=== PATIENT | male | born 1935 | race Caucasian/White ===

== ENCOUNTER → 2017-10-15 11:19 | Outpatient (CLI) | payer MEDICARE, SELFPAY ==
--- NOTE | 2017-10-15 11:19 | DT_ITS ---
This patient was seen during an EMR downtime October 13, 2017 - October 20, 2017. This patient may have a combination of paper and electronic documentation or all paper documentation. All documentation is viewable within the e-chart portion of [facility] for each patient visit.
== END ==
PROVIDERS: Family Provider Internal Medicine; PCP Internal Medicine; Visit Provider Internal Medicine
DX: I10 Essential (primary) hypertension (principal); E78.00 Pure hypercholesterolemia, unspecified; Z79.899 Other long term (current) drug therapy

== ENCOUNTER → 2017-10-21 07:47 | Outpatient (CLI) | payer MEDICARE, SELFPAY ==
[2017-10-21 09:37] LABS: Hematocrit 40.8 % (40-54); Hemoglobin 13.6 g/dl (13.0-16.5); Mean Corp Hgb Conc 33.3 g/gl (32-36); Mean Corpuscular Hgb 32.7 pg (27.0-32.0); Mean Corpuscular Volume 98.1 fL (80-94); Mean Platelet Vol. 9.3 fl (6.2-12.0); Platelet Count 262 K/mm3 (150-450); RBC Distribution Width CV 13.5 % (11.6-14.6); RBC Distribution Width SD 48.3 fl (35.1-43.9); Red Blood Count 4.16 M/mm3 (4.6-6.2); Scan Indicated on CBC? Y/N NO; White Blood Count 4.9 K/mm3 (4.4-11.0)
[2017-10-21 10:31] LABS: ALB/GLOB Ratio 0.9 RATIO (0.9-2.4); AST(SGOT) 20 U/L (15-37); Alanine Aminotransfer ALT/SGPT 21 U/L (16-61); Albumin, Serum 3.4 g/dL (3.2-5.0); Alkaline Phosphatase 58 U/L (45-117); Anion Gap 9 (5-15); BUN 6 mg/dL (7-18); BUN/Creat Ratio 7.6 RATIO (10-20); Calcium,Total 8.4 mg/dL (8.5-10.1); Chloride 99 mmol/L (98-107); Cholesterol 211 mg/dL (200); Creatinine, Serum 0.79 mg/dL (0.70-1.30); EST Glomerular Filtration Rate 99 mL/min (>60); Est Glom Filt Rate - Afr Amer 120 mL/min (>60); Globulin 3.7 g/dL (2.2-4.2); Glucose 85 mg/dL (74-106); High Density Lipoprotein 64 mg/dL; Protein, Total 7.1 g/dL (6.4-8.2); Sodium Level 138 mmol/L (136-145); Triglycerides 143 mg/dL; Very Low Density Lipoprotein 29 mg/dL (5-40)
== END ==
PROVIDERS: Family Provider Internal Medicine; PCP Internal Medicine; Visit Provider Internal Medicine
DX: I10 Essential (primary) hypertension (principal); E78.00 Pure hypercholesterolemia, unspecified; Z79.899 Other long term (current) drug therapy
CPT/HCPCS: 36415; 80053; 80061; 85027

== ENCOUNTER → 2018-04-24 11:02 | Outpatient (CLI) | payer MEDICARE, SELFPAY ==
[2018-04-24 13:50] LABS: Anion Gap 8 (5-15); BUN 6 mg/dL (7-18); BUN/Creat Ratio 8.4 RATIO (10-20); Calcium,Total 8.7 mg/dL (8.5-10.1); Chloride 97 mmol/L (98-107); Creatinine, Serum 0.71 mg/dL (0.70-1.30); EST Glomerular Filtration Rate 112 mL/min (>60); Est Glom Filt Rate - Afr Amer 136 mL/min (>60); Glucose 90 mg/dL (74-106); Potassium 4.3 mmol/L (3.5-5.1); Sodium Level 134 mmol/L (136-145)
--- OUTSIDE RECORDS SUMMARY | 2018-06-10 03:48 | XMS RPT_ITS ---
:1935 Author Organization OHIP Care Team Providers Name Role Phone TALAMPAS, ORALIA D Attending Unavailable TALAMPAS, ORALIA D Referring Unavailable YI, CYNDI (ARMORED MACHINE OPERATOR) Attending Unavailable YI, CYNDI (ARMORED MACHINE OPERATOR) Attending Unavailable YI, CYNDI (ARMORED MACHINE OPERATOR) Referring Unavailable HENRRY FERNCH Attending Unavailable YI, CYNDI (ARMORED MACHINE OPERATOR) Referring Unavailable YI, CYNDI (ARMORED MACHINE OPERATOR) Attending Unavailable YI, CYNDI (ARMORED MACHINE OPERATOR) Referring Unavailable TALAMPAS, ORALIA D Attending Unavailable YI, CYNDI (ARMORED MACHINE OPERATOR) Referring Unavailable Talampas, Oralia Attending Unavailable Talampas, Oralia Referring Unavailable Talampas, Oralia Primary Care Unavailable Talampas, Oralia Attending Unavailable Talampas, Oralia Referring Unavailable Talampas, Oralia Primary Care Unavailable Talampas, Oralia Attending Unavailable Talampas, Oralia Referring Unavailable Talampas, Oralia Primary Care Unavailable PROBLEMS PROBLEMS DATE TYPE CONDITION / CODE ATTENDING STATUS SOURCE 04/24/2018 Unknown Z79.899 - Other Talampas, Oralia Active [facility] (current) Community drug therapy [facility] Hospital Z79.899(ICD-10) Repository 04/24/2018 Unknown I10 - Essential Oralia Eason Active [place] (primary) [facility] hypertension / Hospital I10(ICD-10) Repository 02/03/2018 Active Other fecal NA Active [facility] abnormalities / [facility] [place] R19.5(ICD-10) Repository 10/28/2017 Active Unknown / ORALIA EASON Active [facility] UNK(Unknown) D Main [place] Repository 11/05/2017 Unknown E78.00 - Pure Oralia Eason Active [place] hypercholesterolemi Community a, unspecified / Hospital E78.00(ICD-10) Repository PROCEDURES PROCEDURES No Procedure Records FoundRESULTS RESULTS PROGRESS Observed: 05/01/2018 Status: COMPLETED Source: [place] 12:29 PM [facility] REPOSITORY HNO ID: [id number] Author: Oralia Franko Eason Service: (none) Author Type: Physician Type: Progress Notes Filed: 05/24/2018 10:14 PM Note Text: Patient presents with: Recheck: Follow up SUBJECTIVE: Burke Mukherjee is a 82 year old year old gentleman here today for 6 month follow up appointment for review of medical conditions. Depression is better with med change plus counseling. Saw Dr. French. Told to try melatonin. 5 mg helping for sleep. Working on increasing motivation to do things liked to do before. Started back to reading. Cut out coffee. Drinking 1 cup green tea. Bladder issues better. Did not need cardura. Off clonazepam. BCC taken care of yesterday in left occipital area.Dr. Chong Goldsmith, [facility]. (Dr. Quiana Goldsmith) is his Eye doctor. 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 Zxkwoacdpzv-Zpwiwaivu-Eue C-Mn (GLUCOSAMINE CHONDROITIN MAXSTR) 500-400 mg cap Take 1 capsule by mouth twice daily. lisinopril (ZESTRIL, PRINIVIL) 10 mg tablet TAKE ONE TABLET BY MOUTH DAILY MULTIVITAMIN TAB Take one(1) tablet daily. omega-3 fatty acids(FISH OIL 500 MG CAP) Take one(1) capsule daily. sertraline (ZOLOFT) 100 mg tablet Take 1 tablet by mouth once daily. vit C,P-Zy-ouaau-lutein-zeaxan (PRESERVISION AREDS 2) 761-808-90-1 mk-dboz-id-mg cap Take 2 capsules by mouth once daily. COMPOUNDED PRESCRIPTION Lab order: CMP, CBC, lipid Diagnoses: I10, Z79.899, E78.00 (Patient not taking: Reported on 05/01/2018 ) COMPOUNDED PRESCRIPTION Lab draw: BMP, Vitamin D25-OH Diagnoses: (I10) Essential hypertension; Z79.899. (R79.98) Low serum calcium (Patient not taking: Reported on 05/01/2018 ) doxazosin (CARDURA) 1 mg tablet Take 1 tablet by mouth once daily. (Patient not taking: Reported on 05/01/2018 ) No current facility-administered medications for this visit. OBJECTIVE: BP 142/82 Pulse 60 Resp 16 Wt 63.5 kg (140 lb) BMI 21.29 kg/m? Patient is alert, oriented times 3, no apparent distress, affect is bright, reactive. Last 5 Encounter BP Readings: Date: BP: 05/01/2018 142/82 02/24/2018 130/84 01/27/2018 122/80 01/05/2018 120/82 10/28/2017 130/80 Heart: Regular rate, rhythm, no murmurs, gallops, rubs. Lungs: Clear to auscultation, bilaterally, breathing non labored. Ext: No cyanosis, clubbing, or edema. ASSESSMENT AND PLAN: Encounter Diagnosis ICD-10-CM 1. Essential hypertension I10 sertraline (ZOLOFT) 100 mg tablet COMP METABOLIC PANEL CBC 2. Recurrent major depressive disorder, in partial remission (HCC) F33.41 improved;will see if higher dose gets him in remission 3. 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 Encounter for long-term current use of medication Z79.899 BP running higher than usual. Expect to improve after gets sleep back on track. Follow up as directed. Adjust meds if not getting back<140/90, ideally <130/80. Will see if melatonin will be adequate for sleep. Further evaluation and treatment as indicated. Glad to be off clonazepam. Depression improved as noted in HPI. Continue current medication management and follow up with Dr. French. Further evaluation and treatment as indicated. Above issues addressed with patient. Patient involved in shared decision making for management of medical issues. History and medications reviewed. Epic updated as needed Refills taken care of and meds adjusted as indicated after reviewed history, exam and labs. Health Maintenance reviewed. Updated record and/or ordered tests as recorded. Encouraged on efforts at healthy diet and regular exercise and adequate sleep. The majority of the visit was spent counseling and/or coordinating care for the patient. Ezer-lg-rwdq time was at least 15 minutes. Oralia Eason MD CNOV Observed: 05/01/2018 Status: COMPLETED Source: [place] 11:40 AM [facility] REPOSITORY Office Visit (INTMWS) BURKE MUKHERJEE ([id number]) 1935 M Date Time Provider Department 05/01/18 11:40 AM ORALIA EASON INTMWS During your visit today, we recorded the following information about you: Pulse Respiration Blood pressure Weight 60/minute 16/minute 142/82 63.5 kg Oralia Eason MD 05/24/2018 10:14 PM Signed Patient presents with: Recheck: Follow up SUBJECTIVE: Burke Mukherjee is a 82 year old year old gentleman here today for 6 month follow up appointment for review of medical conditions. Depression is better with med change plus counseling. Saw Dr. French. Told to try melatonin. 5 mg helping for sleep. Working on increasing motivation to do things liked to do before. Started back to reading. Cut out coffee. Drinking 1 cup green tea. Bladder issues better. Did not need cardura. Off clonazepam. BCC taken care of yesterday in left occipital area.Dr. Chong Goldsmith, [facility]. (Dr. Quiana Goldsmith) is his Eye doctor. 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 Ucvovozzhes-Cxxufgzha-Pac C-Mn (GLUCOSAMINE CHONDROITIN MAXSTR) 500-400 mg cap Take 1 capsule by mouth twice daily. lisinopril (ZESTRIL, PRINIVIL) 10 mg tablet TAKE ONE TABLET BY MOUTH DAILY MULTIVITAMIN TAB Take one(1) tablet daily. omega-3 fatty acids(FISH OIL 500 MG CAP) Take one(1) capsule daily. sertraline (ZOLOFT) 100 mg tablet Take 1 tablet by mouth once daily. vit C,Y-Kh-vemkb-lutein-zeaxan (PRESERVISION AREDS 2) 897-325-31-1 nf-docl-bh-mg cap Take 2 capsules by mouth once daily. COMPOUNDED PRESCRIPTION Lab order: CMP, CBC, lipid Diagnoses: I10, Z79.899, E78.00 (Patient not taking: Reported on 05/01/2018 ) COMPOUNDED PRESCRIPTION Lab draw: BMP, Vitamin D25-OH Diagnoses: (I10) Essential hypertension; Z79.899. (R79.98) Low serum calcium (Patient not taking: Reported on 05/01/2018 ) doxazosin (CARDURA) 1 mg tablet Take 1 tablet by mouth once daily. (Patient not taking: Reported on 05/01/2018 ) No current facility-administered medications for this visit. OBJECTIVE: BP 142/82 Pulse 60 Resp 16 Wt 63.5 kg (140 lb) BMI 21.29 kg/m? Patient is alert, oriented times 3, no apparent distress, affect is bright, reactive. Last 5 Encounter BP Readings: Date: BP: 05/01/2018 142/82 02/24/2018 130/84 01/27/2018 122/80 01/05/2018 120/82 10/28/2017 130/80 Heart: Regular rate, rhythm, no murmurs, gallops, rubs. Lungs: Clear to auscultation, bilaterally, breathing non labored. Ext: No cyanosis, clubbing, or edema. ASSESSMENT AND PLAN: Encounter Diagnosis ICD-10-CM 1. Essential hypertension I10 sertraline (ZOLOFT) 100 mg tablet COMP METABOLIC PANEL CBC 2. Recurrent major depressive disorder, in partial remission (HCC) F33.41 improved;will see if higher dose gets him in remission 3. 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 Encounter for long-term current use of medication Z79.899 BP running higher than usual. Expect to improve after gets sleep back on track. Follow up as directed. Adjust meds if not getting back<140/90, ideally <130/80. Will see if melatonin will be adequate for sleep. Further evaluation and treatment as indicated. Glad to be off clonazepam. Depression improved as noted in HPI. Continue current medication management and follow up with Dr. French. Further evaluation and treatment as indicated. Above issues addressed with patient. Patient involved in shared decision making for management of medical issues. History and medications reviewed. Epic updated as needed Refills taken care of and meds adjusted as indicated after reviewed history, exam and labs. Health Maintenance reviewed. Updated record and/or ordered tests as recorded. Encouraged on efforts at healthy diet and regular exercise and adequate sleep. The majority of the visit was spent counseling and/or coordinating care for the patient. Rbmb-dq-fkax time was at least 15 minutes. Oralia Eason MD Referring Provider: CYNDI YI (ARMORED MACHINE OPERATOR) [[id number]] Allergies As of Date: 05/01/2018 (No Known Allergies) Date Reviewed: 05/01/2018 Reviewed by: Sepideh Baker LPN - Fully Assessed Reason for Visit: Recheck [92] Cmt: Follow up Primary Visit Diagnosis:Essential hypertension [I10] Other Visit Diagnoses:Recurrent major depressive disorder, in partial remission (HCC) [F33.41] Comment:improved;will see if higher dose gets him in remission Psychophysiological insomnia [F51.04] Encounter for long-term current use of medication [Z79.899] Order(s):sertraline (ZOLOFT) 100 mg tabletTake 1.5 tablets by mouth once daily.Disp: 45 tabletRfl: 5 COMP METABOLIC PANEL [SQCMP] Order #: [id number] [facility] Order #: [id number] FUTURE Prescriptions as of 05/01/2018 Sig: SERTRALINE 100 MG TABLET Take 1.5 tablets by mouth onc* LISINOPRIL 10 MG TABLET TAKE ONE TABLET BY MOUTH DAILY ATENOLOL 25 MG TABLET TAKE ONE TABLET BY MOUTH DAILY GABAPENTIN 600 MG TABLET Take 1 tablet by mouth daily * VIT C 250 MG-E 200 UNIT-ZINC * Take 2 capsules by mouth once* * IUEIAGKDNPU-XIOUOXXUN-QEC C-M* Take 1 capsule by mouth twice* * FISH OIL 500 MG CAPSULE Take one(1) capsule daily. * MULTIVITAMIN TABLET Take one(1) tablet daily. COMPOUNDED PRESCRIPTION Lab draw: BMP, Vitamin D25-O* Patient not taking: Reported on 05/01/2018 COMPOUNDED PRESCRIPTION Lab order: CMP, CBC, lipid * Patient not taking: Reported on 05/01/2018 Medication notes this encounter DOXAZOSIN 1 MG TABLET >> Oralia Eason MD 05/01/2018 12:37 PM did not start CLONAZEPAM 0.5 MG TABLET >> Oralia Eason MD 05/01/2018 12:35 PM weaned off Problem List As Of Date 05/01/2018 Noted Resolved Recurrent major depressive disorder, in partial*INVALID FOR* Pure hypercholesterolemia [E78.00] INVALID FOR*05/01/2018 NONSPECIF SKIN ERUPT NEC [R21] INVALID FOR* Carpal Tunnel Syndrome [G56.00] INVALID FOR* Essential hypertension [I10] INVALID FOR* Actinic Keratosis (Premaligant AK) [L57.0] INVALID FOR* Neoplasm Uncertain Behavior(NUB) of Skin: R/O *INVALID FOR* 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 Medications Discontinued During This Encounter sertraline (ZOLOFT) 100 mg tablet 30 t* 5 02/24/2018 05/01/2018 Route: ORAL Sig: Take 1 tablet by mouth once daily. Disc: Reason for discontinue is not on file. clonazePAM (KLONOPIN) 0.5 mg tablet 60 t* 5 10/28/2017 05/01/2018 Class: Print RX Route: ORAL Sig: Take 1 tablet by mouth twice daily for 180 days. Disc: Reason for discontinue is not on file. doxazosin (CARDURA) 1 mg tablet 30 t* 2 01/01/2018 05/01/2018 Route: ORAL Sig: Take 1 tablet by mouth once daily. Patient not taking: Reported on 05/01/2018 Disc: Reason for discontinue is not on file. Disposition: Return in about 6 months (around 10/30/2018) for 6 months follow up. Follow-up and Disposition History Recorded Encounter Status:Closed by ORALIA EASON MD on 05/24/18 BASIC METABOLIC Collected: 04/24/2018 Status: F Source: [facility]) 11:18 AM [facility] REPOSITORY TYPE CODE TESTS RESULT OUT OF RANGE REFERENCE UNITS LAB L501.0100 74-106 mg/dL Normal GLU 90 Result Comment: Please note revised GLUCOSE reference range effective 2017. LAB L501.1000 7-18 mg/dL Low BUN 6 LAB L501.1100 0.70-1.30 mg/dL Normal CREAT,SERUM 0.71 Result Comment: The validity of the calculated GFR AND GFRAA in patients over 70 years has not been determined. Clinical correlation is essential. LAB L501.1110 >60 mL/min Normal EST GFR 112 Result Comment: Non- GFR Calc LAB L501.1115 >60 mL/min Normal EST GFR - AA 136 Result Comment: GFR Calc LAB L501.1300 10-20 RATIO Low BUN/CRE 8.4 LAB L501.2200 8.5-10.1 mg/dL Normal CA 8.7 LAB L501.5300 136-145 mmol/L Low NA 134 LAB L501.5600 3.5-5.1 mmol/L Normal K 4.3 LAB L501.5900 98-107 mmol/L Low CL 97 LAB L501.6100 21.0-32.0 mmol/L Normal CO2 29.0 LAB L501.6200 5-15 Normal GAP 8 Performed By: #### L500.2500 #### [facility] [address] [place], [address] [facility] Observed: 04/14/2018 Status: COMPLETED Source: [place] 12:00 AM [facility] REPOSITORY Patient Outreach (INTMWH) BURKE MUKHERJEE ([id number]) 1935 M Date Time Provider Department 04/14/18 ORALIA EASON [facility] During your visit today, we recorded the following information about you: Allergies As of Date: 04/14/2018 (No Known Allergies) Date Reviewed: 02/24/2018 Reviewed by: Leonora Arroyo LPN - Fully Assessed Visit Diagnosis:Medication management [Z79.899] Order(s):BASIC METABOLIC PNL [SQBMP] Order #: [id number] FUTURE Prescriptions as of 04/14/2018 Sig: COMPOUNDED PRESCRIPTION Lab order: CMP, CBC, lipid * Patient not taking: Reported on 05/01/2018 COMPOUNDED PRESCRIPTION Lab draw: BMP, Vitamin D25-O* Patient not taking: Reported on 05/01/2018 * MSTCBRPQMMN-OSYXRLRUT-MUQ C-M* Take 1 capsule by mouth twice* * MULTIVITAMIN TABLET Take one(1) tablet daily. * FISH OIL 500 MG CAPSULE Take one(1) capsule daily. VIT C 250 MG-E 200 UNIT-ZINC * Take 2 capsules by mouth once* X ATENOLOL 25 MG TABLET Take 1 tablet by mouth once d* X CLONAZEPAM 0.5 MG TABLET Take 1 tablet by mouth twice * X DOXAZOSIN 1 MG TABLET Take 1 tablet by mouth once d* Patient not taking: Reported on 05/01/2018 X GABAPENTIN 600 MG TABLET Take 1 tablet by mouth daily * X LISINOPRIL 10 MG TABLET Take 1 tablet by mouth once d* X SERTRALINE 100 MG TABLET Take 1 tablet by mouth once d* Problem List As Of Date 04/14/2018 Noted Resolved DEPRESSIVE DISORDER NEC [F32.9] INVALID FOR* PURE HYPERCHOLESTEROLEM [E78.00] INVALID FOR* NONSPECIF SKIN ERUPT NEC [R21] INVALID FOR* Carpal Tunnel Syndrome [G56.00] INVALID FOR* Essential hypertension [I10] INVALID FOR* Actinic Keratosis (Premaligant AK) [L57.0] INVALID FOR* Neoplasm Uncertain Behavior(NUB) of Skin: R/O *INVALID FOR* 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] INVALID FOR* Actinic Damage///Sun-Damaged Skin [L57.8] INVALID FOR* Cervicalgia [M54.2] INVALID FOR* Encounter Status:Closed by TAWANDA RODRIGUEZUSER on 05/07/18 CNOV Observed: 02/24/2018 Status: COMPLETED Source: [place] 1:40 PM [facility] REPOSITORY Office Visit (INTMWS) BURKE MUKHERJEE ([id number]) 1935 M Date Time Provider Department 02/24/18 1:40 PM CYNDI YI (DAVID) INTMWS During your visit today, we recorded the following information about you: Pulse Respiration Blood pressure Weight 68/minute 16/minute 130/84 67.1 kg Cyndi Yi APRN.CNS 02/26/2018 7:21 AM Signed OUTPATIENT VISIT DATE February 24, 2018 OUTPATIENT VISIT TYPE ESTABLISHED PRIMARY CARE PHYSICIAN: Oarlia Eason MD CHIEF COMPLAINT: Patient presents with: Follow Up History of Present Illness: Burke Mukherjee is a 82 year old male who was last seen 10/2017 by Oralia Eason MD. Last seen in January 05, 2018 He has been seen in the past for ACTIVE PROBLEM LIST Depressive Disorder, Not Elsewhere Classified Pure Hypercholesterolemia Rash and Other Nonspecific Skin Eruption Carpal Tunnel Syndrome Essential Hypertension Actinic Keratosis (Premaligant AK) Neoplasm Uncertain Behavior(NUB) of Skin: R/O BCC of R face mid postlat cheek Chondrodermatitis Nodularis Helicis Actinic Damage///Sun-Damaged Skin Cervicalgia HPI excerpted from last visit: Presents with his today. It is his 63rd anniversary today. Since the last visit, he states that he is feeling depressed. Mood is decreased. He reports over the last 2 weeks nearly every day he's had little interest or pleasure in doing things, feeling down and depressed or hopeless, trouble falling asleep or sleeping too much, feeling tired or having little energy, poor appetite, feeling bad about himself, trouble concentrating and thoughts that he would be better off or hurting himself. No voiced HI or SI. Has been taking medications previously advised.Has only taken one day of medication for BPH symptoms on Friday. Today reports he is taking melatonin for sleep which is finding helpful. He would like to switch from duloxetine to sertraline. Reports sertraline is working well for him the past. Symptoms are about the same as at his last visit. He's been seen by Dr. French recommended some exchange. He has been discharged for now follow-up as needed. He has noted a swelling at his left elbow over the last couple of days. No injury, redness, warmth is present. No drainage. No recent hospital or ED visits. No new medical problems or medications. Able to obtain medications. No problems with taking medications or note side effects. 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[place]) - Carpal tunnel syndrome - Cervicalgia 02/10/2012 - Decreased hearing has bilateral hearing aids - Depressive disorder, not elsewhere classified - Diverticulosis of colon (without mention of hemorrhage) PAST SURGICAL HISTORY Procedure Laterality Date - COLONOSCOP W/ OR W/O [email or web address] SPEC 04/01/2012 Colonoscopy - COLONOSCOPY 09/20/1998, 11/01/2003 FAMILY HISTORY Problem Relation Age of Onset - Colon Cancer Mother - Coronary Artery Disease Father CABG after 55yo; no OK Social History Substance Use Topics - Smoking status: Former Smoker Types: Cigars Quit date: 05/12/1995 - Smokeless tobacco: Never Used Comment: passive cigar smoker that quit. - Alcohol use Yes Comment: couple of beers a day and one mixed drink after supper. ALLERGIES: ALLERGIES No Known Allergies MEDICATIONS doxazosin (CARDURA) 1 mg tablet Take 1 tablet by mouth once daily. clonazePAM (KLONOPIN) 0.5 mg tablet Take 1 tablet by mouth twice daily for 180 days. COMPOUNDED PRESCRIPTION Lab draw: BMP, Vitamin D25-OH Diagnoses: (I10) Essential hypertension; Z79.899. (R79.98) Low serum calcium gabapentin (NEURONTIN) 600 mg tablet Take 1 tablet by mouth daily at bedtime. lisinopril (ZESTRIL, PRINIVIL) 10 mg tablet Take 1 tablet by mouth once daily. atenolol (TENORMIN) 25 mg tablet Take 1 tablet by mouth once daily. COMPOUNDED PRESCRIPTION Lab order: CMP, CBC, lipid Diagnoses: I10, Z79.899, E78.00 vit C,M-Il-ufyon-lutein-zeaxan (PRESERVISION AREDS 2) 524-989-06-1 tz-bmyd-ch-mg cap Take 2 capsules by mouth once daily. Vwxbriazenq-Ceyxtblst-Oxr C-Mn (GLUCOSAMINE CHONDROITIN MAXSTR) 500-400 mg cap Take 1 capsule by mouth twice daily. omega-3 fatty acids(FISH OIL 500 MG CAP) Take one(1) capsule daily. MULTIVITAMIN TAB Take one(1) tablet daily. sertraline (ZOLOFT) 100 mg tablet Take 1 tablet by mouth once daily. celecoxib (CELEBREX) 200 mg capsule Take 1 capsule by mouth twice daily. Take with food. For elbow REVIEW OF SYSTEMS: GENERAL: Negative for: Weight loss or gain, Fever or Chills, Weakness and Sleep difficulties. Physical Examination: BP 130/84 Pulse 68 Resp 16 Wt 148 lb (67.1kg) General appearance: Well appearing, alert, in no acute distress, well-hydrated, well nourished. Skin: Skin color, texture, turgor normal, no suspicious rashes or lesions Neuro: Gait normal. . Sensation grossly intact. Extremities: No deformities, edema, skin discoloration, clubbing or cyanosis. Good capillary refill. , Positive findings: joint location: on left elbow bursitis, Tenderness over lateral epicondyle on left Reviewed chart, outside records, tests I personally interviewed, confirmed and edited the above information if obtained by others. TESTING: Glucose Date Value 10/21/2017 85 10/12/2015 Test sent to [facility]. mg/dL Potassium (mmol/L) Date Value 10/12/2015 Test sent to [facility]. Sodium (mmol/L) Date Value 10/12/2015 Test sent to [facility]. Chloride (mmol/L) Date Value 10/12/2015 Test sent to [facility]. CO2 (mmol/L) Date Value 10/12/2015 Test sent to [facility]. Creatinine (mg/dL) Date Value 10/12/2015 Test sent to [facility]. BUN (mg/dL) Date Value 10/12/2015 Test sent to [facility]. Anion Gap (mmol/L) Date Value 10/12/2015 Test sent to [facility]. Calcium (mg/dL) Date Value 10/12/2015 Test sent to [facility]. Glucose Date Value 10/21/2017 85 10/12/2015 Test sent to [facility]. mg/dL Potassium (mmol/L) Date Value 10/12/2015 Test sent to [facility]. Sodium (mmol/L) Date Value 10/12/2015 Test sent to [facility]. Chloride (mmol/L) Date Value 10/12/2015 Test sent to [facility]. CO2 (mmol/L) Date Value 10/12/2015 Test sent to [facility]. Creatinine (mg/dL) Date Value 10/12/2015 Test sent to [facility]. BUN (mg/dL) Date Value 10/12/2015 Test sent to [facility]. Anion Gap (mmol/L) Date Value 10/12/2015 Test sent to [facility]. Calcium (mg/dL) Date Value 10/12/2015 Test sent to [facility]. No results found for: HB, HCT, WBC Cholesterol, Total (mg/dL) Date Value 10/12/2015 Test sent to [facility]. Cholesterol (no units) Date Value 10/21/2017 211 HDL Cholesterol Date Value 10/21/2017 64 10/12/2015 Test sent to [facility]. mg/dL LDL Cholesterol Date Value 10/21/2017 118 10/12/2015 Test sent to [facility]. mg/dL Triglyceride Date Value 10/21/2017 143 10/12/2015 [facility] [facility] mg/dL No results found for: HBA1C Ejection Fraction: No results found IMPRESSION: Mr. Mukherjee is a 82 year old man presents with depressed mood. Would like to change all medications, previously did well with sertraline. After my examination and review of data, I make the following recommendations. PLAN AND RECOMMENDATIONS: 1. Olecranon bursitis of left elbow - ICD9: 726.33, ICD10: M70.22 (primary diagnosis) Take celecoxib twice daily with food for elbow Protect elbow, place on pillow when seated. Make appointment with orthopedic physician. - CONSULT TO ORTHOPAEDICS 2. Anxiety and depression - ICD9: 300.00, 311, ICD10: F41.9, F32.9 Discontinue duloxetine Start taking sertraline 3. Sleep difficulties - ICD9: 780.50, ICD10: G47.9 Continue with melatonin at bedtime, has been taking OTC, not sure of dose, is helping Call and let us know if not feeling well with any of these changes Keep scheduled appointment with Oralia Eason MD Advised to go to ER if develops chest pain, shortness of breath, or severe worsening of symptoms. Discussed risks, benefits, alternatives, and potential side effects of medications. Mr. Mukherjee expressed understanding and agreed with the plan. Cyndi Yi APRN.ARMORED MACHINE OPERATOR Cyndi Yi APRN.ARMORED MACHINE OPERATOR 02/24/2018 2:14 PM Signed Discontinue duloxetine Start taking sertraline Take celecoxib twice daily with food for elbow Protect elbow, place on pillow when seated. Make appointment with orthopedic physician. Call and let us know if not feeling well with any of these changes Keep scheduled appointment with Oralia Eason MD Referring Provider: CYNDI YI ([facility]) [[id number]] Allergies As of Date: 02/24/2018 (No Known Allergies) Date Reviewed: 02/24/2018 Reviewed by: Leonora Arroyo LPN - Fully Assessed Reason for Visit: Follow Up [171] Primary Visit Diagnosis:Olecranon bursitis of left elbow [M70.22] Other Visit Diagnoses:Anxiety and depression [F41.9, F32.9] Sleep difficulties [G47.9] Order(s):sertraline (ZOLOFT) 100 mg tabletTake 1 tablet by mouth once daily.Disp: 30 tabletRfl: 5 celecoxib (CELEBREX) 200 mg capsuleTake 1 capsule by mouth twice daily. Take with food. For elbowDisp: 60 capsuleRfl: 0 CONSULT TO ORTHOPAEDICS [9026] Order #: [id number]: 1 Prescriptions as of 02/24/2018 Sig: DOXAZOSIN 1 MG TABLET Take 1 tablet by mouth once d* CLONAZEPAM 0.5 MG TABLET Take 1 tablet by mouth twice * COMPOUNDED PRESCRIPTION Lab draw: BMP, Vitamin D25-O* GABAPENTIN 600 MG TABLET Take 1 tablet by mouth daily * LISINOPRIL 10 MG TABLET Take 1 tablet by mouth once d* ATENOLOL 25 MG TABLET Take 1 tablet by mouth once d* COMPOUNDED PRESCRIPTION Lab order: CMP, CBC, lipid * VIT C 250 MG-E 200 UNIT-ZINC * Take 2 capsules by mouth once* * QIIMSGUGIRV-DOZZSHQNL-HWB C-M* Take 1 capsule by mouth twice* * FISH OIL 500 MG CAPSULE Take one(1) capsule daily. * MULTIVITAMIN TABLET Take one(1) tablet daily. 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 Make appointment with orthopedic physician. Call and let us know if not feeling well with any of these changes Keep scheduled appointment with Oralia Eason MD Prescriptions ordered this encounter Disp Refills Start End SERTRALINE 100 MG TABLET 30 t* 5 02/24/2018 08/23/2018 Route: ORAL Sig: Take 1 tablet by mouth once daily. CELECOXIB 200 MG CAPSULE 60 c* 0 02/24/2018 03/26/2018 Route: ORAL Sig: Take 1 capsule by mouth twice daily. Take with food. For elbow Medications Discontinued During This Encounter DULoxetine (CYMBALTA) 30 mg capsule 30 c* 2 01/27/2018 02/24/2018 Route: ORAL Sig: Take 1 capsule by mouth once daily. Take in addition to 60 mg capsule for a total of 90 mg daily Disc: Reason for discontinue is not on file. DULoxetine (CYMBALTA) 60 mg capsule 30 c* 11 04/15/2017 02/24/2018 Route: ORAL Sig: Take 1 capsule by mouth once daily. Disc: Reason for discontinue is not on file. Encounter Status:Closed by CYNDI SALOMON on 02/26/18 PROGRESS Observed: 02/24/2018 Status: COMPLETED Source: [place] 12:56 PM CLINIC [facility]IN [facility] REPOSITORY O ID: [id number] Author: Cyndi Yi ([place]) Service: (none) Author Type: Nurse Specialist Type: Progress Notes Filed: 02/26/2018 7:21 AM Note Text: OUTPATIENT VISIT DATE February 24, 2018 OUTPATIENT VISIT TYPE ESTABLISHED PRIMARY CARE PHYSICIAN: Oralia Eason MD CHIEF COMPLAINT: Patient presents with: Follow Up History of Present Illness: Burke Mukherjee is a 82 year old male who was last seen 10/2017 by Oralia Eason MD. Last seen in January 05, 2018 He has been seen in the past for ACTIVE PROBLEM LIST Depressive Disorder, Not Elsewhere Classified Pure Hypercholesterolemia Rash and Other Nonspecific Skin Eruption Carpal Tunnel Syndrome Essential Hypertension Actinic Keratosis (Premaligant AK) Neoplasm Uncertain Behavior(NUB) of Skin: R/O BCC of R face mid postlat cheek Chondrodermatitis Nodularis Helicis Actinic Damage///Sun-Damaged Skin Cervicalgia HPI excerpted from last visit: Presents with his today. It is his 63rd anniversary today. Since the last visit, he states that he is feeling depressed. Mood is decreased. He reports over the last 2 weeks nearly every day he's had little interest or pleasure in doing things, feeling down and depressed or hopeless, trouble falling asleep or sleeping too much, feeling tired or having little energy, poor appetite, feeling bad about himself, trouble concentrating and thoughts that he would be better off or hurting himself. No voiced HI or SI. Has been taking medications previously advised.Has only taken one day of medication for BPH symptoms on Friday. Today reports he is taking melatonin for sleep which is finding helpful. He would like to switch from duloxetine to sertraline. Reports sertraline is working well for him the past. Symptoms are about the same as at his last visit. He's been seen by Dr. French recommended some exchange. He has been discharged for now follow-up as needed. He has noted a swelling at his left elbow over the last couple of days. No injury, redness, warmth is present. No drainage. No recent hospital or ED visits. No new medical problems or medications. Able to obtain medications. No problems with taking medications or note side effects. 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[place]) - Carpal tunnel syndrome - Cervicalgia 02/10/2012 - Decreased hearing has bilateral hearing aids - Depressive disorder, not elsewhere classified - Diverticulosis of colon (without mention of hemorrhage) PAST SURGICAL HISTORY Procedure Laterality Date - COLONOSCOP W/ OR W/O [facility] SPEC 04/01/2012 Colonoscopy - COLONOSCOPY 09/20/1998, 11/01/2003 FAMILY HISTORY Problem Relation Age of Onset - Colon Cancer Mother - Coronary Artery Disease Father CABG after 55yo; no [place] Social History Substance Use Topics - Smoking status: Former Smoker Types: Cigars Quit date: 05/12/1995 - Smokeless tobacco: Never Used Comment: passive cigar smoker that quit. - Alcohol use Yes Comment: couple of beers a day and one mixed drink after supper. ALLERGIES: ALLERGIES No Known Allergies MEDICATIONS doxazosin (CARDURA) 1 mg tablet Take 1 tablet by mouth once daily. clonazePAM (KLONOPIN) 0.5 mg tablet Take 1 tablet by mouth twice daily for 180 days. COMPOUNDED PRESCRIPTION Lab draw: BMP, Vitamin D25-OH Diagnoses: (I10) Essential hypertension; Z79.899. (R79.98) Low serum calcium gabapentin (NEURONTIN) 600 mg tablet Take 1 tablet by mouth daily at bedtime. lisinopril (ZESTRIL, PRINIVIL) 10 mg tablet Take 1 tablet by mouth once daily. atenolol (TENORMIN) 25 mg tablet Take 1 tablet by mouth once daily. COMPOUNDED PRESCRIPTION Lab order: CMP, CBC, lipid Diagnoses: I10, Z79.899, E78.00 vit C,L-Ht-nppua-lutein-zeaxan (PRESERVISION AREDS 2) 261-152-03-1 nc-edpx-jh-mg cap Take 2 capsules by mouth once daily. Jlvcmnjhjkr-Eotmlfxsi-Yvt C-Mn (GLUCOSAMINE CHONDROITIN MAXSTR) 500-400 mg cap Take 1 capsule by mouth twice daily. omega-3 fatty acids(FISH OIL 500 MG CAP) Take one(1) capsule daily. MULTIVITAMIN TAB Take one(1) tablet daily. sertraline (ZOLOFT) 100 mg tablet Take 1 tablet by mouth once daily. celecoxib (CELEBREX) 200 mg capsule Take 1 capsule by mouth twice daily. Take with food. For elbow REVIEW OF SYSTEMS: GENERAL: Negative for: Weight loss or gain, Fever or Chills, Weakness and Sleep difficulties. Physical Examination: BP 130/84 Pulse 68 Resp 16 Wt 148 lb (67.1kg) General appearance: Well appearing, alert, in no acute distress, well-hydrated, well nourished. Skin: Skin color, texture, turgor normal, no suspicious rashes or lesions Neuro: Gait normal. . Sensation grossly intact. Extremities: No deformities, edema, skin discoloration, clubbing or cyanosis. Good capillary refill. , Positive findings: joint location: on left elbow bursitis, Tenderness over lateral epicondyle on left Reviewed chart, outside records, tests I personally interviewed, confirmed and edited the above information if obtained by others. TESTING: Glucose Date Value 10/21/2017 85 10/12/2015 Test sent to [facility]. mg/dL Potassium (mmol/L) Date Value 10/12/2015 Test sent to [facility]. Sodium (mmol/L) Date Value 10/12/2015 Test sent to [facility]. Chloride (mmol/L) Date Value 10/12/2015 Test sent to [facility]. CO2 (mmol/L) Date Value 10/12/2015 Test sent to [facility]. Creatinine (mg/dL) Date Value 10/12/2015 Test sent to [facility]. BUN (mg/dL) Date Value 10/12/2015 Test sent to [facility]. Anion Gap (mmol/L) Date Value 10/12/2015 Test sent to [facility]. Calcium (mg/dL) Date Value 10/12/2015 Test sent to [facility]. Glucose Date Value 10/21/2017 85 10/12/2015 Test sent to [facility]. mg/dL Potassium (mmol/L) Date Value 10/12/2015 Test sent to [facility]. Sodium (mmol/L) Date Value 10/12/2015 Test sent to [facility]. Chloride (mmol/L) Date Value 10/12/2015 Test sent to [facility]. CO2 (mmol/L) Date Value 10/12/2015 Test sent to [facility]. Creatinine (mg/dL) Date Value 10/12/2015 Test sent to [facility]. BUN (mg/dL) Date Value 10/12/2015 Test sent to [facility]. Anion Gap (mmol/L) Date Value 10/12/2015 Test sent to [facility]. Calcium (mg/dL) Date Value 10/12/2015 Test sent to [facility]. No results found for: HB, HCT, WBC Cholesterol, Total (mg/dL) Date Value 10/12/2015 Test sent to [facility]. Cholesterol (no units) Date Value 10/21/2017 211 HDL Cholesterol Date Value 10/21/2017 64 10/12/2015 Test sent to [facility]. mg/dL LDL Cholesterol Date Value 10/21/2017 118 10/12/2015 Test sent to [facility]. mg/dL Triglyceride Date Value 10/21/2017 143 10/12/2015 Test sent to [facility]. mg/dL No results found for: HBA1C Ejection Fraction: No results found IMPRESSION: Mr. Mukherjee is a 82 year old man presents with depressed mood. Would like to change all medications, previously did well with sertraline. After my examination and review of data, I make the following recommendations. PLAN AND RECOMMENDATIONS: 1. Olecranon bursitis of left elbow - ICD9: 726.33, ICD10: M70.22 (primary diagnosis) Take celecoxib twice daily with food for elbow Protect elbow, place on pillow when seated. Make appointment with orthopedic physician. - CONSULT TO ORTHOPAEDICS 2. Anxiety and depression - ICD9: 300.00, 311, ICD10: F41.9, F32.9 Discontinue duloxetine Start taking sertraline 3. Sleep difficulties - ICD9: 780.50, ICD10: G47.9 Continue with melatonin at bedtime, has been taking OTC, not sure of dose, is helping Call and let us know if not feeling well with any of these changes Keep scheduled appointment with Oralia Eason MD Advised to go to ER if develops chest pain, shortness of breath, or severe worsening of symptoms. Discussed risks, benefits, alternatives, and potential side effects of medications. Mr. Mukherjee expressed understanding and agreed with the plan. Cyndi Yi APRN.ARMORED MACHINE OPERATOR PROGRESS Observed: 02/13/2018 Status: COMPLETED Source: [place] 3:08 PM [facility] [place] REPOSITORY HNO ID: [id number] Author: Henrry French Service: (none) Author Type: Psychologist Type: Progress Notes Filed: 02/13/2018 3:59 PM Note Text: [facility] Progress Note Burke Mukherjee 02/13/2018 [id number] Provider: Henrry French, PHD CPT Code: 62556 Psychiatric diagnostic evaluation Time: Approximately 50 minutes was spent in therapy. Parties Present: Patient, Spouse Patient Presentation/Concerns: INITIAL VISIT Pt grew up in [place] with younger sister... eventually employed by [employer]... 2 boys and a girl all doing well... Depression worsened in recent years: He has become more sedentary but otherwise ok... some peripheral pain managed by Neurontin... etc. symptoms: not reading and was a voracious reader... poor sleep... fatigue.. reduced appetite... Sleep: poor or uneven... PLAN: suggested melatonin ... check w MEDS: Cymbalta worked then depression increased so upped.. and Welbutrin added but bad side effects Earlier in life when retired he became depressed and Zoloft worked then not needed so stopped PLAN: suggested to ... wonder about trying Zoloft and if that doesnt work.. an atypical like Viibryd Mental Status: Mood: variable, depressed Affect: mood-congruent Thoughts/Associations:goal directed Suicidal/Homicidal Ideation: None expressed or evidenced Other Observations: None Therapy Focus Self-care and Mood/affect regulation MEDICATIONS: Per medical record: Current Outpatient Prescriptions: DULoxetine (CYMBALTA) 30 mg capsule Take 1 capsule by mouth once daily. Take in addition to 60 mg capsule for a total of 90 mg daily doxazosin (CARDURA) 1 mg tablet Take 1 tablet by mouth once daily. clonazePAM (KLONOPIN) 0.5 mg tablet Take 1 tablet by mouth twice daily for 180 days. COMPOUNDED PRESCRIPTION Lab draw: BMP, Vitamin D25-OH Diagnoses: (I10) Essential hypertension; Z79.899. (R79.98) Low serum calcium DULoxetine (CYMBALTA) 60 mg capsule Take 1 capsule by mouth once daily. gabapentin (NEURONTIN) 600 mg tablet Take 1 tablet by mouth daily at bedtime. lisinopril (ZESTRIL, PRINIVIL) 10 mg tablet Take 1 tablet by mouth once daily. atenolol (TENORMIN) 25 mg tablet Take 1 tablet by mouth once daily. COMPOUNDED PRESCRIPTION Lab order: CMP, CBC, lipid Diagnoses: I10, Z79.899, E78.00 vit C,H-Ud-pwcbd-lutein-zeaxan (PRESERVISION AREDS 2) [id number] vw-sfqj-dd-mg cap Take 2 capsules by mouth once daily. Pdhpuzbaykg-Tsvcnyeeu-Ztn C-Mn (GLUCOSAMINE CHONDROITIN MAXSTR) 500-400 mg cap Take 1 capsule by mouth twice daily. omega-3 fatty acids(FISH OIL 500 MG CAP) Take one(1) capsule daily. MULTIVITAMIN TAB Take one(1) tablet daily. No current facility-administered medications for this visit. Psychiatric Medication Issues: as noted DIAGNOSIS: [place] I: Depression,NOS [place] II: deferred [place] III: see med record [place] IV: dysthymia [place] V: 52 Treatment Modality/Interventions: Cognitive Behavioral Reassurance/Supportive Problem solving Psychoeducation TREATMENT ASSESSMENT/PROGRESS: . Progressing satisfactorily. TREATMENT PLAN/GOALS: Continue in therapy focusing on self- care, affect management and self-esteem. Next appointment: as scheduled Henrry French, PHD FECAL OCCULT BLD Collected: 02/02/2018 Status: F Source: [facility] 2:00 PM CLINIC MAIN CAMPUS REPOSITORY TYPE CODE TESTS RESULT OUT OF REFERENCE UNITS RANGE LAB IFO Negative Immuno Negative FOB Result Comment: This test was developed and its performance characteristics determined by [facility] [place] [facility]). It has not been cleared or approved by the FDA. -[facility] is regulated under CLIA as qualified to perform high-complexity testing. This test is used for clinical purposes. It should not be regarded as investigational or for research. Performed By: #### IFOBT #### [facility] [address] [place], [place] [address] PROGRESS Observed: 01/27/2018 Status: COMPLETED Source: [place] 11:10 AM [facility] [place] REPOSITORY HNO ID: [id number] Author: Cyndi (David) Kd Service: (none) Author Type: Nurse Specialist Type: Progress Notes Filed: 01/27/2018 12:16 PM Note Text: OUTPATIENT VISIT DATE January 27, 2018 OUTPATIENT VISIT TYPE ESTABLISHED PRIMARY CARE PHYSICIAN: Oralia Eason MD CHIEF COMPLAINT: Patient presents with: Medication Follow-up History of Present Illness: Burke Mukherjee is a 82 year old male who was last seen 10/2017 by Oralia Eason MD. Last seen in clinic January 05, 2018. He has been seen in the past for ACTIVE PROBLEM LIST Depressive Disorder, Not Elsewhere Classified Pure Hypercholesterolemia Rash and Other Nonspecific Skin Eruption Carpal Tunnel Syndrome Essential Hypertension Actinic Keratosis (Premaligant AK) Neoplasm Uncertain Behavior(NUB) of Skin: R/O BCC of R face mid postlat cheek Chondrodermatitis Nodularis Helicis Actinic Damage///Sun-Damaged Skin Cervicalgia HPI excerpted from last visit: Presents with his today. It is his 63rd anniversary today. Since the last visit, he states that he is feeling depressed. Mood is decreased. He reports over the last 2 weeks nearly every day he's had little interest or pleasure in doing things, feeling down and depressed or hopeless, trouble falling asleep or sleeping too much, feeling tired or having little energy, poor appetite, feeling bad about himself, trouble concentrating and thoughts that he would be better off or hurting himself. No voiced HI or SI. Has been taking medications previously advised.Has only taken one day of medication for BPH symptoms on Friday. At last visit try addition of Wellbutrin to medications. He felt worse with this medication since stopped taking it soon after starting. Presents today with report of decreased mood. Reports he is sleeping all the time. Has been eating less. Appetite is decreased. He would like to try an alternate medication. He has an appointment scheduled for Dr. French in early February. Additionally reports dark stools for a few days now resolved. No addition of iron as far as he knows although was taking a multivitamin. No abdominal pain. No current N/V/D/C, blood in stool or black or tarry stools. Did have some constipation when this occurred which has now resolved. No recent hospital or ED visits. No new medical problems or medications. Able to obtain medications. No problems with taking medications or note side effects. 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[place]) - Carpal tunnel syndrome - Cervicalgia 02/10/2012 - Decreased hearing has bilateral hearing aids - Depressive disorder, not elsewhere classified - Diverticulosis of colon (without mention of hemorrhage) PAST SURGICAL HISTORY Procedure Laterality Date - COLONOSCOP W/ OR W/O [email or web address] SPEC 04/01/2012 Colonoscopy - COLONOSCOPY 09/20/1998, 11/01/2003 FAMILY HISTORY Problem Relation Age of Onset - Colon Cancer Mother - Coronary Artery Disease Father CABG after 55yo; no [place] Social History Substance Use Topics - Smoking status: Former Smoker Types: Cigars Quit date: 05/12/1995 - Smokeless tobacco: Never Used Comment: passive cigar smoker that quit. - Alcohol use Yes Comment: couple of beers a day and one mixed drink after supper. ALLERGIES: ALLERGIES No Known Allergies MEDICATIONS buPROPion XL (WELLBUTRIN XL) 150 mg 24 hr tablet Take 1 tablet by mouth once daily. doxazosin (CARDURA) 1 mg tablet Take 1 tablet by mouth once daily. clonazePAM (KLONOPIN) 0.5 mg tablet Take 1 tablet by mouth twice daily for 180 days. COMPOUNDED PRESCRIPTION Lab draw: BMP, Vitamin D25-OH Diagnoses: (I10) Essential hypertension; Z79.899. (R79.98) Low serum calcium DULoxetine (CYMBALTA) 60 mg capsule Take 1 capsule by mouth once daily. gabapentin (NEURONTIN) 600 mg tablet Take 1 tablet by mouth daily at bedtime. lisinopril (ZESTRIL, PRINIVIL) 10 mg tablet Take 1 tablet by mouth once daily. atenolol (TENORMIN) 25 mg tablet Take 1 tablet by mouth once daily. COMPOUNDED PRESCRIPTION Lab order: CMP, CBC, lipid Diagnoses: I10, Z79.899, E78.00 vit C,W-Uu-uznsb-lutein-zeaxan (PRESERVISION AREDS 2) [id number] gl-fjqy-rm-mg cap Take 2 capsules by mouth once daily. Gqhwlnwlftv-Qvxpkllxq-Yes C-Mn (GLUCOSAMINE CHONDROITIN MAXSTR) 500-400 mg cap Take 1 capsule by mouth twice daily. omega-3 fatty acids(FISH OIL 500 MG CAP) Take one(1) capsule daily. MULTIVITAMIN TAB Take one(1) tablet daily. REVIEW OF SYSTEMS: GENERAL: Negative for: Weight loss or gain, Fever or Chills, Weakness and Sleep difficulties. Physical Examination: BP 122/80 Pulse 60 Resp 16 Wt 140 lb (63.5kg) General appearance: Well appearing, alert, in no acute distress, well-hydrated, well nourished. Skin: Skin color, texture, turgor normal, no suspicious rashes or lesions Neuro: Gait normal. Reflexes normal and symmetric. Sensation grossly intact. Reviewed chart, outside records, tests I personally interviewed, confirmed and edited the above information if obtained by others. TESTING: Glucose Date Value 10/21/2017 85 10/12/2015 Test sent to [facility]. mg/dL Potassium (mmol/L) Date Value 10/12/2015 Test sent to [facility]. Sodium (mmol/L) Date Value 10/12/2015 Test sent to [facility]. Chloride (mmol/L) Date Value 10/12/2015 Test sent to [facility]. CO2 (mmol/L) Date Value 10/12/2015 Test sent to [facility]. Creatinine (mg/dL) Date Value 10/12/2015 Test sent to [facility]. BUN (mg/dL) Date Value 10/12/2015 Test sent to [facility]. Anion Gap (mmol/L) Date Value 10/12/2015 Test sent to [facility]. Calcium (mg/dL) Date Value 10/12/2015 Test sent to [facility]. Glucose Date Value 10/21/2017 85 10/12/2015 Test sent to [facility]. mg/dL Potassium (mmol/L) Date Value 10/12/2015 Test sent to [facility]. Sodium (mmol/L) Date Value 10/12/2015 Test sent to [facility]. Chloride (mmol/L) Date Value 10/12/2015 Test sent to [facility]. CO2 (mmol/L) Date Value 10/12/2015 Test sent to [facility]. Creatinine (mg/dL) Date Value 10/12/2015 Test sent to [facility]. BUN (mg/dL) Date Value 10/12/2015 Test sent to [facility]. Anion Gap (mmol/L) Date Value 10/12/2015 Test sent to [facility]. Calcium (mg/dL) Date Value 10/12/2015 Test sent to [facility]. No results found for: HB, HCT, WBC Cholesterol, Total (mg/dL) Date Value 10/12/2015 Test sent to [facility]. Cholesterol (no units) Date Value 10/21/2017 211 HDL Cholesterol Date Value 10/21/2017 64 10/12/2015 Test sent to [facility]. mg/dL LDL Cholesterol Date Value 10/21/2017 118 10/12/2015 Test sent to [facility]. mg/dL Triglyceride Date Value 10/21/2017 143 10/12/2015 Test sent to [facility]. mg/dL No results found for: HBA1C Ejection Fraction: No results found IMPRESSION: Mr. Mukherjee is a 82 year old man presents with depressed mood. Did not tolerate addition of Wellbutrin. Will increase his dose of fluoxetine. After my examination and review of data, I make the following recommendations. PLAN AND RECOMMENDATIONS: 1. Anxiety and depression - ICD9: 300.00, 311, ICD10: F41.9, F32.9 Increased dose of duloxetine to 90 mg. Take one 60 mg and one 30 mg duloxetine daily If he is feeling unwell with this dosage change return to taking just one 60 mg daily If not feeling up to eating a full meal consider adding one or two protein drinks daily such as boost or ensure or a fruit and / or yogurt based beverage with protein (usually in the produce section of the grocery store) Complete a stool check for blood - CONSULT TO PSYCHOLOGY - appt scheduled for early February, will place on wait list for earlier appt with Dr. French. Advised to go to ER if develops chest pain, shortness of breath, or severe worsening of symptoms. Discussed risks, benefits, alternatives, and potential side effects of medications. Mr. Mukherjee expressed understanding and agreed with the plan. Cyndi Yi APRN.CNS CNOV Observed: 01/27/2018 Status: COMPLETED Source: [place] 11:00 AM [facility] REPOSITORY Office Visit (INTMWS) LONNYBURKE HIGGINS ([id number]) 1935 M Date Time Provider Department 01/27/18 11:00 AM CYNDI YI (DAVID) INTMWS During your visit today, we recorded the following information about you: Pulse Respiration Blood pressure Weight 60/minute 16/minute 122/80 63.5 kg Cyndi Yi APRN.CNS 01/27/2018 12:16 PM Signed OUTPATIENT VISIT DATE January 27, 2018 OUTPATIENT VISIT TYPE ESTABLISHED PRIMARY CARE PHYSICIAN: Oralia Eason MD CHIEF COMPLAINT: Patient presents with: Medication Follow-up History of Present Illness: Burke Mukherjee is a 82 year old male who was last seen 10/2017 by Oralia Eason MD. Last seen in clinic January 05, 2018. He has been seen in the past for ACTIVE PROBLEM LIST Depressive Disorder, Not Elsewhere Classified Pure Hypercholesterolemia Rash and Other Nonspecific Skin Eruption Carpal Tunnel Syndrome Essential Hypertension Actinic Keratosis (Premaligant AK) Neoplasm Uncertain Behavior(NUB) of Skin: R/O BCC of R face mid postlat cheek Chondrodermatitis Nodularis Helicis Actinic Damage///Sun-Damaged Skin Cervicalgia HPI excerpted from last visit: Presents with his today. It is his 63rd anniversary today. Since the last visit, he states that he is feeling depressed. Mood is decreased. He reports over the last 2 weeks nearly every day he's had little interest or pleasure in doing things, feeling down and depressed or hopeless, trouble falling asleep or sleeping too much, feeling tired or having little energy, poor appetite, feeling bad about himself, trouble concentrating and thoughts that he would be better off or hurting himself. No voiced HI or SI. Has been taking medications previously advised.Has only taken one day of medication for BPH symptoms on Friday. At last visit try addition of Wellbutrin to medications. He felt worse with this medication since stopped taking it soon after starting. Presents today with report of decreased mood. Reports he is sleeping all the time. Has been eating less. Appetite is decreased. He would like to try an alternate medication. He has an appointment scheduled for Dr. French in early February. Additionally reports dark stools for a few days now resolved. No addition of iron as far as he knows although was taking a multivitamin. No abdominal pain. No current N/V/D/C, blood in stool or black or tarry stools. Did have some constipation when this occurred which has now resolved. No recent hospital or ED visits. No new medical problems or medications. Able to obtain medications. No problems with taking medications or note side effects. 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[place]) - Carpal tunnel syndrome - Cervicalgia 02/10/2012 - Decreased hearing has bilateral hearing aids - Depressive disorder, not elsewhere classified - Diverticulosis of colon (without mention of hemorrhage) PAST SURGICAL HISTORY Procedure Laterality Date - COLONOSCOP W/ OR W/O [facility] [email or web address] SPEC 04/01/2012 Colonoscopy - COLONOSCOPY 09/20/1998, 11/01/2003 FAMILY HISTORY Problem Relation Age of Onset - Colon Cancer Mother - Coronary Artery Disease Father CABG after 55yo; no [place] Social History Substance Use Topics - Smoking status: Former Smoker Types: Cigars Quit date: 05/12/1995 - Smokeless tobacco: Never Used Comment: passive cigar smoker that quit. - Alcohol use Yes Comment: couple of beers a day and one mixed drink after supper. ALLERGIES: ALLERGIES No Known Allergies MEDICATIONS buPROPion XL (WELLBUTRIN XL) 150 mg 24 hr tablet Take 1 tablet by mouth once daily. doxazosin (CARDURA) 1 mg tablet Take 1 tablet by mouth once daily. clonazePAM (KLONOPIN) 0.5 mg tablet Take 1 tablet by mouth twice daily for 180 days. COMPOUNDED PRESCRIPTION Lab draw: BMP, Vitamin D25-OH Diagnoses: (I10) Essential hypertension; Z79.899. (R79.98) Low serum calcium DULoxetine (CYMBALTA) 60 mg capsule Take 1 capsule by mouth once daily. gabapentin (NEURONTIN) 600 mg tablet Take 1 tablet by mouth daily at bedtime. lisinopril (ZESTRIL, PRINIVIL) 10 mg tablet Take 1 tablet by mouth once daily. atenolol (TENORMIN) 25 mg tablet Take 1 tablet by mouth once daily. COMPOUNDED PRESCRIPTION Lab order: CMP, CBC, lipid Diagnoses: I10, Z79.899, E78.00 vit C,P-Hz-fmwit-lutein-zeaxan (PRESERVISION AREDS 2) [id number] wo-bohi-mr-mg cap Take 2 capsules by mouth once daily. Skqfsgsdcxw-Ywannsjwa-Vee C-Mn (GLUCOSAMINE CHONDROITIN MAXSTR) 500-400 mg cap Take 1 capsule by mouth twice daily. omega-3 fatty acids(FISH OIL 500 MG CAP) Take one(1) capsule daily. MULTIVITAMIN TAB Take one(1) tablet daily. REVIEW OF SYSTEMS: GENERAL: Negative for: Weight loss or gain, Fever or Chills, Weakness and Sleep difficulties. Physical Examination: BP 122/80 Pulse 60 Resp 16 Wt 140 lb (63.5kg) General appearance: Well appearing, alert, in no acute distress, well-hydrated, well nourished. Skin: Skin color, texture, turgor normal, no suspicious rashes or lesions Neuro: Gait normal. Reflexes normal and symmetric. Sensation grossly intact. Reviewed chart, outside records, tests I personally interviewed, confirmed and edited the above information if obtained by others. TESTING: Glucose Date Value 10/21/2017 85 10/12/2015 Test sent to [facility]. mg/dL Potassium (mmol/L) Date Value 10/12/2015 Test sent to [facility]. Sodium (mmol/L) Date Value 10/12/2015 Test sent to [facility]. Chloride (mmol/L) Date Value 10/12/2015 Test sent to [facility]. CO2 (mmol/L) Date Value 10/12/2015 Test sent to [facility]. Creatinine (mg/dL) Date Value 10/12/2015 Test sent to [facility]. BUN (mg/dL) Date Value 10/12/2015 Test sent to [facility]. Anion Gap (mmol/L) Date Value 10/12/2015 Test sent to [facility]. Calcium (mg/dL) Date Value 10/12/2015 Test sent to [facility]. Glucose Date Value 10/21/2017 85 10/12/2015 Test sent to [facility]. mg/dL Potassium (mmol/L) Date Value 10/12/2015 Test sent to [facility]. Sodium (mmol/L) Date Value 10/12/2015 Test sent to [facility]. Chloride (mmol/L) Date Value 10/12/2015 Test sent to [facility]. CO2 (mmol/L) Date Value 10/12/2015 Test sent to [facility]. Creatinine (mg/dL) Date Value 10/12/2015 Test sent to [facility]. BUN (mg/dL) Date Value 10/12/2015 Test sent to [facility]. Anion Gap (mmol/L) Date Value 10/12/2015 Test sent to [facility]. Calcium (mg/dL) Date Value 10/12/2015 Test sent to [facility]. No results found for: HB, HCT, WBC Cholesterol, Total (mg/dL) Date Value 10/12/2015 Test sent to [facility]. Cholesterol (no units) Date Value 10/21/2017 211 HDL Cholesterol Date Value 10/21/2017 64 10/12/2015 Test sent to [facility]. mg/dL LDL Cholesterol Date Value 10/21/2017 118 10/12/2015 Test sent to [facility]. mg/dL Triglyceride Date Value 10/21/2017 143 10/12/2015 Test sent to [facility]. mg/dL No results found for: HBA1C Ejection Fraction: No results found IMPRESSION: Mr. Mukherjee is a 82 year old man presents with depressed mood. Did not tolerate addition of Wellbutrin. Will increase his dose of fluoxetine. After my examination and review of data, I make the following recommendations. PLAN AND RECOMMENDATIONS: 1. Anxiety and depression - ICD9: 300.00, 311, ICD10: F41.9, F32.9 Increased dose of duloxetine to 90 mg. Take one 60 mg and one 30 mg duloxetine daily If he is feeling unwell with this dosage change return to taking just one 60 mg daily If not feeling up to eating a full meal consider adding one or two protein drinks daily such as boost or ensure or a fruit and / or yogurt based beverage with protein (usually in the produce section of the grocery store) Complete a stool check for blood - CONSULT TO PSYCHOLOGY - appt scheduled for early February, will place on wait list for earlier appt with Dr. French. Advised to go to ER if develops chest pain, shortness of breath, or severe worsening of symptoms. Discussed risks, benefits, alternatives, and potential side effects of medications. Mr. Mukherjee expressed understanding and agreed with the plan. Cyndi Yi APRN.ARMORED MACHINE OPERATOR Cyndi Yi APRN.ARMORED MACHINE OPERATOR 01/27/2018 11:40 AM Signed Increased dose of duloxetine to 90 mg. Take one 60 mg and one 30 mg duloxetine daily He is feeling unwell with this dosage change return to taking just one 60 mg daily If not feeling up to eating a full meal consider adding one or two protein drinks daily such as boost or ensure or a fruit and / or yogurt based beverage with protein (usually in the produce section of the grocery store) Complete a stool check for blood Referring Provider: SELF [200] Allergies As of Date: 01/27/2018 (No Known Allergies) Date Reviewed: 01/27/2018 Reviewed by: Leonora Arroyo LPN - Fully Assessed Reason for Visit: Medication Follow-up [270] Primary Visit Diagnosis:Dark stools [R19.5] Order(s):DULoxetine (CYMBALTA) 30 mg capsuleTake 1 capsule by mouth once daily. Take in addition to 60 mg capsule for a total of 90 mg dailyDisp: 30 capsuleRfl: 2 FECAL OCCULT BLOOD TEST [SQIFOBT] Order #: [id number] FUTURE Prescriptions as of 01/27/2018 Sig: DOXAZOSIN 1 MG TABLET Take 1 tablet by mouth once d* CLONAZEPAM 0.5 MG TABLET Take 1 tablet by mouth twice * COMPOUNDED PRESCRIPTION Lab draw: BMP, Vitamin D25-O* DULOXETINE 60 MG CAPSULE,FARHAN* Take 1 capsule by mouth once * GABAPENTIN 600 MG TABLET Take 1 tablet by mouth daily * LISINOPRIL 10 MG TABLET Take 1 tablet by mouth once d* ATENOLOL 25 MG TABLET Take 1 tablet by mouth once d* COMPOUNDED PRESCRIPTION Lab order: CMP, CBC, lipid * VIT C 250 MG-E 200 UNIT-ZINC * Take 2 capsules by mouth once* * SEVZRFIXFPX-CTPZBPOQL-RTN C-M* Take 1 capsule by mouth twice* * FISH OIL 500 MG CAPSULE Take one(1) capsule daily. * MULTIVITAMIN TABLET Take one(1) tablet daily. DULOXETINE 30 MG CAPSULE,FARHAN* Take 1 capsule by mouth once * Problem List As Of Date 01/27/2018 Noted Resolved DEPRESSIVE DISORDER NEC [F32.9] INVALID FOR* PURE HYPERCHOLESTEROLEM [E78.00] INVALID FOR* NONSPECIF SKIN ERUPT NEC [R21] INVALID FOR* Carpal Tunnel Syndrome [G56.00] INVALID FOR* Essential hypertension [I10] INVALID FOR* Actinic Keratosis (Premaligant AK) [L57.0] INVALID FOR* Neoplasm Uncertain Behavior(NUB) of Skin: R/O *INVALID FOR* 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] INVALID FOR* Actinic Damage///Sun-Damaged Skin [L57.8] INVALID FOR* Cervicalgia [M54.2] INVALID FOR* Other instructions from your clinician: Increased dose of duloxetine to 90 mg. Take one 60 mg and one 30 mg duloxetine daily He is feeling unwell with this dosage change return to taking just one 60 mg daily If not feeling up to eating a full meal consider adding one or two protein drinks daily such as boost or ensure or a fruit and / or yogurt based beverage with protein (usually in the produce section of the grocery store) Complete a stool check for blood Prescriptions ordered this encounter Disp Refills Start End DULOXETINE 30 MG CAPSULE,DELAYED REL* 30 c* 2 01/27/2018 Route: ORAL Sig: Take 1 capsule by mouth once daily. Take in addition to 60 mg capsule for a total of 90 mg daily Medications Discontinued During This Encounter buPROPion XL (WELLBUTRIN XL) 150 mg * 30 t* 5 01/05/2018 01/27/2018 Route: ORAL Sig: Take 1 tablet by mouth once daily. Patient not taking: Reported on 01/27/2018 Disc: Reason for discontinue is not on file. Encounter Status:Closed by CYNDI SALOMON on 01/27/18 CNOV Observed: 01/05/2018 Status: COMPLETED Source: [place] 12:20 PM [facility] REPOSIT[facility] Office Visit (INTMWS) BURKE MUKHERJEE ([id number]) 1935 M Date Time Provider Department 01/05/18 12:20 PM CYNDI YI (DAVID) INTMWS During your visit today, we recorded the following information about you: Pulse Respiration Blood pressure Weight 64/minute 14/minute 120/82 66.7 kg Cyndi Yi APRN.CNS 01/05/2018 1:08 PM Signed OUTPATIENT VISIT DATE January 05, 2018 OUTPATIENT VISIT TYPE ESTABLISHED PRIMARY CARE PHYSICIAN: Oralia Eason MD CHIEF COMPLAINT: Patient presents with: Depression History of Present Illness: Burke Mukherjee is a 82 year old male who was last seen 10/2017 by Orlaia Eason MD. He has been seen in the past for ACTIVE PROBLEM LIST Depressive Disorder, Not Elsewhere Classified Pure Hypercholesterolemia Rash and Other Nonspecific Skin Eruption Carpal Tunnel Syndrome Essential Hypertension Actinic Keratosis (Premaligant AK) Neoplasm Uncertain Behavior(NUB) of Skin: R/O BCC of R face mid postlat cheek Chondrodermatitis Nodularis Helicis Actinic Damage///Sun-Damaged Skin Cervicalgia Presents with his today. It is his 63rd anniversary today. Since the last visit, he states that he is feeling depressed. Mood is decreased. He reports over the last 2 weeks nearly every day he's had little interest or pleasure in doing things, feeling down and depressed or hopeless, trouble falling asleep or sleeping too much, feeling tired or having little energy, poor appetite, feeling bad about himself, trouble concentrating and thoughts that he would be better off or hurting himself. No voiced HI or SI. Has been taking medications previously advised. Mac only taken one day of medication for BPH symptoms on Friday. No recent hospital or ED visits. No new medical problems or medications. Able to obtain medications. No problems with taking medications or note side effects. 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[place]) - Carpal tunnel syndrome - Cervicalgia 02/10/2012 - Decreased hearing has bilateral hearing aids - Depressive disorder, not elsewhere classified - Diverticulosis of colon (without mention of hemorrhage) PAST SURGICAL HISTORY Procedure Laterality Date - COLONOSCOP W/ OR W/O [facility] SPEC 04/01/2012 Colonoscopy - COLONOSCOPY 09/20/1998, 11/01/2003 FAMILY HISTORY Problem Relation Age of Onset - Colon Cancer Mother - Coronary Artery Disease Father CABG after 55yo; no [place] Social History Substance Use Topics - Smoking status: Former Smoker Types: Cigars Quit date: 05/12/1995 - Smokeless tobacco: Never Used Comment: passive cigar smoker that quit. - Alcohol use Yes Comment: couple of beers a day and one mixed drink after supper. ALLERGIES: ALLERGIES No Known Allergies MEDICATIONS doxazosin (CARDURA) 1 mg tablet Take 1 tablet by mouth once daily. clonazePAM (KLONOPIN) 0.5 mg tablet Take 1 tablet by mouth twice daily for 180 days. COMPOUNDED PRESCRIPTION Lab draw: BMP, Vitamin D25-OH Diagnoses: (I10) Essential hypertension; Z79.899. (R79.98) Low serum calcium DULoxetine (CYMBALTA) 60 mg capsule Take 1 capsule by mouth once daily. gabapentin (NEURONTIN) 600 mg tablet Take 1 tablet by mouth daily at bedtime. lisinopril (ZESTRIL, PRINIVIL) 10 mg tablet Take 1 tablet by mouth once daily. atenolol (TENORMIN) 25 mg tablet Take 1 tablet by mouth once daily. COMPOUNDED PRESCRIPTION Lab order: CMP, CBC, lipid Diagnoses: I10, Z79.899, E78.00 vit C,U-Gb-orggp-lutein-zeaxan (PRESERVISION AREDS 2) [id number] ol-brcr-qs-mg cap Take 2 capsules by mouth once daily. Xvgcxwnwxot-Twdimglnq-Xem C-Mn (GLUCOSAMINE CHONDROITIN MAXSTR) 500-400 mg cap Take 1 capsule by mouth twice daily. omega-3 fatty acids(FISH OIL 500 MG CAP) Take one(1) capsule daily. MULTIVITAMIN TAB Take one(1) tablet daily. buPROPion XL (WELLBUTRIN XL) 150 mg 24 hr tablet Take 1 tablet by mouth once daily. REVIEW OF SYSTEMS: GENERAL: Negative for: Weight loss or gain, Fever or Chills, Weakness and Sleep difficulties. Physical Examination: BP 120/82 Pulse 64 Resp 14 Wt 147 lb (66.7kg) General appearance: Well appearing, alert, in no acute distress, well-hydrated, well nourished. Skin: Skin color, texture, turgor normal, no suspicious rashes or lesions Neuro: Gait normal. Reflexes normal and symmetric. Sensation grossly intact. Reviewed chart, outside records, tests I personally interviewed, confirmed and edited the above information if obtained by others. TESTING: Glucose Date Value 10/21/2017 85 10/12/2015 Test sent to [facility]. mg/dL Potassium (mmol/L) Date Value 10/12/2015 Test sent to [facility]. Sodium (mmol/L) Date Value 10/12/2015 Test sent to [facility]. Chloride (mmol/L) Date Value 10/12/2015 Test sent to [facility]. CO2 (mmol/L) Date Value 10/12/2015 Test sent to [facility]. Creatinine (mg/dL) Date Value 10/12/2015 Test sent to [facility]. BUN (mg/dL) Date Value 10/12/2015 Test sent to [facility]. Anion Gap (mmol/L) Date Value 10/12/2015 Test sent to [facility]. Calcium (mg/dL) Date Value 10/12/2015 Test sent to [facility]. Glucose Date Value 10/21/2017 85 10/12/2015 Test sent to [facility]. mg/dL Potassium (mmol/L) Date Value 10/12/2015 Test sent to [facility]. Sodium (mmol/L) Date Value 10/12/2015 Test sent to [facility]. Chloride (mmol/L) Date Value 10/12/2015 Test sent to [facility]. CO2 (mmol/L) Date Value 10/12/2015 Test sent to [facility]. Creatinine (mg/dL) Date Value 10/12/2015 Test sent to [facility]. BUN (mg/dL) Date Value 10/12/2015 Test sent to [facility]. Anion Gap (mmol/L) Date Value 10/12/2015 Test sent to [facility]. Calcium (mg/dL) Date Value 10/12/2015 Test sent to [facility]. No results found for: HB, HCT, WBC Cholesterol, Total (mg/dL) Date Value 10/12/2015 Test sent to [facility]. Cholesterol (no units) Date Value 10/21/2017 211 HDL Cholesterol Date Value 10/21/2017 64 10/12/2015 Test sent to [facility]. mg/dL LDL Cholesterol Date Value 10/21/2017 118 10/12/2015 Test sent to [facility]. mg/dL Triglyceride Date Value 10/21/2017 143 10/12/2015 Test sent to [facility]. mg/dL No results found for: HBA1C Ejection Fraction: No results found IMPRESSION: Mr. Mukherjee is a 82 year old man presents with depressed mood. After my examination and review of data, I make the following recommendations. PLAN AND RECOMMENDATIONS: 1. Anxiety and depression - ICD9: 300.00, 311, ICD10: F41.9, F32.9 - BUPROPION XL 150 MG TAB - CONSULT TO PSYCHOLOGY Start taking bupropion once daily. He will call and let us know if not tolerating this medication Return to clinic in 4-6 weeks, sooner as needed. Advised to go to ER if develops chest pain, shortness of breath, or severe worsening of symptoms. Discussed risks, benefits, alternatives, and potential side effects of medications. Mr. Mukherjee expressed understanding and agreed with the plan. Cyndi Yi APRN.ARMORED MACHINE OPERATOR Referring Provider: SELF [200] Allergies As of Date: 01/05/2018 (No Known Allergies) Date Reviewed: 01/05/2018 Reviewed by: Leonora Arroyo LPN - Fully Assessed Reason for Visit: Depression [32] Primary Visit Diagnosis:Anxiety and depression [F41.9, F32.9] Order(s):buPROPion XL (WELLBUTRIN XL) 150 mg 24 hr tabletTake 1 tablet by mouth once daily.Disp: 30 tabletRfl: 5 CONSULT TO PSYCHOLOGY [5427] Order #: [id number]: 1 Prescriptions as of 01/05/2018 Sig: DOXAZOSIN 1 MG TABLET Take 1 tablet by mouth once d* CLONAZEPAM 0.5 MG TABLET Take 1 tablet by mouth twice * COMPOUNDED PRESCRIPTION Lab draw: BMP, Vitamin D25-O* DULOXETINE 60 MG CAPSULE,FARHAN* Take 1 capsule by mouth once * GABAPENTIN 600 MG TABLET Take 1 tablet by mouth daily * LISINOPRIL 10 MG TABLET Take 1 tablet by mouth once d* ATENOLOL 25 MG TABLET Take 1 tablet by mouth once d* COMPOUNDED PRESCRIPTION Lab order: CMP, CBC, lipid * VIT C 250 MG-E 200 UNIT-ZINC * Take 2 capsules by mouth once* * HKAPAJHPRLU-NTPRCDLYS-CRT C-M* Take 1 capsule by mouth twice* * FISH OIL 500 MG CAPSULE Take one(1) capsule daily. * MULTIVITAMIN TABLET Take one(1) tablet daily. BUPROPION XL 150 MG TAB Take 1 tablet by mouth once d* Problem List As Of Date 01/05/2018 Noted Resolved DEPRESSIVE DISORDER NEC [F32.9] INVALID FOR* PURE HYPERCHOLESTEROLEM [E78.00] INVALID FOR* NONSPECIF SKIN ERUPT NEC [R21] INVALID FOR* Carpal Tunnel Syndrome [G56.00] INVALID FOR* Essential hypertension [I10] INVALID FOR* Actinic Keratosis (Premaligant AK) [L57.0] INVALID FOR* Neoplasm Uncertain Behavior(NUB) of Skin: R/O *INVALID FOR* 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] INVALID FOR* Actinic Damage///Sun-Damaged Skin [L57.8] INVALID FOR* Cervicalgia [M54.2] INVALID FOR* Prescriptions ordered this encounter Disp Refills Start End BUPROPION XL 150 MG TAB 30 t* 5 01/05/2018 Route: ORAL Sig: Take 1 tablet by mouth once daily. Follow-up and Disposition History Recorded Encounter Status:Closed by CYNDI SALOMON on 01/05/18 PROGRESS Observed: 01/05/2018 Status: COMPLETED Source: [place] 12:19 PM [facility] REPOSITORY HNO ID: [id number] Author: Cyndi (David) Kd Service: (none) Author Type: Nurse Specialist Type: Progress Notes Filed: 01/05/2018 1:08 PM Note Text: OUTPATIENT VISIT DATE January 05, 2018 OUTPATIENT VISIT TYPE ESTABLISHED PRIMARY CARE PHYSICIAN: Oralia Eason MD CHIEF COMPLAINT: Patient presents with: Depression History of Present Illness: Burke Mukherjee is a 82 year old male who was last seen 10/2017 by Oralia Eason MD. He has been seen in the past for ACTIVE PROBLEM LIST Depressive Disorder, Not Elsewhere Classified Pure Hypercholesterolemia Rash and Other Nonspecific Skin Eruption Carpal Tunnel Syndrome Essential Hypertension Actinic Keratosis (Premaligant AK) Neoplasm Uncertain Behavior(NUB) of Skin: R/O BCC of R face mid postlat cheek Chondrodermatitis Nodularis Helicis Actinic Damage///Sun-Damaged Skin Cervicalgia Presents with his today. It is his 63rd anniversary today. Since the last visit, he states that he is feeling depressed. Mood is decreased. He reports over the last 2 weeks nearly every day he's had little interest or pleasure in doing things, feeling down and depressed or hopeless, trouble falling asleep or sleeping too much, feeling tired or having little energy, poor appetite, feeling bad about himself, trouble concentrating and thoughts that he would be better off or hurting himself. No voiced HI or SI. Has been taking medications previously advised. Mac only taken one day of medication for BPH symptoms on Friday. No recent hospital or ED visits. No new medical problems or medications. Able to obtain medications. No problems with taking medications or note side effects. 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[place]) - Carpal tunnel syndrome - Cervicalgia 02/10/2012 - Decreased hearing has bilateral hearing aids - Depressive disorder, not elsewhere classified - Diverticulosis of colon (without mention of hemorrhage) PAST SURGICAL HISTORY Procedure Laterality Date - COLONOSCOP W/ OR W/O BRSH SPEC 04/01/2012 Colonoscopy - COLONOSCOPY 09/20/1998, 11/01/2003 FAMILY HISTORY Problem Relation Age of Onset - Colon Cancer Mother - Coronary Artery Disease Father CABG after 55yo; no OK Social History Substance Use Topics - Smoking status: Former Smoker Types: Cigars Quit date: 05/12/1995 - Smokeless tobacco: Never Used Comment: passive cigar smoker that quit. - Alcohol use Yes Comment: couple of beers a day and one mixed drink after supper. ALLERGIES: ALLERGIES No Known Allergies MEDICATIONS doxazosin (CARDURA) 1 mg tablet Take 1 tablet by mouth once daily. clonazePAM (KLONOPIN) 0.5 mg tablet Take 1 tablet by mouth twice daily for 180 days. COMPOUNDED PRESCRIPTION Lab draw: BMP, Vitamin D25-[place] Diagnoses: (I10) Essential hypertension; Z79.899. (R79.98) Low serum calcium DULoxetine (CYMBALTA) 60 mg capsule Take 1 capsule by mouth once daily. gabapentin (NEURONTIN) 600 mg tablet Take 1 tablet by mouth daily at bedtime. lisinopril (ZESTRIL, PRINIVIL) 10 mg tablet Take 1 tablet by mouth once daily. atenolol (TENORMIN) 25 mg tablet Take 1 tablet by mouth once daily. COMPOUNDED PRESCRIPTION Lab order: CMP, CBC, lipid Diagnoses: I10, Z79.899, E78.00 vit C,M-Bz-xdgil-lutein-zeaxan (PRESERVISION AREDS 2) 134-893-12-1 lt-zymp-er-mg cap Take 2 capsules by mouth once daily. Ivjkpitqkkv-Orguudwma-Tqo C-Mn (GLUCOSAMINE CHONDROITIN MAXSTR) 500-400 mg cap Take 1 capsule by mouth twice daily. omega-3 fatty acids(FISH OIL 500 MG CAP) Take one(1) capsule daily. MULTIVITAMIN TAB Take one(1) tablet daily. buPROPion XL (WELLBUTRIN XL) 150 mg 24 hr tablet Take 1 tablet by mouth once daily. REVIEW OF SYSTEMS: GENERAL: Negative for: Weight loss or gain, Fever or Chills, Weakness and Sleep difficulties. Physical Examination: BP 120/82 Pulse 64 Resp 14 Wt 147 lb (66.7kg) General appearance: Well appearing, alert, in no acute distress, well-hydrated, well nourished. Skin: Skin color, texture, turgor normal, no suspicious rashes or lesions Neuro: Gait normal. Reflexes normal and symmetric. Sensation grossly intact. Reviewed chart, outside records, tests I personally interviewed, confirmed and edited the above information if obtained by others. TESTING: Glucose Date Value 10/21/2017 85 10/12/2015 Test sent to [facility]. mg/dL Potassium (mmol/L) Date Value 10/12/2015 Test sent to [facility]. Sodium (mmol/L) Date Value 10/12/2015 Test sent to [facility]. Chloride (mmol/L) Date Value 10/12/2015 Test sent to [facility]. CO2 (mmol/L) Date Value 10/12/2015 Test sent to [facility]. Creatinine (mg/dL) Date Value 10/12/2015 Test sent to [facility]. BUN (mg/dL) Date Value 10/12/2015 Test sent to [facility]. Anion Gap (mmol/L) Date Value 10/12/2015 Test sent to [facility]. Calcium (mg/dL) Date Value 10/12/2015 Test sent to [facility]. Glucose Date Value 10/21/2017 85 10/12/2015 Test sent to [facility]. mg/dL Potassium (mmol/L) Date Value 10/12/2015 Test sent to [facility]. Sodium (mmol/L) Date Value 10/12/2015 Test sent to [facility]. Chloride (mmol/L) Date Value 10/12/2015 Test sent to [facility]. CO2 (mmol/L) Date Value 10/12/2015 Test sent to [facility]. Creatinine (mg/dL) Date Value 10/12/2015 Test sent to [facility]. BUN (mg/dL) Date Value 10/12/2015 Test sent to [facility]. Anion Gap (mmol/L) Date Value 10/12/2015 Test sent to [facility]. Calcium (mg/dL) Date Value 10/12/2015 Test sent to [facility]. No results found for: HB, HCT, WBC Cholesterol, Total (mg/dL) Date Value 10/12/2015 Test sent to [facility]. Cholesterol (no units) Date Value 10/21/2017 211 HDL Cholesterol Date Value 10/21/2017 64 10/12/2015 Test sent to [facility]. mg/dL LDL Cholesterol Date Value 10/21/2017 118 10/12/2015 Test sent to [facility]. mg/dL Triglyceride Date Value 10/21/2017 143 10/12/2015 Test sent to [facility]. mg/dL No results found for: HBA1C Ejection Fraction: No results found IMPRESSION: Mr. Mukherjee is a 82 year old man presents with depressed mood. After my examination and review of data, I make the following recommendations. PLAN AND RECOMMENDATIONS: 1. Anxiety and depression - ICD9: 300.00, 311, ICD10: F41.9, F32.9 - BUPROPION XL 150 MG TAB - CONSULT TO PSYCHOLOGY Start taking bupropion once daily. He will call and let us know if not tolerating this medication Return to clinic in 4-6 weeks, sooner as needed. Advised to go to ER if develops chest pain, shortness of breath, or severe worsening of symptoms. Discussed risks, benefits, alternatives, and potential side effects of medications. Mr. Mukherjee expressed understanding and agreed with the plan. Cyndi Yi APRN.ARMORED MACHINE OPERATOR DOWNTIME REPORT Observed: 10/30/2017 Status: F Source: [place] 1:25 PM [facility] REPOSITORY [facility] Medical Records Department [address] [place] [address] Downtime Report MR#: [id number] Acct: [id number] Name: BURKE MUKHERJEE Rep #: [id number] : 1935 82 From: Ghassan Maher PCP: Oralia Eason MD Status: REG CLI This patient was seen during an EMR downtime October 13, 2017 - October 20, 2017. This patient may have a combination of paper and electronic documentation or all paper documentation. All documentation is viewable within the e-chart portion of [employer] for each patient visit. PROGRESS Observed: 10/28/2017 Status: COMPLETED Source: [place] 10:35 AM [facility] REPOSITORY HNO ID: [id number] Author: Oralia Eason Service: (none) Author Type: Physician Type: Progress Notes Filed: 11/08/2017 11:47 PM Note Text: Patient presents with: Recheck: 6 month follow up SUBJECTIVE: Burke Mukherjee is a 82 year old year old gentleman here today for 6 month follow up appointment for review of medical conditions. Overall doing well. Anxiety controlled with current meds without adverse effects. Blood pressure controlled without adverse effects from medications. 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 DULoxetine (CYMBALTA) 60 mg capsule Take 1 capsule by mouth once daily. gabapentin (NEURONTIN) 600 mg tablet Take 1 tablet by mouth daily at bedtime. lisinopril (ZESTRIL, PRINIVIL) 10 mg tablet Take 1 tablet by mouth once daily. atenolol (TENORMIN) 25 mg tablet Take 1 tablet by mouth once daily. COMPOUNDED PRESCRIPTION Lab order: CMP, CBC, lipid Diagnoses: I10, Z79.899, E78.00 vit C,S-Hx-bxmof-lutein-zeaxan (PRESERVISION AREDS 2) 153-210-26-1 kc-hbpw-be-mg cap Take 2 capsules by mouth once daily. COMPOUNDED PRESCRIPTION Lab draw: BMP, fasting lipids Diagnoses: (I10) Essential hypertension with goal blood pressure less than 140/90; (E78.0) Pure hypercholesterolemia; Z79.899 Zytrveuewba-Yybngthbb-Okd C-Mn (GLUCOSAMINE CHONDROITIN MAXSTR) 500-400 mg cap Take 1 capsule by mouth twice daily. omega-3 fatty acids(FISH OIL 500 MG CAP) Take one(1) capsule daily. MULTIVITAMIN TAB Take one(1) tablet daily. No current facility-administered medications for this visit. OBJECTIVE: BP 130/80 Pulse 64 Resp 16 Wt 66.2 kg (146 lb) BMI 22.20 kg/m? Patient is alert, oriented times 3, no apparent distress, affect is bright, reactive. Last 5 Encounter BP Readings: Date: BP: 10/28/2017 130/80 04/15/2017 122/82 10/18/2016 122/80 04/19/2016 130/72 10/18/2015 122/70 Last 5 Encounter Wt Readings: Date: Wt: 10/28/2017 66.2 kg (146 lb) 04/15/2017 68 kg (150 lb) 10/18/2016 65.3 kg (144 lb) 04/19/2016 66.7 kg (147 lb) 10/18/2015 68.5 kg (151 lb) Heart: Regular rate, rhythm, no murmurs, gallops, rubs. Lungs: Clear to auscultation, bilaterally, breathing non labored. Ext: No cyanosis, clubbing, or edema. Labs from [facility] reviewed. ASSESSMENT AND PLAN: Encounter Diagnosis ICD-10-CM 1. Anxiety and depression F41.9 clonazePAM (KLONOPIN) 0.5 mg tablet F32.9 2. Essential hypertension I10 3. Low serum calcium R79.89 4. Pure hypercholesterolemia E78.00 Orders for labs given for [facility]. Can get vaccines at pharmacy as discussed. Above issues addressed with patient. Patient involved in shared decision making for management of her medical issues. History and medications reviewed. Epic updated as needed Refills taken care of and meds adjusted as indicated after reviewed history, exam and labs. Health Maintenance reviewed. Updated record and/or ordered tests as recorded. Encouraged on efforts at healthy diet and regular exercise and adequate sleep. Stable with control of anxiety. No signs of diversion or abuse of medication(s); no adverse effects. Continue present management. OARRS website checked and validated. All prescriptions have been APPROPRIATELY filled. No suspicious activity was identified.- 11/08/2017 by Oralia Eason MD The majority of the visit was spent counseling and/or coordinating care for the patient. Vyzp-ie-bjwi time was at least 20 minutes. Oralia Eason MD CNOV Observed: 10/28/2017 Status: COMPLETED Source: [place] 9:40 AM [facility] REPOSITORY Office Visit (INTMWS) BURKE MUKHERJEE ([id number]) 1935 M Date Time Provider Department 10/28/17 9:40 AM ORALIA EASON INTMWS During your visit today, we recorded the following information about you: Pulse Respiration Blood pressure Weight 64/minute 16/minute 130/80 66.2 kg Oralia Eason MD 11/08/2017 11:47 PM Signed Patient presents with: Recheck: 6 month follow up SUBJECTIVE: Burke Mukherjee is a 82 year old year old gentleman here today for 6 month follow up appointment for review of medical conditions. Overall doing well. Anxiety controlled with current meds without adverse effects. Blood pressure controlled without adverse effects from medications. 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 DULoxetine (CYMBALTA) 60 mg capsule Take 1 capsule by mouth once daily. gabapentin (NEURONTIN) 600 mg tablet Take 1 tablet by mouth daily at bedtime. lisinopril (ZESTRIL, PRINIVIL) 10 mg tablet Take 1 tablet by mouth once daily. atenolol (TENORMIN) 25 mg tablet Take 1 tablet by mouth once daily. COMPOUNDED PRESCRIPTION Lab order: CMP, CBC, lipid Diagnoses: I10, Z79.899, E78.00 vit C,O-Zx-xcjpp-lutein-zeaxan (PRESERVISION AREDS 2) 605-833-01-1 tl-pknc-br-mg cap Take 2 capsules by mouth once daily. COMPOUNDED PRESCRIPTION Lab draw: BMP, fasting lipids Diagnoses: (I10) Essential hypertension with goal blood pressure less than 140/90; (E78.0) Pure hypercholesterolemia; Z79.899 Wqsgneftpxo-Dzicnecva-Lck C-Mn (GLUCOSAMINE CHONDROITIN MAXSTR) 500-400 mg cap Take 1 capsule by mouth twice daily. omega-3 fatty acids(FISH OIL 500 MG CAP) Take one(1) capsule daily. MULTIVITAMIN TAB Take one(1) tablet daily. No current facility-administered medications for this visit. OBJECTIVE: BP 130/80 Pulse 64 Resp 16 Wt 66.2 kg (146 lb) BMI 22.20 kg/m? Patient is alert, oriented times 3, no apparent distress, affect is bright, reactive. Last 5 Encounter BP Readings: Date: BP: 10/28/2017 130/80 04/15/2017 122/82 10/18/2016 122/80 04/19/2016 130/72 10/18/2015 122/70 Last 5 Encounter Wt Readings: Date: Wt: 10/28/2017 66.2 kg (146 lb) 04/15/2017 68 kg (150 lb) 10/18/2016 65.3 kg (144 lb) 04/19/2016 66.7 kg (147 lb) 10/18/2015 68.5 kg (151 lb) Heart: Regular rate, rhythm, no murmurs, gallops, rubs. Lungs: Clear to auscultation, bilaterally, breathing non labored. Ext: No cyanosis, clubbing, or edema. Labs from [facility] reviewed. ASSESSMENT AND PLAN: Encounter Diagnosis ICD-10-CM 1. Anxiety and depression F41.9 clonazePAM (KLONOPIN) 0.5 mg tablet F32.9 2. Essential hypertension I10 3. Low serum calcium R79.89 4. Pure hypercholesterolemia E78.00 Orders for labs given for [facility]. Can get vaccines at pharmacy as discussed. Above issues addressed with patient. Patient involved in shared decision making for management of her medical issues. History and medications reviewed. Epic updated as needed Refills taken care of and meds adjusted as indicated after reviewed history, exam and labs. Health Maintenance reviewed. Updated record and/or ordered tests as recorded. Encouraged on efforts at healthy diet and regular exercise and adequate sleep. Stable with control of anxiety. No signs of diversion or abuse of medication(s); no adverse effects. Continue present management. OAS website checked and validated. All prescriptions have been APPROPRIATELY filled. No suspicious activity was identified.- 11/08/2017 by Oralia Eason MD The majority of the visit was spent counseling and/or coordinating care for the patient. Fkhf-dz-jlqt time was at least 20 minutes. Oralia Eason MD Referring Provider: ORALIA EASON [[id number]] Allergies As of Date: 10/28/2017 (No Known Allergies) Date Reviewed: 10/28/2017 Reviewed by: Sepideh Baker LPN - Fully Assessed Reason for Visit: Recheck [92] Cmt: 6 month follow up Primary Visit Diagnosis:Anxiety and depression [F41.9, F32.9] Other Visit Diagnoses:Essential hypertension [I10] Low serum calcium [R79.89] Pure hypercholesterolemia [E78.00] Order(s):LIPID PANEL (OUTSIDE) [5799223] Order #: [id number] FASTING BLOOD SUGAR (OUTSIDE) [9926981] Order #: [id number] clonazePAM (KLONOPIN) 0.5 mg tabletTake 1 tablet by mouth twice daily for 180 days.Disp: 60 tabletRfl: 5 COMPOUNDED PRESCRIPTIONLab draw: BMP, Vitamin D25- [place] Diagnoses: (I10) Essential hypertension; Z79.899. (R79.98) Low serum calciumDisp: 1 EachRfl: 0 Prescriptions as of 10/28/2017 Sig: CLONAZEPAM 0.5 MG TABLET Take 1 tablet by mouth twice * COMPOUNDED PRESCRIPTION Lab draw: BMP, Vitamin D25-O* DULOXETINE 60 MG CAPSULE,FARHAN* Take 1 capsule by mouth once * GABAPENTIN 600 MG TABLET Take 1 tablet by mouth daily * LISINOPRIL 10 MG TABLET Take 1 tablet by mouth once d* ATENOLOL 25 MG TABLET Take 1 tablet by mouth once d* COMPOUNDED PRESCRIPTION Lab order: CMP, CBC, lipid * VIT C 250 MG-E 200 UNIT-ZINC * Take 2 capsules by mouth once* * MCFIGFAGRKA-SHLJACLPA-MKG C-M* Take 1 capsule by mouth twice* * FISH OIL 500 MG CAPSULE Take one(1) capsule daily. * MULTIVITAMIN TABLET Take one(1) tablet daily. Medication notes this encounter TAMSULOSIN 0.4 MG CAPSULE >> Sepideh Baker LPN 10/28/2017 10:01 AM >> SEPIDEH BAKER LPN Oct 28, 2017 10:01 AM Not using due to side effects >> Oralia Eason MD 10/28/2017 10:40 AM caused constipation Problem List As Of Date 10/28/2017 Noted Resolved DEPRESSIVE DISORDER NEC [F32.9] INVALID FOR* PURE HYPERCHOLESTEROLEM [E78.00] INVALID FOR* NONSPECIF SKIN ERUPT NEC [R21] INVALID FOR* Carpal Tunnel Syndrome [G56.00] INVALID FOR* Essential hypertension [I10] INVALID FOR* Actinic Keratosis (Premaligant AK) [L57.0] INVALID FOR* Neoplasm Uncertain Behavior(NUB) of Skin: R/O *INVALID FOR* 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 COMPOUNDED PRESCRIPTION 1 Ea* 0 10/28/2017 Class: Print RX Sig: Lab draw: BMP, Vitamin D25-OH Diagnoses: (I10) Essential hypertension; Z79.899. (R79.98) Low serum calcium Medications Discontinued During This Encounter clonazePAM (KLONOPIN) 0.5 mg tablet 60 t* 5 05/01/2017 10/28/2017 Class: Print RX Route: ORAL Sig: Take 1 tablet by mouth twice daily. Disc: Reason for discontinue is not on file. tamsulosin ER (FLOMAX) 0.4 mg cp24 30 c* 11 04/15/2017 10/28/2017 Route: ORAL Sig: Take 1 capsule by mouth daily at bedtime. Disc: Adverse Reaction COMPOUNDED PRESCRIPTION 1 Ea* 0 04/19/2016 10/28/2017 Class: Print RX Sig: Lab draw: BMP, fasting lipids Diagnoses: (I10) Essential hypertension with goal blood pressure less than 140/90; (E78.0) Pure hypercholesterolemia; Z79.899 Disc: Reason for discontinue is not on file. Disposition: Return in about 6 months (around 04/29/2018) for 6 months follow up, With labs prior. Follow-up and Disposition History Recorded Encounter Status:Closed by ORALIA EASON MD on 11/08/17 CBC-COMPLETE BLOOD CNT Collected: 10/21/2017 Status: F Source: [place] NO DIFF 7:56 AM [facility] REPOSITORY TYPE CODE TESTS RESULT OUT OF RANGE REFERENCE UNITS LAB L100.1000 4.4-11.0 K/mm3 Normal WBC 4.9 LAB L100.1200 4.6-6.2 M/mm3 Low RBC 4.16 LAB L100.1300 13.0-16.5 g/dl Normal HGB 13.6 LAB L100.1400 40-54 % Normal HCT 40.8 LAB L100.1500 80-94 fL High MCV 98.1 LAB L100.1600 27.0-32.0 pg High MCH 32.7 LAB L100.1700 32-36 g/gl Normal MCHC 33.3 LAB L100.1810 11.6-14.6 % Normal RDW CV 13.5 LAB L100.1820 35.1-43.9 fl High RDW SD 48.3 LAB L100.1900 150-450 K/mm3 Normal PLT 262 LAB L100.2000 6.2-12.0 fl Normal MPV 9.3 Performed By: #### L100.0500 #### [facility] [address] [place], [place], [address] COMPREHENSIVE METABOLIC Collected: 10/21/2017 Status: F Source: [place] PROFIL 7:56 AM [facility] REPOSITORY TYPE CODE TESTS RESULT OUT OF RANGE REFERENCE UNITS LAB L501.0100 74-106 mg/dL Normal GLU 85 Result Comment: Please note revised GLUCOSE reference range effective 2017. LAB L501.1000 7-18 mg/dL Low BUN 6 LAB L501.1100 0.70-1.30 mg/dL Normal CREAT,SERUM 0.79 Result Comment: The validity of the calculated GFR AND GFRAA in patients over 70 years has not been determined. Clinical correlation is essential. LAB L501.1110 >60 mL/min Normal EST GFR 99 Result Comment: Non- GFR Calc LAB L501.1115 >60 mL/min Normal EST GFR - AA 120 Result Comment: GFR Calc LAB L501.1300 10-20 RATIO Low BUN/CRE 7.6 LAB L501.1500 6.4-8.2 g/dL Normal T PROT 7.1 LAB L501.1800 3.2-5.0 g/dL Normal ALB 3.4 LAB L501.1950 2.2-4.2 g/dL Normal GLOB 3.7 LAB L501.2000 0.9-2.4 RATIO Normal A/G 0.9 LAB L501.2200 8.5-10.1 mg/dL Low CA 8.4 LAB L501.4100 15-37 U/L Normal AST 20 LAB L501.4305 45-117 U/L Normal ALK P 58 LAB L501.4405 16-61 U/L Normal ALT 21 LAB L501.4600 0.20-1.00 mg/dL Normal T BILI 0.30 LAB L501.5300 136-145 mmol/L Normal NA 138 LAB L501.5600 3.5-5.1 mmol/L Normal K 4.0 LAB L501.5900 98-107 mmol/L Normal CL 99 LAB L501.6100 21.0-32.0 mmol/L Normal CO2 30.0 LAB L501.6200 5-15 Normal GAP 9 Performed By: #### L500.4050, L500.4100 #### [facility] [address] [place], [place], [address] LIPID PROFILE Collected: 10/21/2017 Status: F Source: [place]I 7:56 AM [facility] REPOSITORY TYPE CODE TESTS RESULT OUT OF RANGE REFERENCE UNITS LAB L501.4900 200 mg/dL High CHOL 211 Result Comment: <200 mg/dL Desirable 200-240 mg/dL Borderline >240 mg/dL High Risk LAB L501.5000 mg/dL Normal TRIG 143 Result Comment: The drugs N-Acetylcysteine and Metamizole may falsely depress this assay. Serum Triglycerides Reference Interval Normal <150 mg/dL Borderline high 150 - 199 mg/dL High 200 - 499 mg/dL Very High > or = 500 mg/dL LAB L501.6400 mg/dL Normal HDL 64 Result Comment: The drugs N-Acetylcysteine and Metamizole may falsely depress this assay. Reference Range HDL <40 mg/dL Low HDL Cholesterol HDL >or= 60 mg/dL High HDL Cholesterol LAB L501.6500 0-130 mg/dL Normal LDL 118 LAB L501.6600 5-40 mg/dL Normal VLDL 29 Performed By: #### L500.4050, L500.4100 #### [facility] [address] [place], [address] ALLERGIES ALLERGIES DATE TYPE / CODE NAME / CODE REACTION SEVERITY SOURCE 08/23/2015 Drug No Known Unknown [facility] Allergy/416 Allergies/D62365 Hospital 398641(SNOM 0388(RXNORM) Repository ED CT) Drug NO KNOWN [facility] Class/54054 ALLERGIES [address] [place] 1003(SNOMED Repository CT) ENCOUNTERS ENCOUNTERS ADMIT/DISCHARGE ACCOUNT ADMITTING ENCOUNTER LOCATION SOURCE NUMBER CLASS 05/01/2018/05/26/[id number] Repository 04/24/2018 [id number] [facility] ing:LAB Repository 02/24/2018/03/05/[id number] Repository 02/13/2018/02/14/20 [id number] Ambulatory [address] Repository 02/03/2018/02/04/20 [id number] Ambulatory [address] Repository 01/27/2018/01/29/20 [id number] Ambulatory [address] Repository 01/05/2018/01/07/20 [id number] Ambulatory [address] Repository 10/28/2017/11/11/19 [id number] Ambulatory [address] Repository 10/21/2017 [id number] [facility] ing:LAB Repository 10/15/2017 [id number] [facility] ing:LAB Repository PAYERS PAYERS ENCOUNTER GUARANTOR PAYER SUBSCRIBER SOURCE 04/24/2018 Burke Castillo Primary Burke [id number] TR [facility] [address] [id number] [facility] [address]Sve: [phone]) OPolicy Number: Repository [phone] () [id number] Date:[id number] [facility] [address] [place] [id number]: 04/24/2018 Secondary NOT GIVENUNK [place] Insurance:SELF PAY [facility] Number: Effective Repository Date:2018-04-24 10/21/2017 Burke Castillo Primary Burke [id number] TR Insurance:[facility]: [address] [id number] [address]: [phone]) [facility] Number: Repository [phone] () [id number] Date:7280-12-21[address] [address]QZ: 10/21/2017 Secondary NOT GIVENUNK Shi Insurance:SELF PAY [facility] Number: Effective Repository Date:2017-10-21 10/15/2017 Burke Castillo Primary Burke [id number] TR Insurance:[facility]: [address] [id number] Hospital [address]E[place]: [phone]) [facility] Number: Repository [phone] () [id number] Date:0885-23-55[address] [address]HU: 10/15/2017 Secondary NOT GIVENUNK Shi Insurance:SELF PAY [facility] Number: Effective Repository Date:2017-10-15
== END ==
PROVIDERS: Family Provider Internal Medicine; PCP Internal Medicine; Referring Provider Internal Medicine; Visit Provider Internal Medicine
DX: I10 Essential (primary) hypertension (principal); Z79.899 Other long term (current) drug therapy
CPT/HCPCS: 36415; 80048

== ENCOUNTER → 2018-11-05 12:35 | Outpatient (CLI) | payer MEDICARE, SELFPAY ==
[2018-11-05 13:34] LABS: Hematocrit 37.7 % (40-54); Hemoglobin 13.3 g/dl (13.0-16.5); Mean Corp Hgb Conc 35.3 g/gl (32-36); Mean Corpuscular Hgb 33.1 pg (27.0-32.0); Mean Corpuscular Volume 93.8 fL (80-94); Mean Platelet Vol. 8.9 fl (6.2-12.0); Platelet Count 253 K/mm3 (150-450); RBC Distribution Width CV 13.1 % (11.6-14.6); RBC Distribution Width SD 43.7 fl (35.1-43.9); Red Blood Count 4.02 M/mm3 (4.6-6.2); White Blood Count 9.5 K/mm3 (4.4-11.0)
[2018-11-05 13:35] LABS: Scan Indicated on CBC? Y/N NO
[2018-11-05 13:57] LABS: ALB/GLOB Ratio 0.9 RATIO (0.9-2.4); AST(SGOT) 26 U/L (15-37); Alanine Aminotransfer ALT/SGPT 31 U/L (16-61); Albumin, Serum 3.3 g/dL (3.2-5.0); Alkaline Phosphatase 79 U/L (45-117); Anion Gap 7 (5-15); BUN 14 mg/dL (7-18); BUN/Creat Ratio 17.7 RATIO (10-20); Calcium,Total 8.8 mg/dL (8.5-10.1); Chloride 94 mmol/L (98-107); Creatinine, Serum 0.79 mg/dL (0.70-1.30); EST Glomerular Filtration Rate 99 mL/min (>60); Est Glom Filt Rate - Afr Amer 120 mL/min (>60); Globulin 3.5 g/dL (2.2-4.2); Glucose 90 mg/dL (74-106); Potassium 4.2 mmol/L (3.5-5.1); Protein, Total 6.8 g/dL (6.4-8.2); Sodium Level 130 mmol/L (136-145)
== END ==
PROVIDERS: Family Provider Internal Medicine; PCP Internal Medicine; Referring Provider Internal Medicine; Visit Provider Internal Medicine
DX: I10 Essential (primary) hypertension (principal)
CPT/HCPCS: 36415; 80053; 85027

== ENCOUNTER → 2018-12-15 13:36 | Outpatient (CLI) | payer MEDICARE, SELFPAY ==
[2018-12-15 16:16] LABS: Urine Sodium 38 mmol/L (Not Establ.)
[2018-12-15 16:45] LABS: Osmolality, Serum 273 mOsm/KG (280-301)
[2018-12-15 16:56] LABS: Vitamin B12 369 pg/mL (211-911)
[2018-12-15 17:40] LABS: Anion Gap 9 (5-15); BUN 12 mg/dL (7-18); BUN/Creat Ratio 17.5 RATIO (10-20); Calcium,Total 8.7 mg/dL (8.5-10.1); Chloride 97 mmol/L (98-107); Creatinine, Serum 0.68 mg/dL (0.70-1.30); EST Glomerular Filtration Rate 117 mL/min (>60); Est Glom Filt Rate - Afr Amer 142 mL/min (>60); Ferritin 160 ng/mL (26-388); Glucose 84 mg/dL (74-106); Iron 91 ug/dL (65-175); Iron Binding Capacity,Total 323 ug/dL (250-450); PERCENT IRON SATURATION 28.2 % (15.0-55.0); Potassium 4.4 mmol/L (3.5-5.1); Sodium Level 133 mmol/L (136-145); T4 Free Direct 0.82 ng/dL (0.76-1.46); Thyroid Stim Hormone (TSH) 1.55 uIU/mL (0.358-3.74)
== END ==
PROVIDERS: Family Provider Internal Medicine; PCP Internal Medicine; Referring Provider Internal Medicine; Visit Provider Internal Medicine
DX: E87.1 Hypo-osmolality and hyponatremia (principal); D64.9 Anemia, unspecified; R53.83 Other fatigue; M62.81 Muscle weakness (generalized)
CPT/HCPCS: 36415; 80048; 82607; 82728; 82746; 83540; 83550; 83930; 84300; 84439; 84443

== ENCOUNTER 2019-06-06 13:49 | Emergency (ER) | payer MEDICARE, SELFPAY ==
[2019-06-06 13:51] VITALS: BP 111/67; PULSE 72; RESP 16; TEMP 36.1; O2SAT 92; BMI 19.2
--- NOTE | 2019-06-06 14:02 | EKG12_ITS ---
Test Reason : RIB PAIN Blood Pressure : / mmHG Vent. Rate : 070 BPM Atrial Rate : 070 BPM P-R Int : 136 ms QRS Dur : 086 ms QT Int : 404 ms P-R-T Axes : -02 -28 004 degrees QTc Int : 436 ms Normal sinus rhythm Minimal voltage criteria for LVH, may be normal variant Borderline ECG Confirmed by AMPARO JEAN, KIANNA ([id number]), video tape editor AMAURY QUINTANA ([id number]) on 06/09/2019 1:36:26 PM Referred By: ANGELES Confirmed By:KIANNA CHRISTENSEN MD
--- NOTE | 2019-06-06 14:03 | RAD_ITS ---
STUDY: X-RAY CHEST REASON FOR EXAM: Male, 83 years old. Cough TECHNIQUE: Frontal view of the chest COMPARISON: None. FINDINGS: There is a large loculated right pleural effusion with associated atelectasis. The left lung is clear. There is no pneumothorax. The heart is normal in size. The visualized osseous structures are within normal limits. RAD/Chest PA and Lateral IMPRESSION: Large loculated right pleural effusion with associated atelectasis. Electronically Signed: Percy Driver, at 15:02 EST Tel , Service support ,
--- NOTE | 2019-06-06 14:03 | ED.VIS.GEN ---
History of Present Illness Chief Complaint: General Illness Informant: Patient, Family Onset: Weeks Narrative: Patient presents primarily for generalized weakness. He has had increasing depression and poor appetite for several weeks. His primary care physician recently decreased his Zoloft and started him on Remeron to try to help increase his appetite. He has not noted any improvement. He has had cough going on for several weeks. He reports some rib pain secondary to cough. states he is hardly eating or drinking anything. He is had to sleep on the main floor the house for the last several weeks because he is too weak to make it up the steps. When asked what changed specifically today that made him come to the emergency room she states he is getting so weak he is having difficulty walking. Patient denies any pain while sitting at rest. - Past Medical History (1) Depression Status: Chronic Past Medical History - Allergies and Home Meds Allergies/Adverse Reactions: Allergies No Known Allergies Allergy (Verified 06/06/19 13:53) Primary Care Physician: Alexandrea Eason MD [Primary Care Provider] - Prior records reviewed: Yes Lives: Spouse/ Significant Other Smoking Status: Former smoker Review of Systems General: Denies: Chills, Fever Eyes: Denies: Visual changes - bilaterally ENT: Reports: - - Dry mouth. Denies: Bilateral ear pain Cardiovascular: Reports: Chest pain - Lower rib pain, worse on the right Respiratory: Reports: Cough - Minimal cough. Denies: Dyspnea Gastrointestinal: Denies: Abdominal pain, Nausea, Vomiting, Diarrhea Genitourinary: Denies: Dysuria Musculoskeletal: Denies: Extremity Pain Skin: Denies: Rash Neurological: Reports: Weakness - Generalized weakness Psych: Reports: Depression Allergy: Denies: Uticaria Physical Exam Vital Signs/Narrative: Vital Signs Temp Pulse Resp BP Pulse Ox 06/06/19 13:51 97 F L 72 16 111/67 92 Inital Vital Signs reviewed: Yes General: Well nourished, Well developed Head: Normocephalic ENT: Moist mucous membranes Neck: Supple Cardiovascular: Regular rate, Regular rhythm Respiratory: No distress, CTA bilaterally Abdomen: Soft, Nontender, Hypoactive bowel sounds Extremities: Nontender Skin: Normal color Neurological: Alert, Oriented x3, - - No focal deficits. Psychological: Normal affect Diagnostic/Tx/Re-eval Impressions Chest X-Ray 06/06/19 14:03 IMPRESSION: Large loculated right pleural effusion with associated atelectasis. Electronically Signed: Percy Driver, at 15:02 EST Tel , Service support , Chest CT 06/06/19 14:57 IMPRESSION: Large loculated right pleural effusion with passive atelectasis in the right lung. No left-sided effusion. No focal infiltrates. No pulmonary nodules or masses identified. However, evaluation of the right lung is limited due to the significant degree of atelectasis. Coronary artery disease. Fracture of the medial right clavicle, right fourth, ninth and 11th ribs and left sixth through 10th ribs which appear subacute in nature. Electronically Signed: Percy Driver, at 16:23 EST Tel , Service support , 06/06/19 14:03 Chest PA and Lateral [RAD] Stat 06/06/19 14:57 CT Chest [Chest WITH Contrast] [CT] Stat Laboratory Results 06/06/19 06/06/19 06/06/19 14:15 14:15 17:15 WBC 19.2 H RBC 4.27 L Hgb 13.6 Hct 39.3 L MCV 92.0 MCH 31.9 MCHC 34.6 RDW Std Deviation 41.1 RDW Coeff of Isai 12.3 Plt Count 401 MPV 8.1 Immature Gran % (Auto) 0.700 Neut % (Auto) 82.8 H Lymph % (Auto) 4.3 L [place] % (Auto) 11.7 H Eos % (Auto) 0.1 Baso % (Auto) 0.4 Absolute Neuts (auto) 15.9 H Absolute Lymphs (auto) 0.82 L Nucleated RBC % 0 Sodium 129 L Potassium 3.6 Chloride 93 L Carbon Dioxide 27.0 Anion Gap 9 BUN 19 H Creatinine 0.72 Estim Creat Clear Calc 46.68 Est GFR (MDRD) Af Amer 134 Est GFR (MDRD) Non-Af 111 BUN/Creatinine Ratio 26.5 H Glucose 108 H Calcium 9.0 Total Bilirubin 0.60 Direct Bilirubin 0.35 H AST 21 ALT 23 Alkaline Phosphatase 134 H Total Protein 7.4 Albumin 1.8 L Globulin 5.6 H TSH 1.54 Urine Color Yellow Urine Clarity Clear Urine pH 7.0 Ur Specific Velarde 1.005 Urine Protein 30 H Urine Glucose (UA) Normal Urine Ketones 15 H Urine Occult Blood 10 H Urine Nitrite Negative Urine Bilirubin Negative Urine Urobilinogen 8 H Ur Leukocyte Esterase 25 H Urine RBC 0 SEEN Urine WBC 0-5 SEEN Ur Squamous Epith Cells 0-5 SEEN Urine Bacteria 0 SEEN Urine Mucus 0 SEEN - EKG Initial EKG Interpretation: Sinus Rhythm - Sinus at 70 with no acute ischemia. - Medical Decision Making Patient's O2 sats would drop into the high 80s. He is placed on 2 L nasal cannula with sats maintaining in the mid 90s. Test results are discussed with the patient and family at bedside. I spoke with pulmonology here, however they states that because the effusion is loculated that would require CT surgery and patient would require transport. I spoken with [facility] patient will be transferred to their ER for further treatment and evaluation. ED Disposition - Plan for ED Patient: Disposition: [facility] Diagnosis: Loculated pleural effusion, Multiple rib fractures Referrals: Alexandrea Eason MD [Primary Care Provider] -
[2019-06-06 14:20] LABS: Absolute Lymphocyte Count 0.82 X10^3/uL (0.83-4.51); Absolute Neutrophil Count 15.9 X10^3/uL (2.0-7.7); Basophil# 0.08 X10^3/uL; Basophil% 0.4 % (0-1); Eosinophil# 0.01 X10^3/uL; Eosinophils% 0.1 % (0-5); Hematocrit 39.3 % (40-54); Hemoglobin 13.6 g/dL (13.0-16.5); Lymphocyte # 0.82 X10^3/ul (4.0); Lymphocyte % 4.3 % (19-41); Mean Corp Hgb Conc 34.6 g/dL (32-36); Mean Corpuscular Hgb 31.9 pg (27.0-32.0); Mean Platelet Vol. 8.1 fl (6.2-12.0); Monocyte# 2.25 X10^3/uL; Monocyte% 11.7 % (0-10); NRBC Flagged by Analyzer 0 % (0-5); Neutrophil # 15.88 X10^3/uL (2.7-7.7); Neutrophil % 82.8 % (47-70); POSITIVE DIFFERENTIAL YES; Platelet Count 401 K/mm3 (150-450); RBC Distribution Width CV 12.3 % (11.6-14.6); RBC Distribution Width SD 41.1 fl (35.1-43.9); Red Blood Count 4.27 M/mm3 (4.6-6.2); White Blood Count 19.2 K/mm3 (4.4-11.0)
[2019-06-06 14:33] LABS: Differential Indicated SCAN CRITERIA MET
[2019-06-06 14:52] LABS: AST(SGOT) 21 U/L (15-37); Alanine Aminotransfer ALT/SGPT 23 U/L (16-61); Albumin, Serum 1.8 g/dL (3.2-5.0); Alkaline Phosphatase 134 U/L (45-117); Anion Gap 9 (5-15); BUN 19 mg/dL (7-18); BUN/Creat Ratio 26.5 RATIO (10-20); Bilirubin, Direct 0.35 mg/dL (0.00-0.30); Chloride 93 mmol/L (98-107); Creatinine, Serum 0.72 mg/dL (0.70-1.30); EST Glomerular Filtration Rate 111 mL/min (>60); Est Glom Filt Rate - Afr Amer 134 mL/min (>60); Estimated Creatinine Clearance 46.68 ml/min; Globulin 5.6 g/dL (2.2-4.2); Glucose 108 mg/dL (74-106); Potassium 3.6 mmol/L (3.5-5.1); Protein, Total 7.4 g/dL (6.4-8.2); Sodium Level 129 mmol/L (136-145); Thyroid Stim Hormone (TSH) 1.54 uIU/mL (0.358-3.74)
--- NOTE | 2019-06-06 14:57 | CT_ITS ---
STUDY: CT CHEST WITH CONTRAST REASON FOR EXAM: Male, 83 years old. Shortness of breath RADIATION DOSAGE (If Supplied By Facility): CTDIvol = ( 274 ) mGy, DLP = ( 273.67 ) mGycm TECHNIQUE: Transaxial imaging was performed following intravenous administration of 75 ml of Isovue 370 contrast material. Coronal and sagittal reformatted images were created. Individualized dose optimization techniques were used for this CT. COMPARISON: None FINDINGS: The study is limited by patient motion. There is a large loculated right pleural effusion with passive atelectasis in the right lung. There is no left-sided effusion. There are no focal infiltrates. There are no pulmonary nodules or masses identified. However, evaluation of the right lung is limited due to the significant degree of atelectasis. There is no pneumothorax. The heart and pericardium are within normal limits. There are coronary artery calcifications noted. There is no thoracic lymphadenopathy. There is no evidence of pulmonary embolus. There is no evidence of thoracic aortic dissection or aneurysm. Images through the upper abdomen demonstrate hepatic cysts. There are is a fracture of the medial head of the right clavicle. There are fractures of the right fourth, ninth and 11th ribs and left sixth through 10th ribs which appear subacute in nature. CT/Chest WITH Contrast IMPRESSION: Large loculated right pleural effusion with passive atelectasis in the right lung. No left-sided effusion. No focal infiltrates. No pulmonary nodules or masses identified. However, evaluation of the right lung is limited due to the significant degree of atelectasis. Coronary artery disease. Fracture of the medial right clavicle, right fourth, ninth and 11th ribs and left sixth through 10th ribs which appear subacute in nature. Electronically Signed: Percy Driver, at 16:23 EST Tel , Service support ,
[2019-06-06 15:57] VITALS: BP 112/75; PULSE 73; RESP 26; TEMP 36.4; O2SAT 96
[2019-06-06 16:00] VITALS: TEMP 36.4
--- NOTE | 2019-06-06 16:02 | ED.RN ---
DR. REYNOSO INFORMED OF SEPSIS ALERT, BC ORDERED PREVIOUSLY, NO LACTIC ORDERED. DR. REYNOSO INFORMED. WILL CONTINUE TO MONITOR.
[2019-06-06] MEDS: 0.9% Normal Saline 1,000 ML 150 ML IV (16:20)
[2019-06-06 17:06] VITALS: BP 114/82; PULSE 74; RESP 21; TEMP 36.4; O2SAT 95
[2019-06-06 17:23] LABS: Bacteria 0 SEEN /hpf (None Seen); Mucous, Urine 0 SEEN /hpf (<or=2+); Red Blood Cells-Urine 0 SEEN /hpf (0-5)
[2019-06-06 17:26] LABS: Color, Urine Yellow (Yellow); Glucose, Dipstick Normal (Normal); Ketone-Dipstick 15 mg/dl (Negative); Leukocyte Esterase-Dipstick 25 /ul (Negative); Nitrite-Dipstick Negative (Negative); Occult Blood-Urine 10 /ul (Negative); Protein-Dipstick 30 mg/dl (Negative); Specific Gravity, Urine 1.005 (1.002-1.030); Urine Bilirubin Dipstick Negative (Negative); Urine Clarity Clear (Clear); Urine Urobilinogen 8 mg/dl (Normal)
[2019-06-06 17:37] LABS: Squamous Epithelial Cells - UA 0-5 SEEN /hpf (0-5); White Blood Cells 0-5 SEEN /hpf (0-5)
[2019-06-06 18:49] VITALS: BP 124/79; PULSE 74; RESP 24; TEMP 36.4; O2SAT 94
--- NOTE | 2019-06-06 19:10 | ED.RN ---
PT TAKING HOME BELONGINGS, ALL CLOTHES AND SHOES EXCEPT PANTS. PT GIVEN DIRECTIONS TO [facility] AND PHONE NUMBER FOR [facility] ER.
== END 2019-06-06 19:09 | disposition short-term general hospital (02) ==
PROVIDERS: Emergency Provider Emergency Medicine; PCP Internal Medicine
DX: J90 Pleural effusion, not elsewhere classified (principal); S22.43XA Multiple fractures of ribs, bilateral, initial encounter for closed fracture; S27.9XXA Injury of unspecified intrathoracic organ, initial encounter; X58.XXXA Exposure to other specified factors, initial encounter; Y93.9 Activity, unspecified; Y92.9 Unspecified place or not applicable; Y99.9 Unspecified external cause status; I25.10 Atherosclerotic heart disease of native coronary artery without angina pectoris; R63.0 Anorexia; F32.9 Major depressive disorder, single episode, unspecified; Z79.899 Other long term (current) drug therapy; Z87.891 Personal history of nicotine dependence
CPT/HCPCS: 71046; 71260; 80048; 80076; 81001; 84443; 85025; 87040; 93005; 96360; 96361; 99285; J7030; Q9967; A4216

== ENCOUNTER 2019-06-16 17:24 | Inpatient (IN) | payer MEDICARE, SELFPAY ==
[2019-06-16 17:32] VITALS: BP 146/95; PULSE 78; RESP 16; TEMP 36.8; O2SAT 94
--- NOTE | 2019-06-16 18:38 | NURSING ---
Per report from Tip Borden RN, patient's PICC was placed on 06/09/19 and dressing was changed on 06/15/19.
--- NOTE | 2019-06-16 19:44 | NURSING ---
Spoke with Nita MOSQUEDA from [facility]. She stated that the patient's R arm PICC is a 4 pitcairn islander with an insertion length of 44cm and trimmed at 44cm.
[2019-06-16 20:15] VITALS: BMI 18.8
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
[2019-06-16 20:30] VITALS: BMI 18.8
[2019-06-16] MEDS: oxyCODONE 5 MG Tablet PO (20:57)
[2019-06-16] MEDS: 0.9% Saline Lock 10 ML Syringe IV (20:59)
[2019-06-16] MEDS: Latanoprost 0.005% 1 Bottle 1 DRP EACH EYE (21:00)
[2019-06-16] MEDS: Mirtazapine 15 MG Tablet PO (21:03)
[2019-06-16] MEDS: Gabapentin 600 MG Tablet PO (21:03)
[2019-06-16] MEDS: Thiamine Hydrochloride 100 MG Tablet PO (21:03)
--- NOTE | 2019-06-16 22:57 | NURSING ---
Code status discussed with pt, pt wishes to be a full code.
[2019-06-17] MEDS: Acetaminophen 500 MG Tablet 1000 MG PO (01:21)
[2019-06-17] MEDS: Enoxaparin 40 MG/0.4 ML Syringe SC (05:45)
[2019-06-17] MEDS: Furosemide 20 MG Tablet PO (05:46)
[2019-06-17] MEDS: Multivitamin (Healthy Eyes) Capsule 2 CAP PO (05:46)
[2019-06-17] MEDS: Polyethylene Glycol 3350 17 GM PACKET PO (05:46)
[2019-06-17] MEDS: Senna/Docusate Sodium 1 Tablet 2 TABLET PO ×2 (05:46→17:20)
[2019-06-17] MEDS: Lisinopril 10 MG Tablet PO (05:46)
[2019-06-17] MEDS: Omega-3 Acid Ethyl Esters 1 GM Capsule PO (05:46)
[2019-06-17] MEDS: Thiamine Hydrochloride 100 MG Tablet PO ×3 (05:46→20:05)
[2019-06-17] MEDS: Atenolol 25 MG Tablet PO (05:46)
[2019-06-17] MEDS: Nystatin Powder 15gm Bottle 1 APPLIC TOPICAL ×2 (05:47→20:04)
[2019-06-17] MEDS: Menthol/Lanolin/Calamine/Znox 113 GM Tube 1 APPLIC TOPICAL ×2 (05:47→20:04)
--- NOTE | 2019-06-17 06:06 | NURSING ---
Pt attempted to self transfer, PA applied
[2019-06-17 06:08] LABS: Absolute Lymphocyte Count 2.14 X10^3/uL (0.83-4.51); Basophil# 0.11 X10^3/uL; Basophil% 0.7 % (0-1); Eosinophil# 0.24 X10^3/uL; Eosinophils% 1.6 % (0-5); Hemoglobin 11.5 g/dL (13.0-16.5); Lymphocyte # 2.14 X10^3/ul (4.0); Lymphocyte % 14.4 % (19-41); Mean Corp Hgb Conc 33.8 g/dL (32-36); Mean Corpuscular Hgb 31.4 pg (27.0-32.0); Mean Corpuscular Volume 92.9 fL (80-94); Monocyte% 7.4 % (0-10); NRBC Flagged by Analyzer 0 % (0-5); Neutrophil # 10.98 X10^3/uL (2.7-7.7); Neutrophil % 73.9 % (47-70); Platelet Count 392 K/mm3 (150-450); RBC Distribution Width CV 13.1 % (11.6-14.6); RBC Distribution Width SD 44.1 fl (35.1-43.9); Red Blood Count 3.66 M/mm3 (4.6-6.2); White Blood Count 14.9 K/mm3 (4.4-11.0)
[2019-06-17 06:34] LABS: Anion Gap 4 (5-15); BUN 10 mg/dL (7-18); BUN/Creat Ratio 17.2 RATIO (10-20); Calcium,Total 8.5 mg/dL (8.5-10.1); Chloride 99 mmol/L (98-107); Creatinine, Serum 0.58 mg/dL (0.70-1.30); EST Glomerular Filtration Rate 142 mL/min (>60); Est Glom Filt Rate - Afr Amer 171 mL/min (>60); Estimated Creatinine Clearance 45.67 ml/min; Glucose 74 mg/dL (74-106); Potassium 3.7 mmol/L (3.5-5.1); Sodium Level 134 mmol/L (136-145)
[2019-06-17] MEDS: Tuberculin,Purif.prot.deriv. 50 TU/ML Vial 5 ML ID (08:55)
[2019-06-17] MEDS: Multivitamins,Therapeutic Tablet 1 TABLET PO (08:55)
--- NOTE | 2019-06-17 10:03 | NURSING ---
Podiatry consulted for toe nail care.
[2019-06-17] MEDS: 0.9% Saline Lock 10 ML Syringe IV ×2 (11:28→17:21)
[2019-06-17 13:29] VITALS: BP 127/68; PULSE 76; RESP 18; TEMP 36.8; O2SAT 92
--- NOTE | 2019-06-17 16:57 | CASEMGMT ---
Reviewed and agree with SW internal auditor documentation on this date. PITER Schwartz
[2019-06-17] MEDS: oxyCODONE 5 MG Tablet PO (19:57)
[2019-06-17] MEDS: Latanoprost 0.005% 1 Bottle 1 DRP EACH EYE (20:01)
[2019-06-17] MEDS: Gabapentin 600 MG Tablet PO (20:05)
[2019-06-17] MEDS: Mirtazapine 15 MG Tablet PO (20:05)
[2019-06-18] MEDS: 0.9% Saline Lock 10 ML Syringe IV ×4 (00:27→23:45)
[2019-06-18] MEDS: Thiamine Hydrochloride 100 MG Tablet PO ×3 (05:14→20:40)
[2019-06-18] MEDS: Senna/Docusate Sodium 1 Tablet 2 TABLET PO ×2 (05:14→16:46)
[2019-06-18] MEDS: Furosemide 20 MG Tablet PO (05:14)
[2019-06-18] MEDS: Atenolol 25 MG Tablet PO (05:14)
[2019-06-18] MEDS: Lisinopril 10 MG Tablet PO (05:14)
[2019-06-18] MEDS: Omega-3 Acid Ethyl Esters 1 GM Capsule PO (05:14)
[2019-06-18] MEDS: Multivitamin (Healthy Eyes) Capsule 2 CAP PO (05:14)
[2019-06-18] MEDS: Enoxaparin 40 MG/0.4 ML Syringe SC (05:15)
[2019-06-18] MEDS: Polyethylene Glycol 3350 17 GM PACKET PO (05:15)
[2019-06-18] MEDS: Menthol/Lanolin/Calamine/Znox 113 GM Tube 1 APPLIC TOPICAL ×2 (05:23→20:35)
[2019-06-18] MEDS: Nystatin Powder 15gm Bottle 1 APPLIC TOPICAL ×2 (05:23→20:41)
[2019-06-18] MEDS: Multivitamins,Therapeutic Tablet 1 TABLET PO (08:48)
[2019-06-18 14:24] VITALS: BP 116/72; PULSE 93; RESP 18; TEMP 36.7; O2SAT 95
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
[2019-06-18] MEDS: oxyCODONE 5 MG Tablet PO (20:35)
[2019-06-18] MEDS: Gabapentin 600 MG Tablet PO (20:40)
[2019-06-18] MEDS: Mirtazapine 15 MG Tablet PO (20:40)
[2019-06-18] MEDS: Latanoprost 0.005% 1 Bottle 1 DRP EACH EYE (20:40)
[2019-06-19] MEDS: Polyethylene Glycol 3350 17 GM PACKET PO (05:21)
[2019-06-19] MEDS: Atenolol 25 MG Tablet PO (05:22)
[2019-06-19] MEDS: Furosemide 20 MG Tablet PO (05:22)
[2019-06-19] MEDS: Enoxaparin 40 MG/0.4 ML Syringe SC (05:22)
[2019-06-19] MEDS: Lisinopril 10 MG Tablet PO (05:22)
[2019-06-19] MEDS: Thiamine Hydrochloride 100 MG Tablet PO ×3 (05:22→20:16)
[2019-06-19] MEDS: Multivitamin (Healthy Eyes) Capsule 2 CAP PO (05:22)
[2019-06-19] MEDS: Omega-3 Acid Ethyl Esters 1 GM Capsule PO (05:22)
[2019-06-19] MEDS: Senna/Docusate Sodium 1 Tablet 2 TABLET PO ×2 (05:22→17:00)
[2019-06-19] MEDS: Nystatin Powder 15gm Bottle 1 APPLIC TOPICAL ×2 (05:23→20:15)
[2019-06-19] MEDS: UREA 15 GM POWD.PACK PO (05:23)
[2019-06-19] MEDS: Menthol/Lanolin/Calamine/Znox 113 GM Tube 1 APPLIC TOPICAL ×2 (05:23→20:14)
[2019-06-19] MEDS: 0.9% Saline Lock 10 ML Syringe IV ×4 (05:24→23:22)
[2019-06-19] MEDS: Multivitamins,Therapeutic Tablet 1 TABLET PO (09:10)
[2019-06-19 14:54] VITALS: BP 126/79; PULSE 67; RESP 16; TEMP 36.6; O2SAT 94
[2019-06-19] MEDS: oxyCODONE 5 MG Tablet PO (20:12)
[2019-06-19] MEDS: Latanoprost 0.005% 1 Bottle 1 DRP EACH EYE (20:14)
[2019-06-19] MEDS: Gabapentin 600 MG Tablet PO (20:16)
[2019-06-19] MEDS: Mirtazapine 15 MG Tablet PO (20:16)
[2019-06-20] MEDS: Menthol/Lanolin/Calamine/Znox 113 GM Tube 1 APPLIC TOPICAL ×2 (05:24→20:26)
[2019-06-20] MEDS: Multivitamin (Healthy Eyes) Capsule 2 CAP PO (05:25)
[2019-06-20] MEDS: Lisinopril 10 MG Tablet PO (05:25)
[2019-06-20] MEDS: Furosemide 20 MG Tablet PO (05:25)
[2019-06-20] MEDS: Senna/Docusate Sodium 1 Tablet 2 TABLET PO ×2 (05:25→18:00)
[2019-06-20] MEDS: Omega-3 Acid Ethyl Esters 1 GM Capsule PO (05:25)
[2019-06-20] MEDS: Thiamine Hydrochloride 100 MG Tablet PO ×3 (05:25→20:30)
[2019-06-20] MEDS: Atenolol 25 MG Tablet PO (05:25)
[2019-06-20] MEDS: Enoxaparin 40 MG/0.4 ML Syringe SC (05:25)
[2019-06-20] MEDS: Polyethylene Glycol 3350 17 GM PACKET PO (05:26)
[2019-06-20] MEDS: 0.9% Saline Lock 10 ML Syringe IV ×4 (05:26→20:26)
[2019-06-20] MEDS: Nystatin Powder 15gm Bottle 1 APPLIC TOPICAL ×2 (05:27→20:27)
[2019-06-20 05:41] VITALS: BP 123/74; PULSE 69
[2019-06-20] MEDS: Multivitamins,Therapeutic Tablet 1 TABLET PO (08:50)
[2019-06-20] MEDS: UREA 15 GM POWD.PACK PO (08:50)
[2019-06-20 14:48] VITALS: BP 113/65; PULSE 70; RESP 16; TEMP 36; O2SAT 93
[2019-06-20] MEDS: Latanoprost 0.005% 1 Bottle 1 DRP EACH EYE (20:26)
[2019-06-20] MEDS: Mirtazapine 15 MG Tablet PO (20:30)
[2019-06-20] MEDS: Gabapentin 600 MG Tablet PO (20:30)
[2019-06-20] MEDS: oxyCODONE 5 MG Tablet PO (20:35)
[2019-06-21] MEDS: Polyethylene Glycol 3350 17 GM PACKET PO (04:55)
[2019-06-21] MEDS: Multivitamin (Healthy Eyes) Capsule 2 CAP PO (04:57)
[2019-06-21] MEDS: Senna/Docusate Sodium 1 Tablet 2 TABLET PO ×2 (04:57→17:49)
[2019-06-21] MEDS: Atenolol 25 MG Tablet PO (04:57)
[2019-06-21] MEDS: Lisinopril 10 MG Tablet PO (04:57)
[2019-06-21] MEDS: Furosemide 20 MG Tablet PO (04:57)
[2019-06-21] MEDS: Menthol/Lanolin/Calamine/Znox 113 GM Tube 1 APPLIC TOPICAL ×2 (04:57→21:18)
[2019-06-21] MEDS: Thiamine Hydrochloride 100 MG Tablet PO ×3 (04:57→21:18)
[2019-06-21] MEDS: Omega-3 Acid Ethyl Esters 1 GM Capsule PO (04:57)
[2019-06-21] MEDS: Nystatin Powder 15gm Bottle 1 APPLIC TOPICAL ×2 (04:58→21:18)
[2019-06-21] MEDS: Enoxaparin 40 MG/0.4 ML Syringe SC (04:59)
[2019-06-21] MEDS: Multivitamins,Therapeutic Tablet 1 TABLET PO (08:30)
[2019-06-21] MEDS: UREA 15 GM POWD.PACK PO (08:30)
--- NOTE | 2019-06-21 09:36 | RAD_ITS ---
STUDY: X-RAY CHEST REASON FOR EXAM: Male, 83 years old. SOB AND COUGH. TECHNIQUE: PA and lateral views of the chest. COMPARISON: Comparison is made with prior examination dated June 06, 2019. FINDINGS: A right-sided PICC line catheter is in situ with the tip at the junction of the superior vena cava and right atrium. The previously seen large right pleural effusion has almost completely cleared. Residual pleural thickening along the lateral wall of the right hemithorax with blunting of the right cusp and angle and increased markings at the right lung base suggestive of atelectasis. Minimal increased markings at the left lung base. Normal size heart. Normal mediastinum and melba. Normal visualized pulmonary arteries. There is atherosclerotic calcification of the aortic arch with tortuosity. There is demineralization of the osseous structures. Normal visualized ribs, clavicles, and shoulders. There is no demonstrated abnormality of the visualized soft tissue structures of the upper abdomen. RAD/Chest PA and Lateral IMPRESSION: Almost complete resorption of the right pleural effusion with mild residual changes and increased markings at the right lung base suggestive of atelectasis. Minimal increased markings at the left lung base. Electronically Signed: Ilir Patel, at 14:45 EST , Service support ,
[2019-06-21] MEDS: 0.9% Saline Lock 10 ML Syringe IV ×3 (12:07→23:19)
[2019-06-21 14:38] VITALS: BP 116/67; PULSE 79; RESP 16; TEMP 36.4; O2SAT 91
--- NOTE | 2019-06-21 16:06 | NURSING ---
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 new order for cxr which showed improvement from previous one.
[2019-06-21] MEDS: Latanoprost 0.005% 1 Bottle 1 DRP EACH EYE (21:17)
[2019-06-21] MEDS: Gabapentin 600 MG Tablet PO (21:18)
[2019-06-21] MEDS: Mirtazapine 15 MG Tablet PO (21:18)
[2019-06-21] MEDS: oxyCODONE 5 MG Tablet PO (21:19)
[2019-06-22] MEDS: 0.9% Saline Lock 10 ML Syringe IV ×5 (05:30→23:24)
[2019-06-22] MEDS: Atenolol 25 MG Tablet PO (05:32)
[2019-06-22] MEDS: Enoxaparin 40 MG/0.4 ML Syringe SC (05:32)
[2019-06-22] MEDS: Nystatin Powder 15gm Bottle 1 APPLIC TOPICAL ×2 (05:32→21:02)
[2019-06-22] MEDS: Polyethylene Glycol 3350 17 GM PACKET PO (05:32)
[2019-06-22] MEDS: Omega-3 Acid Ethyl Esters 1 GM Capsule PO (05:32)
[2019-06-22] MEDS: Furosemide 20 MG Tablet PO (05:32)
[2019-06-22] MEDS: Menthol/Lanolin/Calamine/Znox 113 GM Tube 1 APPLIC TOPICAL ×2 (05:32→21:03)
[2019-06-22] MEDS: Thiamine Hydrochloride 100 MG Tablet PO ×3 (05:32→21:01)
[2019-06-22] MEDS: Lisinopril 10 MG Tablet PO (05:32)
[2019-06-22] MEDS: Senna/Docusate Sodium 1 Tablet 2 TABLET PO ×2 (05:32→16:59)
[2019-06-22] MEDS: Multivitamin (Healthy Eyes) Capsule 2 CAP PO (05:32)
[2019-06-22] MEDS: UREA 15 GM POWD.PACK PO (07:52)
[2019-06-22] MEDS: Multivitamins,Therapeutic Tablet 1 TABLET PO (07:52)
[2019-06-22 14:15] VITALS: BP 134/68; PULSE 69; RESP 16; TEMP 36.7; O2SAT 95
[2019-06-22] MEDS: Gabapentin 600 MG Tablet PO (21:01)
[2019-06-22] MEDS: Latanoprost 0.005% 1 Bottle 1 DRP EACH EYE (21:02)
[2019-06-22] MEDS: Mirtazapine 15 MG Tablet PO (21:02)
[2019-06-22] MEDS: oxyCODONE 5 MG Tablet PO (21:28)
[2019-06-23] MEDS: Omega-3 Acid Ethyl Esters 1 GM Capsule PO (05:11)
[2019-06-23] MEDS: Lisinopril 10 MG Tablet PO (05:11)
[2019-06-23] MEDS: Thiamine Hydrochloride 100 MG Tablet PO ×3 (05:11→21:05)
[2019-06-23] MEDS: Multivitamin (Healthy Eyes) Capsule 2 CAP PO (05:11)
[2019-06-23] MEDS: Furosemide 20 MG Tablet PO (05:11)
[2019-06-23] MEDS: Polyethylene Glycol 3350 17 GM PACKET PO (05:11)
[2019-06-23] MEDS: Senna/Docusate Sodium 1 Tablet 2 TABLET PO ×2 (05:11→17:48)
[2019-06-23] MEDS: Menthol/Lanolin/Calamine/Znox 113 GM Tube 1 APPLIC TOPICAL ×2 (05:11→21:04)
[2019-06-23] MEDS: Atenolol 25 MG Tablet PO (05:11)
[2019-06-23] MEDS: Enoxaparin 40 MG/0.4 ML Syringe SC (05:12)
[2019-06-23] MEDS: Nystatin Powder 15gm Bottle 1 APPLIC TOPICAL ×2 (05:12→21:04)
[2019-06-23] MEDS: UREA 15 GM POWD.PACK PO (09:16)
[2019-06-23] MEDS: Multivitamins,Therapeutic Tablet 1 TABLET PO (09:18)
--- NOTE | 2019-06-23 13:30 | CASEMGMT ---
Social Work IDT met with patient, , and children for care plan meeting. Discussed patient's progress in therapy. Pt is supervised for UE ADLS, min assist for LE ADLs, SBA for transfers, walking 150 ft with FWW at SBA, completed 5 steps SBA, rode NuStep for [address] working on cognition and orientation. Pt has 12 steps to bedroom. Explained and provided [employer] CP with NRD 06/24, anticipated DC 07/02. Pt receives IV ATBs until 07/07. Will continue to follow. Vera Duran, LABEL MACHINE OPERATOR [employer]
[2019-06-23 15:02] VITALS: BP 108/64; PULSE 78; RESP 17; TEMP 36.6; O2SAT 93
[2019-06-23] MEDS: oxyCODONE 5 MG Tablet PO (21:03)
[2019-06-23] MEDS: Gabapentin 600 MG Tablet PO (21:04)
[2019-06-23] MEDS: Latanoprost 0.005% 1 Bottle 1 DRP EACH EYE (21:05)
[2019-06-23] MEDS: Mirtazapine 15 MG Tablet PO (21:05)
[2019-06-23] MEDS: 0.9% Saline Lock 10 ML Syringe IV (23:53)
[2019-06-24 04:02] LABS: Absolute Lymphocyte Count 1.77 X10^3/uL (0.83-4.51); Absolute Neutrophil Count 7.2 X10^3/uL (2.0-7.7); Basophil# 0.12 X10^3/uL; Basophil% 1.1 % (0-1); Eosinophil# 0.42 X10^3/uL; Eosinophils% 3.9 % (0-5); Hematocrit 29.8 % (40-54); Hemoglobin 9.8 g/dL (13.0-16.5); Lymphocyte # 1.77 X10^3/ul (4.0); Lymphocyte % 16.6 % (19-41); Mean Corp Hgb Conc 32.9 g/dL (32-36); Mean Corpuscular Hgb 31.1 pg (27.0-32.0); Mean Corpuscular Volume 94.6 fL (80-94); Mean Platelet Vol. 8.7 fl (6.2-12.0); Monocyte# 1.08 X10^3/uL; Monocyte% 10.1 % (0-10); NRBC Flagged by Analyzer 0 % (0-5); Neutrophil # 7.21 X10^3/uL (2.7-7.7); Neutrophil % 67.7 % (47-70); Platelet Count 288 K/mm3 (150-450); RBC Distribution Width CV 14.2 % (11.6-14.6); RBC Distribution Width SD 48.7 fl (35.1-43.9); Red Blood Count 3.15 M/mm3 (4.6-6.2); White Blood Count 10.7 K/mm3 (4.4-11.0)
[2019-06-24 04:16] LABS: Anion Gap 4 (5-15); BUN 14 mg/dL (7-18); BUN/Creat Ratio 26.9 RATIO (10-20); Calcium,Total 8.2 mg/dL (8.5-10.1); Chloride 104 mmol/L (98-107); Creatinine, Serum 0.52 mg/dL (0.70-1.30); EST Glomerular Filtration Rate 161 mL/min (>60); Est Glom Filt Rate - Afr Amer 194 mL/min (>60); Estimated Creatinine Clearance 42.15 ml/min; Glucose 81 mg/dL (74-106); Potassium 3.7 mmol/L (3.5-5.1); Sodium Level 136 mmol/L (136-145)
[2019-06-24] MEDS: Polyethylene Glycol 3350 17 GM PACKET PO (04:45)
[2019-06-24] MEDS: Enoxaparin 40 MG/0.4 ML Syringe SC (04:46)
[2019-06-24] MEDS: Multivitamin (Healthy Eyes) Capsule 2 CAP PO (04:46)
[2019-06-24] MEDS: Nystatin Powder 15gm Bottle 1 APPLIC TOPICAL ×2 (04:46→21:20)
[2019-06-24] MEDS: Menthol/Lanolin/Calamine/Znox 113 GM Tube 1 APPLIC TOPICAL ×2 (04:46→21:19)
[2019-06-24] MEDS: Furosemide 20 MG Tablet PO (04:47)
[2019-06-24] MEDS: Atenolol 25 MG Tablet PO (04:47)
[2019-06-24] MEDS: Omega-3 Acid Ethyl Esters 1 GM Capsule PO (04:47)
[2019-06-24] MEDS: Thiamine Hydrochloride 100 MG Tablet PO ×3 (04:47→21:19)
[2019-06-24] MEDS: Senna/Docusate Sodium 1 Tablet 2 TABLET PO ×2 (04:47→17:01)
[2019-06-24] MEDS: Lisinopril 10 MG Tablet PO (04:47)
[2019-06-24] MEDS: 0.9% Saline Lock 10 ML Syringe IV ×5 (04:51→18:02)
[2019-06-24] MEDS: UREA 15 GM POWD.PACK PO (07:59)
[2019-06-24] MEDS: Multivitamins,Therapeutic Tablet 1 TABLET PO (07:59)
[2019-06-24] MEDS: Tuberculin,Purif.prot.deriv. 50 TU/ML Vial 5 ML ID (10:14)
[2019-06-24 13:49] VITALS: BP 129/73; PULSE 80; RESP 16; TEMP 36.4; O2SAT 92
[2019-06-24 19:46] VITALS: BP 124/71; PULSE 88; RESP 16; TEMP 36.8; O2SAT 93
[2019-06-24 20:01] VITALS: PULSE 88; RESP 16
[2019-06-24] MEDS: Mirtazapine 15 MG Tablet PO (21:19)
[2019-06-24] MEDS: Gabapentin 600 MG Tablet PO (21:19)
[2019-06-24] MEDS: Latanoprost 0.005% 1 Bottle 1 DRP EACH EYE (21:20)
[2019-06-25] MEDS: 0.9% Saline Lock 10 ML Syringe IV ×6 (00:09→23:08)
[2019-06-25] MEDS: Furosemide 20 MG Tablet PO (05:45)
[2019-06-25] MEDS: Multivitamin (Healthy Eyes) Capsule 2 CAP PO (05:45)
[2019-06-25] MEDS: Menthol/Lanolin/Calamine/Znox 113 GM Tube 1 APPLIC TOPICAL ×2 (05:45→21:06)
[2019-06-25] MEDS: Senna/Docusate Sodium 1 Tablet 2 TABLET PO ×2 (05:46→17:54)
[2019-06-25] MEDS: Atenolol 25 MG Tablet PO (05:46)
[2019-06-25] MEDS: Lisinopril 10 MG Tablet PO (05:46)
[2019-06-25] MEDS: Omega-3 Acid Ethyl Esters 1 GM Capsule PO (05:46)
[2019-06-25] MEDS: Polyethylene Glycol 3350 17 GM PACKET PO (05:46)
[2019-06-25] MEDS: Thiamine Hydrochloride 100 MG Tablet PO ×3 (05:46→21:08)
[2019-06-25] MEDS: Nystatin Powder 15gm Bottle 1 APPLIC TOPICAL ×2 (05:47→21:06)
[2019-06-25 05:55] VITALS: BP 109/60; PULSE 72
[2019-06-25] MEDS: UREA 15 GM POWD.PACK PO (07:50)
[2019-06-25] MEDS: Multivitamins,Therapeutic Tablet 1 TABLET PO (07:50)
[2019-06-25 14:08] VITALS: BP 104/67; PULSE 90; RESP 14; TEMP 36.6; O2SAT 93
--- NOTE | 2019-06-25 16:05 | CASEMGMT ---
Social Work Reviewed and agreed with social work internist medical doctor md documentation on this date. Vera Duran, JOB HONER G[employer]VAN[employer]ER [employer]
[2019-06-25] MEDS: Gabapentin 600 MG Tablet PO (21:07)
[2019-06-25] MEDS: Mirtazapine 15 MG Tablet PO (21:07)
[2019-06-25] MEDS: Latanoprost 0.005% 1 Bottle 1 DRP EACH EYE (21:08)
--- NOTE | 2019-06-26 04:35 | NURSING ---
Daughter Letitia called and notified of patient being sent down to ER.
--- NOTE | 2019-06-26 04:49 | NURSING ---
Pt states he is having generalized all over discomfort he can not tell me anything specific other than he does not feel right. Pt was yelling out and at the time of arrival to the room. Vital signs were obtained, HR is 95, RR 16, BP 105/71 Pulse Ox originally was 81 when we first entered the room he is now on 6L NC and is only 90-91%. He does not appear to be in distress at this time. Lovenox was discontinued on the 06/24/[address] due to decreased [address] Munoz was notified and decided pt should be taken to the ER to be evaluated at this time. Betsy MOSQUEDA, charge nurse in ED was given report at 04:35.
--- NOTE | 2019-06-26 09:11 | DCINST_ITS ---
You will use the following diet at home:: No restrictions, Regular Your food should be the consistency of: Regular Your liquids should be the consistency of: Regular/Thin Discharge Activity: Return to Normal Activity, May Shower, Use Walker Weight Bearing Status: Weight bearing as tolerated Call your doctor if you observe: Fever of 101 or Higher, Inability to urinate, Inability to have a bowel movement, Shortness of breath, Chest pain, Uncontrolled pain Allergies/Adverse Reactions: Allergies No Known Allergies Allergy (Verified 06/26/19 04:52) Medications to take at Discharge Atenolol [Tenormin (beta Radhames)] 25 mg PO DAILY 08/23/15 Gabapentin [Neurontin] 600 mg PO QHS 08/23/15 Latanoprost 0.005% [Xalatan Opthalmic] 1 drop EACH EYE QHS 08/23/15 Lisinopril [Zestril] 10 mg PO DAILY 08/23/15 Multivitamins,Therapeutic [Multivitamin] 1 tablet PO DAILY 08/23/15 Mirtazapine 15 mg PO QHS 06/06/19 Furosemide [Lasix] 20 mg PO DAILY 06/16/19 Oxycodone HCl/Acetaminophen [Percocet 5-325 mg Tablet] 1 tab PO Q6H PRN PRN 06/16/19 Potassium Chloride [K-Dur] 20 meq PO DAILY 06/16/19 Thiamine HCl [Vitamin B-1] 100 mg PO TID 06/16/19 Unasyn 3 gm Vial 3 gm IV Q6H 06/16/19 Urea [Ure-Na] 15 gm PO DAILY 06/16/19 Vit C/E/Zn/Coppr/Lutein/Zeaxan [Preservision Areds 2 Softgel] 2 cap PO DAILY 06/16/19 Acetaminophen 1,000 mg PO Q6H PRN PRN 06/26/19 Bisacodyl [Dulcolax] 5 mg PO DAILY PRN PRN 06/26/19 Bmx Liquid 15 ml PO PRN PRN 06/26/19 Nystatin 15 gm TP BID 06/26/19 [place]-3 Acid Ethyl Esters [Lovaza] 1 gm PO DAILY 06/26/19 Polyethylene Glycol 3350 [Miralax] 17 gm PO DAILY 06/26/19 Senna/Docusate Sodium [Senokot-S, Carol-Colace] 2 tab PO BID 06/26/19 Primary Care Physician: Alexandrea Eason MD [Primary Care Provider] - Please follow up with your Primary Care Physician in: 1 week. Test Results: Test results from this visit will be discussed in further detail at your follow- up appointment, if applicable. Please Follow Up With: Sina Lezama When: In 2 weeks Please Follow Up With: Amandeep Joel When: In 4 weeks Please Follow Up With: Maria Isabel Herndon MD When: In 2 weeks Please Follow Up With: Parish Corbin CNP Please Follow Up With: Patric Stoll MD Proposed Discharge Date: 06/26/19
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
--- NOTE | 2019-06-30 15:05 | CASEMGMT ---
Social Work Reviewed and agreed with social work international editorial producer documentation on this date. Vera Duran, MEDICAL WRITER POP SINGER
== END 2019-06-26 06:48 | disposition short-term general hospital (02) | DRG 559 ==
PROVIDERS: Admitting Provider Family Medicine Geriatric Medicine; PCP Internal Medicine; Referring Provider Family Medicine Geriatric Medicine; Visit Provider Family Medicine Geriatric Medicine
DX: S42.001D Fracture of unspecified part of right clavicle, subsequent encounter for fracture with routine healing (principal); J86.9 Pyothorax without fistula; J18.9 Pneumonia, unspecified organism; J96.01 Acute respiratory failure with hypoxia; E22.2 Syndrome of inappropriate secretion of antidiuretic hormone; S22.43XD Multiple fractures of ribs, bilateral, subsequent encounter for fracture with routine healing; V49.9XXD Car occupant (driver) (passenger) injured in unspecified traffic accident, subsequent encounter; I10 Essential (primary) hypertension; F32.9 Major depressive disorder, single episode, unspecified; E87.6 Hypokalemia; E78.5 Hyperlipidemia, unspecified; F10.10 Alcohol abuse, uncomplicated; H35.30 Unspecified macular degeneration; H40.9 Unspecified glaucoma; Z87.891 Personal history of nicotine dependence; L60.2 Onychogryphosis; B35.1 Tinea unguium
CPT/HCPCS: 71046; 80048; 85025; 92507; 92523; 97110; 97116; 97162; 97166; 97530; 97535; 97802; J7050; A4216; J0295

== ENCOUNTER 2019-06-26 04:40 | Inpatient (IN) | payer MEDICARE, SELFPAY ==
[2019-06-26] VITALS (17 sets, daily range): BP systolic 105–133; BP diastolic 69–79; PULSE 68–79; RESP 15–19; TEMP 36.3–36.9; O2SAT 5–100; BMI 20.2; BMI 17.0; BMI 17.1
--- NOTE | 2019-06-26 05:01 | RAD_ITS ---
STUDY: X-RAY CHEST REASON FOR EXAM: Male, 83 years old. sob TECHNIQUE: Single AP portable view of the chest. COMPARISON: 06/21/2019 FINDINGS: A right-sided PICC line catheter is in situ with the tip at the junction of the superior vena cava and right atrium. There is persistent small right pleural effusion. There is new ill-defined airspace disease in the right lung lower lobe may represent pneumonia. Normal size heart. Normal mediastinum and melba. Normal visualized pulmonary arteries. There is atherosclerotic calcification of the aortic arch with tortuosity. There is demineralization of the osseous structures. Normal visualized ribs, clavicles, and shoulders. There is no demonstrated abnormality of the visualized soft tissue structures of the upper abdomen. RAD/Chest 1 View (Portable) IMPRESSION: There is persistent small right pleural effusion. There is new ill-defined airspace disease in the right lung lower lobe may represent pneumonia. Electronically Signed: Jade Bess, at 5:50 EST Tel , Service support ,
--- NOTE | 2019-06-26 05:01 | EKG12_ITS ---
Test Reason : DYSRHYTHMIA Blood Pressure : / mmHG Vent. Rate : 076 BPM Atrial Rate : 076 BPM P-R Int : 128 ms QRS Dur : 074 ms QT Int : 398 ms P-R-T Axes : 008 -34 046 degrees QTc Int : 447 ms Normal sinus rhythm Left axis deviation Abnormal ECG Confirmed by AMPARO JEAN, KIANNA ([id number]), rewrite editor AMAURY QUINTANA ([id number]) on 06/30/2019 8:47:48 AM Referred By: [facility] Confirmed By:KIANNA CHRISTENSEN MD
[2019-06-26 05:19] LABS: Absolute Lymphocyte Count 1.54 X10^3/uL (0.83-4.51); Absolute Neutrophil Count 7.7 X10^3/uL (2.0-7.7); Basophil# 0.11 X10^3/uL; Eosinophil# 0.74 X10^3/uL; Eosinophils% 6.6 % (0-5); Hematocrit 30.7 % (40-54); Hemoglobin 10.2 g/dL (13.0-16.5); Lymphocyte # 1.54 X10^3/ul (4.0); Lymphocyte % 13.7 % (19-41); Mean Corp Hgb Conc 33.2 g/dL (32-36); Mean Corpuscular Hgb 31.1 pg (27.0-32.0); Mean Corpuscular Volume 93.6 fL (80-94); Mean Platelet Vol. 8.7 fl (6.2-12.0); Monocyte# 1.07 X10^3/uL; Monocyte% 9.5 % (0-10); NRBC Flagged by Analyzer 0 % (0-5); Neutrophil % 68.6 % (47-70); Platelet Count 300 K/mm3 (150-450); RBC Distribution Width CV 13.8 % (11.6-14.6); RBC Distribution Width SD 46.6 fl (35.1-43.9); Red Blood Count 3.28 M/mm3 (4.6-6.2); White Blood Count 11.2 K/mm3 (4.4-11.0)
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
[2019-06-26 05:33] LABS: D-Dimer Quantitative (DVT/PE) 1.02 FEU/ug/m (0.27-0.49)
[2019-06-26 05:39] LABS: Anion Gap 5 (5-15); BUN 15 mg/dL (7-18); BUN/Creat Ratio 23.7 RATIO (10-20); Calcium,Total 8.5 mg/dL (8.5-10.1); Chloride 103 mmol/L (98-107); Creatinine, Serum 0.63 mg/dL (0.70-1.30); EST Glomerular Filtration Rate 128 mL/min (>60); Est Glom Filt Rate - Afr Amer 155 mL/min (>60); Estimated Creatinine Clearance 45.13 ml/min; Glucose 89 mg/dL (74-106); Lactic Acid 0.8 mmol/L (0.4-1.9); Potassium 3.4 mmol/L (3.5-5.1); Sodium Level 136 mmol/L (136-145)
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
[2019-06-26 05:49] LABS: BNP,B-Type NATRIURETIC PEPTIDE 117.3 pg/mL (0-100)
[2019-06-26] MEDS: Vancomycin IV 1,000 MG/200 ML BAG 200 MG IV (07:37)
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
[2019-06-26 08:18] LABS: Absolute Lymphocyte Count 1.38 X10^3/uL (0.83-4.51); Absolute Neutrophil Count 8.7 X10^3/uL (2.0-7.7); Basophil# 0.12 X10^3/uL; Eosinophil# 0.67 X10^3/uL; Eosinophils% 5.6 % (0-5); Hematocrit 31.4 % (40-54); Hemoglobin 10.4 g/dL (13.0-16.5); Lymphocyte # 1.38 X10^3/ul (4.0); Lymphocyte % 11.5 % (19-41); Mean Corp Hgb Conc 33.1 g/dL (32-36); Mean Corpuscular Hgb 31.2 pg (27.0-32.0); Mean Corpuscular Volume 94.3 fL (80-94); Monocyte# 1.09 X10^3/uL; Monocyte% 9.1 % (0-10); NRBC Flagged by Analyzer 0 % (0-5); Neutrophil # 8.69 X10^3/uL (2.7-7.7); Neutrophil % 72.1 % (47-70); Platelet Count 303 K/mm3 (150-450); RBC Distribution Width CV 13.9 % (11.6-14.6); RBC Distribution Width SD 47.8 fl (35.1-43.9); Red Blood Count 3.33 M/mm3 (4.6-6.2)
[2019-06-26 08:28] LABS: Magnesium 2.2 mg/dL (1.6-2.6)
[2019-06-26 08:32] LABS: Phosphorus 4.3 mg/dL (2.5-4.9)
[2019-06-26] MEDS: 0.9% Normal Saline 1,000 ML 100 ML IV (08:54)
[2019-06-26] MEDS: metroNIDAZOLE 500 MG/100 ML BAG 100 MG IV (08:55)
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
[2019-06-26] MEDS: Atenolol 25 MG Tablet PO (11:32)
[2019-06-26] MEDS: Furosemide 20 MG Tablet PO (11:32)
[2019-06-26] MEDS: Enoxaparin 40 MG/0.4 ML Syringe SC (11:32)
[2019-06-26] MEDS: Lisinopril 10 MG Tablet PO (11:32)
[2019-06-26] MEDS: Famotidine 20 MG Tablet PO ×2 (11:32→21:33)
[2019-06-26] MEDS: Menthol/Lanolin/Calamine/Znox 113 GM Tube 1 APPLIC TOPICAL ×4 (11:33→21:35)
--- NOTE | 2019-06-26 11:57 | CM.UR ---
Dr. Devlin asked that I give this patient list of SNFs that are under his [employer] plan. Printed up list from [employer] using his ID number. Gave to patient at this time. Explained to him and family to look list over and when they decide to let us know. Verb understanding. Van Gale RN, CCM.
[2019-06-26] MEDS: Gabapentin 600 MG Tablet PO (21:33)
[2019-06-26] MEDS: Mirtazapine 15 MG Tablet PO (21:33)
[2019-06-26] MEDS: Latanoprost 0.005% 1 Bottle 1 DRP EACH EYE (21:36)
[2019-06-27] VITALS (12 sets, daily range): BP systolic 94–142; BP diastolic 62–77; PULSE 60–85; RESP 15–17; TEMP 36.4–36.8; O2SAT 90–97
[2019-06-27] MEDS: 0.9% Saline Lock 10 ML Syringe IV (05:18)
[2019-06-27 06:40] LABS: ALB/GLOB Ratio 0.4 RATIO (0.9-2.4); AST(SGOT) 16 U/L (15-37); Alanine Aminotransfer ALT/SGPT 23 U/L (16-61); Albumin, Serum 1.9 g/dL (3.2-5.0); Alkaline Phosphatase 84 U/L (45-117); Anion Gap 3 (5-15); BUN 9 mg/dL (7-18); BUN/Creat Ratio 13.5 RATIO (10-20); Calcium,Total 8.5 mg/dL (8.5-10.1); Chloride 107 mmol/L (98-107); Creatinine, Serum 0.67 mg/dL (0.70-1.30); EST Glomerular Filtration Rate 121 mL/min (>60); Est Glom Filt Rate - Afr Amer 146 mL/min (>60); Estimated Creatinine Clearance 41.48 ml/min; Globulin 4.6 g/dL (2.2-4.2); Glucose 83 mg/dL (74-106); Potassium 3.8 mmol/L (3.5-5.1); Protein, Total 6.5 g/dL (6.4-8.2); Sodium Level 138 mmol/L (136-145)
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
[2019-06-27] MEDS: Thiamine Hydrochloride 100 MG Tablet PO (09:49)
[2019-06-27] MEDS: Menthol/Lanolin/Calamine/Znox 113 GM Tube 1 APPLIC TOPICAL ×4 (09:49→21:00)
[2019-06-27] MEDS: Multivitamins,Therapeutic Tablet 1 TABLET PO (09:49)
[2019-06-27] MEDS: Lisinopril 10 MG Tablet PO (09:50)
[2019-06-27] MEDS: Famotidine 20 MG Tablet PO ×2 (09:50→21:00)
[2019-06-27] MEDS: Furosemide 20 MG Tablet PO (09:50)
[2019-06-27] MEDS: Enoxaparin 40 MG/0.4 ML Syringe SC (09:50)
[2019-06-27] MEDS: Atenolol 25 MG Tablet PO (09:50)
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
[2019-06-27] MEDS: Mirtazapine 15 MG Tablet PO (21:00)
[2019-06-27] MEDS: Latanoprost 0.005% 1 Bottle 1 DRP EACH EYE (21:00)
[2019-06-27] MEDS: Senna/Docusate Sodium 1 Tablet 2 TABLET PO (21:00)
[2019-06-27] MEDS: Gabapentin 600 MG Tablet PO (21:00)
[2019-06-28] VITALS (10 sets, daily range): BP systolic 93–115; BP diastolic 58–75; PULSE 66–77; RESP 16–18; TEMP 36.3–37.2; O2SAT 92–98
[2019-06-28] MEDS: Acetaminophen 325 MG Tablet 650 MG PO (00:59)
[2019-06-28] MEDS: 0.9% Saline Lock 10 ML Syringe IV (05:24)
[2019-06-28 05:42] LABS: Absolute Lymphocyte Count 1.36 X10^3/uL (0.83-4.51); Absolute Neutrophil Count 5.3 X10^3/uL (2.0-7.7); Basophil# 0.11 X10^3/uL; Basophil% 1.2 % (0-1); Eosinophil# 1.26 X10^3/uL; Eosinophils% 13.8 % (0-5); Hematocrit 32.2 % (40-54); Hemoglobin 10.5 g/dL (13.0-16.5); Lymphocyte # 1.36 X10^3/ul (4.0); Lymphocyte % 14.9 % (19-41); Mean Corp Hgb Conc 32.6 g/dL (32-36); Mean Corpuscular Hgb 30.5 pg (27.0-32.0); Mean Corpuscular Volume 93.6 fL (80-94); Mean Platelet Vol. 8.7 fl (6.2-12.0); Monocyte# 0.98 X10^3/uL; Monocyte% 10.8 % (0-10); NRBC Flagged by Analyzer 0 % (0-5); Neutrophil # 5.33 X10^3/uL (2.7-7.7); Neutrophil % 58.5 % (47-70); Platelet Count 328 K/mm3 (150-450); RBC Distribution Width CV 13.7 % (11.6-14.6); RBC Distribution Width SD 47.4 fl (35.1-43.9); Red Blood Count 3.44 M/mm3 (4.6-6.2); White Blood Count 9.1 K/mm3 (4.4-11.0)
[2019-06-28] MEDS: Multivitamins,Therapeutic Tablet 1 TABLET PO (08:42)
[2019-06-28] MEDS: Menthol/Lanolin/Calamine/Znox 113 GM Tube 1 APPLIC TOPICAL ×4 (08:42→21:13)
[2019-06-28] MEDS: Thiamine Hydrochloride 100 MG Tablet PO (08:42)
[2019-06-28] MEDS: Furosemide 20 MG Tablet PO (08:44)
[2019-06-28] MEDS: Famotidine 20 MG Tablet PO ×2 (08:44→21:11)
[2019-06-28] MEDS: Atenolol 25 MG Tablet PO (08:45)
[2019-06-28] MEDS: Lisinopril 10 MG Tablet PO (08:45)
[2019-06-28] MEDS: Enoxaparin 40 MG/0.4 ML Syringe SC (10:23)
--- NOTE | 2019-06-28 11:13 | CASEMGMT ---
DIA spoke with Chitra and TCU is able to take patient back pending insurance approval. DIA notified patient and physician. Plan: [facility] pending insurance approval. Sahra GUERIN MSW
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
[2019-06-28] MEDS: Latanoprost 0.005% 1 Bottle 1 DRP EACH EYE (21:10)
[2019-06-28] MEDS: Mirtazapine 15 MG Tablet PO (21:10)
[2019-06-28] MEDS: Senna/Docusate Sodium 1 Tablet 2 TABLET PO (21:11)
[2019-06-28] MEDS: Gabapentin 600 MG Tablet PO (21:11)
[2019-06-29] VITALS (8 sets, daily range): BP systolic 115–148; BP diastolic 71–83; PULSE 59–70; RESP 16–18; TEMP 36.5–36.8; O2SAT 92–98
[2019-06-29] MEDS: Acetaminophen 325 MG Tablet 650 MG PO (02:00)
[2019-06-29] MEDS: 0.9% Saline Lock 10 ML Syringe IV ×2 (05:11→18:04)
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
[2019-06-29] MEDS: Thiamine Hydrochloride 100 MG Tablet PO (09:09)
[2019-06-29] MEDS: Multivitamins,Therapeutic Tablet 1 TABLET PO (09:09)
[2019-06-29] MEDS: Famotidine 20 MG Tablet PO ×2 (09:11→21:02)
[2019-06-29] MEDS: Furosemide 20 MG Tablet PO (09:11)
[2019-06-29] MEDS: Atenolol 25 MG Tablet PO (09:12)
[2019-06-29] MEDS: Lisinopril 10 MG Tablet PO (09:12)
[2019-06-29] MEDS: Menthol/Lanolin/Calamine/Znox 113 GM Tube 1 APPLIC TOPICAL ×2 (09:13→21:02)
[2019-06-29] MEDS: Enoxaparin 40 MG/0.4 ML Syringe SC (09:14)
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
[2019-06-29] MEDS: Mirtazapine 15 MG Tablet PO (21:00)
[2019-06-29] MEDS: Latanoprost 0.005% 1 Bottle 1 DRP EACH EYE (21:01)
[2019-06-29] MEDS: Gabapentin 600 MG Tablet PO (21:01)
[2019-06-30 02:30] VITALS: BP 132/75; PULSE 63; RESP 16; TEMP 36.3; O2SAT 95
[2019-06-30 05:40] VITALS: BP 143/77; PULSE 60; RESP 18; TEMP 36.3; O2SAT 95
[2019-06-30] MEDS: Menthol/Lanolin/Calamine/Znox 113 GM Tube 1 APPLIC TOPICAL (09:22)
[2019-06-30] MEDS: Senna/Docusate Sodium 1 Tablet 2 TABLET PO (09:22)
[2019-06-30] MEDS: Multivitamins,Therapeutic Tablet 1 TABLET PO (09:23)
[2019-06-30] MEDS: Atenolol 25 MG Tablet PO (09:24)
[2019-06-30] MEDS: Lisinopril 10 MG Tablet PO (09:24)
[2019-06-30] MEDS: Thiamine Hydrochloride 100 MG Tablet PO (09:24)
[2019-06-30] MEDS: Furosemide 20 MG Tablet PO (09:25)
[2019-06-30] MEDS: Enoxaparin 40 MG/0.4 ML Syringe SC (09:26)
[2019-06-30] MEDS: Famotidine 20 MG Tablet PO (09:29)
[2019-06-30 09:31] VITALS: BP 136/82; PULSE 92; RESP 20; TEMP 36.2; O2SAT 95
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
--- NOTE | 2019-06-30 10:31 | PHA.DC.MR ---
Pharmacy Service has performed discharge medication reconciliation for this patient. The patient's discharge medication list was reviewed for discrepancies and discrepancies were resolved. Home Medications Atenolol [Tenormin (beta pietro)] 25 mg PO DAILY 08/23/15 Gabapentin [Neurontin] 600 mg PO QHS 08/23/15 Latanoprost 0.005% [Xalatan Opthalmic] 1 drop EACH EYE QHS 08/23/15 Lisinopril [Zestril] 10 mg PO DAILY 08/23/15 Multivitamins,Therapeutic [Multivitamin] 1 tablet PO DAILY 08/23/15 Mirtazapine 15 mg PO QHS 06/06/19 Furosemide [Lasix] 20 mg PO DAILY 06/16/19 Oxycodone HCl/Acetaminophen [Percocet 5-325 mg Tablet] 1 tab PO Q6H PRN PRN 06/16/19 Potassium Chloride [K-Dur] 20 meq PO DAILY 06/16/19 Unasyn 3 gm Vial 3 gm IV Q6H 06/16/19 Urea [Ure-Na] 15 gm PO DAILY 06/16/19 Vit C/E/Zn/Coppr/Lutein/Zeaxan [Preservision Areds 2 Softgel] 2 cap PO DAILY 06/16/19 Acetaminophen 1,000 mg PO Q6H PRN PRN 06/26/19 Bisacodyl [Dulcolax] 5 mg PO DAILY PRN PRN 06/26/19 Bmx Liquid 15 ml PO PRN PRN 06/26/19 Nystatin 15 gm TP BID 06/26/19 [place]-3 Acid Ethyl Esters [Lovaza] 1 gm PO DAILY 06/26/19 Polyethylene Glycol 3350 [Miralax] 17 gm PO DAILY 06/26/19 Senna/Docusate Sodium [Senokot-S] 2 tab PO BID 06/26/19 Albuterol Aerosols [Ventolin Aerosols] 2.5 mg INHALATION Q2H PRN PRN vial.neb. 06/30/19 Thiamine Hydrochloride [Vitamin B1] 100 mg PO DAILYCM tab 06/30/19
--- NOTE | 2019-06-30 10:39 | CASEMGMT ---
Received call from Olimpia and she received insurance authorization. DIA notified physician and patient. Plan: d/c back to [facility] TCU under skilled level of care Sahra ORNELAS
--- NOTE | 2019-06-30 11:36 | PCM.DC.SUM ---
<Emi Valdez - Last Filed: 06/30/19 11:59> Discharge Date and Diagnosis Date of Admission: 06/26/19 Date of Discharge: 06/30/19 - Primary Discharge Diagnosis 1. Hypoxic respiratory insufficiency secondary to unresolved right lower lobe pneumonia 2. Hypertension 3. Chronic hyponatremia/SIADH 4. Neuropathic pain 5. Glaucoma/macular degeneration 6. Depression 7. Hyperlipidemia 8. History of alcohol abuse 9. Chronic macrocytic anemia - Secondary Discharge Diagnosis Chronic Problems Toe pain, left (Chronic) Toe pain, right (Chronic) Tinea unguium (Chronic) Depression (Chronic) Debility (Chronic) SIADH (syndrome of inappropriate ADH production) (Chronic) Hearing loss (Chronic) Diverticulosis (Chronic) Allergic rhinitis (Chronic) Hypertension (Chronic) Neuropathic pain (Chronic) Glaucoma (Chronic) Alcohol abuse (Chronic) Hospital Course and Treatment Imaging Results: Diagnostic Data Chest X-Ray 06/26/19 05:01 IMPRESSION: There is persistent small right pleural effusion. There is new ill-defined airspace disease in the right lung lower lobe may represent pneumonia. Electronically Signed: Jade Bess, at 5:50 EST Tel , Service support , Chest CTA 06/26/19 05:20 IMPRESSION: No demonstrated pulmonary embolism or arterial dissection. Right lower lobe pneumonia. There are new nondisplaced fractures at the NM-Gastric of the right fourth rib and at the posterior aspect of the right ninth rib and at the medial aspect of the right clavicle. There is a new compression fracture of T7. Electronically Signed: Jade Bess, at 6:08 EST Tel , Service support , Dr. Adler/Dr. Hall- Pulmonary Medicine Operations: None Procedures: None Summary of Care Provided: The patient is a 83 year old M admitted 06/26/2019 due to hypoxia at transitional care unit. 1. Hypoxic respiratory insufficiency secondary to unresolved right lower lobe pneumonia-recent loculated right pleural effusion/empyema which required tube thoracotomy at [facility]. Cultures grew strep intermedius and anaerobic vlad. Patient has been on IV Unasyn with plan for 4 weeks of treatment with stop date 07/07/2019. Pulmonary medicine consulted during admission. Oxygen now stable on room air. Walking pulse ox prior to discharge from TCU. Speech therapy consulted. Albuterol and DuoNeb aerosols. Follow-up with pulmonary medicine in 2 weeks following discharge from TCU. 2. Hypertension-stable, continue atenolol, lisinopril regimen. 3. Chronic hyponatremia/SIADH-stable. On Lasix, fluid restriction. Trend BMP. 4. Neuropathic pain-on gabapentin nightly. 5. Glaucoma/macular degeneration-continue home medication regimen. 6. Depression-continue mirtazapine. 7. Hyperlipidemia-not on statin. 8. History of alcohol abuse-on thiamine supplementation. 9. Chronic macrocytic anemia-stable, trend CBC. General: Alert, Oriented x3, Cooperative HEENT: Atraumatic, PERRLA, EOMI, Normocephalic Neck: Supple, No JVD, Negative Carotid Bruits Lungs: Clear to auscultation, Diminished Cardiovascular: Regular rate, Regular Rhythm, Normal S1, Normal S2, No murmurs Abdomen: Bowel Sounds Present, Soft, Non Tender, Non-Distended Extremities: No clubbing, No cyanosis, No edema, Capillary Refill Less than 3 Seconds Skin: No rashes, No breakdown Musculoskeletal: No Tenderness to Palpation of Joints or Extremities Neurological: Cranial nerves II-XII grossly intact, Neuro grossly intact Psych/Mental Status: Normal Affect, Appropriate Patient seen and examined prior to discharge. Physical assessment as noted above. Patient is stable for discharge with follow up recommendations as noted above. This patient was seen by CASSANDRA Phillips under the supervision of Dr. Castillo. - Physical Exam Vitals/I&O's: Vital Signs Temp Pulse Resp BP Pulse Ox 97.2 F L 92 20 H 136/82 H 95 06/30/19 09:31 06/30/19 09:31 06/30/19 09:31 06/30/19 09:31 06/30/19 09:31 Oxygen Flow Rate (L/min) 2 Oxygen Delivery Method Room Air Weight: 115 lb 8.356 oz Body Mass Index (BMI) 17.0 Intake and Output for Last 24 Hours 06/28/19 06/29/19 06/30/19 23:59 23:59 23:59 Intake Total 1798.00 / 1798.00 1918 / 1918 284 / 284 Output Total 1325 / 1325 1650 / 1650 575 / 575 Balance 473.00 / 473.00 268 / 268 -291 / -291 Microbiology Past 72 Hours 06/26/19 05:25 Blood Culture (Wb) #2 - Anticubital Left Blood Culture - Preliminary No growth in 48 hours. 06/26/19 05:10 Blood Culture (Wb) - Arm Right Blood Culture - Preliminary No growth in 48 hours. Current Medications Acetaminophen (Tylenol) 650 mg PO Q6H PRN PRN PRN Reason: Pain Score 1-10/Temp > 100.7 F Last Admin: 06/29/19 02:00 Dose: 650 mg Documented by: Al Hydroxide/Mg Hydroxide (Mylanta Ii) 30 ml PO Q6H PRN PRN PRN Reason: Gastric Burning Albuterol Sulfate (Ventolin Aerosols) 2.5 mg INHALATION Q2H PRN PRN PRN Reason: SOB/Wheezing Atenolol (Tenormin (Beta Radhames)) 25 mg PO DAILY [facility] Last Admin: 06/30/19 09:24 Dose: 25 mg Documented by: Bisacodyl (Dulcolax) 5 mg PO DAILY PRN PRN PRN Reason: Constipation Calamine/Phenol (Calmoseptine Ointment) 1 applic TOPICAL 4X/DAY [facility]; Protocol Last Admin: 06/30/19 09:22 Dose: 1 applicatio Documented by: Enoxaparin Sodium (Lovenox) 40 mg SC DAILY [facility] Last Admin: 06/30/19 09:26 Dose: 40 mg Documented by: Famotidine (Pepcid) 20 mg PO BID [facility] Last Admin: 06/30/19 09:29 Dose: 20 mg Documented by: Furosemide (Lasix) 20 mg PO DAILY [facility] Last Admin: 06/30/19 09:25 Dose: 20 mg Documented by: Gabapentin (Neurontin) 600 mg PO QHS [facility] Last Admin: 06/29/19 21:01 Dose: 600 mg Documented by: Guaifenesin (Robitussin) 20 ml PO Q4H PRN PRN PRN Reason: COUGH Heparin Sodium (Beef Lung) () 50 units IV UD PRN PRN Reason: PICC Line Heparin Flush Ampicillin Sodium/Sulbactam (Sodium 3 gm/ Sodium Chloride) 112 mls @ 150 mls/hr IV Q6 [facility] Last Infusion: 06/30/19 06:15 Dose: Infused Documented by: Sodium Chloride () 250 mls @ 15 mls/hr IV .[id number] PRN PRN Reason: Saline Flush Last Infusion: 06/28/19 20:16 Dose: Infused Documented by: Sodium Chloride () 250 mls @ 15 mls/hr IV .[id number] PRN PRN Reason: Additional IVPB Infusion Latanoprost (Xalatan Opthalmic) 1 drop EACH EYE QHS [facility] Last Admin: 06/29/19 21:01 Dose: 1 drop Documented by: Lisinopril (Zestril) 10 mg PO DAILY [facility] Last Admin: 06/30/19 09:24 Dose: 10 mg Documented by: Mirtazapine (Remeron) 15 mg PO QHS [facility] Last Admin: 06/29/19 21:00 Dose: 15 mg Documented by: Multivitamins ([facility]itamin) [facility] Last Admin: 06/30/19 09:23 Dose: 1 tablet Documented by: Nitroglycerin (Nitrostat) 0.4 mg SUBLINGUAL Q5M PRN PRN Reason: CARDIAC/CHEST PAIN Ondansetron HCl (Zofran) 4 mg IV Q8H PRN PRN PRN Reason: NAUSEA/VOMITING Oxycodone HCl (Oxyir) 5 mg PO Q6H PRN PRN PRN Reason: Pain Score 6-10/10 Polyethylene Glycol (Miralax) 17 gm PO DAILY [facility] Last Admin: 06/30/19 09:29 Dose: Not Given Documented by: Potassium Chloride (K-Dur) 20 meq PO DAILY [facility] Last Admin: 06/30/19 09:22 Dose: 20 meq Documented by: Senna/Docusate Sodium (Senokot-S, Carol-Colace) 2 tablet PO BID [facility] Last Admin: 06/30/19 09:22 Dose: 2 tablet Documented by: Sodium Chloride () 10 - 40 ml IV UD PRN PRN Reason: Open End PICC Flush Last Admin: 06/29/19 18:04 Dose: 10 ml Documented by: Sodium Chloride (0.9% Nacl (Sterile) Posiflush) 10 - 40 ml IV UD PRN PRN Reason: Port access or dressing change Thiamine HCl (Vitamin B1) [facility] Last Admin: 06/30/19 09:24 Dose: 100 mg Documented by: Throat Lozenges (Cepacol Sore Throat Lozenge) 1 lozenge MUCOUS MEM Q2H PRN PRN PRN Reason: SORE THROAT Home Medications: Medications to take at Discharge Atenolol [Tenormin (beta radhames)] 25 mg PO DAILY 08/23/15 Gabapentin [Neurontin] 600 mg PO QHS 08/23/15 Latanoprost 0.005% [Xalatan Opthalmic] 1 drop EACH EYE QHS 08/23/15 Lisinopril [Zestril] 10 mg PO DAILY 08/23/15 Multivitamins,Therapeutic [Multivitamin] 1 tablet PO DAILY 08/23/15 Mirtazapine 15 mg PO QHS 06/06/19 Furosemide [Lasix] 20 mg PO DAILY 06/16/19 Oxycodone HCl/Acetaminophen [Percocet 5-325 mg Tablet] 1 tab PO Q6H PRN PRN 06/16/19 Potassium Chloride [K-Dur] 20 meq PO DAILY 06/16/19 Unasyn 3 gm Vial 3 gm IV Q6H 06/16/19 Urea [Ure-Na] 15 gm PO DAILY 06/16/19 Vit C/E/Zn/Coppr/Lutein/Zeaxan [Preservision Areds 2 Softgel] 2 cap PO DAILY 06/16/19 Acetaminophen 1,000 mg PO Q6H PRN PRN 06/26/19 Bisacodyl [Dulcolax] 5 mg PO DAILY PRN PRN 06/26/19 Bmx Liquid 15 ml PO PRN PRN 06/26/19 Nystatin 15 gm TP BID 06/26/19 [place]-3 Acid Ethyl Esters [Lovaza] 1 gm PO DAILY 06/26/19 Polyethylene Glycol 3350 [Miralax] 17 gm PO DAILY 06/26/19 Senna/Docusate Sodium [Senokot-S] 2 tab PO BID 06/26/19 Albuterol Aerosols [Ventolin Aerosols] 2.5 mg INHALATION Q2H PRN PRN vial.neb. 06/30/19 Thiamine Hydrochloride [Vitamin B1] 100 mg PO DAILYCM 06/30/19 Primary Care Physician: Alexandrea Eason MD [Primary Care Provider] - Please follow up with your Primary Care Physician in: 1 Week Please Follow Up With: Chuckie Hall MD When: 2 weeks following TCU DC Disposition: Shelter facility Minutes spent on discharge:: 35 Patient Condition:: Stable Medical Necessity - Tobacco Use Smoking Status: Never smoker Meaningful Use Info Meaningful Use Diagnoses (Choose all that apply): None applicable <Angel Castillo - Last Filed: 06/30/19 12:33> Discharge Date and Diagnosis - Secondary Discharge Diagnosis Chronic Problems Toe pain, left (Chronic) Toe pain, right (Chronic) Tinea unguium (Chronic) Depression (Chronic) Debility (Chronic) SIADH (syndrome of inappropriate ADH production) (Chronic) Hearing loss (Chronic) Diverticulosis (Chronic) Allergic rhinitis (Chronic) Hypertension (Chronic) Neuropathic pain (Chronic) Glaucoma (Chronic) Alcohol abuse (Chronic) Hospital Course and Treatment Operations: None Procedures: None Summary of Care Provided: Patient seen and examined independently. Data reviewed. I agree with the above note by the nurse practitioner. The patient is a 83 year old M presents with shortness of breath. Patient had respiratory insufficiency but found to have pneumonia and empyema. Patient was continued on the treatment that he had previously. Patient will continue with his ampicillin/sulbactam through the as previously scheduled. Patient has been approved to return back to the transitional care unit. [] - Physical Exam Vitals/I&O's: Vital Signs Temp Pulse Resp BP Pulse Ox 36.2 C L 92 20 H 136/82 H 95 06/30/19 09:31 06/30/19 09:31 06/30/19 09:31 06/30/19 09:31 06/30/19 09:31 Oxygen Flow Rate (L/min) 2 Oxygen Delivery Method Room Air Weight: 52.4 kg Body Mass Index (BMI) 17.0 Intake and Output for Last 24 Hours 06/28/19 06/29/19 06/30/19 23:59 23:59 23:59 Intake Total 1798.00 / 1798.00 1918 / 1918 284 / 284 Output Total 1325 / 1325 1650 / 1650 575 / 575 Balance 473.00 / 473.00 268 / 268 -291 / -291 General: Alert, No apparent distress HEENT: Atraumatic, Normocephalic Psych/Mental Status: Normal Affect, Appropriate Microbiology Past 72 Hours 06/26/19 05:25 Blood Culture (Wb) #2 - Anticubital Left Blood Culture - Preliminary No growth in 48 hours. 06/26/19 05:10 Blood Culture (Wb) - Arm Right Blood Culture - Preliminary No growth in 48 hours. Disposition: Shelter facility Minutes spent on discharge:: 35 Patient Condition:: Stable Medical Necessity - Tobacco Use Smoking Status: Never smoker Meaningful Use Info Meaningful Use Diagnoses (Choose all that apply): None applicable Code Visit Inpatient E&M: 34725 Disch Hosp
--- NOTE | 2019-06-30 11:45 | NURSING ---
Report given to Chu in TCU
== END 2019-06-30 11:48 | disposition skilled nursing facility (03) | DRG 193 ==
LOC: ED 05:23 → PCU 06:52
PROVIDERS: Internal Medicine; Admitting Provider Family Medicine; Emergency Provider Emergency Medicine; PCP Internal Medicine
DX: J18.9 Pneumonia, unspecified organism (principal); J86.9 Pyothorax without fistula; E43 Unspecified severe protein-calorie malnutrition; Z68.1 Body mass index [BMI] 19.9 or less, adult; S22.41XA Multiple fractures of ribs, right side, initial encounter for closed fracture; M48.54XA Collapsed vertebra, not elsewhere classified, thoracic region, initial encounter for fracture; E22.2 Syndrome of inappropriate secretion of antidiuretic hormone; R09.02 Hypoxemia; S42.011A Anterior displaced fracture of sternal end of right clavicle, initial encounter for closed fracture; I10 Essential (primary) hypertension; E78.5 Hyperlipidemia, unspecified; G62.9 Polyneuropathy, unspecified; D53.9 Nutritional anemia, unspecified; H40.9 Unspecified glaucoma; H91.90 Unspecified hearing loss, unspecified ear; H35.30 Unspecified macular degeneration; B35.1 Tinea unguium; G47.00 Insomnia, unspecified; F32.9 Major depressive disorder, single episode, unspecified; Z23 Encounter for immunization; X58.XXXA Exposure to other specified factors, initial encounter; Y93.9 Activity, unspecified; Y92.9 Unspecified place or not applicable; Y99.9 Unspecified external cause status; Z79.899 Other long term (current) drug therapy
CPT/HCPCS: 71045; 71275; 80048; 80053; 83605; 83735; 83880; 84100; 84484; 85025; 85379; 87040; 87449; 92526; 92610; 93005; 94762; 97116; 97162; 97166; 97530; 97535; 97802; 97803; 99251; 99284; G0008; J7030; J7050; Q9967; 90686; A4216; G0463; J0295

== ENCOUNTER 2019-06-30 11:55 | Inpatient (IN) | payer MEDICARE, SELFPAY ==
[2019-06-26 07:24] VITALS: BMI 17.0
[2019-06-30 12:00] VITALS: BP 90/58; PULSE 65; RESP 20; TEMP 37; O2SAT 94
[2019-06-30 12:10] VITALS: BMI 18.3
[2019-06-30 12:54] VITALS: PULSE 70
--- NOTE | 2019-06-30 13:56 | CASEMGMT ---
Social Work Reviewed and agreed with social work customer operations intern documentation on this date. Vera Duran, LOCAL DELIVERY TRUCK DRIVER WINDOWS SUPPORT ENGINEER
[2019-06-30] MEDS: 0.9% Saline Lock 10 ML Syringe IV ×2 (15:23→23:49)
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
[2019-06-30] MEDS: Gabapentin 600 MG Tablet PO (20:40)
[2019-06-30] MEDS: Mirtazapine 15 MG Tablet PO (20:43)
[2019-06-30] MEDS: Nystatin Powder 15gm Bottle 1 APPLIC TOPICAL (20:44)
[2019-06-30] MEDS: Latanoprost 0.005% 1 Bottle 1 DRP EACH EYE (23:43)
[2019-06-30] MEDS: oxyCODONE 5 MG Tablet PO (23:44)
[2019-07-01] MEDS: Omega-3 Acid Ethyl Esters 1 GM Capsule PO (05:08)
[2019-07-01] MEDS: Lisinopril 10 MG Tablet PO (05:08)
[2019-07-01] MEDS: Atenolol 25 MG Tablet PO (05:08)
[2019-07-01] MEDS: Enoxaparin 40 MG/0.4 ML Syringe SC (05:09)
[2019-07-01] MEDS: Furosemide 20 MG Tablet PO (05:09)
[2019-07-01] MEDS: Nystatin Powder 15gm Bottle 1 APPLIC TOPICAL ×2 (05:11→20:29)
[2019-07-01] MEDS: 0.9% Saline Lock 10 ML Syringe IV ×4 (05:13→23:59)
[2019-07-01 05:14] VITALS: BP 98/51; PULSE 66
[2019-07-01 05:21] LABS: Absolute Lymphocyte Count 1.55 X10^3/uL (0.83-4.51); Absolute Neutrophil Count 5.3 X10^3/uL (2.0-7.7); Basophil# 0.11 X10^3/uL; Basophil% 1.1 % (0-1); Eosinophils% 17.4 % (0-5); Hemoglobin 10.5 g/dL (13.0-16.5); Lymphocyte # 1.55 X10^3/ul (4.0); Lymphocyte % 15.8 % (19-41); Mean Corp Hgb Conc 32.8 g/dL (32-36); Mean Corpuscular Hgb 30.3 pg (27.0-32.0); Mean Corpuscular Volume 92.5 fL (80-94); Mean Platelet Vol. 8.6 fl (6.2-12.0); Monocyte# 1.08 X10^3/uL; NRBC Flagged by Analyzer 0 % (0-5); Neutrophil # 5.26 X10^3/uL (2.7-7.7); Neutrophil % 53.8 % (47-70); Platelet Count 356 K/mm3 (150-450); RBC Distribution Width CV 13.9 % (11.6-14.6); RBC Distribution Width SD 46.9 fl (35.1-43.9); Red Blood Count 3.46 M/mm3 (4.6-6.2); White Blood Count 9.8 K/mm3 (4.4-11.0)
[2019-07-01 05:37] LABS: Anion Gap 5 (5-15); BUN 7 mg/dL (7-18); Calcium,Total 8.2 mg/dL (8.5-10.1); Chloride 105 mmol/L (98-107); EST Glomerular Filtration Rate 114 mL/min (>60); Est Glom Filt Rate - Afr Amer 138 mL/min (>60); Estimated Creatinine Clearance 43.31 ml/min; Glucose 85 mg/dL (74-106); Potassium 3.5 mmol/L (3.5-5.1); Sodium Level 139 mmol/L (136-145)
[2019-07-01] MEDS: Thiamine Hydrochloride 100 MG Tablet PO (08:32)
[2019-07-01] MEDS: Multivitamins,Therapeutic Tablet 1 TABLET PO (08:32)
[2019-07-01] MEDS: Multivitamin (Healthy Eyes) Capsule 2 CAP PO (08:32)
[2019-07-01] MEDS: UREA 15 GM POWD.PACK PO (08:33)
[2019-07-01] MEDS: Tuberculin,Purif.prot.deriv. 50 TU/ML Vial 5 ML ID (11:19)
[2019-07-01 14:10] VITALS: BP 105/60; PULSE 64; RESP 16; TEMP 36.4; O2SAT 93
[2019-07-01] MEDS: Mirtazapine 15 MG Tablet PO (20:29)
[2019-07-01] MEDS: Latanoprost 0.005% 1 Bottle 1 DRP EACH EYE (20:30)
[2019-07-01] MEDS: Gabapentin 600 MG Tablet PO (20:30)
[2019-07-02] MEDS: oxyCODONE 5 MG Tablet PO (00:01)
[2019-07-02 05:16] VITALS: BP 100/61; PULSE 67
[2019-07-02] MEDS: Enoxaparin 40 MG/0.4 ML Syringe SC (05:20)
[2019-07-02] MEDS: 0.9% Saline Lock 10 ML Syringe IV ×4 (05:20→21:16)
[2019-07-02] MEDS: Omega-3 Acid Ethyl Esters 1 GM Capsule PO (05:21)
[2019-07-02] MEDS: Lisinopril 10 MG Tablet PO (05:21)
[2019-07-02] MEDS: Atenolol 25 MG Tablet PO (05:21)
[2019-07-02] MEDS: Nystatin Powder 15gm Bottle 1 APPLIC TOPICAL ×2 (05:25→21:16)
[2019-07-02] MEDS: Furosemide 20 MG Tablet PO (05:43)
[2019-07-02] MEDS: Multivitamins,Therapeutic Tablet 1 TABLET PO (08:10)
[2019-07-02] MEDS: UREA 15 GM POWD.PACK PO (08:10)
[2019-07-02] MEDS: Thiamine Hydrochloride 100 MG Tablet PO (08:10)
[2019-07-02] MEDS: Multivitamin (Healthy Eyes) Capsule 2 CAP PO (08:10)
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
[2019-07-02 16:00] VITALS: BP 113/69; PULSE 67; RESP 20; TEMP 36.6; O2SAT 89
[2019-07-02] MEDS: Mirtazapine 15 MG Tablet PO (21:20)
[2019-07-02] MEDS: Gabapentin 600 MG Tablet PO (21:20)
[2019-07-02] MEDS: Latanoprost 0.005% 1 Bottle 1 DRP EACH EYE (21:21)
[2019-07-03] MEDS: Nystatin/Triamcin Cream Tube 1 APPLIC TOPICAL ×3 (00:15→17:08)
[2019-07-03] MEDS: oxyCODONE 5 MG Tablet PO ×2 (00:18→17:24)
[2019-07-03] MEDS: 0.9% Saline Lock 10 ML Syringe IV ×5 (00:18→23:26)
[2019-07-03] MEDS: Omega-3 Acid Ethyl Esters 1 GM Capsule PO (05:42)
[2019-07-03] MEDS: Lisinopril 10 MG Tablet PO (05:42)
[2019-07-03] MEDS: Furosemide 20 MG Tablet PO (05:42)
[2019-07-03] MEDS: Atenolol 25 MG Tablet PO (05:42)
[2019-07-03] MEDS: Enoxaparin 40 MG/0.4 ML Syringe SC (05:42)
[2019-07-03] MEDS: Nystatin Powder 15gm Bottle 1 APPLIC TOPICAL ×2 (05:48→23:04)
[2019-07-03] MEDS: Multivitamins,Therapeutic Tablet 1 TABLET PO (08:19)
[2019-07-03] MEDS: Thiamine Hydrochloride 100 MG Tablet PO (08:19)
[2019-07-03] MEDS: UREA 15 GM POWD.PACK PO (08:19)
[2019-07-03] MEDS: Multivitamin (Healthy Eyes) Capsule 2 CAP PO (08:19)
[2019-07-03 10:00] VITALS: RESP 16; O2SAT 96
[2019-07-03 14:13] VITALS: BP 109/66; PULSE 62; RESP 18; TEMP 35.9; O2SAT 97
--- NOTE | 2019-07-03 18:37 | NURSING ---
Addendum entered by Raegan Lawrence 07/03/19 20:45: AccessRN called back stating they cannot be in tonight. Can come in tomorrow but wants patency verified. Stating this PICC line was not inserted by them. This nurse verified patency able to be flushed and with good blood return. AccessRN suggesting to get a doppler d/t nonpitting edema noted below PICC site. Slight redness noted to area also. Stating she will call back in the AM to ask what physician wants done. Dr. Munoz updated. New order to have new PICC placed tomorrow. Pt updated and in agreement. Addendum entered by Raegan Lawrence 07/03/19 19:51: AccessRN notified. Will return call with ETA. Addendum entered by Raegan Lawrence 07/03/19 19:40: Order to contact AccessRN. Original Note: pt ivac beeping, infusion complete. went to flush PICC and noted bulging raised area distal to picc insertion site. redness/dry skin around picc dressing. good blood return noted. will update dr munoz.
[2019-07-03] MEDS: Mirtazapine 15 MG Tablet PO (23:04)
[2019-07-03] MEDS: Gabapentin 600 MG Tablet PO (23:04)
[2019-07-03] MEDS: Latanoprost 0.005% 1 Bottle 1 DRP EACH EYE (23:05)
[2019-07-04] MEDS: Enoxaparin 40 MG/0.4 ML Syringe SC (06:22)
[2019-07-04] MEDS: Furosemide 20 MG Tablet PO (06:22)
[2019-07-04] MEDS: Lisinopril 10 MG Tablet PO (06:22)
[2019-07-04] MEDS: Atenolol 25 MG Tablet PO (06:22)
[2019-07-04] MEDS: Omega-3 Acid Ethyl Esters 1 GM Capsule PO (06:23)
[2019-07-04] MEDS: Nystatin/Triamcin Cream Tube 1 APPLIC TOPICAL ×2 (06:23→17:36)
[2019-07-04] MEDS: Nystatin Powder 15gm Bottle 1 APPLIC TOPICAL ×2 (06:24→20:25)
[2019-07-04] MEDS: 0.9% Saline Lock 10 ML Syringe IV ×4 (06:25→20:24)
[2019-07-04] MEDS: Multivitamin (Healthy Eyes) Capsule 2 CAP PO (07:56)
[2019-07-04] MEDS: UREA 15 GM POWD.PACK PO (07:56)
[2019-07-04] MEDS: Thiamine Hydrochloride 100 MG Tablet PO (07:56)
[2019-07-04] MEDS: Multivitamins,Therapeutic Tablet 1 TABLET PO (07:56)
--- NOTE | 2019-07-04 10:28 | NURSING ---
Addendum entered by Nan Moctezuma 07/04/19 12:19: S.Donato, RN from set making machine operator assessed area/PICC line and felt it was good. She spoke with Dr Munoz and he will order a doppler on MIKE in AM to assess for clots. She feels Picc is good to use and would not recommend insertion of new PICC at this time. Edema is less than yesterday and working its way down FA. skin very dry to BUEs. Will lotion skin. Original Note: set making machine operator here to assess PICC line in RT upper arm. raised area below picc has went down but spread down RT FA. Awaiting her thoughts.
[2019-07-04 15:01] VITALS: BP 112/59; PULSE 72; RESP 16; TEMP 37.2; O2SAT 93
[2019-07-04] MEDS: 0.9 % NaCl (Sterile) Posiflush 10 mL IV ×2 (15:09→15:10)
[2019-07-04] MEDS: Latanoprost 0.005% 1 Bottle 1 DRP EACH EYE (20:25)
[2019-07-04] MEDS: Gabapentin 600 MG Tablet PO (20:25)
[2019-07-04] MEDS: Mirtazapine 15 MG Tablet PO (20:25)
[2019-07-05] MEDS: 0.9% Saline Lock 10 ML Syringe IV ×5 (00:18→17:47)
[2019-07-05] MEDS: Lisinopril 10 MG Tablet PO (05:22)
[2019-07-05] MEDS: Nystatin/Triamcin Cream Tube 1 APPLIC TOPICAL ×2 (05:22→12:52)
[2019-07-05] MEDS: Atenolol 25 MG Tablet PO (05:22)
[2019-07-05] MEDS: Omega-3 Acid Ethyl Esters 1 GM Capsule PO (05:22)
[2019-07-05] MEDS: Enoxaparin 40 MG/0.4 ML Syringe SC (05:22)
[2019-07-05] MEDS: Furosemide 20 MG Tablet PO (05:22)
[2019-07-05] MEDS: Nystatin Powder 15gm Bottle 1 APPLIC TOPICAL ×2 (05:23→20:33)
--- NOTE | 2019-07-05 08:00 | VDUE_ITS ---
Reason For Study: Swelling Right Proximal Right jugular vein is spontaneous, widely patent, phasic, with no intraluminal echogenicity noted. Right subclavian vein is spontaneous, widely patent, phasic, with no intraluminal echogenicity noted. Right Lower Arm Right radial vein is compressible. Right ulnar vein is compressible. Right Arm Right axillary vein is spontaneous, patent, phasic, competent, compressible and demonstrates augmentation. Right brachial vein is compressible. Right cephalic vein is compressible. Right basilic vein is compressible. Patient Safety PICC line noted in the subclavian, axillary, brachial and basilic vein. Prelim to TCU. Interpretation Summary Deep veins of the right upper extremity are patent and compressible segmentally. There is no evidence of deep vein thrombosis. The superficial veins of the right upper extremity, the basilic and cephalic veins, are patent and compressible. There is no evidence of right upper extremity superficial thrombophlebitis involving the veins imaged. Ordering Physician: Sina Munoz Referring Physician: Alexandrea Eason M.D. Performed By: Daisy Jama RVT ?
[2019-07-05] MEDS: Multivitamin (Healthy Eyes) Capsule 2 CAP PO (08:12)
[2019-07-05] MEDS: Thiamine Hydrochloride 100 MG Tablet PO (08:12)
[2019-07-05] MEDS: Multivitamins,Therapeutic Tablet 1 TABLET PO (08:13)
[2019-07-05] MEDS: UREA 15 GM POWD.PACK PO (08:13)
[2019-07-05 09:24] VITALS: RESP 16
[2019-07-05 16:00] VITALS: BP 128/74; PULSE 78; RESP 16; TEMP 36.6; O2SAT 97
--- NOTE | 2019-07-05 17:48 | NURSING ---
Resident complained of burning at saline lock site when infusing IV antibiotic. Some redness noted at site. Dr. Munoz aware of doppler results of PICC site. No new orders received. IV medication infused though PICC site.
[2019-07-05] MEDS: Mirtazapine 15 MG Tablet PO (20:30)
[2019-07-05] MEDS: Gabapentin 600 MG Tablet PO (20:30)
[2019-07-05] MEDS: Latanoprost 0.005% 1 Bottle 1 DRP EACH EYE (20:31)
[2019-07-06] MEDS: 0.9% Saline Lock 10 ML Syringe IV ×2 (00:05→05:55)
[2019-07-06] MEDS: oxyCODONE 5 MG Tablet PO ×3 (00:09→23:58)
[2019-07-06 05:47] VITALS: BP 99/54; PULSE 77
[2019-07-06] MEDS: Enoxaparin 40 MG/0.4 ML Syringe SC (05:52)
[2019-07-06] MEDS: Omega-3 Acid Ethyl Esters 1 GM Capsule PO (05:53)
[2019-07-06] MEDS: Furosemide 20 MG Tablet PO (05:53)
[2019-07-06] MEDS: Lisinopril 10 MG Tablet PO (05:53)
[2019-07-06] MEDS: Atenolol 25 MG Tablet PO (05:53)
[2019-07-06] MEDS: Nystatin Powder 15gm Bottle 1 APPLIC TOPICAL ×2 (05:54→20:18)
[2019-07-06] MEDS: Nystatin/Triamcin Cream Tube 1 APPLIC TOPICAL ×2 (06:02→18:00)
[2019-07-06] MEDS: UREA 15 GM POWD.PACK PO (08:38)
[2019-07-06] MEDS: Multivitamins,Therapeutic Tablet 1 TABLET PO (08:38)
[2019-07-06] MEDS: Multivitamin (Healthy Eyes) Capsule 2 CAP PO (08:38)
[2019-07-06] MEDS: Thiamine Hydrochloride 100 MG Tablet PO (08:38)
[2019-07-06 14:41] VITALS: BP 137/72; PULSE 66; RESP 16; TEMP 36.9; O2SAT 93
[2019-07-06] MEDS: Gabapentin 600 MG Tablet PO (20:17)
[2019-07-06] MEDS: Mirtazapine 15 MG Tablet PO (20:17)
[2019-07-06] MEDS: Latanoprost 0.005% 1 Bottle 1 DRP EACH EYE (20:18)
[2019-07-07] MEDS: 0.9% Saline Lock 10 ML Syringe IV ×3 (00:07→17:56)
[2019-07-07] MEDS: Atenolol 25 MG Tablet PO (05:38)
[2019-07-07] MEDS: Enoxaparin 40 MG/0.4 ML Syringe SC (05:38)
[2019-07-07] MEDS: Omega-3 Acid Ethyl Esters 1 GM Capsule PO (05:38)
[2019-07-07] MEDS: Lisinopril 10 MG Tablet PO (05:38)
[2019-07-07] MEDS: Furosemide 20 MG Tablet PO (05:38)
[2019-07-07] MEDS: Nystatin/Triamcin Cream Tube 1 APPLIC TOPICAL ×2 (05:39→17:55)
[2019-07-07] MEDS: Nystatin Powder 15gm Bottle 1 APPLIC TOPICAL ×2 (05:40→21:48)
[2019-07-07] MEDS: Multivitamins,Therapeutic Tablet 1 TABLET PO (08:00)
[2019-07-07] MEDS: Thiamine Hydrochloride 100 MG Tablet PO (08:00)
[2019-07-07] MEDS: Multivitamin (Healthy Eyes) Capsule 2 CAP PO (08:00)
[2019-07-07] MEDS: UREA 15 GM POWD.PACK PO (08:01)
[2019-07-07 14:11] VITALS: BP 124/39; PULSE 67; RESP 18; TEMP 36.7; O2SAT 96
--- NOTE | 2019-07-07 16:12 | CASEMGMT ---
Social Work Social Work IDT met with pt, , daughter and two sons for care plan meeting. Pt on regular diet and has gained weight. Pt is able to transfer independently and is walking without cane 436ft at SBA, however therapy is still recommending pt walk with cane after DC until strong enough without. Pt is able to do 12 steps at SBA with 1 HR and is walking different surfaces at SBA. Pt able to do all ADLS at SBA-Sup. ST discussed mild cognition concerns, but felt pt would not need ST after DC. Pt educated to insurance coverage, NRD 07/07. Pt agitated that he may not be able to go home tomorrow, SW provided supportive counseling to help calm pt. Pt agreeable to OP [facility]. Pt cut by insurance, services ending 07/09, to requesting to go home 07/08. Pt reports no DME needs. Plan: DC 07/08 home with , No DME needs, OP-[facility] PT/OT Chapis Olivo, social work internal medicine doctor Vera Duran, ANTHROPOLOGY AND ARCHEOLOGY INSTRUCTOR FEEDLOT MANAGER
--- NOTE | 2019-07-07 16:45 | VDUE_ITS ---
Reason For Study: swelling Left Proximal Left jugular vein is spontaneous, widely patent, phasic, with no intraluminal echogenicity noted. Left subclavian vein is spontaneous, widely patent, phasic, with no intraluminal echogenicity noted. Left Arm Left axillary vein is spontaneous, patent, phasic, competent, compressible and demonstrates augmentation. Left brachial vein is compressible. Left cephalic vein is compressible. Left basilic vein is compressible. Left Lower Arm Left radial vein is compressible. Left ulnar vein is compressible. Prelim to the pt's RN. Interpretation Summary Deep veins of the left upper extremity are patent and compressible segmentally. There is no evidence of deep vein thrombosis. The superficial veins of the left upper extremity, the basilic and cephalic veins, are patent and compressible. There is no evidence of left upper extremity superficial thrombophlebitis involving the veins imaged. Ordering Physician: Sina Munoz Referring Physician: fiona Performed By: Malick Paniagua RVT ?
--- NOTE | 2019-07-07 16:47 | CASEMGMT ---
Social Work Reviewed and agreed with social work lab intern documentation on this date. Vera Duran, CEMENT LOADER PIPING SUPERVISOR
--- NOTE | 2019-07-07 20:58 | NURSING ---
Addendum entered by Raegan Lawrence 07/07/19 21:22: PICC pulled from RT upper arm.44cm with tip intact. Pt denied pain or discomfort. petroleum, dsd applied. Educated pt to remain in bed for an hour and notify staff of any bleeding. Pt in agreement. Resting in bed with call light in reach. Original Note: Dr. Munoz updated on pt D/C tomorrow. New order to D/C picc line tonight.
[2019-07-07] MEDS: Mirtazapine 15 MG Tablet PO (21:49)
[2019-07-07] MEDS: Gabapentin 600 MG Tablet PO (21:49)
[2019-07-07] MEDS: Latanoprost 0.005% 1 Bottle 1 DRP EACH EYE (21:50)
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
[2019-07-08 06:01] LABS: Absolute Lymphocyte Count 1.78 X10^3/uL (0.83-4.51); Absolute Neutrophil Count 4.5 X10^3/uL (2.0-7.7); Basophil# 0.16 X10^3/uL; Basophil% 1.8 % (0-1); Eosinophil# 1.23 X10^3/uL; Eosinophils% 13.9 % (0-5); Hematocrit 32.2 % (40-54); Hemoglobin 10.5 g/dL (13.0-16.5); Lymphocyte # 1.78 X10^3/ul (4.0); Lymphocyte % 20.1 % (19-41); Mean Corp Hgb Conc 32.6 g/dL (32-36); Mean Corpuscular Hgb 30.3 pg (27.0-32.0); Mean Corpuscular Volume 92.8 fL (80-94); Mean Platelet Vol. 8.8 fl (6.2-12.0); Monocyte% 13.5 % (0-10); NRBC Flagged by Analyzer 0 % (0-5); Neutrophil # 4.45 X10^3/uL (2.7-7.7); Neutrophil % 50.1 % (47-70); Platelet Count 348 K/mm3 (150-450); RBC Distribution Width CV 14.8 % (11.6-14.6); RBC Distribution Width SD 49.9 fl (35.1-43.9); Red Blood Count 3.47 M/mm3 (4.6-6.2); White Blood Count 8.9 K/mm3 (4.4-11.0)
[2019-07-08 06:30] LABS: Anion Gap 5 (5-15); BUN 14 mg/dL (7-18); BUN/Creat Ratio 19.9 RATIO (10-20); Calcium,Total 8.5 mg/dL (8.5-10.1); Chloride 105 mmol/L (98-107); EST Glomerular Filtration Rate 114 mL/min (>60); Est Glom Filt Rate - Afr Amer 138 mL/min (>60); Estimated Creatinine Clearance 44.46 ml/min; Glucose 85 mg/dL (74-106); Potassium 3.5 mmol/L (3.5-5.1); Sodium Level 138 mmol/L (136-145)
[2019-07-08] MEDS: Enoxaparin 40 MG/0.4 ML Syringe SC (07:01)
[2019-07-08] MEDS: Lisinopril 10 MG Tablet PO (07:02)
[2019-07-08] MEDS: Nystatin/Triamcin Cream Tube 1 APPLIC TOPICAL (07:02)
[2019-07-08] MEDS: Atenolol 25 MG Tablet PO (07:02)
[2019-07-08] MEDS: Omega-3 Acid Ethyl Esters 1 GM Capsule PO (07:02)
[2019-07-08] MEDS: Furosemide 20 MG Tablet PO (07:02)
[2019-07-08] MEDS: Nystatin Powder 15gm Bottle 1 APPLIC TOPICAL (07:03)
[2019-07-08] MEDS: Multivitamin (Healthy Eyes) Capsule 2 CAP PO (07:53)
[2019-07-08] MEDS: Multivitamins,Therapeutic Tablet 1 TABLET PO (07:53)
[2019-07-08] MEDS: Thiamine Hydrochloride 100 MG Tablet PO (07:54)
[2019-07-08] MEDS: UREA 15 GM POWD.PACK PO (07:54)
--- NOTE | 2019-07-08 08:22 | NURSING ---
Addendum entered by aNn Moctezuma 07/08/19 08:32: per tech, doppler negative. Original Note: peripheral vascular tech here to assess for clot LT upper arm per order.
[2019-07-08 09:14] VITALS: BP 100/56; PULSE 69; RESP 18; TEMP 36.6; O2SAT 93
--- NOTE | 2019-07-08 12:43 | CASEMGMT ---
Social Work Reviewed and agreed with social work human resource internship documentation on this date. Vera Duran, SILO PAINTER PRINCIPAL DATABASE DEVELOPER
--- NOTE | 2019-07-09 09:35 | CASEMGMT ---
Social Work Reviewed and agreed with social work pharmacist intern documentation on this date. Vera Duran, SECURITIES CLERK WORKFORCE PLANNER
== END 2019-07-08 10:15 | disposition home or self-care (01) | DRG 194 ==
PROVIDERS: Admitting Provider Family Medicine Geriatric Medicine; PCP Internal Medicine; Referring Provider Family Medicine Geriatric Medicine; Visit Provider Family Medicine Geriatric Medicine
DX: J18.9 Pneumonia, unspecified organism (principal); E22.2 Syndrome of inappropriate secretion of antidiuretic hormone; I10 Essential (primary) hypertension; B35.1 Tinea unguium; F32.9 Major depressive disorder, single episode, unspecified; Y95 Nosocomial condition; E78.5 Hyperlipidemia, unspecified; H35.30 Unspecified macular degeneration; F10.20 Alcohol dependence, uncomplicated; E87.6 Hypokalemia; B35.4 Tinea corporis; H40.9 Unspecified glaucoma; Z87.891 Personal history of nicotine dependence; G62.9 Polyneuropathy, unspecified; R13.10 Dysphagia, unspecified
CPT/HCPCS: 36415; 80048; 85025; 92507; 92523; 93971; 97110; 97116; 97162; 97166; 97530; 97535; 97802; J7050; A4216; J0295

== ENCOUNTER 2019-07-21 11:01 | Outpatient (RCR) | payer MEDICARE, SELFPAY ==
[2019-06-30 12:10] VITALS: BMI 18.3
--- NOTE | 2019-07-21 12:01 | HP.OTEVAL ---
Patient's Visit Information YENNI MUKHERJEE is a 84 year old M, referred to Occupational Therapy by Sina Munoz MD, with a diagnosis of Debility d/t respiratory failure. Date of Evaluation: 07/21/19 Occupational Therapist: Chery Hansen, OTR/L - Subjective Subjective: Arrived with , Pepper Murphy, who noted that he was recently hopsitalized for a month. HE started 06/06/19 to [facility] ER who sent him to [facility] and was there 10 days. HE was diagnosed with fluid between his lung and rib cage area according to . With chart review he was diagnosed with R PE, right medial clavicle fracture, and fractures in ribs R 4th, 9th, and 11th as well as L 6-10th ribs. HE was then moved to [facility] TCU for about 2 weeks. HE returned home 07/08/2019. - ADLs Comments: With noted he is back to baseline line with ADLs. 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 - ROM Shoulder: WFL Elbow: WFL Forearm: WFL Wrist: WFL MP: WFL PIP: WFL DIP: WFL - Strength Shoulder: 4/5 Elbow: 4/5 Forearm: 4/5 Wrist: 4/5 Bus System Operator: flexed R 26, L 30; ext R 29, L 33 Lateral Pinch: R 7, L 8 Tripod Pinch: R 6, L 8 Strength Comments: He is doing well with strength. - Quick DASH-Disab of Arm,Shoulder& Hand Quick DASH Score: 42.5000 - Rehabilitation General Assessment: Yenni completed OT assessment at this time. He is baseline for all ADL/IADLs and is doing well with tasks at home emil Pt. amd report. 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 A home program for BUE strengthening provided. He will not be picked up at this time. Rehabilitation Potential: Good - Anticipated Interventions Anticipated Interventions: A/AAROM/PROM, Strengthening, Orthoses, Joint Protection/Energy Conservation, Ergonomic Education, Fine Motor Coord/Curtis, ADL Training, Caregiver Training, Home Program Other Interventions: [place]; R ear is good ear. - Visit Plan Duration: 4 Weeks General Plan: HE will not be picked up at this time and is to complete HEP for BUE strengthening. He is baseline for ADLs and if status changes further reassessment to be completed. TEXT: Thank you for the opportunity to evaluate your patient. For Medicare and Medicare HMO plans, please review the plan of care and approve it. It will need to be FAXED BACK to us at [phone] for Medicare purposes. Please let me know if there are questions or concerns regarding this plan of care. Physician Signature: Date:
--- NOTE | 2019-07-21 12:01 | HP.OT.NRP ---
HP - Discharge Summary - Patient Information BURKE MUKHERJEE was seen in my office for initial evaluation on 07/21/19. The following Plan of Care was established for this patient: Initial Duration: no being picked up Plan: Initial evaluation only; he is baseline and not being pickd up for OT. - Anticipated Interventions Anticipated Interventions: A/AAROM/PROM, Strengthening, Orthoses, Joint Protection/Energy Conservation, Ergonomic Education, Fine Motor Coord/Curtis, ADL Training, Caregiver Training, Home Program Other Interventions: [place]; R ear is good ear. This patient was last seen in our office . Pertinent comments regarding their Occupational therapy will appear below: Completed initial eval only. No need for further OT as baseline for self care. HEP provided and reassessment to occur if status changes. At this point I will be discontinuing this patient from occupational therapy. I would be happy to see this patient again in the future if found appropriate by the physician. Thank you! Chery Hansen, OTR/L
--- NOTE | 2019-07-22 07:54 | HP.PTEVAL_ITS ---
Patient's Visit Information BURKE MUKHERJEE is a 84 year old M referred to Physical Therapy by Sina Munoz MD with a diagnosis of Generlized weakness, after respiratory failure. Date of Evaluation: 07/21/19 Physical Therapist: Moshe Beard DPT - Visit Plan Frequency: 1x/Week Duration: 4-6 Weeks Plan: Pt. is doing well. Pt. does have signs of overall decreased walking tolerance and BLE strength deficits. Start with BLE strengthening (progression of HEP from TCU), pt. to start light walking program (progressing as tolerated with ). Add in dynamic complex balance/strengthengin exercises to increase able to complete all IADLS and group insurance specialist without limitations. Pt. is very lmiited with his hearing. - Subjective Subjective: Arrived with , Pepper Murphy, who noted that he was recently hopsitalized for a month. He started 06/06/19 to [facility] who sent him to [facility] and was there 10 days. He was diagnosed with fluid between his lung and rib cage area according to . With chart review he was diagnosed with R PE, right medial clavicle fracture, and fractures in ribs R 4th, 9th, and 11th as well as L 6-10th ribs. He was then moved to [facility] for about 2 weeks. He returned home 07/08/2019. Pt. reports he is doing pretty well at home, but still have an overall feeling of weakness. Pt. has stuck mostly to the house at this point intime. He has not ventured out much. Pt. was previously very active, ch opping wood (with and without chainsaw), driving, I with IADLS and ADLs, and went on walking in [place]. He is hopeful to get back to all of these activies wtihout limitations. - Objective POSTURE: Pt. has general flexed posture, FH posture, increased thoracic kyphosis. Pt. has normal wt. shift, but does have an overall anterior wt. shift of body. PALPATION: No pain througout bilateral LEs. Pt. reprots no R clavicle pain. NEURO: normal throughout sensation and DTR bilaterally. Pt. is able to heel and toe raises with good coordination. ROM: PT. has good ROM of B LEs including ankles, knees and hips. Tightness noted in B HS and hip flexors. Pt. has slight lack of shoulder ROm especially with over head movements. MMT: LEs 4+/5 throughout, no pain noted. UEs 4+/5 throughotu, except shoulder flexion/abd 4/5 bilat. No pain noted. GAIT: Pt. has fwrd flexed posture, but otherwise good pattern. Pt. had occassional lateral sway. Stairs: 2 HR with good control. (pt. has 2 HR wtih ascending and descending second level at home). 6 MWT- Pt. walked 1033ft. wtihout AD, but reports being very fatigued with this trial. No dyspnea noted. - Balance Scores Functional Gait Assessment Score: 23 % Disability: 23.3400 CATSIB Score (Max score 120 seconds): 90 - Goals Goal 1:: LTG: Pt. to be I with HEP for BLE strengthening and walking program. Goal Time Frame: 4-6 Weeks Goal 2:: LTG: Pt. to be able to walk 1350ft with 6 MWT. Goal Time Frame: 4-6 Weeks Goal 3:: LTG: PT. to have 5/5 B LE strength. Goal Time Frame: 4-6 Weeks Goal 4:: STG: Pt. to be able to walk community level distances without limitations allowing for increased walking in grocery stores and to physician offices. Goal Time Frame: 4-6 Weeks - Rehabilitation Potential Physical Therapy Diagnosis: Pt. was here today for his initial evaluation with diagnosis of generalized weakness after having surgical intervention of acute respiratory failure with lung infection. Pt. was hospitalized ~1 month in total between acute care and [facility]. Pt. is doing well. He has progress in his BLE strenght and walking endurance. He is limited in total walking in endruance as seen in his 6 MWT, but he is on the lower range of normal. He has marked BLE weakness, most notably with 5 sit to stand rep test without use of UEs. Pt. would benefit from PT to work on above limitations progressing back to all functional/recreational activities without limitations. Rehabilitation Potential: Excellent - Anticipated Interventions Patient/Client Instruction: Educate patient on: Condition, Plan of Care, Risk Factors, Benefits of Fitness Program For the Purpose of:: To improve decision making, To facilitate caregiver knowledge, To improve self management, To prevent re-injury, To improve ability to perform tasks related to life management, To improve tolerance to ADL's Therapeutic Exercise to Include: Strength training, Power training, Endurance training, Balance training, Body mechanics, Flexibilty training, Gait and locomotor training For the Purpose of:: To improve nutrient delivery to tissue, To increase oxygenation perfusion, To improve muscle performance and motor function, To improve performance and independence with ADL's, To decrease level of supervision to perform tasks, To improve ability of physical actions for home/community/work/leisure, To improve gait and locomotor functions, To improve health of tissue, To improve endurance, To improve balance Thank you for the opportunity to evaluate your patient. For Medicare and Medicare HMO plans, please review the plan of care and approve it. It will need to be FAXED BACK to us at [phone] for Medicare purposes. For Medicare only, by signing this I certify the plan of care. Please let me know if there are questions or concerns regarding this plan of care. Physician Signature: Date:
== END 2019-07-21 19:00 | disposition home or self-care (01) ==
LOC: OT 11:01
PROVIDERS: PCP Internal Medicine; Referring Provider Family Medicine Geriatric Medicine; Visit Provider Family Medicine Geriatric Medicine
DX: R53.81 Other malaise (principal); J96.90 Respiratory failure, unspecified, unspecified whether with hypoxia or hypercapnia
CPT/HCPCS: 97110; 97161; 97166; 97530

== ENCOUNTER → 2021-12-03 | Outpatient (REF) | payer SELFPAY ==
[2021-12-03 08:36] LABS: Hematocrit 27.8 % (40-54); Hemoglobin 8.9 g/dL (13.0-16.5); Mean Corpuscular Hgb 30.4 pg (27.0-32.0); Mean Corpuscular Volume 94.9 fL (80-94); Mean Platelet Vol. 8.2 fl (6.2-12.0); Platelet Count 577 K/mm3 (150-450); RBC Distribution Width CV 14.9 % (11.6-14.6); RBC Distribution Width SD 51.5 fl (35.1-43.9); Red Blood Count 2.93 M/mm3 (4.6-6.2); White Blood Count 9.6 K/mm3 (4.4-11.0)
[2021-12-03 08:44] LABS: Anion Gap 6 (5-15); BUN 5 mg/dL (7-18); BUN/Creat Ratio 10.1 RATIO (10-20); Calcium,Total 8.6 mg/dL (8.5-10.1); Chloride 94 mmol/L (98-107); EST Glomerular Filtration Rate 169 mL/min (>60); Est Glom Filt Rate - Afr Amer 205 mL/min (>60); Glucose 95 mg/dL (74-106); Potassium 3.2 mmol/L (3.5-5.1); Sodium Level 131 mmol/L (136-145)
== END | disposition home or self-care (01) ==
LOC: OLS.WHLTCC 05:00
PROVIDERS: PCP Internal Medicine; Visit Provider Family Medicine
DX: T84.091D Other mechanical complication of internal left hip prosthesis, subsequent encounter (principal); M62.81 Muscle weakness (generalized); R26.2 Difficulty in walking, not elsewhere classified
CPT/HCPCS: 36415; 80048; 85027

== ENCOUNTER → 2021-12-17 | Outpatient (REF) | payer OTHER, SELFPAY ==
[2021-12-17 07:22] LABS: Hematocrit 29.8 % (40-54); Hemoglobin 9.4 g/dL (13.0-16.5); Mean Corp Hgb Conc 31.5 g/dL (32-36); Mean Platelet Vol. 8.3 fl (6.2-12.0); Platelet Count 435 K/mm3 (150-450); RBC Distribution Width CV 14.5 % (11.6-14.6); RBC Distribution Width SD 49.2 fl (35.1-43.9); Red Blood Count 3.24 M/mm3 (4.6-6.2); White Blood Count 7.8 K/mm3 (4.4-11.0)
[2021-12-17 07:47] LABS: Anion Gap 6 (5-15); BUN 11 mg/dL (7-18); BUN/Creat Ratio 17.8 RATIO (10-20); Calcium,Total 8.3 mg/dL (8.5-10.1); Chloride 99 mmol/L (98-107); Creatinine, Serum 0.62 mg/dL (0.70-1.30); EST Glomerular Filtration Rate 131 mL/min (>60); Est Glom Filt Rate - Afr Amer 159 mL/min (>60); Glucose 126 mg/dL (74-106); Potassium 3.8 mmol/L (3.5-5.1); Sodium Level 133 mmol/L (136-145)
== END ==
LOC: OLS.WHLTCC 05:00
PROVIDERS: PCP Internal Medicine; Referring Provider Family Medicine; Visit Provider Family Medicine
DX: T84.091D Other mechanical complication of internal left hip prosthesis, subsequent encounter (principal); M62.81 Muscle weakness (generalized); R26.2 Difficulty in walking, not elsewhere classified; Z47.1 Aftercare following joint replacement surgery
CPT/HCPCS: 36415; 80048; 85027

== ENCOUNTER → 2021-12-24 | Outpatient (REF) | payer MEDICARE, SELFPAY ==
[2021-12-24 08:20] LABS: Hematocrit 28.8 % (40-54); Hemoglobin 9.1 g/dL (13.0-16.5); Mean Corp Hgb Conc 31.6 g/dL (32-36); Mean Corpuscular Hgb 28.1 pg (27.0-32.0); Mean Corpuscular Volume 88.9 fL (80-94); Mean Platelet Vol. 8.5 fl (6.2-12.0); Platelet Count 379 K/mm3 (150-450); RBC Distribution Width CV 14.5 % (11.6-14.6); RBC Distribution Width SD 46.8 fl (35.1-43.9); Red Blood Count 3.24 M/mm3 (4.6-6.2); White Blood Count 8.7 K/mm3 (4.4-11.0)
[2021-12-24 08:40] LABS: Anion Gap 6 (5-15); BUN 12 mg/dL (7-18); BUN/Creat Ratio 19.4 RATIO (10-20); Calcium,Total 8.8 mg/dL (8.5-10.1); Chloride 99 mmol/L (98-107); Creatinine, Serum 0.62 mg/dL (0.70-1.30); EST Glomerular Filtration Rate 131 mL/min (>60); Est Glom Filt Rate - Afr Amer 159 mL/min (>60); Glucose 95 mg/dL (74-106); Potassium 4.5 mmol/L (3.5-5.1); Sodium Level 134 mmol/L (136-145)
== END ==
LOC: OLS.WHLTCC 04:00
PROVIDERS: PCP Internal Medicine; Referring Provider Family Medicine; Visit Provider Family Medicine
DX: T84.091D Other mechanical complication of internal left hip prosthesis, subsequent encounter (principal); M62.81 Muscle weakness (generalized); R26.2 Difficulty in walking, not elsewhere classified
CPT/HCPCS: 36415; 80048; 85027

== ENCOUNTER → 2021-12-31 | Outpatient (REF) | payer MEDICARE, SELFPAY ==
[2021-12-31 08:50] LABS: Hematocrit 27.9 % (40-54); Hemoglobin 8.9 g/dL (13.0-16.5); Mean Corp Hgb Conc 31.9 g/dL (32-36); Mean Corpuscular Hgb 28.1 pg (27.0-32.0); Mean Platelet Vol. 8.5 fl (6.2-12.0); Platelet Count 405 K/mm3 (150-450); RBC Distribution Width CV 14.4 % (11.6-14.6); RBC Distribution Width SD 46.8 fl (35.1-43.9); Red Blood Count 3.17 M/mm3 (4.6-6.2); White Blood Count 9.9 K/mm3 (4.4-11.0)
[2021-12-31 09:03] LABS: Anion Gap 4 (5-15); BUN 17 mg/dL (7-18); BUN/Creat Ratio 26.4 RATIO (10-20); Calcium,Total 8.6 mg/dL (8.5-10.1); Chloride 100 mmol/L (98-107); Creatinine, Serum 0.64 mg/dL (0.70-1.30); EST Glomerular Filtration Rate 125 mL/min (>60); Est Glom Filt Rate - Afr Amer 151 mL/min (>60); Glucose 113 mg/dL (74-106); Potassium 4.2 mmol/L (3.5-5.1); Sodium Level 132 mmol/L (136-145)
== END ==
LOC: OLS.WHLTCC 05:00
PROVIDERS: PCP Internal Medicine; Visit Provider Family Medicine
DX: T84.091D Other mechanical complication of internal left hip prosthesis, subsequent encounter (principal); M62.81 Muscle weakness (generalized); R26.2 Difficulty in walking, not elsewhere classified; Z74.1 Need for assistance with personal care
CPT/HCPCS: 36415; 80048; 85027

== ENCOUNTER 2023-03-21 10:20 | Inpatient (IN) | payer MEDICARE, SELFPAY ==
[2023-03-21] VITALS (13 sets, daily range): BP systolic 113–131; BP diastolic 68–86; PULSE 80–92; RESP 16–24; TEMP 36.6–36.9; O2SAT 91–97; BMI 21.4; BMI 21.2
--- NOTE | 2023-03-21 10:36 | EKG12_ITS ---
Test Reason : Blood Pressure : / mmHG Vent. Rate : 084 BPM Atrial Rate : 084 BPM P-R Int : 152 ms QRS Dur : 072 ms QT Int : 368 ms P-R-T Axes : 010 -48 016 degrees QTc Int : 434 ms Normal sinus rhythm Left anterior fascicular block Abnormal ECG Confirmed by ADDISON JEAN, MARIOLA ([id number]), news assignment editor BARRY DONOHUE ([id number]) on 03/24/2023 8:25:26 AM Referred By: Confirmed By:CHAOY JAIME MD
--- NOTE | 2023-03-21 10:37 | EDS_ITS ---
HPI History of Present Illness Chief Complaint: Shortness of Breath Informant: patient and EMS Narrative Narrative: detention patient brought in because of low pulse ox and a productive cough according to EMS who states that is what custodial told them. The patient denies any complaints right now but he admits to having an occasional cough. Apparently his oxygen levels were low prior to calling EMS, but the report that EMS got was that he is not usually on oxygen, and he was 90% on 3 L today, but pulse oximetry prior to putting him on oxygen was unknown or not checked. Patient denies having any chest or abdominal discomfort, denies headache, denies any focal neurologic symptoms right now. He is very hard of hearing so ROS is limited. PFSH PFSH Home Medications atenolol 25 mg tablet 25 mg PO DAILY BP 08/23/15 [History Last Taken 09/18/15 04:45] latanoprost 0.005 % eye drops 1 drp QHS eye drops 08/23/15 [History Last Taken Unknown] lisinopril 10 mg tablet 10 mg PO DAILY BP 08/23/15 [History Last Taken 09/18/15 04:45] vit C 250 mg-vit E 90 mg-zinc 40 mg-copper 1 [id number]-[id number]-tyrarv capsule 2 cap PO DAILY supplement 06/16/19 [History Last Taken Unknown] acetaminophen 500 mg tablet 1,000 mg PO Q6H PRN PRN Pain Or Fever 06/26/19 [History Last Taken Unknown] Emollient Combination No.72 [Eucerin Intensive Repair] 1 applic topical 4X/DAY PRN PRN DRY SKIN 07/07/19 [Rx Last Taken Unknown] furosemide 20 mg tablet 20 mg PO DAILY Excess fluid #30 tabs 07/07/19 [Rx Last Taken Unknown] gabapentin 600 mg tablet 600 mg PO QHS neuropathy #30 tabs 07/07/19 [Rx Last Taken Unknown] mirtazapine 15 mg tablet 15 mg PO QHS sleep #30 tabs 07/07/19 [Rx Last Taken Unknown] polyethylene glycol 3350 17 gram oral powder packet 17 gm PO DAILY bowels #30 packets 07/07/19 [Rx Last Taken Unknown] potassium chloride 20 mEq tablet,extended release(part/cryst) 20 meq PO DAILY supplement #30 tabs 07/07/19 [Rx Last Taken Unknown] sennosides 8.6 mg-docusate sodium 50 mg tablet 2 tab PO BID bowels #120 tabs 07/07/19 [Rx Last Taken Unknown] Allergy/AdvReac Type Severity Reaction Status Date / Time No Known Allergies Allergy Verified 03/21/23 10:27 Family History (Updated 03/21/23 @ 13:[address] Patric Roberts MD) Other Cancer Heart disease Surgical History (Updated 03/21/23 @ 13:[address] Patric Roberts MD) Status post left hip replacement Social History Smoking Status: Former smoker ROS ROS ED Eyes Eyes: Denies change in vision ENT ENT ED: Denies sore throat Cardiovascular Cardiovascular: Denies chest pain Respiratory/Chest Respiratory/Chest: Reports cough and sputum; Denies dyspnea Gastrointestinal Gastrointestinal: Denies abdominal pain or nausea Musculoskeletal Musculoskeletal: Denies back pain or neck pain Neurologic Neurologic: Denies headache(s) EXAM Physical Exam Const Vital Signs: 03/21/23 10:23 03/21/23 10:27 03/21/23 10:28 Temperature 98.2 F Temperature Source Oral Pulse Rate 91 92 Respiratory Rate 22 H 24 H Respiratory Effort Short of Breath Respiratory Depth Shallow Respiratory Pattern Tachypnea Blood Pressure 122/77 H 122/77 H Blood Pressure Mean 92 92 Pulse Ox 93 92 Oxygen Delivery Method Nasal Cannula Nasal Cannula Nasal Cannula Oxygen Flow Rate (L/min) 4 5 03/21/23 10:26 03/21/23 10:39 Temperature 98.2 F Temperature Source Oral Pulse Rate 92 Respiratory Rate 24 H Respiratory Effort Respiratory Depth Respiratory Pattern Blood Pressure 122/77 H Blood Pressure Mean 92 Pulse Ox 91 93 Oxygen Delivery Method Nasal Cannula Nasal Cannula Oxygen Flow Rate (L/min) 5 6 Positive well nourished and well developed General Appearance ED: well developed and NAD HEENT Reports moist mucous membranes normocephalic and atraumatic Eyes PERRL and EOMs intact bilaterally Neck full ROM, supple and no JVD Resp Resp Narrative: Mildly tachypneic no respiratory distress. High-pitched bibasilar Rales otherwise clear and diminished throughout symmetrically Cardio regular rate, regular rhythm and no murmurs GI non-tender and non-distended Auscultation: normoactive bowel sounds Palpation: soft Back/Spine no CVA tenderness General Back: other FROM Extremity normal to inspection General Extremety ED: Negative for edema, pulses abnormal or tenderness General Extremity: Negative for edema or pulses abnormal Neuro oriented x3, CN's II-XII intact bilaterally and no sensory deficits noted Sensorium / Orientation: awake and alert Motor Exam: general weakness Skin no rashes or lesions noted and no wounds MDM MDM MDM Narrative Medical decision making narrative: Suspecting pneumonia here, obtained a septic work-up and on 1 view chest x-ray on my interpretation he has a right upper lobe possibly right lower lobe infiltrate. Antibiotics ordered, he does have a leukocytosis of 18 consistent with this, and is hypoxic but not in respiratory distress or need of mechanical ventilation. While the patient was on 2 L nasal cannula, after receiving nebulizer treatment from custodial just prior to arrival, just with moving him around, he desatted down to 88%. We removed his nasal cannula up to 6 L, keeping him at 93-94%, at this time he is 93% on a 4.5 L cannula. No respiratory distress. I think being on this much oxygen, although his lactate is negative and his troponin and BNP are also both normal, consistent with this being pneumonia, he has a strong leukocytosis and I think admission to the hospital is warranted. Started on antibiotics to cover for healthcare associated pneumonia including MRSA, and discussed with hospitalist. I do not think he needs to be in the ICU at this time. Radiology interpreted the chest x-ray as a possible cavitary lesion. In discussion with hospitalist, we decided to obtain a CT without contrast of the affected area. Does not appear to be an abscess on my interpretation of the images, reviewed official radiology interpretation, in agreement that there is no abscess but there is a spiculated mass and evidence of pneumonia along with parapneumonic effusion and what appears to be round atelectasis. History & Record Review Discussion w/independent historian: EMS personnel and Patient ([facility] did not call to give any report per staffing operations manager) Lab Data Attestation: I reviewed the patient's lab results. Labs: Laboratory Results - last 24 hr 03/21/23 10:45 WBC 18.0 H RBC 3.53 L Hgb 10.5 L Hct 34.5 L MCV 97.7 H MCH 29.7 MCHC 30.4 L RDW Std Deviation 55.9 H RDW Coeff of Isai 17.4 H Plt Count 511 H MPV 8.0 Immature Gran % (Auto) 0.900 Neut % (Auto) 80.9 H Lymph % (Auto) 12.2 L [place] % (Auto) 4.9 Eos % (Auto) 0.6 Baso % (Auto) 0.5 Absolute Neuts (auto) 14.6 H Absolute Lymphs (auto) 2.19 Nucleated RBC % 0 Sodium 135 L Potassium 4.1 Chloride 99 Carbon Dioxide 29.0 Anion Gap 7 BUN 8 Creatinine 0.50 L Estim Creat Clear Calc 45.64 Est GFR (MDRD) Af Amer 201 Est GFR (MDRD) Non-Af 166 BUN/Creatinine Ratio 15.9 Glucose 103 Lactic Acid 1.6 Calcium 8.6 Troponin I High Sens 10 B-Natriuretic Peptide 74.6 Radiography Diagnostic Testing: Clinical Impression(s) from Imaging Studies Chest X-Ray 03/21/23 11:00 IMPRESSION: Irregular density in the right midlung as described suggestive of possible cavitated lesion. Mild increased markings at the lung bases suggestive of atelectasis and scarring. Radiographic follow-up recommended. Electronically Signed: Ilir Patel MD at 11:30 EST , Chest CT 03/21/23 13:37 IMPRESSION: Bilateral pleural effusions right greater than left with infiltration and/or atelectatic right lung base with early round atelectasis at the left lung base. Irregular nodular infiltrate in the posterior aspect of the right upper lobe. Spiculated nodule seen in the right upper lobe as well. Radiographic follow-up is recommended. Electronically Signed: Ilir Patel MD at 14:34 EST , Rhythm Strip Rhythm Strip: Sinus Rhythm Rate: 80 Ectopy: None EKG Initial EKG: Attestation: I personally reviewed and interpreted this EKG as follows: Interpretation: Sinus Rhythm and No Acute Injury Pattern Management Discussion w/another healthcare provider: Hospitalist Discharge Plan Dx/Rx/DC Orders Clinical Impression: Hypoxemia, Pneumonia, Parapneumonic effusion Disposition Disposition: Acute Care [facility]
--- NOTE | 2023-03-21 10:43 | NURSING ---
NO OLD EKG
[2023-03-21 10:55] LABS: Absolute Lymphocyte Count 2.19 X10^3/uL (0.83-4.51); Absolute Neutrophil Count 14.6 X10^3/uL (2.0-7.7); Basophil# 0.09 X10^3/uL; Basophil% 0.5 % (0-1); Eosinophils% 0.6 % (0-5); Hematocrit 34.5 % (40-54); Hemoglobin 10.5 g/dL (13.0-16.5); Lymphocyte # 2.19 X10^3/ul (0.83-4.51); Lymphocyte % 12.2 % (19-41); Mean Corp Hgb Conc 30.4 g/dL (32-36); Mean Corpuscular Hgb 29.7 pg (27.0-32.0); Mean Corpuscular Volume 97.7 fL (80-94); Monocyte# 0.88 X10^3/uL; Monocyte% 4.9 % (0-10); NRBC Flagged by Analyzer 0 % (0-5); Neutrophil % 80.9 % (47-70); Platelet Count 511 K/mm3 (150-450); RBC Distribution Width CV 17.4 % (11.6-14.6); RBC Distribution Width SD 55.9 fl (35.1-43.9); Red Blood Count 3.53 M/mm3 (4.6-6.2)
--- NOTE | 2023-03-21 11:00 | RAD_ITS ---
STUDY: X-RAY CHEST REASON FOR EXAM: Male, 87 years old. Cough sob TECHNIQUE: Single AP portable view of the chest. COMPARISON: Comparison is made with prior study dated June 26, 2019. FINDINGS: EKG electrodes are seen. There is a 3 cm x 2.8 cm irregular density in the right midlung. This may represent a cavitated lesion. Persistent increased markings at the right lung base suggestive of scarring although there is been mild improvement as compared to prior study. Findings suggestive of linear atelectasis and/or scarring at the left lung base. Normal size heart. Normal mediastinum and melba. Normal visualized pulmonary arteries. There is atherosclerotic calcification of the aortic arch with tortuosity. There are diffuse degenerative changes of the visualized thoracic spine. Healed left rib fractures. There is no demonstrated abnormality of the visualized soft tissue structures of the upper abdomen. RAD/Chest 1 View (Portable) IMPRESSION: Irregular density in the right midlung as described suggestive of possible cavitated lesion. Mild increased markings at the lung bases suggestive of atelectasis and scarring. Radiographic follow-up recommended. Electronically Signed: Ilir Patel MD at 11:30 EST ,
[2023-03-21 11:12] LABS: Anion Gap 7 (5-15); BUN 8 mg/dL (7-18); BUN/Creat Ratio 15.9 RATIO (10-20); Calcium,Total 8.6 mg/dL (8.5-10.1); Chloride 99 mmol/L (98-107); EST Glomerular Filtration Rate 166 mL/min (>60); Est Glom Filt Rate - Afr Amer 201 mL/min (>60); Estimated Creatinine Clearance 45.64 ml/min; Glucose 103 mg/dL (74-106); Potassium 4.1 mmol/L (3.5-5.1); Sodium Level 135 mmol/L (136-145); Troponin-I HS 10 pg/mL (3.0-78.0)
[2023-03-21 11:14] LABS: BNP,B-Type NATRIURETIC PEPTIDE 74.6 pg/mL (0-100)
[2023-03-21 11:16] LABS: Lactic Acid 1.6 mmol/L (0.4-1.9)
[2023-03-21] MEDS: Piperacil/Tazobactam 4.5 GM in 0.9% Normal Saline (100mL MB+) 100 ML IV (12:17)
--- NOTE | 2023-03-21 13:37 | CT_ITS ---
STUDY: CT CHEST WITHOUT CONTRAST REASON FOR EXAM: Male, 87 years old. Cough, hypoxia, abn CXR RADIATION DOSAGE (If Supplied By Facility): CTDIvol = ( 7.16 ) mGy, DLP = ( 501.30 ) mGycm TECHNIQUE: Transaxial imaging was performed without the administration of intravenous contrast material. Multiplanar coronal and sagittal images were reformatted. Individualized dose optimization techniques were used for this CT. COMPARISON: Comparison is made with prior chest radiograph done earlier in the day and prior CT scan of thorax dated June 26, 2019. FINDINGS: CHEST Focal spiculated nodular densities in the right lung apex. Irregular nodular infiltrate in the posterior aspect of the right upper lobe abutting the right major fissure. Infiltrate and/or atelectasis at the right lung base with a small right pleural effusion. Tiny left pleural effusion with findings suggestive of round atelectasis in the left lung base. There are calcifications of the coronary arteries. Normal mediastinum. Normal hilar regions. Normal unenhanced pulmonary arteries. There is atherosclerotic calcification of the aortic arch with tortuosity and elongation of the aortic arch and descending thoracic aorta. 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 Stable compression fracture of the C7 vertebrae. Healed left rib fractures. There is no demonstrated abnormality of the visualized upper abdomen. CT/Chest without Contrast IMPRESSION: Bilateral pleural effusions right greater than left with infiltration and/or atelectatic right lung base with early round atelectasis at the left lung base. Irregular nodular infiltrate in the posterior aspect of the right upper lobe. Spiculated nodule seen in the right upper lobe as well. Radiographic follow-up is recommended. Electronically Signed: Ilir Patel MD at 14:34 EST ,
--- NOTE | 2023-03-21 13:43 | PCM.HP.STD ---
HPI - General General Date of Admission: 03/21/23 HPI Narrative BURKE MUKHERJEE, is a 87 M who presents to the hospital with increasing shortness of breath. Yesterday while at the retirement he did not feel normal, he felt more fatigued than usual and then today he started having chills and felt a little short of breath. He has been having a periodic cough that is somewhat productive. He has had multiple hospitalizations at the [facility] recently secondary to hip fracture and then a femur fracture that he had to have repaired. He just got to [facility] on Friday evening to start rehab. He is very hard of hearing. In the ER his white count is 18 with a normal lactic acid, he is hypoxic requiring 6 L of nasal cannula and he does not wear oxygen at baseline. Chest x-ray showed right-sided infiltrates and there is some question of a cavitary lesion so we will proceed with a CT scan while in the ER for better characterization. [facility] Medical History (Updated 03/21/23 @ 17:24 by Dolly Roth) DVT (deep venous thrombosis) Former smoker Wears hearing aid in both ears Home Medications atenolol 25 mg tablet 25 mg PO DAILY BP 08/23/15 [History Last Taken 09/18/15 04:45] latanoprost 0.005 % eye drops 1 drp QHS eye drops 08/23/15 [History Last Taken Unknown] lisinopril 10 mg tablet 5 mg PO DAILY BP 08/23/15 [History Last Taken 09/18/15 04:45] vit C 250 mg-vit E 90 mg-zinc 40 mg-copper 1 [id number] capsule 2 cap PO DAILY supplement 06/16/19 [History Last Taken Unknown] acetaminophen 500 mg tablet 1,000 mg PO Q6H PRN PRN Pain Or Fever 06/26/19 [History Last Taken Unknown] Emollient Combination No.72 [Eucerin Intensive Repair] 1 applic topical 4X/DAY PRN PRN DRY SKIN 07/07/19 [Rx Last Taken Unknown] furosemide 20 mg tablet 20 mg PO DAILY Excess fluid #30 tabs 07/07/19 [Rx Last Taken Unknown] gabapentin 600 mg tablet 600 mg PO QHS neuropathy #30 tabs 07/07/19 [Rx Last Taken Unknown] mirtazapine 15 mg tablet 15 mg PO QHS sleep #30 tabs 07/07/19 [Rx Last Taken Unknown] polyethylene glycol 3350 17 gram oral powder packet 17 gm PO DAILY bowels #30 packets 07/07/19 [Rx Last Taken Unknown] potassium chloride 20 mEq tablet,extended release(part/cryst) 20 meq PO DAILY supplement #30 tabs 07/07/19 [Rx Last Taken Unknown] sennosides 8.6 mg-docusate sodium 50 mg tablet 2 tab PO BID bowels #120 tabs 07/07/19 [Rx Last Taken Unknown] cholecalciferol (vitamin D3) 50 mcg (2,000 unit) capsule (Vitamin D3) 2,000 unit PO DAILY SEE PCP 03/21/23 [History Last Taken Unknown] colestipol 1 gram tablet 1 g PO DAILY HYPERCHOLESTEROLEMIA 03/21/23 [History Last Taken Unknown] sertraline 100 mg tablet 100 mg PO DEPRESSION 03/21/23 [History Last Taken Unknown] Allergy/AdvReac Type Severity Reaction Status Date / Time No Known Allergies Allergy Verified 03/21/23 10:27 Family History (Updated 03/21/23 @ 13:[address] Patric Roberts MD) Other Cancer Heart disease Surgical History (Updated 03/21/23 @ 13:[address] Patric Roberts MD) Status post left hip replacement Social History Smoking Status: Former smoker ROS Constitutional Constitutional: Reports chills and fatigue; Denies fever(s) or malaise Eyes Eyes: Denies blurry vision ENT HEENT: Denies headache(s) or nasal discharge Cardiovascular Cardiovascular: Denies chest pain, dyspnea on exertion or syncope Respiratory/Chest Respiratory/Chest: Reports productive cough and shortness of breath at rest; Denies shortness of breath with exertion Gastrointestinal Gastrointestinal: Denies constipation, diarrhea, nausea or vomiting Genitourinary Genitourinary: Denies dysuria Neurologic Neurologic: Denies focal weakness, numbness or tremor(s) Psychiatric Psychiatric: Denies anxiety or depression Vital Signs Vital Signs Vital Signs: 03/21/23 10:23 03/21/23 10:27 03/21/23 10:28 Temperature 98.2 F Temperature Source Oral Pulse Rate 91 92 Respiratory Rate 22 H 24 H Respiratory Effort Short of Breath Respiratory Depth Shallow Respiratory Pattern Tachypnea Blood Pressure 122/77 H 122/77 H Blood Pressure Mean 92 92 Pulse Ox 93 92 Oxygen Delivery Method Nasal Cannula Nasal Cannula Nasal Cannula Oxygen Flow Rate (L/min) 4 5 03/21/23 10:26 03/21/23 10:39 Temperature 98.2 F Temperature Source Oral Pulse Rate 92 Respiratory Rate 24 H Respiratory Effort Respiratory Depth Respiratory Pattern Blood Pressure 122/77 H Blood Pressure Mean 92 Pulse Ox 91 93 Oxygen Delivery Method Nasal Cannula Nasal Cannula Oxygen Flow Rate (L/min) 5 6 Weight Weight: 136 lb 10.986 oz Body Mass Index (BMI) 21.4 Physical Exam Narrative General: Alert, Oriented x3, Cooperative, No apparent distress HEENT: Atraumatic, PERRLA, EOMI, Normocephalic, hard of hearing Oral: Moist Mucosa Neck: Supple, No JVD Lungs: Diminished, Normal air movement, rhonchi, No wheeze, No rales, tachypneic Cardiovascular: Regular rate, Regular Rhythm, Normal S1, Normal S2, No murmurs Abdomen: Soft, Non Tender, Non-Distended, No Hepato-splenomegaly Extremities: No edema, Capillary Refill Less than 3 Seconds Skin: No rashes, No breakdown Musculoskeletal: No Tenderness to Palpation of Joints or Extremities Neurological: Moves all extremities, Sensory exam intact to light touch and pain Psych/Mental Status: Normal Affect, Appropriate Results Lab / Micro Data 03/21/23 10:45 03/21/23 10:45 Labs: Laboratory Results - last 24 hr 03/21/23 10:45: WBC 18.0 H, RBC 3.53 L, Hgb 10.5 L, Hct 34.5 L, MCV 97.7 H, MCH 29.7, MCHC 30.4 L, RDW Std Deviation 55.9 H, RDW Coeff of Isai 17.4 H, Plt Count 511 H, MPV 8.0, Immature Gran % (Auto) 0.900, Neut % (Auto) 80.9 H, Lymph % (Auto) 12.2 L, [place] % (Auto) 4.9, Eos % (Auto) 0.6, Baso % (Auto) 0.5, Absolute Neuts (auto) 14.6 H, Absolute Lymphs (auto) 2.19, Nucleated RBC % 0, Sodium 135 L, Potassium 4.1, Chloride 99, Carbon Dioxide 29.0, Anion Gap 7, BUN 8, Creatinine 0.50 L, Estim Creat Clear Calc 45.64, Est GFR (MDRD) Af Amer 201, Est GFR (MDRD) Non-Af 166, BUN/Creatinine Ratio 15.9, Glucose 103, Lactic Acid 1.6, Calcium 8.6, Troponin I High Sens 10, B-Natriuretic Peptide 74.6 Micro: Microbiology 03/21/23 11:30 Nasal Secretion SARS-CoV-2 & FLU Antigen (Rapid) - Final Rhythm Strip Rhythm Strip: Sinus Rhythm Rate: 80 Ectopy: None Radiology Impression Chest X-Ray 03/21/23 11:00 IMPRESSION: Irregular density in the right midlung as described suggestive of possible cavitated lesion. Mild increased markings at the lung bases suggestive of atelectasis and scarring. Radiographic follow-up recommended. Electronically Signed: Ilir Patel MD at 11:30 EST , Assessment & Plan Assessment/Plan (1) Pneumonia: (2) Hypoxemia: PLAN: Plan 1. Healthcare associated pneumonia with hypoxia ? Given him being in retirement as well as recent admissions to another medical facility, will place on Vanco and Zosyn ? We will check a MRSA screen as well as strep antigen and Legionella antigen ? Wean oxygen as able ? Continue with incentive spirometry ? Chest x-ray makes a comment on possible cavitary lesions therefore prior to admitting to the hospital obtain a CT scan if there is an air-fluid level may need to discuss transfer and other microbiological studies 2. HTN/HLD ? Blood pressures currently stable ? Can resume his home blood pressure medications when verified ? We will monitor and make adjustments as necessary DVT: Lovenox 75 minutes was spent on direct patient care, including documentation as well as chart review and collaboration with colleagues Charges/Coding Visit Charges Inpatient E&M: 39002 Init Hosp L3
--- NOTE | 2023-03-21 13:49 | ED.RN ---
SECOND CALL TO PHARMACY REGARDING VANCOMYCIN. THIS RN CALLED ONCE AND RECEIVED ZOSYN. SECOND CALL MADE. DELAY FOR MED AT 2 HOURS CURRENTLY.
[2023-03-21] MEDS: Vancomycin HCl 1,500 MG in 0.9% Normal Saline (500mL Bag) 500 ML 250 MG IV (15:12)
--- NOTE | 2023-03-21 16:14 | ED.RN ---
[facility]. JAYLIN BANUELOS AWARE AT 1615.
--- NOTE | 2023-03-21 16:20 | CASEMGMT ---
Social Work SW introduced self and role to patient and family present in the room. Pt is in ED awaiting a room on medsurg. Pt is from [facility] and plans to return to [facility] upon discharge. Pt's family requesting food for patient. SW confirmed with nurse that patient is able to have food, soft foods only and provided snack for patient. Plan: Patient to return to [facility] when medically ready. SW to confirm return with [facility]. Caroline Rosario [employer], [employer]
--- NOTE | 2023-03-21 17:12 | PCM.RX.CS ---
Consult Antibiotic Management Pharmacy has been consulted to manage selected antiobiotic: Vancomycin Type of Intervention Type of Consult: New start Suspected Infection Suspected Infection: Pneumonia Labs Labs: Sodium 135 mmol/L (136-145) L 03/21/23 10:45 Potassium 4.1 mmol/L (3.5-5.1) 03/21/23 10:45 Chloride 99 mmol/L (98-107) 03/21/23 10:45 Carbon Dioxide 29.0 mmol/L (21.0-32.0) 03/21/23 10:45 Anion Gap 7 (5-15) 03/21/23 10:45 BUN 8 mg/dL (7-18) 03/21/23 10:45 Creatinine 0.50 mg/dL (0.70-1.30) L 03/21/23 10:45 Est GFR (MDRD) Af Amer 201 mL/min (>60) 03/21/23 10:45 Est GFR (MDRD) Non-Af 166 mL/min (>60) 03/21/23 10:45 BUN/Creatinine Ratio 15.9 RATIO (10-20) 03/21/23 10:45 Glucose 103 mg/dL (74-106) 03/21/23 10:45 Microbiology Microbiology: Microbiology 03/21/23 11:30 Nasal Secretion SARS-CoV-2 & FLU Antigen (Rapid) - Final Goal Trough Goal Trough: 15-20 mcg/mL Pharmacy Plan for Drug Dosing Pharmacy Plan for Drug Dosing: NEW START IV VANCOMYCIN Consulting Physician: Dr. Roberts Indication: Pneumonia Goal Trough: 15-20 SrCr: 0.5 CrCl: 45 mL/min Comments: Patient had initial dose of vancomycin 03/21/23 @1512 in the ED Vancomycin Dose: 500mg IV Q12hr to start 03/22/23 @0300 Pending Level: 03/23/23 @0230, prior to 4th total dose per protocol Pharmacy Service will continue to monitor and adjust dosing as required.
[2023-03-21] MEDS: Piperacil/Tazobactam 3.375 GM in 0.9% Normal Saline (50mL MB+) 50 ML IV (18:33)
[2023-03-21] MEDS: Gabapentin 600 MG Tablet PO (20:08)
[2023-03-21 20:52] LABS: M R Staph aureus DNA By PCR Negative (Negative); Probe Check PASS; Specimen Processing Control PASS
[2023-03-21] MEDS: Mirtazapine 15 MG Tablet PO (22:45)
[2023-03-22] VITALS (7 sets, daily range): BP systolic 102–138; BP diastolic 59–87; PULSE 70–79; RESP 16–20; TEMP 36.4–36.9; O2SAT 93–97
[2023-03-22] MEDS: Vancomycin IV 500 MG/100 ML BAG 100 MG IV (02:27)
[2023-03-22] MEDS: Acetaminophen 500 MG Tablet 1000 MG PO ×3 (02:40→22:15)
[2023-03-22] MEDS: Piperacil/Tazobactam 3.375 GM in 0.9% Normal Saline (50mL MB+) 50 ML IV ×3 (06:22→22:10)
[2023-03-22 07:11] LABS: Absolute Lymphocyte Count 1.28 X10^3/uL (0.83-4.51); Absolute Neutrophil Count 10.5 X10^3/uL (2.0-7.7); Basophil# 0.05 X10^3/uL; Basophil% 0.4 % (0-1); Eosinophil# 0.14 X10^3/uL; Eosinophils% 1.1 % (0-5); Lymphocyte # 1.28 X10^3/ul (0.83-4.51); Lymphocyte % 9.9 % (19-41); Mean Corp Hgb Conc 30.8 g/dL (32-36); Mean Corpuscular Hgb 29.7 pg (27.0-32.0); Mean Corpuscular Volume 96.7 fL (80-94); Mean Platelet Vol. 8.2 fl (6.2-12.0); Monocyte# 0.76 X10^3/uL; Monocyte% 5.9 % (0-10); NRBC Flagged by Analyzer 0 % (0-5); Neutrophil # 10.53 X10^3/uL (2.7-7.7); Neutrophil % 81.7 % (47-70); Platelet Count 392 K/mm3 (150-450); RBC Distribution Width CV 17.3 % (11.6-14.6); RBC Distribution Width SD 55.8 fl (35.1-43.9); Red Blood Count 2.69 M/mm3 (4.6-6.2); White Blood Count 12.9 K/mm3 (4.4-11.0)
[2023-03-22 07:45] LABS: Anion Gap 2 (5-15); BUN 7 mg/dL (7-18); BUN/Creat Ratio 12.4 RATIO (10-20); Calcium,Total 7.8 mg/dL (8.5-10.1); Chloride 104 mmol/L (98-107); Creatinine, Serum 0.57 mg/dL (0.70-1.30); EST Glomerular Filtration Rate 145 mL/min (>60); Est Glom Filt Rate - Afr Amer 175 mL/min (>60); Estimated Creatinine Clearance 42.74 ml/min; Glucose 90 mg/dL (74-106); Potassium 3.5 mmol/L (3.5-5.1); Sodium Level 135 mmol/L (136-145)
[2023-03-22] MEDS: Atenolol 25 MG Tablet PO (09:30)
[2023-03-22] MEDS: Enoxaparin 40 MG/0.4 ML Syringe SC (09:30)
[2023-03-22] MEDS: Lisinopril 5 MG Tablet PO (09:30)
[2023-03-22] MEDS: Menthol/Lanolin/Calamine/Znox 113 GM Tube 1 APPLIC TOPICAL ×2 (09:30→22:12)
[2023-03-22] MEDS: Ensure Plus High Protein 120 ML LIQUID PO ×3 (09:32→16:39)
--- NOTE | 2023-03-22 10:37 | PCM.PN.HOSP ---
Reason for Visit Reason for Visit: Diagnoses Pneumonia, unspecified organism (03/21/23) Hypoxemia (03/21/23) Subjective Subjective Patient was seen and examined today, he does not appear to be in any respiratory distress, he is extremely hard of hearing, he remains on 4 L of oxygen at this time. Patient states that he is feeling okay. Blood cell count today was 12.9. Objective Data Objective Data Vital Signs: Vital Signs Temp Pulse Resp BP Pulse Ox O2 Del Method O2 Flow Rate 97.6 F L 79 16 138/87 H 93 Nasal Cannula 4 03/22/23 09:09 03/22/23 09:09 03/22/23 09:09 03/22/23 09:09 03/22/23 09:09 03/22/23 09:09 03/22/23 09:09 Oxygen Flow Rate (L/min) 4 Oxygen Delivery Method Nasal Cannula Weight: 58.06 kg Body Mass Index (BMI) 21.2 Intake & Output: Intake and Output for Last 24 Hours 03/20/23 03/21/23 03/22/23 23:59 23:59 23:59 Intake Total 680 / 780 400 / 400 Output Total 650 / 650 Balance 680 / 630 -250 / -250 Lab / Micro Data 03/22/23 06:10 03/22/23 06:10 Labs: Laboratory Results - last 24 hr 03/21/23 10:45: WBC 18.0 H, RBC 3.53 L, Hgb 10.5 L, Hct 34.5 L, MCV 97.7 H, MCH 29.7, MCHC 30.4 L, RDW Std Deviation 55.9 H, RDW Coeff of Isai 17.4 H, Plt Count 511 H, MPV 8.0, Immature Gran % (Auto) 0.900, Neut % (Auto) 80.9 H, Lymph % (Auto) 12.2 L, Roberts % (Auto) 4.9, Eos % (Auto) 0.6, Baso % (Auto) 0.5, Absolute Neuts (auto) 14.6 H, Absolute Lymphs (auto) 2.19, Nucleated RBC % 0, Sodium 135 L, Potassium 4.1, Chloride 99, Carbon Dioxide 29.0, Anion Gap 7, BUN 8, Creatinine 0.50 L, Estim Creat Clear Calc 45.64, Est GFR (MDRD) Af Amer 201, Est GFR (MDRD) Non-Af 166, BUN/Creatinine Ratio 15.9, Glucose 103, Lactic Acid 1.6, Calcium 8.6, Troponin I High Sens 10, B-Natriuretic Peptide 74.6 03/21/23 18:43: MRSA (PCR) Negative 03/22/23 06:10: WBC 12.9 H, RBC 2.69 L, Hgb 8.0 L, Hct 26.0 L, MCV 96.7 H, MCH 29.7, MCHC 30.8 L, RDW Std Deviation 55.8 H, RDW Coeff of Isai 17.3 H, Plt Count 392, MPV 8.2, Immature Gran % (Auto) 1.000 H, Neut % (Auto) 81.7 H, Lymph % (Auto) 9.9 L, Roberts % (Auto) 5.9, Eos % (Auto) 1.1, Baso % (Auto) 0.4, Absolute Neuts (auto) 10.5 H, Absolute Lymphs (auto) 1.28, Nucleated RBC % 0, Sodium 135 L, Potassium 3.5, Chloride 104, Carbon Dioxide 29.0, Anion Gap 2 L, BUN 7, Creatinine 0.57 L, Estim Creat Clear Calc 42.74, Est GFR (MDRD) Af Amer 175, Est GFR (MDRD) Non-Af 145, BUN/Creatinine Ratio 12.4, Glucose 90, Calcium 7.8 L Micro: Microbiology 03/21/23 20:30 Urine, Random Legionella Antigen - Final 03/21/23 20:30 Urine, Random Streptococcus pneumoniae Antigen (M - Final 03/21/23 11:30 Nasal Secretion SARS-CoV-2 & FLU Antigen (Rapid) - Final Radiography Diagnostic Testing: Radiology Impression Chest X-Ray 03/21/23 11:00 IMPRESSION: Irregular density in the right midlung as described suggestive of possible cavitated lesion. Mild increased markings at the lung bases suggestive of atelectasis and scarring. Radiographic follow-up recommended. Electronically Signed: Ilir Patel MD at 11:30 EST , Chest CT 03/21/23 13:37 IMPRESSION: Bilateral pleural effusions right greater than left with infiltration and/or atelectatic right lung base with early round atelectasis at the left lung base. Irregular nodular infiltrate in the posterior aspect of the right upper lobe. Spiculated nodule seen in the right upper lobe as well. Radiographic follow-up is recommended. Electronically Signed: Ilir Patel MD at 14:34 EST , Rhythm Strip Rhythm Strip: Sinus Rhythm Rate: 80 Ectopy: None Physical Exam Const alert, no apparent distress and average body habitus Constitutional Narrative: Patient is extremely hard of hearing General Appearance: cooperative, well kempt and well developed Orientation / Consciousness: awake, oriented to person and oriented to place HEENT normocephalic, head/scalp atraumatic and moist oral mucous membranes Eyes PERRL, EOMs intact bilaterally and conjunctivae normal Neck supple, no JVD, thyroid normal and no carotid bruits General: trachea midline Resp normal respiratory effort, no retractions and no use of accessory muscles Resp Narrative: Clear to auscultation anteriorly Auscultation: Negative for rales, rhonchi or wheezes Cardio regular rate, regular rhythm, S1 normal heart sound, S2 normal heart sound, no murmurs, no rub and no gallops GI normal to inspection, nondistended, normoactive bowel sounds, soft to palpation, non-tender and non-distended Extremity no clubbing, cyanosis or edema Skin no rashes or lesions noted General Skin Exam: no breakdown Neuro CN's II-XII intact bilaterally, moves all extremities, no focal motor deficits and no sensory deficits noted Sensorium / Orientation: awake and alert Speech: speech normal Psych affect normal Assessment & Plan Assessment/Plan (1) Pneumonia: PLAN: Plan 1. Right upper lobe pneumonia-continue Zosyn, I have elected to stop his vancomycin #2 essential hypertension-continue present medication, adjust as needed #3 hyperlipidemia-continue present medication, adjust as needed #4 spiculated lung lesion right upper lung-this will need follow-up as an outpatient Total clinical time spent by myself addressing the patient's medical issues, reviewing all of his data, and collaborating with patient's care team: 35 minutes Charges/Coding Visit Charges Inpatient E&M: 90565 Subs Hosp L2
[2023-03-22] MEDS: Gabapentin 600 MG Tablet PO (22:14)
[2023-03-22] MEDS: Mirtazapine 15 MG Tablet PO (22:15)
[2023-03-23] VITALS (9 sets, daily range): BP systolic 89–124; BP diastolic 50–73; PULSE 57–84; RESP 16–18; TEMP 36.5–36.7; O2SAT 87–99
[2023-03-23] MEDS: 0.9% Normal Saline (250mL Bag) 250 ML 15 ML IV (05:03)
[2023-03-23] MEDS: Piperacil/Tazobactam 3.375 GM in 0.9% Normal Saline (50mL MB+) 50 ML IV ×3 (05:03→22:25)
[2023-03-23] MEDS: Acetaminophen 500 MG Tablet 1000 MG PO ×3 (05:11→20:03)
[2023-03-23 05:37] LABS: Absolute Lymphocyte Count 1.35 X10^3/uL (0.83-4.51); Absolute Neutrophil Count 10.7 X10^3/uL (2.0-7.7); Basophil# 0.07 X10^3/uL; Basophil% 0.5 % (0-1); Eosinophil# 0.23 X10^3/uL; Eosinophils% 1.7 % (0-5); Hematocrit 25.2 % (40-54); Hemoglobin 7.7 g/dL (13.0-16.5); Lymphocyte # 1.35 X10^3/ul (0.83-4.51); Lymphocyte % 10.2 % (19-41); Mean Corp Hgb Conc 30.6 g/dL (32-36); Mean Corpuscular Hgb 29.7 pg (27.0-32.0); Mean Corpuscular Volume 97.3 fL (80-94); Mean Platelet Vol. 8.6 fl (6.2-12.0); Monocyte% 6.1 % (0-10); NRBC Flagged by Analyzer 0 % (0-5); Neutrophil # 10.65 X10^3/uL (2.7-7.7); Neutrophil % 80.9 % (47-70); Platelet Count 372 K/mm3 (150-450); RBC Distribution Width CV 17.4 % (11.6-14.6); Red Blood Count 2.59 M/mm3 (4.6-6.2); White Blood Count 13.2 K/mm3 (4.4-11.0)
[2023-03-23] MEDS: Ensure Plus High Protein 120 ML LIQUID PO ×2 (07:45→10:56)
[2023-03-23] MEDS: Menthol/Lanolin/Calamine/Znox 113 GM Tube 1 APPLIC TOPICAL ×2 (07:45→20:05)
[2023-03-23] MEDS: Atenolol 25 MG Tablet PO (07:45)
[2023-03-23] MEDS: Lisinopril 5 MG Tablet PO (07:45)
[2023-03-23] MEDS: Enoxaparin 40 MG/0.4 ML Syringe SC (09:32)
--- NOTE | 2023-03-23 09:39 | PCM.PN.HOSP ---
Reason for Visit Reason for Visit: Diagnoses Pneumonia, unspecified organism (03/21/23) Hypoxemia (03/21/23) Subjective Subjective Patient was seen and examined today, he is now on 2 L of oxygen and appears comfortable, his white blood cell count today was 13.2. Objective Data Objective Data Vital Signs: Vital Signs Temp Pulse Resp BP Pulse Ox O2 Del Method O2 Flow Rate 98 F 71 16 106/67 94 Nasal Cannula 4 03/23/23 08:16 03/23/23 08:16 03/23/23 08:16 03/23/23 08:16 03/23/23 08:16 03/23/23 08:16 03/23/23 09:10 Oxygen Flow Rate (L/min) 4 Oxygen Delivery Method Nasal Cannula Weight: 58.06 kg Body Mass Index (BMI) 21.2 Intake & Output: Intake and Output for Last 24 Hours 03/21/23 03/22/23 03/23/23 23:59 23:59 23:59 Intake Total 680 / 780 1350 / 1350 301.75 / 301.75 Output Total 1450 / 1950 900 / 900 Balance 680 / 630 -100 / -600 -598.25 / -598.25 Lab / Micro Data 03/23/23 04:20 03/22/23 06:10 Labs: Laboratory Results - last 24 hr 03/23/23 04:20: WBC 13.2 H, RBC 2.59 L, Hgb 7.7 L, Hct 25.2 L, MCV 97.3 H, MCH 29.7, MCHC 30.6 L, RDW Std Deviation 59.0 H, RDW Coeff of Isai 17.4 H, Plt Count 372, MPV 8.6, Immature Gran % (Auto) 0.600, Neut % (Auto) 80.9 H, Lymph % (Auto) 10.2 L, [place] % (Auto) 6.1, Eos % (Auto) 1.7, Baso % (Auto) 0.5, Absolute Neuts (auto) 10.7 H, Absolute Lymphs (auto) 1.35, Nucleated RBC % 0 Micro: Microbiology 03/22/23 14:15 Stool C. difficile DNA Amplification - Final 03/21/23 20:30 Urine, Random Legionella Antigen - Final 03/21/23 20:30 Urine, Random Streptococcus pneumoniae Antigen (M - Final 03/21/23 11:30 Nasal Secretion SARS-CoV-2 & FLU Antigen (Rapid) - Final Rhythm Strip Rhythm Strip: Sinus Rhythm Rate: 80 Ectopy: None Physical Exam Narrative alert, no apparent distress and average body habitus Constitutional Narrative: Patient is extremely hard of hearing General Appearance: cooperative, well kempt and well developed Orientation / Consciousness: awake, oriented to person and oriented to place HEENT normocephalic, head/scalp atraumatic and moist oral mucous membranes Eyes PERRL, EOMs intact bilaterally and conjunctivae normal Neck supple, no JVD, thyroid normal and no carotid bruits General: trachea midline Resp normal respiratory effort, no retractions and no use of accessory muscles Resp Narrative: Clear to auscultation anteriorly Auscultation: Negative for rales, rhonchi or wheezes Cardio regular rate, regular rhythm, S1 normal heart sound, S2 normal heart sound, no murmurs, no rub and no gallops GI normal to inspection, nondistended, normoactive bowel sounds, soft to palpation, non-tender and non-distended Extremity no clubbing, cyanosis or edema Skin no rashes or lesions noted General Skin Exam: no breakdown Neuro CN's II-XII intact bilaterally, moves all extremities, no focal motor deficits and no sensory deficits noted Sensorium / Orientation: awake and alert Speech: speech normal Psych affect normal Assessment & Plan Assessment/Plan (1) Pneumonia: PLAN: Plan 1. Right upper lobe pneumonia-continue Zosyn, patient's oxygenation is improved #2 essential hypertension-continue present medication, adjust as needed #3 hyperlipidemia-continue present medication, adjust as needed #4 spiculated lung lesion right upper lung-this will need follow-up as an outpatient #5 hypoxia-patient is currently on 2 L Patient will need to return to a [facility] facility ([facility]) for further inpatient rehab services. Total clinical time spent by myself addressing the patient's medical issues, reviewing all of his data, and collaborating with patient's care team: 35 minutes Charges/Coding Visit Charges Inpatient E&M: 55370 Subs Hosp L2
[2023-03-23] MEDS: Vancomycin 125 MG/5 ML Susp PO.SYRINGE PO ×3 (10:54→23:25)
[2023-03-23] MEDS: Gabapentin 600 MG Tablet PO (20:04)
[2023-03-23] MEDS: Mirtazapine 15 MG Tablet PO (20:04)
[2023-03-23] MEDS: Morphine 2 MG/ML Syringe IV (23:25)
[2023-03-24 02:04] VITALS: BP 107/64; PULSE 69; RESP 18; TEMP 36.6; O2SAT 94
[2023-03-24] MEDS: Acetaminophen 500 MG Tablet 1000 MG PO ×3 (04:37→20:48)
[2023-03-24 05:24] LABS: Absolute Lymphocyte Count 1.42 X10^3/uL (0.83-4.51); Absolute Neutrophil Count 10.4 X10^3/uL (2.0-7.7); Basophil# 0.08 X10^3/uL; Basophil% 0.6 % (0-1); Eosinophil# 0.21 X10^3/uL; Eosinophils% 1.6 % (0-5); Hematocrit 25.6 % (40-54); Hemoglobin 7.7 g/dL (13.0-16.5); Lymphocyte # 1.42 X10^3/ul (0.83-4.51); Lymphocyte % 10.9 % (19-41); Mean Corp Hgb Conc 30.1 g/dL (32-36); Mean Corpuscular Hgb 29.7 pg (27.0-32.0); Mean Corpuscular Volume 98.8 fL (80-94); Mean Platelet Vol. 8.4 fl (6.2-12.0); Monocyte# 0.78 X10^3/uL; NRBC Flagged by Analyzer 0 % (0-5); Neutrophil # 10.43 X10^3/uL (2.7-7.7); Neutrophil % 80.2 % (47-70); Platelet Count 340 K/mm3 (150-450); RBC Distribution Width CV 17.9 % (11.6-14.6); RBC Distribution Width SD 62.9 fl (35.1-43.9); Red Blood Count 2.59 M/mm3 (4.6-6.2)
[2023-03-24] MEDS: Vancomycin 125 MG/5 ML Susp PO.SYRINGE PO ×4 (05:33→23:44)
[2023-03-24] MEDS: Piperacil/Tazobactam 3.375 GM in 0.9% Normal Saline (50mL MB+) 50 ML IV ×3 (05:33→20:48)
[2023-03-24 08:00] VITALS: O2SAT 94
[2023-03-24] MEDS: Menthol/Lanolin/Calamine/Znox 113 GM Tube 1 APPLIC TOPICAL (09:02)
[2023-03-24] MEDS: Enoxaparin 40 MG/0.4 ML Syringe SC (09:03)
[2023-03-24] MEDS: Atenolol 25 MG Tablet PO (09:04)
[2023-03-24 09:07] VITALS: BP 93/55; PULSE 72; RESP 16; TEMP 36.7; O2SAT 92
--- NOTE | 2023-03-24 09:43 | CASEMGMT ---
Social Work SW sent updates to [employer] via [employer] and asked them to start precert. MOUNA Cm
[2023-03-24 10:35] VITALS: BP 92/58; PULSE 69; RESP 18; TEMP 36.6; O2SAT 92
--- NOTE | 2023-03-24 13:40 | RAD_ITS ---
STUDY: X-RAY CHEST REASON FOR EXAM: Male, 87 years old. worsening hypoxia TECHNIQUE: Single AP portable view of the chest. COMPARISON: March 21, 2023 FINDINGS: 1. Redemonstration of patchy and moderate fibrosis throughout the right lung with slight lung volume loss 2. Mild right lower lobe atelectasis is unchanged 3. Chronic pleural reaction versus trace of fusion in the right lower lobe 4. Chronic pleural thickening in the left lower lobe with mild left lower lobe atelectasis. 5. Normal heart size 6. Stable mediastinum and osseous structures There is no demonstrated abnormality of the visualized soft tissue structures of the upper abdomen. RAD/Chest 1 View (Portable) IMPRESSION: Chronic bilateral lower lobe atelectasis and right lung interstitial fibrosis Normal x-ray examination of the chest. Electronically Signed: Ky Flores MD at 20:18 EST ,
--- NOTE | 2023-03-24 14:47 | PCM.PN.HOSP ---
Reason for Visit Reason for Visit: Diagnoses Pneumonia, unspecified organism (03/21/23) Hypoxemia (03/21/23) Subjective Subjective Patient seen at bedside this morning. Was asleep when I entered the room. Laying comfortably in bed, conversing normally, no acute distress. Patient satting in mid to high 90s on 2 L nasal cannula, no increased work of breathing noted. Patient states that he feels weaker than his baseline but otherwise has no acute pain or discomfort this morning. Patient does have a fairly wet cough, does report mild sputum production that is improved since yesterday. Denies any fevers or chills. No other acute concerns this time. Objective Data Objective Data Vital Signs: Vital Signs Temp Pulse Resp BP Pulse Ox O2 Del Method O2 Flow Rate 97.9 F 69 18 92/58 L 92 Nasal Cannula 4 03/24/23 10:35 03/24/23 10:35 03/24/23 10:35 03/24/23 10:35 03/24/23 10:35 03/24/23 13:12 03/24/23 13:12 Oxygen Flow Rate (L/min) 4 Oxygen Delivery Method Nasal Cannula Weight: 58.06 kg Body Mass Index (BMI) 21.2 Intake & Output: Intake and Output for Last 24 Hours 03/22/23 03/23/23 03/24/23 23:59 23:59 23:59 Intake Total 1350 / 1350 901.75 / 1151.75 698.25 / 698.25 Output Total 1450 / 1950 1100 / 1250 450 / 450 Balance -100 / -600 -198.25 / -98.25 248.25 / 248.25 Lab / Micro Data 03/24/23 04:27 03/22/23 06:10 Labs: Laboratory Results - last 24 hr 03/24/23 04:27: WBC 13.0 H, RBC 2.59 L, Hgb 7.7 L, Hct 25.6 L, MCV 98.8 H, MCH 29.7, MCHC 30.1 L, RDW Std Deviation 62.9 H, RDW Coeff of Isai 17.9 H, Plt Count 340, MPV 8.4, Immature Gran % (Auto) 0.700, Neut % (Auto) 80.2 H, Lymph % (Auto) 10.9 L, [place] % (Auto) 6.0, Eos % (Auto) 1.6, Baso % (Auto) 0.6, Absolute Neuts (auto) 10.4 H, Absolute Lymphs (auto) 1.42, Nucleated RBC % 0 Micro: Microbiology 03/22/23 17:25 Sputum, Expectorated/Coughed Gram Stain - Final 03/22/23 17:25 Sputum, Expectorated/Coughed Respiratory Culture - Preliminary Yeast Like Organism 03/22/23 14:15 Stool C. difficile DNA Amplification - Final 03/21/23 20:30 Urine, Random Legionella Antigen - Final 03/21/23 20:30 Urine, Random Streptococcus pneumoniae Antigen (M - Final 03/21/23 11:30 Nasal Secretion SARS-CoV-2 & FLU Antigen (Rapid) - Final Rhythm Strip Rhythm Strip: Sinus Rhythm Rate: 80 Ectopy: None Physical Exam Const alert, oriented x3, no apparent distress and average body habitus General Appearance: cooperative and comfortable HEENT normocephalic, head/scalp atraumatic, nasal mucous membranes and turbinates normal and moist oral mucous membranes HEENT Narrative: Very hard of hearing. Eyes PERRL, EOMs intact bilaterally and conjunctivae normal Neck full ROM, no lymphadenopathy and supple Lymph Lymphatic: no lymphadenopathy noted Chest inspection of chest normal Resp Resp Narrative: Mildly decreased breath sounds in lung bases. Satting well on 2 L nasal cannula, no increased work of breathing noted. Cardio regular rate, regular rhythm, no murmurs and peripheral pulses 2+ throughout GI normal to inspection, nondistended, normoactive bowel sounds, soft to palpation, non-tender and non-distended Back/Spine normal ROM Extremity normal to inspection and no pedal edema Skin no rashes or lesions noted Psych mental status grossly normal Assessment & Plan Assessment/Plan (1) Pneumonia: PLAN: Plan Patient is an 87-year-old male who presented to [facility] ED on 03/21/2023 from SNF for worsening shortness of breath. 1. Acute hypoxia, improving; right upper lobe pneumonia, healthcare associated, unknown organism Patient reported worsening shortness of breath at SNF, was found to be hypoxic requiring [address] chest showed irregular nodular infiltrate in posterior aspect of right upper lobe, bilateral pleural effusions right greater than left with left-sided basilar atelectasis. WBC count 18 on admit. Infectious work-up negative to this point. ? Continue Zosyn for now, will plan to de-escalate to p.o. antibiotic pending final cultures. WBC count stable around 12-13. Wean supplemental oxygen as able; patient may need supplemental O2 on discharge to SNF, hopefully can be weaned off in the next 1 to 2 weeks. 2. Debility; recent history of hip fracture Patient presented from [facility], was there for rehab after acute hip fracture. ? PT/OT/case management consulted. Fall precautions in place. 3. Spiculated right upper lobe lung lesion Spiculated nodule seen in right upper lobe on CT chest on admit. Unclear dimensions, not measured by radiology. ? Patient will need follow-up CT scan on discharge, likely in 8 to 12 weeks. Can consider outpatient establishment with pulmonology as well. Chronic medical conditions: ? Hypertension: Continue home atenolol. Holding home lisinopril in setting of mild hypotension during admission, restart when able. ? Hyperlipidemia: Continue home statin. ? Depression: Stable. Continue home sertraline, mirtazapine. ? Neuropathy: Continue home gabapentin at night. ? GERD: Continue home PPI. ? History of C. difficile infection: Continue home p.o. vancomycin. DVT prophylaxis: Lovenox CODE STATUS: Full code, verified Expected disposition: Back to SNF, 1 to 2 days Total clinical time spent by myself addressing the patient's medical issues, reviewing all the data, and collaborating with patient's care team: 35 minutes. Charges/Coding Visit Charges Inpatient E&M: 53449 Subs Hosp L2
[2023-03-24 14:50] VITALS: BP 103/66; PULSE 71; RESP 18; TEMP 36.6; O2SAT 95
[2023-03-24 20:39] VITALS: BP 135/67; PULSE 69; RESP 18; TEMP 37; O2SAT 97
[2023-03-24] MEDS: Gabapentin 600 MG Tablet PO (20:47)
[2023-03-24] MEDS: Mirtazapine 15 MG Tablet PO (20:48)
[2023-03-24] MEDS: MELATONIN 10 MG TABLET PO (23:44)
[2023-03-25] VITALS (7 sets, daily range): BP systolic 113–136; BP diastolic 69–85; PULSE 55–70; RESP 12–18; TEMP 36.1–36.9; O2SAT 94–96
[2023-03-25] MEDS: Piperacil/Tazobactam 3.375 GM in 0.9% Normal Saline (50mL MB+) 50 ML IV (06:22)
[2023-03-25] MEDS: Acetaminophen 500 MG Tablet 1000 MG PO ×3 (06:23→20:25)
[2023-03-25] MEDS: Vancomycin 125 MG/5 ML Susp PO.SYRINGE PO ×4 (06:23→23:47)
[2023-03-25 08:36] LABS: Hematocrit 24.5 % (40-54); Hemoglobin 7.5 g/dL (13.0-16.5); Mean Corp Hgb Conc 30.6 g/dL (32-36); Mean Corpuscular Hgb 29.6 pg (27.0-32.0); Mean Corpuscular Volume 96.8 fL (80-94); Mean Platelet Vol. 8.4 fl (6.2-12.0); Platelet Count 323 K/mm3 (150-450); RBC Distribution Width CV 17.6 % (11.6-14.6); RBC Distribution Width SD 59.4 fl (35.1-43.9); Red Blood Count 2.53 M/mm3 (4.6-6.2); White Blood Count 10.1 K/mm3 (4.4-11.0)
[2023-03-25 08:56] LABS: Anion Gap 3 (5-15); BUN 10 mg/dL (7-18); BUN/Creat Ratio 16.3 RATIO (10-20); Calcium,Total 7.7 mg/dL (8.5-10.1); Chloride 103 mmol/L (98-107); Creatinine, Serum 0.61 mg/dL (0.70-1.30); EST Glomerular Filtration Rate 132 mL/min (>60); Est Glom Filt Rate - Afr Amer 159 mL/min (>60); Estimated Creatinine Clearance 42.74 ml/min; Glucose 83 mg/dL (74-106); Potassium 3.6 mmol/L (3.5-5.1); Sodium Level 135 mmol/L (136-145)
[2023-03-25] MEDS: Enoxaparin 40 MG/0.4 ML Syringe SC (11:26)
[2023-03-25] MEDS: Atenolol 25 MG Tablet PO (11:26)
[2023-03-25] MEDS: Menthol/Lanolin/Calamine/Znox 113 GM Tube 1 APPLIC TOPICAL ×2 (11:27→20:24)
--- NOTE | 2023-03-25 13:40 | CASEMGMT ---
Social Work Precert has been obtained for pt to return to [facility]. Physician updated and pt is not ready for discharge today. [facility] notified. Plan: [facility], when medically ready PITER Schwartz
[2023-03-25] MEDS: Amox/Clavulanate 875 MG Tablet PO ×2 (13:55→20:26)
--- NOTE | 2023-03-25 16:21 | PCM.PN.HOSP ---
Reason for Visit Reason for Visit: Diagnoses Pneumonia, unspecified organism (03/21/23) Hypoxemia (03/21/23) Subjective Subjective Patient seen at bedside this morning, present. Patient sitting comfortably in bed, conversing normally, no acute distress. Oxygen saturations remain in the low to mid 90s on 3 to 4 L of nasal cannula, no increased work of breathing noted. Patient states that he continues to feel weak this morning but otherwise has no acute pain or discomfort. Has not been coughing up any sputum since yesterday. Appetite is slightly improved today. Denies any fevers or chills. No other acute concerns at this time. Objective Data Objective Data Vital Signs: Vital Signs Temp Pulse Resp BP Pulse Ox O2 Del Method O2 Flow Rate 98.3 F 67 16 127/84 H 96 Nasal Cannula 4 03/25/23 09:00 03/25/23 09:00 03/25/23 09:00 03/25/23 09:00 03/25/23 09:00 03/25/23 09:00 03/25/23 14:45 Oxygen Flow Rate (L/min) 4 Oxygen Delivery Method Nasal Cannula Weight: 58.06 kg Body Mass Index (BMI) 21.2 Intake & Output: Intake and Output for Last 24 Hours 03/23/23 03/24/23 03/25/23 23:59 23:59 23:59 Intake Total 901.75 / 1151.75 848.25 / 1048.25 400 / 400 Output Total 1100 / 1250 600 / 750 350 / 350 Balance -198.25 / -98.25 248.25 / 298.25 50 / 50 Lab / Micro Data 03/25/23 07:57 03/25/23 07:57 Labs: Laboratory Results - last 24 hr 03/25/23 07:57: WBC 10.1, RBC 2.53 L, Hgb 7.5 L, Hct 24.5 L, MCV 96.8 H, MCH 29.6, MCHC 30.6 L, RDW Std Deviation 59.4 H, RDW Coeff of Isai 17.6 H, Plt Count 323, MPV 8.4, Sodium 135 L, Potassium 3.6, Chloride 103, Carbon Dioxide 29.0, Anion Gap 3 L, BUN 10, Creatinine 0.61 L, Estim Creat Clear Calc 42.74, Est GFR (MDRD) Af Amer 159, Est GFR (MDRD) Non-Af 132, BUN/Creatinine Ratio 16.3, Glucose 83, Calcium 7.7 L Micro: Microbiology 03/22/23 17:25 Sputum, Expectorated/Coughed Gram Stain - Final 03/22/23 17:25 Sputum, Expectorated/Coughed Respiratory Culture - Preliminary Yeast Like Organism Gram negative ariana 03/22/23 14:15 Stool C. difficile DNA Amplification - Final 03/21/23 20:30 Urine, Random Legionella Antigen - Final 03/21/23 20:30 Urine, Random Streptococcus pneumoniae Antigen (M - Final 03/21/23 11:30 Nasal Secretion SARS-CoV-2 & FLU Antigen (Rapid) - Final Radiography Diagnostic Testing: Radiology Impression Chest X-Ray 03/24/23 13:40 IMPRESSION: Chronic bilateral lower lobe atelectasis and right lung interstitial fibrosis Normal x-ray examination of the chest. Electronically Signed: Ky Flores MD at 20:18 EST Reading Location ID and State: [address] [place] [address] , Service support , Rhythm Strip Rhythm Strip: Sinus Rhythm Rate: 80 Ectopy: None Physical Exam Const alert, oriented x3, no apparent distress and average body habitus General Appearance: cooperative and comfortable HEENT normocephalic, head/scalp atraumatic, nasal mucous membranes and turbinates normal and moist oral mucous membranes HEENT Narrative: Very hard of hearing. Eyes PERRL, EOMs intact bilaterally and conjunctivae normal Neck full ROM, no lymphadenopathy and supple Lymph Lymphatic: no lymphadenopathy noted Chest inspection of chest normal Resp Resp Narrative: Mildly decreased breath sounds in lung bases. Satting well on 4 L nasal cannula, no increased work of breathing noted. Cardio regular rate, regular rhythm, no murmurs and peripheral pulses 2+ throughout GI normal to inspection, nondistended, normoactive bowel sounds, soft to palpation, non-tender and non-distended Back/Spine normal ROM Extremity normal to inspection and no pedal edema Skin no rashes or lesions noted Psych mental status grossly normal Assessment & Plan Assessment/Plan (1) Pneumonia: PLAN: Plan Patient is an 87-year-old male who presented to [facility] ED on 03/21/2023 from SNF for worsening shortness of breath. 1. Acute hypoxia, stable; right upper lobe pneumonia, healthcare associated with unknown organism Patient reported worsening shortness of breath at SNF, was found to be hypoxic requiring 6 L on admission. Notably is not on home O2. CT chest showed irregular nodular infiltrate in posterior aspect of right upper lobe, bilateral pleural effusions right greater than left with left-sided basilar atelectasis. WBC count 18 on admit. Infectious work-up negative to this point. Initiated on Zosyn on admission, WBC count improved, patient appears subjectively improved but remains hypoxic. ? On further review of chest imaging from this admission and prior admissions from a few years ago, have concern that patient may have a degree of underlying chronic pulmonary disease in addition to mild pneumonia. However, patient has not required supplemental oxygen until his admission. Has no further infectious symptoms, will de-escalate to Augmentin and plan for 7-day course of antibiotics. Pulmonology consulted for further recommendations. Hopeful for discharge back to [facility] tomorrow. 2. Debility; recent history of hip fracture Patient presented from [facility], was there for rehab after acute hip fracture. ? PT/OT/case management consulted. Fall precautions in place. Planning for discharge back to [facility] when medically ready. 3. Spiculated right upper lobe lung lesion Spiculated nodule seen in right upper lobe on CT chest on admit. Unclear dimensions, not measured by radiology. ? Pulmonology consulted as above, appreciate recommendations on timing of follow-up imaging. Chronic medical conditions: ? Hypertension: Continue home atenolol. Holding home lisinopril in setting of mild hypotension during admission, restart when able. ? Hyperlipidemia: Continue home statin. ? Depression: Stable. Continue home sertraline, mirtazapine. ? Neuropathy: Continue home gabapentin at night. ? GERD: Continue home PPI. ? History of C. difficile infection: Continue home p.o. vancomycin. DVT prophylaxis: Lovenox CODE STATUS: Full code, verified Expected disposition: Back to [facility], 1 to 2 days Total clinical time spent by myself addressing the patient's medical issues, reviewing all the data, and collaborating with patient's care team: 35 minutes. Charges/Coding Visit Charges Inpatient E&M: 45455 Subs Hosp L2
[2023-03-25] MEDS: traMADol 50 MG Tablet PO (18:55)
[2023-03-25] MEDS: MELATONIN 10 MG TABLET PO (20:26)
[2023-03-25] MEDS: Mirtazapine 15 MG Tablet PO (20:26)
[2023-03-25] MEDS: Gabapentin 600 MG Tablet PO (20:27)
--- NOTE | 2023-03-25 20:35 | NURSING ---
Pt reports that he wants all PM medications at this time- states he does not want to be awakened in an hour or two. This RN provided education but pt adamant he does not want to be awakened and wants medications now
[2023-03-26] MEDS: traMADol 50 MG Tablet PO ×2 (02:51→14:09)
[2023-03-26 02:55] VITALS: BP 132/79; PULSE 66; RESP 16; TEMP 36.4; O2SAT 94
[2023-03-26] MEDS: Vancomycin 125 MG/5 ML Susp PO.SYRINGE PO ×2 (05:59→12:32)
[2023-03-26] MEDS: Acetaminophen 500 MG Tablet 1000 MG PO ×2 (06:00→14:08)
[2023-03-26 07:35] VITALS: O2SAT 93
--- NOTE | 2023-03-26 07:54 | CON.PCM.CC_ITS ---
Assessment & Plan Assessment/Plan (1) Pneumonia: (2) Hypoxemia: PLAN: Plan RECOMMENDATIONS: 1. Continue antibiotics to complete a total of 7 days of therapy. 2. Continue supplemental oxygen to maintain saturations at or above 90%. 3. Encourage incentive spirometer use and mobilize patient as tolerated. 4. Outpatient pulmonary follow-up in 2 weeks. 5. Recommend repeat CT chest in 6 to 8 weeks. IMPRESSIONS: 1. Shortness of breath and hypoxemia The patient initially presented to the hospital with shortness of breath and hy poxemia, along with radiographic evidence of pneumonia and bilateral pleural effusions. There was a nodular density as well noted in the right upper lobe. The patient's sputum culture is demonstrating growth of Serratia marcescens, which is largely pansensitive. Recommend continuing antibiotics to complete 7 days of therapy. The patient will likely home-going supplemental O2, while recovering. I would recommend that he follow-up in the pulmonary medicine clinic in 2 weeks, at which time, we can reassess his ongoing supplemental oxygen needs. The patient will ultimately need a follow-up CT scan of his chest completed in 6 to 8 weeks. 2. Advanced age with generalized pradip lity/hypertension/hyperlipidemia/neuropathy/GERD/depression Complicates care, management, recovery and prognosis. Continue home medications as indicated. The patient is stable for [facility] from my perspective. This note was generated with [employer] dictation software. It may contain incorrect words, spelling, and punctuation that were not noted in checking the note before signing. HPI Consult Data Date of Consult: 03/26/23 HPI Narrative Reason for Consultation: Pneumonia HPI Narrative: The patient is an 87-year-old male, with a history as outlined below, who presented initially to the emergency department via EMS on March 21 with shortness of breath and hypoxemia. In 2019, the patient was hospitalized here as a transfer of care from the TCU after being found hypoxemic. He had been admitted at [facility] with a loculated right pleural effusion, which required tube thoracotomy. The pleural fluid cultures were positive for strep intermedius and anaerobic vlad. The patient has a very limited, remote smoking history. He [facility] at a penit[facility]iary facility and does not routinely require supplemental oxygen at his baseline. Additional history was obtained from the patient's daughter, who was present at the bedside, as the patient is extremely hard of hearing. On presentation to the emergency department, the patient was documented to be afebrile hemodynamically stable. Initial laboratory evaluation revealed an elevated white blood cell count to 18,000. CT chest demonstrated bilateral pleural effusions with associated infiltrates and atelectasis. There was an additional infiltrate in the right upper lobe along with a spiculated nodule in the right upper lobe as well. The patient was ultimately admitted to the hospital and placed on antimicrobials and supplemental oxygen. Sputum culture dated March 22 was positive for a gram-negative ariana. [facility] Medical History (Updated 03/21/23 @ 17:24 by Dolly Roth) DVT (deep venous thrombosis) Former smoker Wears hearing aid in both ears Home Medications atenolol 25 mg tablet 25 mg PO DAILY BP 08/23/15 [History Last Taken 09/18/15 04:45] vit C 250 mg-vit E 90 mg-zinc 40 mg-copper 1 [id number] capsule 1 tab PO DAILY supplement 06/16/19 [History Last Taken Unknown] acetaminophen 500 mg tablet 1,000 mg PO Q8H PRN Pain Or Fever 06/26/19 [History Last Taken Unknown] Emollient Combination No.72 [Eucerin Intensive Repair] 1 applic topical 4X/DAY PRN PRN DRY SKIN 07/07/19 [Rx Last Taken Unknown] furosemide 20 mg tablet 20 mg PO DAILY Excess fluid #30 tabs 07/07/19 [Rx Last Taken Unknown] gabapentin 600 mg tablet 600 mg PO QHS neuropathy #30 tabs 07/07/19 [Rx Last Taken Unknown] mirtazapine 15 mg tablet 15 mg PO QHS sleep #30 tabs 07/07/19 [Rx Last Taken U nknown] polyethylene glycol 3350 17 gram oral powder packet 17 gm PO DAILY bowels #30 packets 07/07/19 [Rx Last Taken Unknown] potassium chloride 20 mEq tablet,extended release(part/cryst) 20 meq PO DAILY supplement #30 tabs 07/07/19 [Rx Last Taken Unknown] apixaban 2.5 mg tablet (Eliquis) 2.5 mg PO BID Essential Hypertension 03/21/23 [History Last Taken Unknown] ascorbic acid (vitamin C) 500 mg tablet (Vitamin C) 500 mg PO DAILY fracture of lower femur 03/21/23 [History Last Taken Unknown] cholecalciferol (vitamin D3) 50 mcg (2,000 unit) capsule (Vitamin D3) 2,000 unit PO DAILY SEE PCP 03/21/23 [History Last Taken Unknown] colestipol 1 gram tablet 1 g PO BID HYPERCHOLESTEROLEMIA 03/21/23 [History Last Taken Unknown] docusate sodium 100 mg capsule (Colace) 100 mg PO BID constipation 03/21/23 [History Last Taken Unknown] ferrous sulfate 325 mg (65 mg iron) tablet (FeroSul) 325 mg PO BID Fracture of lower end of left femur 03/21/23 [History Last Taken Unknown] lisinopril 5 mg tablet 5 mg PO DAILY Essential Hypertension 03/21/23 [History Last Taken Unknown] oxycodone 5 mg tablet 5 mg PO Q6H PRN pain 03/21/23 [History Last Taken Unknown] pantoprazole 40 mg tablet,delayed release 40 mg PO DAILY GERD 03/21/23 [History Last Taken Unknown] sertraline 100 mg tablet 150 mg PO DAILY DEPRESSION 03/21/23 [History Last Taken Unknown] vancomycin 25 mg/mL oral solution (Firvanq) 125 mg PO 4X/DAY Enterocolitis due to C Diff 03/21/23 [History Last Taken Unknown] Allergy/AdvReac Type Severity Reaction Status Date / Time No Known Allergies Allergy Verified 03/21/23 10:27 Family History (Updated 03/21/23 @ 13:[address] Patric Roberts MD) Other Cancer Heart disease Surgical History (Updated 03/21/23 @ 13:[address] Patric Roberts MD) Status post left hip replacement Social History Smoking Status: Former smoker ROS ROS Narrative 10 systems were reviewed with pertinent positives as noted in the HPI above. Physical Exam Const alert and no apparent distress General Appearance: cooperative HEENT normocephalic and head/scalp atraumatic General Ear: hearing grossly impaired Eyes PERRL and EOMs intact bilaterally Neck supple General: trachea midline Chest inspection of chest normal Resp Auscultation: diminished lung sounds; Negative for rales, rhonchi or wheezes Cardio regular rate and regular rhythm GI normal to inspection, nondistended, normoactive bowel sounds Extremity no clubbing, cyanosis or edema Skin no rashes or lesions noted Neuro CN's II-XII intact bilaterally and no focal motor deficits Psych Mood & Affect: flat affect Lab / Micro Data 03/26/23 08:10 03/26/23 08:10 Labs: Laboratory Results - last 24 hr 03/25/23 07:57: WBC 10.1, RBC 2.53 L, Hgb 7.5 L, Hct 24.5 L, MCV 96.8 H, MCH 29.6, MCHC 30.6 L, RDW Std Deviation 59.4 H, RDW Coeff of Isai 17.6 H, Plt Count 323, MPV 8.4, Sodium 135 L, Potassium 3.6, Chloride 103, Carbon Dioxide 29.0, Anion Gap 3 L, BUN 10, Creatinine 0.61 L, Estim Creat Clear Calc 42.74, Est GFR (MDRD) Af Amer 159, Est GFR (MDRD) Non-Af 132, BUN/Creatinine Ratio 16.3, Glucose 83, Calcium 7.7 L Micro: Microbiology 03/22/23 17:25 Sputum, Expectorated/Coughed Gram Stain - Final 03/22/23 17:25 Sputum, Expectorated/Coughed Respiratory Culture - Pr eliminary Yeast Like Organism Gram negative ariana Rhythm Strip Rhythm Strip: Sinus Rhythm Rate: 80 Ectopy: None Charges/Coding Visit Charges Inpatient E&M: 94647 Init Hosp L3
[2023-03-26 08:10] VITALS: BP 141/87; PULSE 67; RESP 18; TEMP 36.6; O2SAT 93
[2023-03-26 08:43] LABS: Hematocrit 25.6 % (40-54); Hemoglobin 7.8 g/dL (13.0-16.5); Mean Corp Hgb Conc 30.5 g/dL (32-36); Mean Corpuscular Hgb 29.7 pg (27.0-32.0); Mean Corpuscular Volume 97.3 fL (80-94); Mean Platelet Vol. 8.4 fl (6.2-12.0); Platelet Count 328 K/mm3 (150-450); RBC Distribution Width CV 17.2 % (11.6-14.6); RBC Distribution Width SD 60.1 fl (35.1-43.9); Red Blood Count 2.63 M/mm3 (4.6-6.2); White Blood Count 10.2 K/mm3 (4.4-11.0)
[2023-03-26] MEDS: Menthol/Lanolin/Calamine/Znox 113 GM Tube 1 APPLIC TOPICAL (08:54)
[2023-03-26] MEDS: Ensure Plus High Protein 120 ML LIQUID PO (08:54)
[2023-03-26] MEDS: Atenolol 25 MG Tablet PO (08:55)
[2023-03-26] MEDS: Amox/Clavulanate 875 MG Tablet PO (08:55)
[2023-03-26] MEDS: Pantoprazole Sodium 40 MG Tablet PO (08:55)
[2023-03-26] MEDS: Enoxaparin 40 MG/0.4 ML Syringe SC (08:55)
[2023-03-26] MEDS: Sertraline 50 MG Tablet 150 MG PO (08:55)
[2023-03-26 09:12] LABS: Anion Gap 6 (5-15); BUN 8 mg/dL (7-18); BUN/Creat Ratio 16.4 RATIO (10-20); Calcium,Total 7.8 mg/dL (8.5-10.1); Chloride 103 mmol/L (98-107); Creatinine, Serum 0.49 mg/dL (0.70-1.30); EST Glomerular Filtration Rate 172 mL/min (>60); Est Glom Filt Rate - Afr Amer 208 mL/min (>60); Estimated Creatinine Clearance 42.74 ml/min; Glucose 84 mg/dL (74-106); Potassium 3.5 mmol/L (3.5-5.1); Sodium Level 137 mmol/L (136-145)
[2023-03-26 09:38] LABS: Ferritin 132 ng/mL (26-388); Iron 18 ug/dL (65-175); Iron Binding Capacity,Total 173 ug/dL (250-450); PERCENT IRON SATURATION 10.4 % (15.0-55.0)
[2023-03-26 11:22] LABS: Vitamin B12 969 pg/mL (211-911)
--- NOTE | 2023-03-26 13:00 | PCM.DC ---
Discharge Instructions Diet Discharge Diet: No restrictions Activity Discharge Activity: No Restrictions Weight Bearing Status: Full weight bearing Follow Up Care Please Follow Up With: Mei Ashraf MD When: as needed Test Results: Test results from this visit will be discussed in further detail at your follow-up appointment, if applicable. Pending Tests Upon Discharge: none Discharge Plan Admission Admit Date/Time: 03/21/23 13:39 Primary Reason for Your Visit: Community-acquired pneumonia Attending Provider: Mark Lund Primary Care Provider: Mei Ashraf Consulting Providers: Patric Roberts; Eren Devlin; Chuckie Hall; Chad Adler; Nirali Murry; Ben Huynh; Rashid Gardner; Myesha Hernandez NP Discharge Orders/Prescriptions Prescriptions: New tramadol 50 mg Tablet 50 mg PO TID PRN PRN (Reason: Pain Score 4-10) 7 Days Qty: 21 0RF amoxicillin-pot clavulanate 875-125 mg Tablet 1 tab PO BID 2 Days Qty: 4 0RF Continued atenolol 25 MG tablet 25 mg PO DAILY vit C,R-Vh-dueul-lutein-zeaxan 1 EACH capsule 1 tab PO DAILY acetaminophen 500 MG tablet 1,000 mg PO Q8H PRN (Reason: Pain Or Fever) Emollient Combination No.72 [Eucerin Intensive Repair] 1 APPLIC lotion 1 applic topical 4X/DAY PRN PRN (Reason: DRY SKIN) 0RF Protocol: *Topical Application Instructions APPLICATION INSTRUCTIONS: Bilateral arms. gabapentin 600 MG tablet 600 mg PO QHS Qty: 30 0RF polyethylene glycol 3350 17 GM packet 17 gm PO DAILY Qty: 30 0RF potassium chloride 20 MEQ tablet 20 meq PO DAILY Qty: 30 0RF furosemide 20 MG tablet 20 mg PO DAILY Qty: 30 0RF mirtazapine 15 MG tablet 15 mg PO QHS Qty: 30 0RF sertraline 100 mg tablet 150 mg PO DAILY colestipol 1 gram tablet 1 g PO BID cholecalciferol (vitamin D3) [Vitamin D3] 50 mcg (2,000 unit) capsule 2,000 unit PO DAILY ascorbic acid (vitamin C) [Vitamin C] 500 mg tablet 500 mg PO DAILY docusate sodium [Colace] 100 mg capsule 100 mg PO BID lisinopril 5 mg tablet 5 mg PO DAILY pantoprazole 40 mg tablet,delayed release (DR/EC) 40 mg PO DAILY Changed ferrous sulfate [FeroSul] 325 mg (65 mg iron) tablet 325 mg PO DAILY 30 Days Qty: 30 0RF Discontinued Eliquis 2.5 mg tablet 2.5 mg PO BID vancomycin [Firvanq] 25 mg/mL recon soln 125 mg PO 4X/DAY Rx Instructions: started taking on 03/18/23 complete therapy on 03/23/23 No Action oxycodone 5 mg tablet 5 mg PO Q6H PRN (Reason: pain) Referrals / Follow Up: Chad Adler DO [Med Staff - Active Staff] - 04/16/23 8:45 am Mei Ashraf MD [Primary Care Provider] - Alexandrea Eason MD [Med Staff - Multifocal Lens Inspector] - Disposition Disposition (needs filled in before D/C Order can be placed): [facility]
--- NOTE | 2023-03-26 13:09 | DS.PCM_ITS ---
Providers Date of Admission: 03/21/23 Primary Care Physician: Dr. Mei Ashraf MD Consultations 03/25/23 13:04 Consult: 411 Directory Assistance Operator / Pulmonary Medicine Routine Consulting Provider: [facility] [place] Reason for Consult: persistent hypoxia, PNA vs chronic changes EMERGENT Consult: No MD Notified: Yes Date Notified: 03/25/23 Time Notified: 13:05 Method of Notification: Text Reason For Visit: PNEUMONIA Diagnosis Discharge Diagnosis (1) Pneumonia: Status: Acute Code(s): J18.9 - Pneumonia, unspecified organism (2) Hypoxemia: Status: Acute Code(s): R09.02 - Hypoxemia Plan Patient is an 87-year-old male who presented to [facility] ED on 03/21/2023 from SNF for worsening shortness of breath. 1. Acute hypoxia, stable; right upper lobe pneumonia, healthcare associated with unknown organism Patient reported worsening shortness of breath at SNF, was found to be hypoxic requiring 6 L on admission. Notably is not on home O2. CT chest showed irregular nodular infiltrate in posterior aspect of right upper lobe, bilateral pleural effusions right greater than left with left-sided basilar atelectasis. WBC count 18 on admit. Infectious work-up negative to this point. Initiated on Zosyn on admission, WBC count improved, patient appears subjectively improved but remains hypoxic. ? On further review of chest imaging from this admission and prior admissions from a few years ago, have concern that patient may have a degree of underlying chronic pulmonary disease in addition to mild pneumonia. However, patient has not required supplemental oxygen until his admission. Has no further infectious symptoms, will de-escalate to Augmentin and plan for 7-day course of antibiotics. Pulmonology consulted for further recommendations. Hopeful for discharge back to [facility] tomorrow. 2. Debility; recent history of hip fracture Patient presented from [facility], was there for rehab after acute hip fracture. ? PT/OT/case management consulted. Fall precautions in place. Planning for discharge back to [facility] when medically ready. 3. Spiculated right upper lobe lung lesion Spiculated nodule seen in right upper lobe on CT chest on admit. Unclear dimensions, not measured by radiology. ? Pulmonology consulted as above, appreciate recommendations on timing of follow-up imaging. Chronic medical conditions: ? Hypertension: Continue home atenolol. Holding home lisinopril in setting of mild hypotension during admission, restart when able. ? Hyperlipidemia: Continue home statin. ? Depression: Stable. Continue home sertraline, mirtazapine. ? Neuropathy: Continue home gabapentin at night. ? GERD: Continue home PPI. ? History of C. difficile infection: Continue home p.o. vancomycin. DVT prophylaxis: Lovenox CODE STATUS: Full code, verified Expected disposition: Back to SNF, 1 to 2 days Total clinical time spent by myself addressing the patient's medical issues, reviewing all the data, and collaborating with patient's care team: 35 minutes. Medications at Discharge Home Medications atenolol 25 mg tablet 25 mg PO DAILY BP 08/23/15 vit C 250 mg-vit E 90 mg-zinc 40 mg-copper 1 nm-cinhhe-aitxvm capsule 1 tab PO DAILY supplement 06/16/19 acetaminophen 500 mg tablet 1,000 mg PO Q8H PRN Pain Or Fever 06/26/19 Emollient Combination No.72 [Eucerin Intensive Repair] 1 applic topical 4X/DAY PRN PRN DRY SKIN 07/07/19 furosemide 20 mg tablet 20 mg PO DAILY Excess fluid #30 tabs 07/07/19 gabapentin 600 mg tablet 600 mg PO QHS neuropathy #30 tabs 07/07/19 mirtazapine 15 mg tablet 15 mg PO QHS sleep #30 tabs 07/07/19 polyethylene glycol 3350 17 gram oral powder packet 17 gm PO DAILY bowels #30 packets 07/07/19 potassium chloride 20 mEq tablet,extended release(part/cryst) 20 meq PO DAILY supplement #30 tabs 07/07/19 ascorbic acid (vitamin C) 500 mg tablet (Vitamin C) 500 mg PO DAILY fracture of lower femur 03/21/23 cholecalciferol (vitamin D3) 50 mcg (2,000 unit) capsule (Vitamin D3) 2,000 unit PO DAILY SEE PCP 03/21/23 colestipol 1 gram tablet 1 g PO BID HYPERCHOLESTEROLEMIA 03/21/23 docusate sodium 100 mg capsule (Colace) 100 mg PO BID constipation 03/21/23 lisinopril 5 mg tablet 5 mg PO DAILY Essential Hypertension 03/21/23 oxycodone 5 mg tablet 5 mg PO Q6H PRN pain 03/21/23 pantoprazole 40 mg tablet,delayed release 40 mg PO DAILY GERD 03/21/23 sertraline 100 mg tablet 150 mg PO DAILY DEPRESSION 03/21/23 amoxicillin 875 mg-potassium clavulanate 125 mg tablet 1 tab PO BID 2 days #4 tabs 03/26/23 ferrous sulfate 325 mg (65 mg iron) tablet (FeroSul) 325 mg PO DAILY Fracture of lower end of left femur 30 days #30 tabs 03/26/23 tramadol 50 mg tablet 50 mg PO TID PRN PRN Pain Score 4-10 7 days #21 tabs 03/26/23 Weight / BMI Weight Weight: 58.06 kg Body Mass Index (BMI) 21.2 ABG / Lab / Microbiology Data 03/26/23 08:10 03/26/23 08:10 Laboratory: Laboratory Results - last 24 hr 03/26/23 08:10: WBC 10.2, RBC 2.63 L, Hgb 7.8 L, Hct 25.6 L, MCV 97.3 H, MCH 29.7, MCHC 30.5 L, RDW Std Deviation 60.1 H, RDW Coeff of Isai 17.2 H, Plt Count 328, MPV 8.4, Sodium 137, Potassium 3.5, Chloride 103, Carbon Dioxide 28.0, Anion Gap 6, BUN 8, Creatinine 0.49 L, Estim Creat Clear Calc 42.74, Est GFR (MDRD) Af Amer 208, Est GFR (MDRD) Non-Af 172, BUN/Creatinine Ratio 16.4, Glucose 84, Calcium 7.8 L, Iron 18 L, TIBC 173 L, Iron Saturation 10.4 L, Ferritin 132, Folate 11.00 03/26/23 10:10: Vitamin B12 969 H Microbiology: Microbiology 03/26/23 11:30 Nasal Secretion SARS-CoV-2 Antigen (Rapid) - Final 03/22/23 17:25 Sputum, Expectorated/Coughed Gram Stain - Final 03/22/23 17:25 Sputum, Expectorated/Coughed Respiratory Culture - Final Serratia marcescens Presumptive C albicans 03/22/23 14:15 Stool C. difficile DNA Amplification - Final 03/21/23 20:30 Urine, Random Legionella Antigen - Final 03/21/23 20:30 Urine, Random Streptococcus pneumoniae Antigen (M - Final 03/21/23 11:30 Nasal Secretion SARS-CoV-2 & FLU Antigen (Rapid) - Final D/C Instructions Discharge Diet: No restrictions Weight Bearing Status: Full weight bearing Pending Tests Upon Discharge: none Please Follow Up With: Mei Ashraf MD When: as needed Discharge Plan Admission Admit Date/Time: 03/21/23 13:39 Primary Reason for Your Visit: Community-acquired pneumonia Attending Provider: Mark Lund Primary Care Provider: Mei Ashraf Consulting Providers: Patric Roberts; Eren Devlin; Chuckie Hall; Chad Adler; Nirali Murry; Ben Huynh; Rashid Gardner; Myesha Hernandez SHEETER MACHINE OPERATOR Discharge Orders/Prescriptions Prescriptions: New tramadol 50 mg Tablet 50 mg PO TID PRN PRN (Reason: Pain Score 4-10) 7 Days Qty: 21 0RF amoxicillin-pot clavulanate 875-125 mg Tablet 1 tab PO BID 2 Days Qty: 4 0RF Continued atenolol 25 MG tablet 25 mg PO DAILY vit C,E-Kt-bmuaz-lutein-zeaxan 1 EACH capsule 1 tab PO DAILY acetaminophen 500 MG tablet 1,000 mg PO Q8H PRN (Reason: Pain Or Fever) Emollient Combination No.72 [Eucerin Intensive Repair] 1 APPLIC lotion 1 applic topical 4X/DAY PRN PRN (Reason: DRY SKIN) 0RF Protocol: *Topical Application Instructions APPLICATION INSTRUCTIONS: Bilateral arms. gabapentin 600 MG tablet 600 mg PO QHS Qty: 30 0RF polyethylene glycol 3350 17 GM packet 17 gm PO DAILY Qty: 30 0RF potassium chloride 20 MEQ tablet 20 meq PO DAILY Qty: 30 0RF furosemide 20 MG tablet 20 mg PO DAILY Qty: 30 0RF mirtazapine 15 MG tablet 15 mg PO QHS Qty: 30 0RF sertraline 100 mg tablet 150 mg PO DAILY colestipol 1 gram tablet 1 g PO BID cholecalciferol (vitamin D3) [Vitamin D3] 50 mcg (2,000 unit) capsule 2,000 unit PO DAILY ascorbic acid (vitamin C) [Vitamin C] 500 mg tablet 500 mg PO DAILY docusate sodium [Colace] 100 mg capsule 100 mg PO BID lisinopril 5 mg tablet 5 mg PO DAILY pantoprazole 40 mg tablet,delayed release (DR/EC) 40 mg PO DAILY Changed ferrous sulfate [FeroSul] 325 mg (65 mg iron) tablet 325 mg PO DAILY 30 Days Qty: 30 0RF Discontinued Eliquis 2.5 mg tablet 2.5 mg PO BID vancomycin [Firvanq] 25 mg/mL recon soln 125 mg PO 4X/DAY Rx Instructions: started taking on 03/18/23 complete therapy on 03/23/23 No Action oxycodone 5 mg tablet 5 mg PO Q6H PRN (Reason: pain) Referrals / Follow Up: Chad Adler DO [Med Staff - Active Staff] - 04/16/23 8:45 am Mei Ashraf MD [Primary Care Provider] - Alexandrea Eason MD [Med Staff - Video Network Engineer] - Disposition Disposition (needs filled in before D/C Order can be placed): Longterm Facility
--- NOTE | 2023-03-26 13:09 | PCM.DC.SUM ---
Providers Date of Admission: 03/21/23 Date of Discharge: 03/26/23 Primary Care Physician: Dr. Mei Ashraf MD Consultations 03/25/23 13:04 Consult: Beam Doffer / Pulmonary Medicine Routine Consulting Provider: [facility] [place] Reason for Consult: persistent hypoxia, PNA vs chronic changes EMERGENT Consult: No MD Notified: Yes Date Notified: 03/25/23 Time Notified: 13:05 Method of Notification: Text Reason For Visit: PNEUMONIA Diagnosis Discharge Diagnosis (1) Pneumonia: Status: Acute Code(s): J18.9 - Pneumonia, unspecified organism (2) Hypoxemia: Status: Acute Code(s): R09.02 - Hypoxemia Medications at Discharge Home Medications atenolol 25 mg tablet 25 mg PO DAILY BP 08/23/15 vit C 250 mg-vit E 90 mg-zinc 40 mg-copper 1 vu-fiwrzb-pwsjzb capsule 1 tab PO DAILY supplement 06/16/19 acetaminophen 500 mg tablet 1,000 mg PO Q8H PRN Pain Or Fever 06/26/19 Emollient Combination No.72 [Eucerin Intensive Repair] 1 applic topical 4X/DAY PRN PRN DRY SKIN 07/07/19 furosemide 20 mg tablet 20 mg PO DAILY Excess fluid #30 tabs 07/07/19 gabapentin 600 mg tablet 600 mg PO QHS neuropathy #30 tabs 07/07/19 mirtazapine 15 mg tablet 15 mg PO QHS sleep #30 tabs 07/07/19 polyethylene glycol 3350 17 gram oral powder packet 17 gm PO DAILY bowels #30 packets 07/07/19 potassium chloride 20 mEq tablet,extended release(part/cryst) 20 meq PO DAILY supplement #30 tabs 07/07/19 ascorbic acid (vitamin C) 500 mg tablet (Vitamin C) 500 mg PO DAILY fracture of lower femur 03/21/23 cholecalciferol (vitamin D3) 50 mcg (2,000 unit) capsule (Vitamin D3) 2,000 unit PO DAILY SEE PCP 03/21/23 colestipol 1 gram tablet 1 g PO BID HYPERCHOLESTEROLEMIA 03/21/23 docusate sodium 100 mg capsule (Colace) 100 mg PO BID constipation 03/21/23 lisinopril 5 mg tablet 5 mg PO DAILY Essential Hypertension 03/21/23 pantoprazole 40 mg tablet,delayed release 40 mg PO DAILY GERD 03/21/23 sertraline 100 mg tablet 150 mg PO DAILY DEPRESSION 03/21/23 amoxicillin 875 mg-potassium clavulanate 125 mg tablet 1 tab PO BID 2 days #4 tabs 03/26/23 ferrous sulfate 325 mg (65 mg iron) tablet (FeroSul) 325 mg PO DAILY Fracture of lower end of left femur 30 days #30 tabs 03/26/23 tramadol 50 mg tablet 50 mg PO TID PRN PRN Pain Score 4-10 7 days #21 tabs 03/26/23 Hospital Course Operations None Procedures - (Chest x-ray x2, chest CT scan) Summary of Care Provided Minutes Spent on Discharge: 35 Hospital Course: Patient is an 87-year-old male who presented to [facility] ED on 03/21/2023 from SNF for worsening shortness of breath. Hospital course as noted below. Acute hypoxia, stable: Presumed secondary to acute pneumonia as sent below, with possibly some underlying chronic changes. Did not require oxygen prior to admission. Was hypoxic on admission, requiring up to 6 L. Was consistently requiring 2 to 3 L nasal cannula at rest to maintain oxygen saturations greater than 90% prior to discharge. ? Pulmonology evaluated. Recommended supplemental oxygen upon returning to facility, hopeful that patient will be able to be weaned off supplemental oxygen in the coming weeks. Have patient scheduled for a follow-up appointment in 2 weeks. Right upper lobe pneumonia, healthcare associated pneumonia with unknown organism: CT chest on admission showed irregular nodule infiltrate in posterior aspect of right upper lobe. WBC count of 18 on admit. Sputum culture grew Serratia marcescens, largely pansensitive. ? Treated with IV Zosyn for majority of admission, de-escalated to p.o. Augmentin on discharge with plan for 7-day course of antibiotics, stop date 03/28. Outpatient follow-up with pulmonology as noted above. Right upper lobe lung lesion: Noted on CT chest on admission. Pulmonology evaluated as above. Planning for follow-up CT scan of chest in 6 to 8 weeks to reevaluate. Debility, recent history of hip fracture: Patient presented from [facility], was there for rehab after admission for an acute hip fracture. PT/OT/case management followed while here. Patient was stable to return to [facility] on discharge. Discharge diagnoses: ? Acute hypoxia, stable ? Right upper lobe pneumonia, healthcare associated pneumonia ? Right upper lobe lung lesion ? Debility ? Recent history of hip fracture ? Hypertension ? Hyperlipidemia ? Depression ? Neuropathy ? GERD ? History of C. difficile infection Total clinical time spent by myself addressing the patient's discharge needs: 35 minutes. Physical Exam Const alert, oriented x3, no apparent distress and average body habitus General Appearance: cooperative and comfortable HEENT normocephalic, head/scalp atraumatic, nasal mucous membranes and turbinates normal and moist oral mucous membranes HEENT Narrative: Very hard of hearing. Eyes PERRL, EOMs intact bilaterally and conjunctivae normal Neck full ROM, no lymphadenopathy and supple Lymph Lymphatic: no lymphadenopathy noted Chest inspection of chest normal Resp Resp Narrative: Mildly decreased breath sounds in lung bases. Satting well on 4 L nasal cannula, no increased work of breathing noted. Cardio regular rate, regular rhythm, no murmurs and peripheral pulses 2+ throughout GI normal to inspection, nondistended, normoactive bowel sounds, soft to palpation, non-tender and non-distended Back/Spine normal ROM Extremity normal to inspection and no pedal edema Skin no rashes or lesions noted Psych mental status grossly normal Weight / BMI Weight Weight: 58.06 kg Body Mass Index (BMI) 21.2 ABG / Lab / Microbiology Data 03/26/23 08:10 03/26/23 08:10 Laboratory: Laboratory Results - last 24 hr 03/26/23 08:10: WBC 10.2, RBC 2.63 L, Hgb 7.8 L, Hct 25.6 L, MCV 97.3 H, MCH 29.7, MCHC 30.5 L, RDW Std Deviation 60.1 H, RDW Coeff of Isai 17.2 H, Plt Count 328, MPV 8.4, Sodium 137, Potassium 3.5, Chloride 103, Carbon Dioxide 28.0, Anion Gap 6, BUN 8, Creatinine 0.49 L, Estim Creat Clear Calc 42.74, Est GFR (MDRD) Af Amer 208, Est GFR (MDRD) Non-Af 172, BUN/Creatinine Ratio 16.4, Glucose 84, Calcium 7.8 L, Iron 18 L, TIBC 173 L, Iron Saturation 10.4 L, Ferritin 132, Folate 11.00 03/26/23 10:10: Vitamin B12 969 H Microbiology: Microbiology 03/26/23 11:30 Nasal Secretion SARS-CoV-2 Antigen (Rapid) - Final 03/22/23 17:25 Sputum, Expectorated/Coughed Gram Stain - Final 03/22/23 17:25 Sputum, Expectorated/Coughed Respiratory Culture - Final Serratia marcescens Presumptive C albicans 03/22/23 14:15 Stool C. difficile DNA Amplification - Final 03/21/23 20:30 Urine, Random Legionella Antigen - Final 03/21/23 20:30 Urine, Random Streptococcus pneumoniae Antigen (M - Final 03/21/23 11:30 Nasal Secretion SARS-CoV-2 & FLU Antigen (Rapid) - Final D/C Instructions Discharge Diet: No restrictions Weight Bearing Status: Full weight bearing Pending Tests Upon Discharge: none Please Follow Up With: Mei Ashraf MD When: as needed Meaningful Use Info Meaningful Use Diagnoses (Choose all that apply): None applicable Discharge Plan Admission Admit Date/Time: 03/21/23 13:39 Primary Reason for Your Visit: Community-acquired pneumonia Attending Provider: Mark Lund Primary Care Provider: Mei Ashraf Consulting Providers: Patric Roberts; Eren Devlin; Chuckie Hall; Chad Adler; Nirali Murry; Ben Huynh; Rashid Gardner; Myesha Hernandez ENVIRONMENTAL PROTECTION ECONOMIST Discharge Orders/Prescriptions Prescriptions: New tramadol 50 mg Tablet 50 mg PO TID PRN PRN (Reason: Pain Score 4-10) 7 Days Qty: 21 0RF amoxicillin-pot clavulanate 875-125 mg Tablet 1 tab PO BID 2 Days Qty: 4 0RF Continued atenolol 25 MG tablet 25 mg PO DAILY vit C,G-Sp-zhrfl-lutein-zeaxan 1 EACH capsule 1 tab PO DAILY acetaminophen 500 MG tablet 1,000 mg PO Q8H PRN (Reason: Pain Or Fever) Emollient Combination No.72 [Eucerin Intensive Repair] 1 APPLIC lotion 1 applic topical 4X/DAY PRN PRN (Reason: DRY SKIN) 0RF Protocol: *Topical Application Instructions APPLICATION INSTRUCTIONS: Bilateral arms. gabapentin 600 MG tablet 600 mg PO QHS Qty: 30 0RF polyethylene glycol 3350 17 GM packet 17 gm PO DAILY Qty: 30 0RF potassium chloride 20 MEQ tablet 20 meq PO DAILY Qty: 30 0RF furosemide 20 MG tablet 20 mg PO DAILY Qty: 30 0RF mirtazapine 15 MG tablet 15 mg PO QHS Qty: 30 0RF sertraline 100 mg tablet 150 mg PO DAILY colestipol 1 gram tablet 1 g PO BID cholecalciferol (vitamin D3) [Vitamin D3] 50 mcg (2,000 unit) capsule 2,000 unit PO DAILY ascorbic acid (vitamin C) [Vitamin C] 500 mg tablet 500 mg PO DAILY docusate sodium [Colace] 100 mg capsule 100 mg PO BID lisinopril 5 mg tablet 5 mg PO DAILY pantoprazole 40 mg tablet,delayed release (DR/EC) 40 mg PO DAILY Changed ferrous sulfate [FeroSul] 325 mg (65 mg iron) tablet 325 mg PO DAILY 30 Days Qty: 30 0RF Discontinued Eliquis 2.5 mg tablet 2.5 mg PO BID oxycodone 5 mg tablet 5 mg PO Q6H PRN (Reason: pain) vancomycin [Firvanq] 25 mg/mL recon soln 125 mg PO 4X/DAY Rx Instructions: started taking on 03/18/23 complete therapy on 03/23/23 Referrals / Follow Up: Chad Adler DO [Med Staff - Active Staff] - 04/16/23 8:45 am Mei Ashraf MD [Primary Care Provider] - Alexandrea Eason MD [Med Staff - Winder Helper] - Disposition Disposition (needs filled in before D/C Order can be placed): Sn[facility] Facility Charges/Coding Visit Charges Inpatient E&M: 94386 Disch Hosp >30min
--- NOTE | 2023-03-26 13:09 | PCM.TXEXTCAR ---
Diet Diet Order/Speech Therapy: 03/21/23 17:00 Diet: Cardiac - Heart Healthy Food consistency:: Mechanical (Minced/Moist) Liquid Consistency:: Regular/Thin Type of Dietary Supplement:: Magic Cup w/ lunch Diet Comments: fortified pudding w/ dinner Wound(s) left thigh: Wound Type: Surgical Incision left chambers: Wound Type: Abrasion left heel: Wound Type: Pressure Injury Right hip: Wound Type: Scratch Therapies Weight Bearing: Full weight bearing Problem/Diagnosis (1) Pneumonia: Status: Acute Code(s): J18.9 - Pneumonia, unspecified organism (2) Hypoxemia: Status: Acute Code(s): R09.02 - Hypoxemia Plan Patient is an 87-year-old male who presented to [facility] ED on 03/21/2023 from SNF for worsening shortness of breath. Hospital course as noted below. Acute hypoxia, stable: Presumed secondary to acute pneumonia as sent below, with possibly some underlying chronic changes. Did not require oxygen prior to admission. Was hypoxic on admission, requiring up to 6 L. Was consistently requiring 2 to 3 L nasal cannula at rest to maintain oxygen saturations greater than 90% prior to discharge. ? Pulmonology evaluated. Recommended supplemental oxygen upon returning to facility, hopeful that patient will be able to be weaned off supplemental oxygen in the coming weeks. Have patient scheduled for a follow-up appointment in 2 weeks. Right upper lobe pneumonia, healthcare associated pneumonia with unknown organism: CT chest on admission showed irregular nodule infiltrate in posterior aspect of right upper lobe. WBC count of 18 on admit. Sputum culture grew Serratia marcescens, largely pansensitive. ? Treated with IV Zosyn for majority of admission, de-escalated to p.o. Augmentin on discharge with plan for 7-day course of antibiotics, stop date 03/28. Outpatient follow-up with pulmonology as noted above. Right upper lobe lung lesion: Noted on CT chest on admission. Pulmonology evaluated as above. Planning for follow-up CT scan of chest in 6 to 8 weeks to reevaluate. Debility, recent history of hip fracture: Patient presented from [facility], was there for rehab after admission for an acute hip fracture. PT/OT/case management followed while here. Patient was stable to return to [facility] on discharge. Discharge diagnoses: ? Acute hypoxia, stable ? Right upper lobe pneumonia, healthcare associated pneumonia ? Right upper lobe lung lesion ? Debility ? Recent history of hip fracture ? Hypertension ? Hyperlipidemia ? Depression ? Neuropathy ? GERD ? History of C. difficile infection Total clinical time spent by myself addressing the patient's discharge needs: 35 minutes. Allergies/Procedures Done in Hospital Allergies No Known Allergies Allergy (Verified 03/21/23 10:27) Procedures: - (Chest x-ray x2, chest CT scan) Type of Care/Length of Stay Estimated LOS: Convalescent Care Less Than 30 days Type of Care Needed: Skilled Rehab Potential: Fair Prognosis: Fair Additional Orders/Day of Discharge H&P will serve as current which was dated: 03/21/23 Day of Discharge: 03/26/23 Dietary and Speech Recommendations Dietitian Recommendations/Changes: Will continue Cardiac diet for now; liberalize to regular as indicated--consistency/texture as per SEPARATOR OPERATOR SHELLFISH MEATS. Will continue 120mL ensure plus high protein 3 times per day w/ medpass. Will add magic cup w/ lunch and fortified pudding w/ dinner. Liberalize diet and add ONS as needed to optimize oral intake and prevent weight loss. Follow Up Care Please Follow Up With: Mei Ashraf MD When: As needed Discharge Plan Admission Admit Date/Time: 03/21/23 13:39 Primary Reason for Your Visit: Community-acquired pneumonia Attending Provider: Mark Lund Primary Care Provider: Mei Ashraf Consulting Providers: Patric Roberts; Eren Devlin; Chuckie Hall; Chad Adler; Nirali Murry; Ben Huynh; Rashid Gardner; Myesha Hernandez HOSPICE PLAN ADMINISTRATOR Discharge Orders/Prescriptions Prescriptions: New tramadol 50 mg Tablet 50 mg PO TID PRN PRN (Reason: Pain Score 4-10) 7 Days Qty: 21 0RF amoxicillin-pot clavulanate 875-125 mg Tablet 1 tab PO BID 2 Days Qty: 4 0RF Continued atenolol 25 MG tablet 25 mg PO DAILY vit C,X-Yy-hegug-lutein-zeaxan 1 EACH capsule 1 tab PO DAILY acetaminophen 500 MG tablet 1,000 mg PO Q8H PRN (Reason: Pain Or Fever) Emollient Combination No.72 [Eucerin Intensive Repair] 1 APPLIC lotion 1 applic topical 4X/DAY PRN PRN (Reason: DRY SKIN) 0RF Protocol: *Topical Application Instructions APPLICATION INSTRUCTIONS: Bilateral arms. gabapentin 600 MG tablet 600 mg PO QHS Qty: 30 0RF polyethylene glycol 3350 17 GM packet 17 gm PO DAILY Qty: 30 0RF potassium chloride 20 MEQ tablet 20 meq PO DAILY Qty: 30 0RF furosemide 20 MG tablet 20 mg PO DAILY Qty: 30 0RF mirtazapine 15 MG tablet 15 mg PO QHS Qty: 30 0RF sertraline 100 mg tablet 150 mg PO DAILY colestipol 1 gram tablet 1 g PO BID cholecalciferol (vitamin D3) [Vitamin D3] 50 mcg (2,000 unit) capsule 2,000 unit PO DAILY ascorbic acid (vitamin C) [Vitamin C] 500 mg tablet 500 mg PO DAILY docusate sodium [Colace] 100 mg capsule 100 mg PO BID lisinopril 5 mg tablet 5 mg PO DAILY pantoprazole 40 mg tablet,delayed release (DR/EC) 40 mg PO DAILY Changed ferrous sulfate [FeroSul] 325 mg (65 mg iron) tablet 325 mg PO DAILY 30 Days Qty: 30 0RF Discontinued Eliquis 2.5 mg tablet 2.5 mg PO BID vancomycin [Firvanq] 25 mg/mL recon soln 125 mg PO 4X/DAY Rx Instructions: started taking on 03/18/23 complete therapy on 03/23/23 No Action oxycodone 5 mg tablet 5 mg PO Q6H PRN (Reason: pain) Referrals / Follow Up: Chad Adler DO [Med Staff - Active Staff] - 04/16/23 8:45 am Mei Ashraf MD [Primary Care Provider] - Alexandrea Eason MD [Med Staff - Rounding Machine Operator] - Disposition Disposition (needs filled in before D/C Order can be placed): [facility] Charges/Coding Visit Charges Inpatient E&M: 01393 Disch Hosp >30min
--- NOTE | 2023-03-26 14:18 | CASEMGMT ---
Social Work Pwe Physician updated and pt is ready for discharge today.?Discharge orders and covid results sent to [facility] via [employer].? Transportation arranged with [facility] ambulance for 4pm pickup via cot.? SW met with pt and he is agreeable to discharge plan as stated above.?Phone call to pt and notified of dc. [facility] and bedside nurse notified of discharge time. Disposition: [facility], skilled level of care PITER [facility]
[2023-03-26 14:21] VITALS: BP 136/82; PULSE 67; RESP 18; TEMP 37.1; O2SAT 98
== END 2023-03-26 16:27 | disposition skilled nursing facility (03) | DRG 179 ==
LOC: ED 13:44 → MS3 14:58
PROVIDERS: Internal Medicine; Admitting Provider Family Medicine; Emergency Provider Emergency Medicine; PCP Internal Medicine; Visit Provider Hospitalist
DX: J15.69 Pneumonia due to other Gram-negative bacteria (principal); E78.5 Hyperlipidemia, unspecified; I95.9 Hypotension, unspecified; I10 Essential (primary) hypertension; F32.A Depression, unspecified; G62.9 Polyneuropathy, unspecified; K21.9 Gastro-esophageal reflux disease without esophagitis; R09.02 Hypoxemia; Y95 Nosocomial condition; H91.90 Unspecified hearing loss, unspecified ear; R91.1 Solitary pulmonary nodule; R53.81 Other malaise; Z79.899 Other long term (current) drug therapy; Z87.891 Personal history of nicotine dependence
CPT/HCPCS: 36415; 71045; 71250; 80048; 82607; 82728; 82746; 83540; 83550; 83605; 83880; 84484; 85025; 85027; 87070; 87077; 87186; 87205; 87426; 87428; 87449; 87493; 87641; 93005; 94668; 97110; 97162; 97166; 97530; 97535; 97802; 99285; J7040; J7050; A4216

== ENCOUNTER 2023-04-19 12:22 | Inpatient (IN) | payer MEDICARE, SELFPAY ==
[2023-04-19] VITALS (29 sets, daily range): BP systolic 86–138; BP diastolic 57–94; PULSE 82–114; RESP 14–25; TEMP 36.1–37; O2SAT 78–100; BMI 20.1; BMI 18.6
--- NOTE | 2023-04-19 12:33 | RAD_ITS ---
STUDY: X-RAY CHEST REASON FOR EXAM: Male, 87 years old. Cough TECHNIQUE: Single AP portable view of the chest. COMPARISON: 03/24/2023 FINDINGS: EKG leads overlie the chest. Stable elevation of the right hemidiaphragm Chronic interstitial changes in both lung pereyra with bibasilar atelectasis and small pleural effusions. Normal size heart. Normal mediastinum and melba. Normal visualized pulmonary arteries. There is atherosclerotic calcification of the aortic arch with tortuosity. There are diffuse degenerative changes of the visualized thoracic spine. There is degenerative osteoarthritis of the bilateral shoulders. There is no demonstrated abnormality of the visualized soft tissue structures of the upper abdomen. RAD/Chest PA and Lateral IMPRESSION: Chronic interstitial changes with bibasilar atelectasis, and small effusions. Electronically Signed: Gio Urrutia MD at 14:15 EST ,
--- NOTE | 2023-04-19 12:33 | EKG12_ITS ---
Test Reason : SOB Blood Pressure : / mmHG Vent. Rate : 105 BPM Atrial Rate : 105 BPM P-R Int : 134 ms QRS Dur : 076 ms QT Int : 324 ms P-R-T Axes : 043 -54 040 degrees QTc Int : 428 ms Sinus tachycardia Left axis deviation Nonspecific ST abnormality Abnormal ECG Confirmed by ADDISON JEAN, MARIOLA ([id number]), city editor BARRY DONOHUE ([id number]) on 04/22/2023 6:19:28 AM Referred By: Confirmed By:CHAYO JAIME MD
--- NOTE | 2023-04-19 12:36 | EDS_ITS ---
HPI <HANNAH Louie - Last Filed: 04/19/23 15:51> History of Present Illness Chief Complaint: Shortness of Breath Narrative Narrative: 87-year-old male with PMH of HTN, HLD, anemia, hearing loss presents from his long-term after he developed a fever, upset stomach and diarrhea today. states she arrived at 10 AM and he seemed fine and then the symptoms developed after that. He was admitted to [facility] on 03/21/2023 with pneumonia and since then has been wearing 5.5 L O2 at the long-term. During admission he was found to have a new right lung nodule and he followed up with pulmonology and are planning a repeat CT in May. He arrived to the ER on room air and was hypoxic but again he supposed to be on 5 L. ROS is limited because patient's hearing loss. Of note he fell and broke his left femur on 03/31 and cannot walk for 3 months. PFSH <HANNAH Louie - Last Filed: 04/19/23 15:51> [facility] Medical History (Reviewed 04/16/23 @ 08:59 by Myesha Hernandez TECHNOLOGY PROGRAM MANAGER, TECHNOLOGY PROGRAM MANAGER-C) DVT (deep venous thrombosis) Former smoker Wears hearing aid in both ears Home Medications atenolol 25 mg tablet 25 mg PO DAILY BP 08/23/15 [History Last Taken 09/18/15 04:45] acetaminophen 500 mg tablet 1,000 mg PO Q8H PRN Pain Or Fever 06/26/19 [History Last Taken Unknown] Emollient Combination No.72 [Eucerin Intensive Repair] 1 applic topical 4X/DAY PRN PRN DRY SKIN 07/07/19 [Rx Last Taken Unknown] furosemide 20 mg tablet 20 mg PO DAILY Excess fluid #30 tabs 07/07/19 [Rx Last Taken Unknown] gabapentin 600 mg tablet 600 mg PO QHS neuropathy #30 tabs 07/07/19 [Rx Last Taken Unknown] mirtazapine 15 mg tablet 15 mg PO QHS sleep #30 tabs 07/07/19 [Rx Last Taken Unknown] polyethylene glycol 3350 17 gram oral powder packet 17 g PO DAILY bowels #30 packets 07/07/19 [Rx Last Taken Unknown] potassium chloride 20 mEq tablet,extended release(part/cryst) 20 meq PO DAILY supplement #30 tabs 07/07/19 [Rx Last Taken Unknown] cholecalciferol (vitamin D3) 50 mcg (2,000 unit) capsule (Vitamin D3) 2,000 unit PO DAILY SEE PCP 03/21/23 [History Last Taken Unknown] colestipol 1 gram tablet 1 g PO BID HYPERCHOLESTEROLEMIA 03/21/23 [History Last Taken Unknown] docusate sodium 100 mg capsule (Colace) 100 mg PO BID constipation 03/21/23 [History Last Taken Unknown] lisinopril 5 mg tablet 5 mg PO DAILY Essential Hypertension 03/21/23 [History Last Taken Unknown] pantoprazole 40 mg tablet,delayed release 40 mg PO DAILY GERD 03/21/23 [History Last Taken Unknown] sertraline 100 mg tablet 150 mg PO DAILY DEPRESSION 03/21/23 [History Last Taken Unknown] ferrous sulfate 325 mg (65 mg iron) tablet (FeroSul) 325 mg PO DAILY Fracture of lower end of left femur 30 days #30 tabs 03/26/23 [Rx Last Taken Unknown] tramadol 50 mg tablet 50 mg PO TID PRN PRN Pain Score 4-10 7 days #21 tabs 03/26/23 [Rx Last Taken Unknown] ipratropium 0.5 mg-albuterol 3 mg (2.5 mg base)/3 mL nebulization soln 3 ml inhalation Q6H PRN shortness of breath 04/16/23 [History Last Taken Unknown] nut tx, lact-reduced, iron 0.09 gram-2.25 kcal/mL oral liquid (Boost VHC) 120 ml PO TID 04/16/23 [History Last Taken Unknown] vit C 250 mg-vit E 200 unit-zinc ox 12.5 mi-rhpqma-[id number]-zeax capsule (ICaps AREDS2) 1 cap PO DAILY 04/16/23 [History Last Taken Unknown] Allergy/AdvReac Type Severity Reaction Status Date / Time No Known Allergies Allergy Verified 04/16/23 08:52 Family History (Reviewed 04/16/23 @ 08:59 by Myesha Hernandez TECHNOLOGY PROGRAM MANAGER, TECHNOLOGY PROGRAM MANAGER-C) Other Cancer Heart disease Surgical History Status post left hip replacement Social History (Reviewed 04/16/23 @ 08:59 by Myesha Hernandez TECHNOLOGY PROGRAM MANAGER, TECHNOLOGY PROGRAM MANAGER-C) Smoking Status: Former smoker ROS <HANNAH Louie - Last Filed: 04/19/23 15:51> ROS ED ROS Narrative Constitutional: Negative for fever. Respiratory: Negative for shortness of breath, cough. GI: Positive for nausea, diarrhea : Negative for dysuria. EXAM <HANNAH Louie - Last Filed: 04/19/23 15:51> Physical Exam Narrative Exam Narrative: CONST: Cachectic male sitting in bed on nasal cannula in no acute distress. EYES: Normal inspection. ENT: Normal inspection, dry mucous membranes. NECK: Normal inspection. RESP: Tachypneic, CTAB. CVS: Regular rate and rhythm, no murmur, no gallop. ABD: Soft and nontender, no guarding or rebound, nondistended. SKIN: Color normal, no rash, warm, dry, intact. EXTREMITIES: Normal appearance, no pedal edema. NEURO: Oriented x4. PSYCH: Normal affect. Const Vital Signs: 04/19/23 12:23 04/19/23 12:27 04/19/23 12:32 Temperature 97.7 F L Temperature Source Temporal Pulse Rate 114 H 110 H Respiratory Rate 22 H 20 H Respiratory Depth Shallow Respiratory Pattern Tachypnea Blood Pressure 90/67 86/59 L Blood Pressure Mean 74 68 Pulse Ox 78 90 Oxygen Delivery Method Room Air Nasal Cannula Nasal Cannula Oxygen Flow Rate (L/min) 7 7 Fraction of Inspired Oxygen (FIO2) 04/19/23 12:33 04/19/23 12:35 04/19/23 13:10 Temperature Temperature Source Pulse Rate 108 H 97 Respiratory Rate 21 H 18 Respiratory Depth Respiratory Pattern Blood Pressure 86/59 L Blood Pressure Mean 68 Pulse Ox 91 94 97 Oxygen Delivery Method Venturi Mask Venturi Mask Venturi Mask Oxygen Flow Rate (L/min) 12 12 Fraction of Inspired Oxygen (FIO2) 50 50 04/19/23 13:20 04/19/23 14:29 04/19/23 15:00 Temperature 97 F L 98.2 F 98.6 F Temperature Source Temporal Oral Temporal Pulse Rate 97 92 89 Respiratory Rate 18 16 17 Respiratory Depth Respiratory Pattern Blood Pressure 86/57 L 93/60 100/62 Blood Pressure Mean 66 71 74 Pulse Ox 97 98 99 Oxygen Delivery Method Venturi Mask Venturi Mask Venturi Mask Oxygen Flow Rate (L/min) Fraction of Inspired Oxygen (FIO2) 50 50 04/19/23 15:41 Temperature 98.6 F Temperature Source Temporal Pulse Rate 89 Respiratory Rate 18 Respiratory Depth Respiratory Pattern Blood Pressure 100/62 Blood Pressure Mean 74 Pulse Ox 99 Oxygen Delivery Method Venturi Mask Oxygen Flow Rate (L/min) Fraction of Inspired Oxygen (FIO2) 50 <Dr. Marco A Chavez MD - Last Filed: 04/19/23 15:44> Physical Exam Const Vital Signs: 04/19/23 12:23 04/19/23 12:27 04/19/23 12:32 Temperature 97.7 F L Temperature Source Temporal Pulse Rate 114 H 110 H Respiratory Rate 22 H 20 H Respiratory Depth Shallow Respiratory Pattern Tachypnea Blood Pressure 90/67 86/59 L Blood Pressure Mean 74 68 Pulse Ox 78 90 Oxygen Delivery Method Room Air Nasal Cannula Nasal Cannula Oxygen Flow Rate (L/min) 7 7 Fraction of Inspired Oxygen (FIO2) 04/19/23 12:33 04/19/23 12:35 04/19/23 13:10 Temperature Temperature Source Pulse Rate 108 H 97 Respiratory Rate 21 H 18 Respiratory Depth Respiratory Pattern Blood Pressure 86/59 L Blood Pressure Mean 68 Pulse Ox 91 94 97 Oxygen Delivery Method Venturi Mask Venturi Mask Venturi Mask Oxygen Flow Rate (L/min) 12 12 Fraction of Inspired Oxygen (FIO2) 50 50 04/19/23 13:20 04/19/23 14:29 04/19/23 15:00 Temperature 97 F L 98.2 F 98.6 F Temperature Source Temporal Oral Temporal Pulse Rate 97 92 89 Respiratory Rate 18 16 17 Respiratory Depth Respiratory Pattern Blood Pressure 86/57 L 93/60 100/62 Blood Pressure Mean 66 71 74 Pulse Ox 97 98 99 Oxygen Delivery Method Venturi Mask Venturi Mask Venturi Mask Oxygen Flow Rate (L/min) Fraction of Inspired Oxygen (FIO2) 50 50 04/19/23 15:41 Temperature 98.6 F Temperature Source Temporal Pulse Rate 89 Respiratory Rate 18 Respiratory Depth Respiratory Pattern Blood Pressure 100/62 Blood Pressure Mean 74 Pulse Ox 99 Oxygen Delivery Method Venturi Mask Oxygen Flow Rate (L/min) Fraction of Inspired Oxygen (FIO2) 50 Sepsis Attestation <Dr. Marco A Chavez MD - Last Filed: 04/19/23 15:44> Sepsis Alert: Yes Sepsis Attestation: Agree w/Sepsis Date exam was performed: 04/19/23 Time exam was performed: 13:45 [facility] <HANNAH Louie - Last Filed: 04/19/23 15:51> [facility] MDM Narrative Medical decision making narrative: History gathered from: and patient Patient was treated for pneumonia a month ago continues to require 5 L O2 at the long-term. Has had general decline with left femur fracture and inability to ambulate. This morning he developed a new subjective fever, nausea and diarrhea. He appears chronically ill. He is hypotensive and hypoxic. He arrived on room air but is supposed to be on 5 L NC. He was placed on 7 L and was coming up to 88% or so but did not improve from this apossibly because he is mouth breathing. He was placed on a Venturi mask 12 L by RT. He appears dehydrated. Heart is slightly tachycardic but regular. Lungs diminished. He was given IV fluids and sepsis workup initiated. WBC is 23.5. Lactate 1.9. Hemoglobin is 10.3 up from baseline of 7 so I suspect he is hemoconcentrated from dehydration. He has acute on chronic hyponatremia at 130. BUN is 23, creatinine 1.08. Urinalysis is nitrite and leukocyte esterase positive but has no WBCs or bacteria. I sent a culture and treated with Rocephin in case this is a developing UTI. Patient had multiple watery diarrhea episodes here and stool is positive for C. difficile. He remains hypotensive after 30 cc/kg bolus and with leukocytosis and hypotension MRI recommends Flagyl 500 mg IV and p.o. vancomycin 500 mg. I discussed this with the pharmacist who agrees with this plan of treatment. Case will be discussed with the hospitalist for admission. Consults: pharmacy, hospitalist I have personally performed a face to face assessment of the patient and have r eviewed the PARTH Note. I performed a substantive portion of the visit including all aspects of the following. My miranda findings include: History is remarkable altered mental status. He has been ill. He is not a good informant. is the primary informant. He presents from long-term. He is present on 5 L of oxygen. He was discharged to the long-term on 5 L of oxygen. He arrived here hypoxic since he was not wearing his oxygen. He has not been eating or drinking much of anything according to the for the past several days. Per his blood pressure is low. Exam is hypotensive tachycardic tachypneic male who appears ill. He appears pale. He has altered mental status. HEENT exam is marked with dry mucosa. Heart is rapid and regular. There is no pressure murmur, gallop or rub. Diminished breath sounds with bibasilar rales. Abdomen is soft nontender. No palp pulsatile mass or abdominal bruit. There is no evidence of cellulitis or decubiti. He will open his eyes to his name. He attempts to answer questions. Medical Decision Making suspect patient has either metabolic or infectious cause of his altered mental status. Appropriate workup was undertaken. Urine macro was positive for leukoesterase, nitrites and blood presumption was that he had a UTI. For this reason he was started on Rocephin. Patient's microscopic urinalysis is negative, however. Patient does have an elevated white count of 23,000 with shift. Comprehensive metabolic panel reveals mild elevation of creatinine with a GFR of 69. Glucose slight elevated 120 with a normal CO2 and anion gap. Chest x-ray was evaluated interpreted by me and revealed small right pleural effusion with atelectasis cannot rule out infiltrate. Cardiac silhouette was unremarkable. Perihilar region was u nremarkable. This was interpreted by me at 1354. Other additions or changes: With altered mental status leukocytosis suspect patient has infection. Will call hospitalist for admission. Patient remains hypotensive in spite of IV fluids. Patient's lactate was normal. Lab Data Attestation: I reviewed the patient's lab results. Labs: Laboratory Results - last 24 hr 04/19/23 04/19/23 12:30 12:55 WBC 23.5 H RBC 3.66 L Hgb 10.3 L Hct 32.6 L MCV 89.1 MCH 28.1 MCHC 31.6 L RDW Std Deviation 55.0 H RDW Coeff of Isai 17.0 H Plt Count 636 H MPV 8.2 Immature Gran % (Auto) 1.200 H Neut % (Auto) 85.0 H Lymph % (Auto) 5.7 L [place] % (Auto) 6.0 Eos % (Auto) 1.7 Baso % (Auto) 0.4 Absolute Neuts (auto) 19.9 H Absolute Lymphs (auto) 1.34 Nucleated RBC % 0 PT 13.4 INR 1.0 APTT 25.5 Sodium 130 L Potassium 4.7 Chloride 98 Carbon Dioxide 28.0 Anion Gap 4 L BUN 23 H Creatinine 1.08 Estim Creat Clear Calc 37.42 Est GFR (MDRD) Af Amer 83 Est GFR (MDRD) Non-Af 69 BUN/Creatinine Ratio 21.3 H Glucose 120 H Lactic Acid 1.9 Calcium 9.2 Total Bilirubin 0.30 AST 19 ALT 22 Alkaline Phosphatase 138 H Total Protein 8.3 H Albumin 2.2 L Globulin 6.1 H Albumin/Globulin Ratio 0.4 L Urine Color Yellow Urine Clarity Clear Urine pH 6.0 Ur Specific [place] 1.015 Urine Protein 15 H Urine Glucose (UA) Normal Urine Ketones Negative Urine Occult Blood 50 H Urine Nitrite Positive H Urine Bilirubin Negative Urine Urobilinogen Normal Ur Leukocyte Esterase 500 H Urine RBC 0 SEEN Urine WBC 0-5 SEEN Ur Squamous Epith Cells 0 SEEN Urine Bacteria 0 SEEN Urine Mucus 0 SEEN ABG Data ABG results: ABG 04/19/23 12:48 Specimen Type ART Sample Site R Radial pH 7.40 Bicarbonate Actual 24.9 Total CO2 26 Base Excess 0 O2 Saturation 95 O2 % 12.0 ABG pCO2 40.5 ABG pO2 77 Tommie Test Positive O2 Delivery Device Venti Mask Vent Mode Not entered Radiography Diagnostic Testing: Clinical Impression(s) from Imaging Studies Chest X-Ray 04/19/23 12:33 IMPRESSION: Chronic interstitial changes with bibasilar atelectasis, and small effusions. Electronically Signed: Gio Urrutia MD at 14:15 EST Reading Location ID and State: [address] [place] [address] , Service support , <Dr. Marco A Chavez MD - Last Filed: 04/19/23 15:44> [facility] Narrative Medical decision making narrative: History gathered from: and patient Patient was treated for pneumonia a month ago continues to require 5 L O2 at the long-term. Has had general decline with left femur fracture and inability to ambulate. This morning he developed a new subjective fever, nausea and diarrhea. He appears chronically ill. He is hypotensive and hypoxic. He arrived on room air but is supposed to be on 5 L NC. He was placed on 7 L and was coming up to 88% or so but did not improve from Zaria was placed on a Venturi mask 12 L by RT. He appears dehydrated. Heart is slightly tachycardic but regular. Lungs diminished. He was given IV fluids and sepsis workup initiated. WBC is 23.5. Lactate 1.9. Hemoglobin is 10.3 up from baseline of 7 so I suspect he is hemoconcentrated from dehydration. He has acute on chronic hyponatremia at 130. BUN is 23, creatinine 1.08. Urinalysis is nitrite and leukocyte esterase positive but has no WBCs or bacteria. I sent a culture and treated with Rocephin in case this is a developing UTI. I have personally performed a face to face assessment of the patient and have reviewed the PARTH Note. I performed a substantive portion of the visit including all aspects of the following. My miranda findings include: History is remarkable altered mental status. He has been ill. He is not a good informant. is the primary informant. He presents from long-term. He is present on 5 L of oxygen. He was discharged to the long-term on 5 L of oxygen. He arrived here hypoxic since he was not wearing his oxygen. He has not been eating or drinking much of anything according to the for the past several days. Per his blood pressure is low. Exam is hypotensive tachycardic tachypneic male who appears ill. He appears pale. He has altered mental status. HEENT exam is marked with dry mucosa. Heart is rapid and regular. There is no pressure murmur, gallop or rub. Diminished breath sounds with bibasilar rales. Abdomen is soft nontender. No palp pulsatile mass or abdominal bruit. There is no evidence of cellulitis or decubiti. He will open his eyes to his name. He attempts to answer questions. Medical Decision Making suspect patient has either metabolic or infectious cause of his altered mental status. Appropriate workup was undertaken. Urine macro was positive for leukoesterase, nitrites and blood presumption was that he had a UTI. For this reason he was started on Rocephin. Patient's microscopic urinalysis is negative, however. Patient does have an elevated white count of 23,000 with shift. Comprehensive metabolic panel reveals mild elevation of creatinine with a GFR of 69. Glucose slight elevated 120 with a normal CO2 and anion gap. Chest x-ray was evaluated interpreted by me and revealed small right pleural effusion with atelectasis cannot rule out infiltrate. Cardiac silhouette was unremarkable. Perihilar region was unremarkable. This was interpreted by me at 1354. Other additions or changes: With altered mental status leukocytosis suspect patient has infection. Will call hospitalist for admission. Patient remains hypotensive in spite of IV fluids. Patient's lactate was normal. Lab Data Labs: Laboratory Results - last 24 hr 04/19/23 04/19/23 12:30 12:55 WBC 23.5 H RBC 3.66 L Hgb 10.3 L Hct 32.6 L MCV 89.1 MCH 28.1 MCHC 31.6 L RDW Std Deviation 55.0 H RDW Coeff of Isai 17.0 H Plt Count 636 H MPV 8.2 Immature Gran % (Auto) 1.200 H Neut % (Auto) 85.0 H Lymph % (Auto) 5.7 L [place] % (Auto) 6.0 Eos % (Auto) 1.7 Baso % (Auto) 0.4 Absolute Neuts (auto) 19.9 H Absolute Lymphs (auto) 1.34 Nucleated RBC % 0 PT 13.4 INR 1.0 APTT 25.5 Sodium 130 L Potassium 4.7 Chloride 98 Carbon Dioxide 28.0 Anion Gap 4 L BUN 23 H Creatinine 1.08 Estim Creat Clear Calc 37.42 Est GFR (MDRD) Af Amer 83 Est GFR (MDRD) Non-Af 69 BUN/Creatinine Ratio 21.3 H Glucose 120 H Lactic Acid 1.9 Calcium 9.2 Total Bilirubin 0.30 AST 19 ALT 22 Alkaline Phosphatase 138 H Total Protein 8.3 H Albumin 2.2 L Globulin 6.1 H Albumin/Globulin Ratio 0.4 L Urine Color Yellow Urine Clarity Clear Urine pH 6.0 Ur Specific [place] 1.015 Urine Protein 15 H Urine Glucose (UA) Normal Urine Ketones Negative Urine Occult Blood 50 H Urine Nitrite Positive H Urine Bilirubin Negative Urine Urobilinogen Normal Ur Leukocyte Esterase 500 H Urine RBC 0 SEEN Urine WBC 0-5 SEEN Ur Squamous Epith Cells 0 SEEN Urine Bacteria 0 SEEN Urine Mucus 0 SEEN ABG Data ABG results: ABG 04/19/23 12:48 Specimen Type ART Sample Site R Radial pH 7.40 Bicarbonate Actual 24.9 Total CO2 26 Base Excess 0 O2 Saturation 95 O2 % 12.0 ABG pCO2 40.5 ABG pO2 77 [place] Test Positive O2 Delivery Device Venti Mask Vent Mode Not entered Radiography Diagnostic Testing: Clinical Impression(s) from Imaging Studies Chest X-Ray 04/19/23 12:33 IMPRESSION: Chronic interstitial changes with bibasilar atelectasis, and small effusions. Electronically Signed: Gio Urrutia MD at 14:15 EST , Discharge Plan Dx/Rx/DC Orders Clinical Impression: Chronic hypoxemic respiratory failure, Encephalopathy acute, Diarrhea, Leukocytosis, Pseudomembranous enterocolitis Disposition Disposition: Acute Care Hospital [facility]
[2023-04-19 12:51] LABS: Allen Test Positive; Base Excess 0 mmol/L (-2 to +2); Bicarbonate 24.9 mmol/L (22-26); Blood Gas Specimen Type ART; Mode Not entered; O2 Delivery Device Venti Mask; PO2 77 mmHG (75-100); SITE R Radial; SO2 95 % (95-99); Total Carbon Dioxide 26 mmol/L; pCO2 40.5 mmHg (35-45)
[2023-04-19 12:53] LABS: Absolute Lymphocyte Count 1.34 X10^3/uL (0.83-4.51); Absolute Neutrophil Count 19.9 X10^3/uL (2.0-7.7); Basophil# 0.09 X10^3/uL; Basophil% 0.4 % (0-1); Eosinophil# 0.39 X10^3/uL; Eosinophils% 1.7 % (0-5); Hematocrit 32.6 % (40-54); Hemoglobin 10.3 g/dL (13.0-16.5); Lymphocyte # 1.34 X10^3/ul (0.83-4.51); Lymphocyte % 5.7 % (19-41); Mean Corp Hgb Conc 31.6 g/dL (32-36); Mean Corpuscular Hgb 28.1 pg (27.0-32.0); Mean Corpuscular Volume 89.1 fL (80-94); Mean Platelet Vol. 8.2 fl (6.2-12.0); Monocyte# 1.41 X10^3/uL; NRBC Flagged by Analyzer 0 % (0-5); Neutrophil # 19.93 X10^3/uL (2.7-7.7); Platelet Count 636 K/mm3 (150-450); Red Blood Count 3.66 M/mm3 (4.6-6.2); White Blood Count 23.5 K/mm3 (4.4-11.0)
[2023-04-19] MEDS: 0.9% Normal Saline (1000mL) 1,000 ML 999 ML IV ×2 (13:00→14:27)
[2023-04-19 13:02] LABS: Prothrombin Time (Protime)PT. 13.4 SECONDS (11.7-14.9)
[2023-04-19 13:03] LABS: Partial Thromboplast Time 25.5 Seconds (24.1-36.2)
[2023-04-19 13:04] LABS: Bacteria 0 SEEN /hpf (None Seen); Mucous, Urine 0 SEEN /hpf (<or=2+); Red Blood Cells-Urine 0 SEEN /hpf (0-5); Squamous Epithelial Cells - UA 0 SEEN /hpf (0-5)
[2023-04-19 13:08] LABS: Color, Urine Yellow (Yellow); Glucose, Dipstick Normal (Normal); Ketone-Dipstick Negative (Negative); Leukocyte Esterase-Dipstick 500 /ul (Negative); Nitrite-Dipstick Positive (Negative); Occult Blood-Urine 50 /ul (Negative); Protein-Dipstick 15 mg/dl (Negative); Specific Gravity, Urine 1.015 (1.002-1.030); Urine Bilirubin Dipstick Negative (Negative); Urine Clarity Clear (Clear); Urine Urobilinogen Normal (Normal)
[2023-04-19 13:08] LABS: ALB/GLOB Ratio 0.4 RATIO (0.9-2.4); AST(SGOT) 19 U/L (15-37); Alanine Aminotransfer ALT/SGPT 22 U/L (16-61); Albumin, Serum 2.2 g/dL (3.2-5.0); Alkaline Phosphatase 138 U/L (45-117); Anion Gap 4 (5-15); BUN 23 mg/dL (7-18); BUN/Creat Ratio 21.3 RATIO (10-20); Calcium,Total 9.2 mg/dL (8.5-10.1); Chloride 98 mmol/L (98-107); Creatinine, Serum 1.08 mg/dL (0.70-1.30); EST Glomerular Filtration Rate 69 mL/min (>60); Est Glom Filt Rate - Afr Amer 83 mL/min (>60); Estimated Creatinine Clearance 37.42 ml/min; Globulin 6.1 g/dL (2.2-4.2); Glucose 120 mg/dL (74-106); Potassium 4.7 mmol/L (3.5-5.1); Protein, Total 8.3 g/dL (6.4-8.2); Sodium Level 130 mmol/L (136-145)
[2023-04-19 13:14] LABS: Lactic Acid 1.9 mmol/L (0.4-1.9)
[2023-04-19 13:19] LABS: White Blood Cells 0-5 SEEN /hpf (0-5)
[2023-04-19] MEDS: Ceftriaxone 1 GM/50 ML BAG IV (13:53)
[2023-04-19] MEDS: Norepinephrine 8 MG in 0.9% Normal Saline (250mL Bag) 242 ML 9.4 MG CONT INF (16:36)
[2023-04-19] MEDS: metroNIDAZOLE 500 MG/100 ML BAG 100 MG IV ×2 (16:49→21:29)
[2023-04-19] MEDS: Vancomycin HCl 250 MG Capsule 500 MG PO (17:16)
--- NOTE | 2023-04-19 18:36 | HP.PCM.HOS_ITS ---
HPI - General General Date of Admission: 04/19/23 HPI Narrative BURKE MUKHERJEE, is a 87 M who presents to the hospital with abdominal pain and diarrhea. He is fairly volume depleted despite having a normal renal function as he has not been eating or drinking very well and has been having significant episodes of diarrhea. This afternoon he also had an episode of emesis and his said that this morning when she visited him in the group home he appeared okay but then was slowly complaining of increasing abdominal pain and had the episode of emesis. He is extremely hard of hearing but he did have an episode of C. difficile colitis in February after he had his hip replacement at a [facility] facility. Early March he was treated for pneumonia. He recovered from the pneumonia and was sent back to the group home on 03/26/2023. In the ER C. difficile testing did come back positive and he was started on antibiotics and IV fluids. There was some difficulty in maintaining an appropriate blood pressure so he ultimately had a central line and vasopressors were started for blood pressure support. Prior to pressors being started by the ED physician states that he was somewhat confused and had diminished mentation. Of note he is supposed be on 5 L nasal cannula but when he was found by EMS at the group home he did not have any oxygen on and so he was significantly hypoxic down to 80% however once he was placed back on oxygen he recovered very quickly and ABG that was obtained while here in the ER was unremarkable. [facility] Medical History Anxiety DVT (deep venous thrombosis) Former smoker On home oxygen therapy Wears hearing aid in both ears Home Medications atenolol 25 mg tablet 25 mg PO DAILY BP 08/23/15 [History Last Taken 09/18/15 04:45] acetaminophen 500 mg tablet 1,000 mg PO Q8H PRN Pain Or Fever 06/26/19 [History Last Taken Unknown] Emollient Combination No.72 [Eucerin Intensive Repair] 1 applic topical 4X/DAY PRN PRN DRY SKIN 07/07/19 [Rx Last Taken Unknown] furosemide 20 mg tablet 20 mg PO DAILY Excess fluid #30 tabs 07/07/19 [Rx Last Taken Unknown] gabapentin 600 mg tablet 600 mg PO QHS neuropathy #30 tabs 07/07/19 [Rx Last Taken Unknown] mirtazapine 15 mg tablet 15 mg PO QHS sleep #30 tabs 07/07/19 [Rx Last Taken Unknown] polyethylene glycol 3350 17 gram oral powder packet 17 g PO DAILY bowels #30 packets 07/07/19 [Rx Last Taken Unknown] potassium chloride 20 mEq tablet,extended release(part/cryst) 20 meq PO DAILY supplement #30 tabs 07/07/19 [Rx Last Taken Unknown] cholecalciferol (vitamin D3) 50 mcg (2,000 unit) capsule (Vitamin D3) 2,000 unit PO DAILY SEE PCP 03/21/23 [History Last Taken Unknown] colestipol 1 gram tablet 1 g PO BID HYPERCHOLESTEROLEMIA 03/21/23 [History Last Taken Unknown] docusate sodium 100 mg capsule (Colace) 100 mg PO BID constipation 03/21/23 [History Last Taken Unknown] lisinopril 5 mg tablet 5 mg PO DAILY Essential Hypertension 03/21/23 [History Last Taken Unknown] pantoprazole 40 mg tablet,delayed release 40 mg PO DAILY GERD 03/21/23 [History Last Taken Unknown] sertraline 100 mg tablet 150 mg PO DAILY DEPRESSION 03/21/23 [History Last Taken Unknown] ferrous sulfate 325 mg (65 mg iron) tablet (FeroSul) 325 mg PO DAILY Fracture of lower end of left femur 30 days #30 tabs 03/26/23 [Rx Last Taken Unknown] tramadol 50 mg tablet 50 mg PO TID PRN PRN Pain Score 4-10 7 days #21 tabs 03/26/23 [Rx Last Taken Unknown] ipratropium 0.5 mg-albuterol 3 mg (2.5 mg base)/3 mL nebulization soln 3 ml inhalation Q6H PRN shortness of breath 04/16/23 [History Last Taken Unknown] nut tx, lact-reduced, iron 0.09 gram-2.25 kcal/mL oral liquid (Boost VHC) 120 ml PO TID 04/16/23 [History Last Taken Unknown] vit C 250 mg-vit E 200 unit-zinc ox 12.5 [id number] capsule (ICaps AREDS2) 1 cap PO DAILY 04/16/23 [History Last Taken Unknown] Allergy/AdvReac Type Severity Reaction Status Date / Time No Known Allergies Allergy Verified 04/16/23 08:52 Family History Other Cancer Heart disease Surgical History Status post left hip replacement Social History Smoking Status: Former smoker ROS Constitutional Constitutional: Denies chills, fatigue, fever(s) or malaise Eyes Eyes: Denies blurry vision ENT HEENT: Denies headache(s) or nasal discharge Cardiovascular Cardiovascular: Denies chest pain, dyspnea on exertion or syncope Respiratory/Chest Respiratory/Chest: Denies cough, shortness of breath at rest or shortness of breath with exertion Gastrointestinal Gastrointestinal: Reports abdominal pain, diarrhea, nausea and vomiting; Denies constipation Genitourinary Genitourinary: Denies dysuria Neurologic Neurologic: Denies focal weakness, numbness or tremor(s) Psychiatric Psychiatric: Denies anxiety or depression Vital Signs Vital Signs Vital Signs: 04/19/23 12:23 04/19/23 12:27 04/19/23 12:32 Temperature 97.7 F L Temperature Source Temporal Pulse Rate 114 H 110 H Respiratory Rate 22 H 20 H Respiratory Depth Shallow Respiratory Pattern Tachypnea Blood Pressure 90/67 86/59 L Blood Pressure Mean 74 68 Blood Pressure Source Pulse Ox 78 90 Oxygen Delivery Method Room Air Nasal Cannula Nasal Cannula Oxygen Flow Rate (L/min) 7 7 Fraction of Inspired Oxygen (FIO2) 04/19/23 12:33 04/19/23 12:35 04/19/23 13:10 Temperature Temperature Source Pulse Rate 108 H 97 Respiratory Rate 21 H 18 Respiratory Depth Respiratory Pattern Blood Pressure 86/59 L Blood Pressure Mean 68 Blood Pressure Source Pulse Ox 91 94 97 Oxygen Delivery Method Venturi Mask Venturi Mask Venturi Mask Oxygen Flow Rate (L/min) 12 12 Fraction of Inspired Oxygen (FIO2) 50 50 04/19/23 13:20 04/19/23 14:29 04/19/23 15:00 Temperature 97 F L 98.2 F 98.6 F Temperature Source Temporal Oral Temporal Pulse Rate 97 92 89 Respiratory Rate 18 16 17 Respiratory Depth Respiratory Pattern Blood Pressure 86/57 L 93/60 100/62 Blood Pressure Mean 66 71 74 Blood Pressure Source Pulse Ox 97 98 99 Oxygen Delivery Method Venturi Mask Venturi Mask Venturi Mask Oxygen Flow Rate (L/min) Fraction of Inspired Oxygen (FIO2) 50 50 04/19/23 15:41 04/19/23 16:00 04/19/23 16:36 Temperature 98.6 F 98.6 F Temperature Source Temporal Temporal Pulse Rate 89 88 88 Respiratory Rate 18 21 H 14 Respiratory Depth Respiratory Pattern Blood Pressure 100/62 87/63 L 102/68 Blood Pressure Mean 74 71 79 Blood Pressure Source Pulse Ox 99 98 97 Oxygen Delivery Method Venturi Mask Venturi Mask Venturi Mask Oxygen Flow Rate (L/min) Fraction of Inspired Oxygen (FIO2) 50 50 50 04/19/23 16:51 04/19/23 17:45 04/19/23 18:00 Temperature 98.5 F Temperature Source Temporal Pulse Rate 82 89 92 Respiratory Rate 20 H 23 H 23 H Respiratory Depth Respiratory Pattern Blood Pressure 113/70 123/72 H 111/76 Blood Pressure Mean 84 89 87 Blood Pressure Source Monitor Monitor Pulse Ox 100 100 97 Oxygen Delivery Method Venturi Mask Nasal Cannula Oxygen Flow Rate (L/min) 12 5 Fraction of Inspired Oxygen (FIO2) 50 04/19/23 18:15 Temperature Temperature Source Pulse Rate 92 Respiratory Rate 23 H Respiratory Depth Respiratory Pattern Blood Pressure 131/76 H Blood Pressure Mean 94 Blood Pressure Source Monitor Pulse Ox 97 Oxygen Delivery Method Nasal Cannula Oxygen Flow Rate (L/min) 5 Fraction of Inspired Oxygen (FIO2) Weight Weight: 111 lb 9 oz Body Mass Index (BMI) 18.6 Physical Exam Narrative General: Alert, Oriented x3, Cooperative, No apparent distress HEENT: Atraumatic, PERRLA, EOMI, Normocephalic, hard of hearing Oral: Dry mucosa Neck: Supple, No JVD Lungs: Diminished, Normal air movement, No rhonchi, No wheeze, No rales Cardiovascular: Regular rate, Regular Rhythm, Normal S1, Normal S2, No murmurs Abdomen: Soft, mild tender, Non-Distended, No Hepato-splenomegaly Extremities: No edema, Capillary Refill Less than 3 Seconds Skin: No rashes, No breakdown Musculoskeletal: No Tenderness to Palpation of Joints or Extremities Neurological: Moves all extremities, no focal findings, Sensory exam intact to light touch and pain Psych/Mental Status: Normal Affect, Appropriate Results Lab / Micro Data 04/19/23 12:30 04/19/23 12:30 Labs: Laboratory Results - last 24 hr 04/19/23 12:30: WBC 23.5 H, RBC 3.66 L, Hgb 10.3 L, Hct 32.6 L, MCV 89.1, MCH 28.1, MCHC 31.6 L, RDW Std Deviation 55.0 H, RDW Coeff of Isai 17.0 H, Plt Count 636 H, MPV 8.2, Immature Gran % (Auto) 1.200 H, Neut % (Auto) 85.0 H, Lymph % (Auto) 5.7 L, [place] % (Auto) 6.0, Eos % (Auto) 1.7, Baso % (Auto) 0.4, Absolute Neuts (auto) 19.9 H, Absolute Lymphs (auto) 1.34, Nucleated RBC % 0, PT 13.4, INR 1.0, APTT 25.5, Sodium 130 L, Potassium 4.7, Chloride 98, Carbon Dioxide 28.0, Anion Gap 4 L, BUN 23 H, Creatinine 1.08, Estim Creat Clear Calc 37.42, Est GFR (MDRD) Af Amer 83, Est GFR (MDRD) Non-Af 69, BUN/Creatinine Ratio 21.3 H , Glucose 120 H, Lactic Acid 1.9, Calcium 9.2, Total Bilirubin 0.30, AST 19, ALT 22, Alkaline Phosphatase 138 H, Total Protein 8.3 H, Albumin 2.2 L, Globulin 6.1 H, Albumin/Globulin Ratio 0.4 L 04/19/23 12:55: Urine Color Yellow, Urine Clarity Clear, Urine pH 6.0, Ur Specific [place] 1.015, Urine Protein 15 H, Urine Glucose (UA) Normal, Urine Ketones Negative, Urine Occult Blood 50 H, Urine Nitrite Positive H, Urine Bilirubin Negative, Urine Urobilinogen Normal, Ur Leukocyte Esterase 500 H, Urine RBC 0 SEEN, Urine WBC 0-5 SEEN, Ur Squamous Epith Cells 0 SEEN, Urine Bacteria 0 SEEN, Urine Mucus 0 SEEN Micro: Microbiology 04/19/23 14:00 Stool Enteric Bacteriology - Final 04/19/23 14:00 Stool Stool Lactoferrin - Final 04/19/23 14:00 Stool C. difficile GDH Antigen & Toxins - Final 04/19/23 14:00 Stool C. difficile DNA Amplification - Final ABG Data ABG results: ABG 04/19/23 12:48 Specimen Type ART Sample Site R Radial pH 7.40 Bicarbonate Actual 24.9 Total CO2 26 Base Excess 0 O2 Saturation 95 O2 % 12.0 ABG pCO2 40.5 ABG pO2 77 Tommie Test Positive O2 Delivery Device Venti Mask Vent Mode Not entered Imagaing Radiology Impression Chest X-Ray 04/19/23 12:33 IMPRESSION: Chronic interstitial changes with bibasilar atelectasis, and small effusions. Electronically Signed: Gio Urrutia MD at 14:15 EST , Assessment & Plan Assessment/Plan (1) C. difficile colitis: PLAN: Plan 1. C. difficile colitis with hypovolemic shock ? Does not qualify for septic shock secondary to insurance otherwise we will treat like septic shock with antibiotics IV fluids and pressors ? Will continue with p.o. vancomycin and IV Flagyl given the fact that this is his second hospitalized episode of C. difficile in the last couple months ? Previous C. difficile test in our system was negative however this 1 today came back positive for antigen and PCR but negative for toxin production ? Continue with Levophed and IV fluids, will hold his high blood pressure medications ? Initially on admission he was hypoxic because he was not on his baseline oxygen and a little bit confused, at that time ABG was unremarkable. He is back down to his normal oxygen requirements so this was just a transient episode and not currently complicating his care 2. HTN/HLD ? Blood pressures are low and he is currently on pressor support ? Will hold his home blood pressure medications ? We will monitor make adjustments as necessary ? Continue with colestipol 3. Iron deficiency anemia ? This is chronic, will continue with his iron supplementation ? Hemoglobin level is 10.3 which is consistent with his baseline 4. Anxiety/depression ? Stable ? Continue with his home medications 5. GERD ? Stable ? Continue with PPI DVT: Lovenox Charges/Coding Visit Charges Inpatient E&M: 42164 Init Hosp L3
[2023-04-19] MEDS: 0.9% Normal Saline (1000mL) 1,000 ML 100 ML IV (19:58)
[2023-04-19] MEDS: TITRATION PARAMETER CHANGE 1 EACH IV (19:59)
[2023-04-19] MEDS: Gabapentin 600 MG Tablet PO (21:29)
[2023-04-19] MEDS: Mirtazapine 15 MG Tablet PO (21:30)
[2023-04-20] VITALS (27 sets, daily range): BP systolic 77–128; BP diastolic 52–90; PULSE 80–95; RESP 16–27; TEMP 36.6–37.1; O2SAT 90–100; BMI 18.9
[2023-04-20] MEDS: oxyCODONE 5 MG Tablet PO ×3 (00:42→20:15)
[2023-04-20] MEDS: Vancomycin 125 MG/5 ML Susp PO.SYRINGE PO ×5 (01:16→23:38)
[2023-04-20] MEDS: 0.9% Saline Lock 10 ML Syringe IV ×4 (04:17→23:38)
[2023-04-20 04:29] LABS: Absolute Lymphocyte Count 1.55 X10^3/uL (0.83-4.51); Absolute Neutrophil Count 17.8 X10^3/uL (2.0-7.7); Basophil# 0.06 X10^3/uL; Basophil% 0.3 % (0-1); Eosinophil# 0.23 X10^3/uL; Eosinophils% 1.1 % (0-5); Hematocrit 23.3 % (40-54); Hemoglobin 7.2 g/dL (13.0-16.5); Lymphocyte # 1.55 X10^3/ul (0.83-4.51); Lymphocyte % 7.4 % (19-41); Mean Corp Hgb Conc 30.9 g/dL (32-36); Mean Corpuscular Hgb 28.3 pg (27.0-32.0); Mean Corpuscular Volume 91.7 fL (80-94); Mean Platelet Vol. 8.2 fl (6.2-12.0); Monocyte# 1.03 X10^3/uL; Monocyte% 4.9 % (0-10); NRBC Flagged by Analyzer 0 % (0-5); Neutrophil # 17.77 X10^3/uL (2.7-7.7); Neutrophil % 85.3 % (47-70); Platelet Count 380 K/mm3 (150-450); RBC Distribution Width SD 56.8 fl (35.1-43.9); Red Blood Count 2.54 M/mm3 (4.6-6.2); White Blood Count 20.9 K/mm3 (4.4-11.0)
[2023-04-20 04:52] LABS: Anion Gap 8 (5-15); BUN 18 mg/dL (7-18); BUN/Creat Ratio 32.6 RATIO (10-20); Calcium,Total 7.5 mg/dL (8.5-10.1); Chloride 106 mmol/L (98-107); Creatinine, Serum 0.55 mg/dL (0.70-1.30); EST Glomerular Filtration Rate 149 mL/min (>60); Est Glom Filt Rate - Afr Amer 180 mL/min (>60); Estimated Creatinine Clearance 37.25 ml/min; Glucose 83 mg/dL (74-106); Potassium 3.8 mmol/L (3.5-5.1); Sodium Level 137 mmol/L (136-145)
[2023-04-20] MEDS: metroNIDAZOLE 500 MG/100 ML BAG 100 MG IV ×3 (05:56→20:15)
--- NOTE | 2023-04-20 07:22 | PN.HOSP_ITS ---
Reason for Visit Reason for Visit: Diagnoses Enterocolitis due to Clostridium difficile, not specified as recurrent ( 3) Subjective Subjective Patient is an 87-year-old gentleman resident at [facility] brought in with shortness of breath, fever abdominal discomfort as well as diarrhea. Patient tested positive for C. difficile and was found to be hypotensive in the ED resuscitated with IV fluid and subsequently started on Levophed admitted to the intensive care unit for further management Objective Data Objective Data Vital Signs: Vital Signs Temp Pulse Resp BP Pulse Ox O2 Del Method O2 Flow Rate 98.6 F 80 23 H 94/58 L 96 Nasal Cannula 6 04/20/23 04:00 04/20/23 07:00 04/20/23 07:00 04/20/23 07:00 04/20/23 07:00 04/20/23 07:00 04/20/23 07:00 FiO2 50 04/19/23 17:45 Oxygen Flow Rate (L/min) 6 Oxygen Delivery Method Nasal Cannula Weight: 51.5 kg Body Mass Index (BMI) 18.9 Intake & Output: Intake and Output for Last 24 Hours 04/18/23 04/19/23 04/20/23 23:59 23:59 23:59 Intake Total 2293.16 / 3093.16 900 / 900 Output Total 300 / 300 350 / 350 Balance 1993.16 / 2793.16 550 / 550 Lab / Micro Data 04/20/23 04:08 04/20/23 04:08 Labs: Laboratory Results - last 24 hr 04/19/23 12:30: WBC 23.5 H, RBC 3.66 L, Hgb 10.3 L, Hct 32.6 L, MCV 89.1, MCH 28.1, MCHC 31.6 L, RDW Std Deviation 55.0 H, RDW Coeff of Isai 17.0 H, Plt Count 636 H, MPV 8.2, Immature Gran % (Auto) 1.200 H, Neut % (Auto) 85.0 H, Lymph % (Auto) 5.7 L, [place] % (Auto) 6.0, Eos % (Auto) 1.7, Baso % (Auto) 0.4, Absolute Neuts (auto) 19.9 H, Absolute Lymphs (auto) 1.34, Nucleated RBC % 0, PT 13.4, INR 1.0, APTT 25.5, Sodium 130 L, Potassium 4.7, Chloride 98, Carbon Dioxide 28.0, Anion Gap 4 L, BUN 23 H, Creatinine 1.08, Estim Creat Clear Calc 37.42, Est GFR (MDRD) Af Amer 83, Est GFR (MDRD) Non-Af 69, BUN/Creatinine Ratio 21.3 H , Glucose 120 H, Lactic Acid 1.9, Calcium 9.2, Total Bilirubin 0.30, AST 19, ALT 22, Alkaline Phosphatase 138 H, Total Protein 8.3 H, Albumin 2.2 L, Globulin 6.1 H, Albumin/Globulin Ratio 0.4 L 04/19/23 12:55: Urine Color Yellow, Urine Clarity Clear, Urine pH 6.0, Ur Specific [place] 1.015, Urine Protein 15 H, Urine Glucose (UA) Normal, Urine Ketones Negative, Urine Occult Blood 50 H, Urine Nitrite Positive H, Urine Bilirubin Negative, Urine Urobilinogen Normal, Ur Leukocyte Esterase 500 H, Urine RBC 0 SEEN, Urine WBC 0-5 SEEN, Ur Squamous Epith Cells 0 SEEN, Urine B acteria 0 SEEN, Urine Mucus 0 SEEN 04/20/23 04:08: WBC 20.9 H, RBC 2.54 L, Hgb 7.2 L, Hct 23.3 L, MCV 91.7, MCH 28.3, MCHC 30.9 L, RDW Std Deviation 56.8 H, RDW Coeff of Isai 17.0 H, Plt Count 380, MPV 8.2, Immature Gran % (Auto) 1.000 H, Neut % (Auto) 85.3 H, Lymph % (Auto) 7.4 L, [place] % (Auto) 4.9, Eos % (Auto) 1.1, Baso % (Auto) 0.3, Absolute Neuts (auto) 17.8 H, Absolute Lymphs (auto) 1.55, Nucleated RBC % 0, Sodium 137, Potassium 3.8, Chloride 106, Carbon Dioxide 23.0, Anion Gap 8, BUN 18, Creatinine 0.55 L, Estim Creat Clear Calc 37.25, Est GFR (MDRD) Af Amer 180, Est GFR (MDRD) Non-Af 149, BUN/Creatinine Ratio 32.6 H, Glucose 83, Calcium 7.5 L Micro: Microbiology 04/19/23 14:00 Stool Enteric Bacteriology - Final 04/19/23 14:00 Stool Stool Lactoferrin - Final 04/19/23 14:00 Stool C. difficile GDH Antigen & Toxins - Final 04/19/23 14:00 Stool C. difficile DNA Amplification - Final ABG Data ABG results: ABG 04/19/23 12:48 Specimen Type ART Sample Site R Radial pH 7.40 Bicarbonate Actual 24.9 Total CO2 26 Base Excess 0 O2 Saturation 95 O2 % 12.0 ABG pCO2 40.5 ABG pO2 77 Tommie Test Positive O2 Delivery Device Venti Mask Vent Mode Not entered Radiography Diagnostic Testing: Radiology Impression Chest X-Ray 04/19/23 12:33 IMPRESSION: Chronic interstitial changes with bibasilar atelectasis, and small effusions. Electronically Signed: Gio Urrutia MD at 14:15 EST , Physical Exam Narrative GENERAL: cooperative HEENT: Atraumatic; normocephalic EYES; Anicteric, Normal Conjunctiva NECK; supple, normal thyroid, RESPIRATORY: Diminished to auscultation CARDIOVASCULAR: Regular S1 S2, GI: soft, normoactive bowel sounds, : No Renal angle tenderness; EXTREMITIES: No edema, no clubbing, MUSCULOSKELETAL: no muscle wasting NEURO: Awake; no lateralizing signs. SKIN: No Rash PSYCH; Flat affect Assessment & Plan Assessment/Plan (1) C. difficile colitis: PLAN: Plan Patient is an 87-year-old gentleman resident at [facility] brought in with shortness of breath, fever abdominal discomfort as well as diarrhea. Patient tested positive for C. difficile and was found to be hypotensive in the ED resuscitated with IV fluid and subsequently started on Levophed admitted to the intensive care unit for further management 1. Acute C. difficile colitis ? Secondary to septic shock (patient met criteria with leukocytosis,Tachypnea as well as presence of endorgan dysfunction evidenced by hypotension necessitating the use of pressors). Patient managed with p.o. vancomycin as well as IV metronidazole and subsequently admitted to the intensive care unit 2. Essential hypertension ? Antihypertensives on hold given patient septic shock 3. Acute hypoxia ? Chest x-ray demonstrated chronic interstitial changes with bibasilar atelectasis and small effusion placed on supplemental oxygen. Patient had recently been treated with for healthcare acquired pneumonia 4. Dyslipidemia ? Patient is on colestipol 5. Anemia - Secondary to chronic disorder monitoring H&H and transfuse if patient becomes symptomatic or hemoglobin falls below 7 6. GERD ? On PPI 7. Depression with anxiety The patient is on sertraline 8. DVT prophylaxis ? SC Lovenox Time spent in the patient's overall evaluation,decision-making process, review of diagnostic data, adjustment of management, discussion with other providers, nursing nursing and ancillary staff involved in patient's care documentation, 50 Minutes Charges/Coding Visit Charges Inpatient E&M: [address] [facility] Hosp L3
--- NOTE | 2023-04-20 07:30 | CON.PCM.CC_ITS ---
Assessment & Plan Assessment/Plan (1) Septic shock: (2) C. difficile colitis: (3) Severe sepsis with acute organ dysfunction: (4) Chronic hypoxemic respiratory failure: PLAN: Plan RECOMMENDATIONS: 1. Encourage p.o. fluid resuscitation 2. Continue p.o. Vanco and IV Flagyl. 3. Possible ID consult given recurrent C. difficile 4. Encourage incentive spirometer 5. PT/OT given hip fracture for range of motion IMPRESSIONS: 1. Septic and hypovolemic shock secondary to C. difficile Patient was placed on pressors overnight, but has responded to fluid resuscitation. Clinical suspicion that increased metabolic demand has led to tachypnea and hypoxia on presentation. Endorgan damage signified by metabolic encephalopathy. This does appear to be improving. Baseline blood pressure medications have been held. 2. Chronic hypoxic respiratory failure Patient on 5 L/min at baseline previously. Imaging studies does show some signs of emphysematous changes. Patient is to be worked up as an outpatient, but has had recurrent hospitalizations. Patient does have a possible lung nodule noted in the apices. Okay to continue with bronchodilators and encourage incentive spirometer. Unfortunately, mobility is limited secondary to hip fracture. 3. Hypertension/hyperlipidemia/iron deficiency anemia/anxiety/depression/debility/recent hip fracture Unfortunately, patient has had multiple hospitalizations in the last 2 months. This has led to significant debility. Patient would benefit from PT/OT. If patient continues to do well during the day, can likely be moved out to the PCU and monitor. Patient is in contact precautions at this time. Patient should keep his hearing aids in place during the day to avoid delirium as he is at high risk. HPI Consult Data Date of Consult: 04/20/23 HPI Narrative Reason for Consultation: Sepsis HPI Narrative: BURKE MUKHERJEE is an 87 M, with past medical history listed below, who presents to [facility] on 04/19/2023 secondary to progressive shortness of breath. Patient reportedly was at a residential and started to develop fever, nausea and diarrhea. Patient had been admitted at [facility] in March secondary to pneumonia and was discharged on 5 L nasal cannula. Patient was noted to have a new lung nodule at that time and there were plans for a repeat CT in May. Patient reportedly had fallen at the end of May and broke his left femur and cannot walk for 3 months. In the ER, patient was afebrile, but tachycardic as high as 114 bpm. Patient was initially tachypneic at 22 breaths/min, but did improve with initiation of supplemental oxygen. Patient then became hypotensive with blood pressures in the 80s over 50s. Laboratory data showed a white blood cell count of 23.5, hemoglobin of 10.3 and platelets of 636. Patient's coagulation studies were within normal limits and chemistries show an elevated bicarbonate of 28 with a creatinine of 1.08 and relatively normal LFTs. UA was unremarkable. An ABG showed compensated metabolic acidosis. Patient was initiated on the sepsis protocol, but remained hypotensive. A central line was placed and patient was initiated on pressors. Since being in the intensive care unit, patient has been able to be taken off of Levophed at approximately 11 PM. Patient is still requiring 5 L nasal cannula to maintain saturations. Patient feels subjectively improved and has been able to be weaned to his 5 L nasal cannula that he was discharged on previously. Patient is reporting some abdominal pain and low back pain. Patient is a very poor historian and unable to provide much additional information. Patient is unaware if he is ever had C. difficile before. Patient was recently on antibiotics secondary to his pneumonia. [facility] Medical History Anxiety DVT (deep venous thrombosis) Former smoker On home oxygen therapy Wears hearing aid in both ears Home Medications atenolol 25 mg tablet 25 mg PO DAILY BP 08/23/15 [History Last Taken 09/18/15 04:45] acetaminophen 500 mg tablet 1,000 mg PO Q8H PRN Pain Or Fever 06/26/19 [History Last Taken Unknown] Emollient Combination No.72 [Eucerin Intensive Repair] 1 applic topical 4X/DAY PRN PRN DRY SKIN 07/07/19 [Rx Last Taken Unknown] furosemide 20 mg tablet 20 mg PO DAILY Excess fluid #30 tabs 07/07/19 [Rx Last Taken Unknown] gabapentin 600 mg tablet 600 mg PO QHS neuropathy #30 tabs 07/07/19 [Rx Last Taken Unknown] mirtazapine 15 mg tablet 15 mg PO QHS sleep #30 tabs 07/07/19 [Rx Last Taken Unknown] polyethylene glycol 3350 17 gram oral powder packet 17 g PO DAILY bowels #30 packets 07/07/19 [Rx Last Taken Unknown] potassium chloride 20 mEq tablet,extended release(part/cryst) 20 meq PO DAILY supplement #30 tabs 07/07/19 [Rx Last Taken Unknown] cholecalciferol (vitamin D3) 50 mcg (2,000 unit) capsule (Vitamin D3) 2,000 unit PO DAILY SEE PCP 03/21/23 [History Last Taken Unknown] colestipol 1 gram tablet 1 g PO BID HYPERCHOLESTEROLEMIA 03/21/23 [History Last Taken Unknown] docusate sodium 100 mg capsule (Colace) 100 mg PO BID constipation 03/21/23 [History Last Taken Unknown] lisinopril 5 mg tablet 5 mg PO DAILY Essential Hypertension 03/21/23 [History Last Taken Unknown] pantoprazole 40 mg tablet,delayed release 40 mg PO DAILY GERD 03/21/23 [History Last Taken Unknown] sertraline 100 mg tablet 150 mg PO DAILY DEPRESSION 03/21/23 [History Last Taken Unknown] ferrous sulfate 325 mg (65 mg iron) tablet (FeroSul) 325 mg PO DAILY Fracture of lower end of left femur 30 days #30 tabs 03/26/23 [Rx Last Taken Unknown] tramadol 50 mg tablet 50 mg PO TID PRN PRN Pain Score 4-10 7 days #21 tabs 03/26/23 [Rx Last Taken Unknown] ipratropium 0.5 mg-albuterol 3 mg (2.5 mg base)/3 mL nebulization soln 3 ml inhalation Q6H PRN shortness of breath 04/16/23 [History Last Taken Unknown] nut tx, lact-reduced, iron 0.09 gram-2.25 kcal/mL oral liquid (Boost VHC) 120 ml PO TID 04/16/23 [History Last Taken Unknown] vit C 250 mg-vit E 200 unit-zinc ox 12.5 ru-gctxxj-vkwuto-zeax capsule (ICaps AREDS2) 1 cap PO DAILY 04/16/23 [History Last Taken Unknown] Allergy/AdvReac Type Severity Reaction Status Date / Time No Known Allergies Allergy Verified 04/16/23 08:52 Family History Other Cancer Heart disease Surgical History Status post left hip replacement Social History Smoking Status: Former smoker ROS ROS Narrative Very poor historian but is very hard of hearing. Physical Exam Const alert, oriented x3 and no apparent distress Constitutional Narrative: Appears debilitated General Appearance: cooperative and comfortable HEENT normocephalic, head/scalp atraumatic, nasal mucous membranes and turbinates normal and moist oral mucous membranes HEENT Narrative: Very hard of hearing. Eyes PERRL, EOMs intact bilaterally and conjunctivae normal Neck full ROM, no lymphadenopathy and supple Lymph Lymphatic: no lymphadenopathy noted Chest inspection of chest normal Resp no use of accessory muscles Auscultation: diminished lung sounds; Negative for rales, rhonchi or wheezes Cardio regular rate, regular rhythm, no murmurs, no rub and no gallops GI normal to inspection, nondistended, normoactive bowel sounds, soft to palpation, non-tender and non-distended Extremity normal to inspection and no pedal edema Skin no rashes or lesions noted Neuro Neuro Narrative: Significant hearing loss. Moves all extremities Psych mental status grossly normal Medical Records Data Attestation: I reviewed the patient's medical records Lab / Micro Data Attestation: I reviewed the patient's lab results. 04/20/23 04:08 04/20/23 04:08 Labs: Laboratory Results - last 24 hr 04/19/23 12:30: WBC 23.5 H, RBC 3.66 L, Hgb 10.3 L, Hct 32.6 L, MCV 89.1, MCH 28.1, MCHC 31.6 L, RDW Std Deviation 55.0 H, RDW Coeff of Isai 17.0 H, Plt Count 636 H, MPV 8.2, Immature Gran % (Auto) 1.200 H, Neut % (Auto) 85.0 H, Lymph % (Auto) 5.7 L, [place] % (Auto) 6.0, Eos % (Auto) 1.7, Baso % (Auto) 0.4, Absolute Neuts (auto) 19.9 H, Absolute Lymphs (auto) 1.34, Nucleated RBC % 0, PT 13.4, INR 1.0, APTT 25.5, Sodium 130 L, Potassium 4.7, Chloride 98, Carbon Dioxide 28.0, Anion Gap 4 L, BUN 23 H, Creatinine 1.08, Estim Creat Clear Calc 37.42, Est GFR (MDRD) Af Amer 83, Est GFR (MDRD) Non-Af 69, BUN/Creatinine Ratio 21.3 H , Glucose 120 H, Lactic Acid 1.9, Calcium 9.2, Total Bilirubin 0.30, AST 19, ALT 22, Alkaline Phosphatase 138 H, Total Protein 8.3 H, Albumin 2.2 L, Globulin 6.1 H, Albumin/Globulin Ratio 0.4 L 04/19/23 12:55: Urine Color Yellow, Urine Clarity Clear, Urine pH 6.0, Ur Specific [place] 1.015, Urine Protein 15 H, Urine Glucose (UA) Normal, Urine Ketones Negative, Urine Occult Blood 50 H, Urine Nitrite Positive H, Urine Bilirubin Negative, Urine Urobilinogen Normal, Ur Leukocyte Esterase 500 H, Urine RBC 0 SEEN, Urine WBC 0-5 SEEN, Ur Squamous Epith Cells 0 SEEN, Urine Bacteria 0 SEEN, Urine Mucus 0 SEEN 04/20/23 04:08: WBC 20.9 H, RBC 2.54 L, Hgb 7.2 L, Hct 23.3 L, MCV 91.7, MCH 28.3, MCHC 30.9 L, RDW Std Deviation 56.8 H, RDW Coeff of Isai 17.0 H, Plt Count 380, MPV 8.2, Immature Gran % (Auto) 1.000 H, Neut % (Auto) 85.3 H, Lymph % (A uto) 7.4 L, [place] % (Auto) 4.9, Eos % (Auto) 1.1, Baso % (Auto) 0.3, Absolute Neuts (auto) 17.8 H, Absolute Lymphs (auto) 1.55, Nucleated RBC % 0, Sodium 137, Potassium 3.8, Chloride 106, Carbon Dioxide 23.0, Anion Gap 8, BUN 18, Creatinine 0.55 L, Estim Creat Clear Calc 37.25, Est GFR (MDRD) Af Amer 180, Est GFR (MDRD) Non-Af 149, BUN/Creatinine Ratio 32.6 H, Glucose 83, Calcium 7.5 L Micro: Microbiology 04/19/23 14:00 Stool Enteric Bacteriology - Final 04/19/23 14:00 Stool Stool Lactoferrin - Final 04/19/23 14:00 Stool C. difficile GDH Antigen & Toxins - Final 04/19/23 14:00 Stool C. difficile DNA Amplification - Final ABG Data ABG results: ABG 04/19/23 12:48 Specimen Type ART Sample Site R Radial pH 7.40 Bicarbonate Actual 24.9 Total CO2 26 Base Excess 0 O2 Saturation 95 O2 % 12.0 ABG pCO2 40.5 ABG pO2 77 Tommie Test Positive O2 Delivery Device Venti Mask Vent Mode Not entered Attestation: I personally reviewed and interpreted this ABG as follows: (See HPI) Imagaing Radiology Impression Chest X-Ray 04/19/23 12:33 IMPRESSION: Chronic interstitial changes with bibasilar atelectasis, and small effusions. Electronically Signed: Gio Urrutia MD at 14:15 EST , Charges/Coding Visit Charges Inpatient E&M: 84611 Init Hosp L3
[2023-04-20] MEDS: Colestipol 1 GM TABLET PO (08:20)
[2023-04-20] MEDS: 0.9% Normal Saline (1000mL) 1,000 ML 100 ML IV (09:16)
[2023-04-20] MEDS: Enoxaparin 40 MG/0.4 ML Syringe SC (10:35)
[2023-04-20] MEDS: Sertraline 50 MG Tablet 150 MG PO (10:36)
[2023-04-20] MEDS: Pantoprazole Sodium 40 MG Tablet PO (10:36)
[2023-04-20] MEDS: Ferrous Sulfate 325 MG Tablet PO (12:25)
[2023-04-20] MEDS: Ensure Plus High Protein 120 ML LIQUID PO (17:53)
[2023-04-20] MEDS: Furosemide 20 MG/2 ML VIAL IV (18:25)
[2023-04-20] MEDS: Gabapentin 600 MG Tablet PO (20:15)
[2023-04-20] MEDS: Mirtazapine 15 MG Tablet PO (20:16)
[2023-04-20] MEDS: Morphine 2 MG/ML Syringe IV (23:38)
[2023-04-21] VITALS (23 sets, daily range): BP systolic 82–127; BP diastolic 50–85; PULSE 75–99; RESP 16–25; TEMP 36–37; O2SAT 90–95; BMI 19.1
[2023-04-21 03:06] LABS: Absolute Lymphocyte Count 2.11 X10^3/uL (0.83-4.51); Absolute Neutrophil Count 11.3 X10^3/uL (2.0-7.7); Basophil# 0.05 X10^3/uL; Basophil% 0.3 % (0-1); Eosinophil# 0.27 X10^3/uL; Eosinophils% 1.8 % (0-5); Hematocrit 24.6 % (40-54); Hemoglobin 7.4 g/dL (13.0-16.5); Lymphocyte # 2.11 X10^3/ul (0.83-4.51); Lymphocyte % 14.2 % (19-41); Mean Corp Hgb Conc 30.1 g/dL (32-36); Mean Corpuscular Hgb 28.2 pg (27.0-32.0); Mean Corpuscular Volume 93.9 fL (80-94); Mean Platelet Vol. 8.1 fl (6.2-12.0); Monocyte# 0.94 X10^3/uL; Monocyte% 6.3 % (0-10); NRBC Flagged by Analyzer 0 % (0-5); Neutrophil # 11.26 X10^3/uL (2.7-7.7); Neutrophil % 76.2 % (47-70); Platelet Count 366 K/mm3 (150-450); RBC Distribution Width SD 57.9 fl (35.1-43.9); Red Blood Count 2.62 M/mm3 (4.6-6.2); White Blood Count 14.8 K/mm3 (4.4-11.0)
[2023-04-21 03:20] LABS: Anion Gap 9 (5-15); BUN 12 mg/dL (7-18); BUN/Creat Ratio 23.2 RATIO (10-20); Calcium,Total 7.9 mg/dL (8.5-10.1); Chloride 104 mmol/L (98-107); Creatinine, Serum 0.52 mg/dL (0.70-1.30); EST Glomerular Filtration Rate 160 mL/min (>60); Est Glom Filt Rate - Afr Amer 194 mL/min (>60); Estimated Creatinine Clearance 38.35 ml/min; Glucose 65 mg/dL (74-106); Magnesium 1.6 mg/dL (1.6-2.6); Phosphorus 2.4 mg/dL (2.5-4.9); Potassium 3.6 mmol/L (3.5-5.1); Sodium Level 135 mmol/L (136-145)
[2023-04-21] MEDS: Vancomycin 125 MG/5 ML Susp PO.SYRINGE PO ×4 (05:44→22:56)
[2023-04-21] MEDS: oxyCODONE 5 MG Tablet PO (05:44)
[2023-04-21] MEDS: metroNIDAZOLE 500 MG/100 ML BAG 100 MG IV ×3 (05:44→20:21)
--- NOTE | 2023-04-21 07:53 | PN.HOSP_ITS ---
Reason for Visit Reason for Visit: Fever/nausea/diarrhea Subjective Subjective Mr. Ho is an 87-year-old male who was brought to [facility] from a local alf facility on 04/19/2023 due to developing fever, nausea, and diarrhea. The patient had a recent hospitalization in March secondary to pneumonia and was discharged on antibiotics as well as 5 L nasal cannula. In the emergency department he was afebrile but tachycardic and tachypneic. The patient then became hypotensive with blood pressure at 80 over 50s and his CBC showed a white count of 23.5, hemoglobin of 10.3 and platelets of 636,000. His coag studies were unremarkable and his chemistry panel showed a mildly elevated serum bicarbonate at 28 and serum creatinine of 1.08 with normal LFTs. His UA was unremarkable. His ABG showed a compensated metabolic aci dosis. Sepsis protocol was initiated with fluid boluses however the patient remained hypotensive and a central line was placed and he was initiated on pressors. He was admitted to the ICU and placed on broad-spectrum antibiotics. Stool studies were obtained and he was found to be C. difficile positive. His urine culture really is currently growing possible Pseudomonas as well. Blood cultures remain pending. He is now off Levophed and has been so since 04/19/2020 3 in the evening. No issues overnight, patient is currently sleeping soundly. Objective Data Objective Data Vital Signs: Vital Signs Temp Pulse Resp BP Pulse Ox O2 Del Method O2 Flow Rate 98.4 F 82 18 85/56 L 90 Nasal Cannula 2 04/21/23 04:00 04/21/23 07:00 04/21/23 07:00 04/21/23 07:00 04/21/23 07:28 04/21/23 07:28 04/21/23 07:28 FiO2 50 04/19/23 17:45 Oxygen Flow Rate (L/min) 2 Oxygen Delivery Method Nasal Cannula Weight: 52.1 kg Body Mass Index (BMI) 19.1 Intake & Output: Intake and Output for Last 24 Hours 04/19/23 04/20/23 04/21/23 23:59 23:59 23:59 Intake Total 2293.16 / 3093.16 3470 / 3470 200 / 200 Output Total 300 / 300 800 / 1300 875 / 875 Balance 1992.16 / 3.16 2670 / 2170 -675 / -675 Medical Nutrition Assessment Dietitian: Malnutrition Criteria Met Start: 04/20/23 09:32 Freq: Status: Active Protocol: Document 04/20/23 09:32 AG (Rec: 04/20/23 09:32 AG Desktop) Nutrition Malnutrition Evidence of Malnutrition Exists Yes Malnutrition (severe): Acute Illness/Injury Evidenced By Suboptimal Energy Intake ( Severe),Weight Loss (Severe) Clinical Problem Acute Disease or Injury Related Malnutrition Etiology severe, acute malnutrition related to inadequate energy intake w/ GI dysfunction Signs/Symptoms as evidenced by unintentional 11% wt loss < 1 month, estimated PO intake meeting < 50% of estimated energy needs, BMI 18.9 Status Active Problem Recommendation Dietitian Recommendations/Changes continue regular diet as tolerated- texture/consistency per DIRECTOR INDEX; ensure plus high protein 120mL TID for additional nutrition if consumed Lab / Micro Data 04/21/23 03:00 04/21/23 03:00 Labs: Laboratory Results - last 24 hr 04/21/23 03:00: WBC 14.8 H, RBC 2.62 L, Hgb 7.4 L, Hct 24.6 L, MCV 93.9, MCH 28.2, MCHC 30.1 L, RDW Std Deviation 57.9 H, RDW Coeff of Isai 17.0 H, Plt Count 366, MPV 8.1, Immature Gran % (Auto) 1.200 H, Neut % (Auto) 76.2 H, Lymph % (Auto) 14.2 L, [place] % (Auto) 6.3, Eos % (Auto) 1.8, Baso % (Auto) 0.3, Absolute Neuts (auto) 11.3 H, Absolute Lymphs (auto) 2.11, Nucleated RBC % 0, Sodium 135 L, Potassium 3.6, Chloride 104, Carbon Dioxide 22.0, Anion Gap 9, BUN 12, Creatinine 0.52 L, Estim Creat Clear Calc 38.35, Est GFR (MDRD) Af Amer 194, Est GFR (MDRD) Non-Af 160, BUN/Creatinine Ratio 23.2 H, Glucose 65 L, Calcium 7.9 L, Phosphorus 2.4 L, Magnesium 1.6 Micro: Microbiology 04/19/23 14:00 Stool Stool Lactoferrin - Final 04/19/23 14:00 Stool C. difficile GDH Antigen & Toxins - Final 04/19/23 14:00 Stool C. difficile DNA Amplification - Final 04/19/23 12:55 Urine, Catheterized Urine Culture - Preliminary GNR Poss Pseudomonas sp 04/19/23 14:00 Stool Enteric Bacteriology - Final Physical Exam Const no apparent distress and average body habitus Constitutional Narrative: elderly white male, lying in bed, sleeping soundly, appears comfortable HEENT head/scalp atraumatic Head and Scalp: normocephalic Eyes Negative for conjunctivae normal Eyes Narrative: Mild conjunctival pallor bilaterally, no scleral icterus Neck no lymphadenopathy and supple Neck Narrative: Trachea midline, no thyroid enlargement Resp normal respiratory effort, no retractions and no use of accessory muscles Resp Narrative: Few scattered rhonchi, comfortable on 2 L nasal cannula Auscultation: rhonchi Cardio regular rate, regular rhythm, S1 normal heart sound, S2 normal heart sound, no murmurs, no rub, no gallops and no clicks GI normal to inspection, nondistended, normoactive bowel sounds, soft to palpation and non-tender Extremity no clubbing, cyanosis or edema Extremity Narrative: Pedal pulses are 2+, Skin skin turgor normal, no jaundice, no petechiae and no mottling Skin Narrative: skin is dry and flaky on legs bilaterally, pale Neuro Neuro Narrative: Sleeping soundly so unable to assess Psych Psych Narrative: Unable to assess due to sleeping Assessment & Plan Assessment/Plan (1) Septic shock: (2) C. difficile colitis: (3) Pseudomonas urinary tract infection: (4) Leukocytosis: (5) Encephalopathy acute: (6) Chronic hypoxemic respiratory failure: (7) Severe malnutrition: PLAN: Plan Septic shock/hypovolemic shock secondary to C. difficile colitis/pseudomonal UTI -Patient did not respond to fluids resuscitation and pressors were initiated -Pressors are now discontinued however blood pressures are slightly borderline with maps hovering between 65 and 75 -Start midodrine 10 mg 3 times daily -Continue oral vancomycin and IV Flagyl -Will start IV Zosyn to cover pseudomonal UTI -Will consult ID since this is recurrence Pseudomonal UTI -Zamora counts are greater than 100,000 -Start IV Zosyn -ID consultation as noted above Severe malnutrition -Diet as ordered -Supplements as ordered -Dietitian is following Leukocytosis -White count is trending down with treatment of his C. difficile -Continue to monitor Toxic/metabolic encephalopathy -Should improve with treatment of underlying infection -continue to monitor Chronic hypoxic respiratory failure -Patient with recent admission in March and diagnosed with pneumonia -Discharged on 5 L at that point -Oxygen has been weaned to 2 L -Will need ambulatory pulse ox prior to discharge -Recommended pulmonary medicine follow-up after discharge Chronic anemia -This is not iron deficiency -Patient had iron studies done in March and iron studies were consistent with anemia of chronic disease -Baseline hemoglobin appears to run between 7 and 8 -Current hemoglobin is 7.4 -Continue to monitor HTN/HPL -Hold home antihypertensives -Okay to restart home oral antihyperlipidemic agents History of DVT -Patient has not anticoagulated at this time -Continue to monitor Neuropathy -Continue home gabapentin GERD -Continue home PPI Depression/insomnia -Continue home mirtazapine DVT prophylaxis -Continue enoxaparin 40 mg daily CODE STATUS -Full code is verified on admission Charges/Coding Visit Charges Inpatient E&M: 66981 [facility] Hosp L3
[2023-04-21] MEDS: Ensure Plus High Protein 120 ML LIQUID PO ×3 (07:56→17:01)
--- NOTE | 2023-04-21 08:35 | PN.CC_ITS ---
Assessment & Plan Assessment/Plan (1) Septic shock: (2) C. difficile colitis: (3) Severe sepsis with acute organ dysfunction: (4) Chronic hypoxemic respiratory failure: PLAN: Plan RECOMMENDATIONS: 1. Agree with initiation of midodrine. 2. Continue antimicrobials as ordered. ID consultation is pending. 3. Encourage incentive spirometer use and mobilize patient as tolerated. 4. Physical therapy to work with the patient. 5. If the patient remains hemodynamically stable today, he can be transferred out of the intensive care unit. IMPRESSIONS: 1. Septic and hypovolemic shock secondary to C. difficile colitis and pseudomonal UTI The patient has improved clinically with IV fluid resuscitation and appropriate antimicrobial therapy. He has been weaned from vasopressor support. Blood pressures remain borderline. Accordingly, midodrine was ordered this morning. Plan to continue current supportive care. Infectious disease consultation will be obtained. 2. Chronic hypoxic respiratory failure The patient reportedly has a baseline supplemental oxygen requirement of 5 L/min. The patient is currently being worked up on an outpatient basis with plans for repeat chest imaging in 6 to 8 weeks on account of the right upper lobe lung nodule. 3. Hypertension/hyperlipidemia/iron deficiency anemia/anxiety/depression/debility/recent hip fracture Complicates care, management, recovery and prognosis. Physical therapy to work with the patient. Continue to hold home antihypertensive therapy. This note was generated with [employer] dictation software. It may contain incorrect words, spelling, and punctuation that were not noted in checking the note before signing. Subjective Subjective The patient was seen and examined at the bedside this morning. Events from the last 24 hours have been reviewed. The patient is currently afebrile, hemodynamically stable and maintaining appropriate oxygen saturations on 2 L/min via nasal cannula. The patient has been weaned off of vasopressor support now for greater than 24 hours. He is documented to be overall net +4 L for the hospitalization. Hemoglobin is stable at 7.4 g/dL. White blood cell count is improving. Objective Data Objective Data The patient's most recent lab work, culture data and imaging studies have all been personally reviewed. Urine culture dated April 19 was positive for pansensitive Pseudomonas aeruginosa. Vital Signs: Vital Signs Temp Pulse Resp BP Pulse Ox O2 Del Method O2 Flow Rate 98.2 F 75 16 111/69 90 Nasal Cannula 2 04/21/23 08:00 04/21/23 08:00 04/21/23 08:00 04/21/23 08:00 04/21/23 08:00 04/21/23 08:00 04/21/23 08:00 FiO2 50 04/19/23 17:45 Oxygen Flow Rate (L/min) 2 Oxygen Delivery Method Nasal Cannula Weight: 114 lb 13.773 oz Body Mass Index (BMI) 19.1 Intake & Output: Intake and Output for Last 24 Hours 04/19/23 04/20/23 04/21/23 23:59 23:59 23:59 Intake Total 2293.16 / 3093.16 3470 / 3470 200 / 200 Output Total 300 / 300 800 / 1300 875 / 875 Balance 1992.16 / 2793.16 2670 / 2170 -675 / -675 Medical Nutrition Assessment Dietitian: Malnutrition Criteria Met Start: 04/20/23 09:32 Freq: Status: Active Protocol: Document 04/20/23 09:32 AG (Rec: 04/20/23 09:32 AG Desktop) Nutrition Malnutrition Evidence of Malnutrition Exists Yes Malnutrition (severe): Acute Illness/Injury Evidenced By Suboptimal Energy Intake ( Severe),Weight Loss (Severe) Clinical Problem Acute Disease or Injury Related Malnutrition Etiology severe, acute malnutrition related to inadequate energy intake w/ GI dysfunction Signs/Symptoms as evidenced by unintentional 11% wt loss < 1 month, estimated PO intake meeting < 50% of estimated energy needs, BMI 18.9 Status Active Problem Recommendation Dietitian Recommendations/Changes continue regular diet as tolerated- texture/consistency per F[employer]ER[employer] 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 04/21/23 03:00 04/21/23 03:00 Labs: Laboratory Results - last 24 hr 04/21/23 03:00: WBC 14.8 H, RBC 2.62 L, Hgb 7.4 L, Hct 24.6 L, MCV 93.9, MCH 28.2, MCHC 30.1 L, RDW Std Deviation 57.9 H, RDW Coeff of Isai 17.0 H, Plt Count 366, MPV 8.1, Immature Gran % (Auto) 1.200 H, Neut % (Auto) 76.2 H, Lymph % (Auto) 14.2 L, [place] % (Auto) 6.3, Eos % (Auto) 1.8, Baso % (Auto) 0.3, Absolute Neuts (auto) 11.3 H, Absolute Lymphs (auto) 2.11, Nucleated RBC % 0, Sodium 135 L, Potassium 3.6, Chloride 104, Carbon Dioxide 22.0, Anion Gap 9, BUN 12, Creatinine 0.52 L, Estim Creat Clear Calc 38.35, Est GFR (MDRD) Af Amer 194, Est GFR (MDRD) Non-Af 160, BUN/Creatinine Ratio 23.2 H, Glucose 65 L, Calcium 7.9 L, Phosphorus 2.4 L, Magnesium 1.6 Micro: Microbiology 04/19/23 12:55 Urine, Catheterized Urine Culture - Final Pseudomonas aeruginosa 04/19/23 14:00 Stool Stool Lactoferrin - Final 04/19/23 14:00 Stool C. difficile GDH Antigen & Toxins - Final 04/19/23 14:00 Stool C. difficile DNA Amplification - Final 04/19/23 14:00 Stool Enteric Bacteriology - Final Physical Exam Const alert and no apparent distress Constitutional Narrative: Frail in appearance. General Appearance: cooperative HEENT normocephalic and head/scalp atraumatic General Ear: hearing grossly impaired Eyes PERRL and EOMs intact bilaterally Neck supple General: trachea midline Chest inspection of chest normal Resp normal respiratory effort Auscultation: Negative for rales, rhonchi or wheezes Cardio regular rate and regular rhythm GI normal to inspection, nondistended, normoactive bowel sounds Extremity no clubbing, cyanosis or edema Skin no rashes or lesions noted Neuro no focal motor deficits Psych Mood & Affect: flat affect Charges/Coding Visit Charges Inpatient E&M: 11832 Subs Hosp L3
[2023-04-21] MEDS: Piperacil/Tazobactam 3.375 GM in 0.9% Normal Saline (50mL MB+) 50 ML IV ×3 (09:02→22:56)
[2023-04-21] MEDS: Enoxaparin 40 MG/0.4 ML Syringe SC (10:07)
[2023-04-21] MEDS: Sertraline 50 MG Tablet 150 MG PO (10:07)
[2023-04-21] MEDS: Pantoprazole Sodium 40 MG Tablet PO (10:07)
[2023-04-21] MEDS: Acetaminophen 325 MG Tablet 650 MG PO (10:50)
[2023-04-21] MEDS: Ferrous Sulfate 325 MG Tablet PO (12:25)
[2023-04-21] MEDS: Midodrine HCl 5 MG Tablet 10 MG PO ×2 (12:27→17:01)
--- NOTE | 2023-04-21 15:52 | CASEMGMT ---
Patient is from [facility]. SW called patient's [facility] and the plan is for patient to return to [facility]. [facility] denied need for a list of local SNF's. Sahra Asher PULVERIZER FEEDERMarco A GUERIN
--- NOTE | 2023-04-21 17:13 | CASEMGMT ---
Discharge Planning Updates sent to [facility]. Mee Ruiz, Discharge Planning Asst.
[2023-04-21] MEDS: Mirtazapine 15 MG Tablet PO (20:21)
[2023-04-21] MEDS: Gabapentin 600 MG Tablet PO (20:21)
[2023-04-22] VITALS (9 sets, daily range): BP systolic 100–127; BP diastolic 66–88; PULSE 71–86; RESP 18–20; TEMP 36.2–36.8; O2SAT 93–100; BMI 19.1
[2023-04-22] MEDS: Vancomycin 125 MG/5 ML Susp PO.SYRINGE PO ×4 (05:04→23:44)
[2023-04-22] MEDS: metroNIDAZOLE 500 MG/100 ML BAG 100 MG IV (05:05)
[2023-04-22 05:31] LABS: Absolute Lymphocyte Count 1.42 X10^3/uL (0.83-4.51); Basophil# 0.07 X10^3/uL; Basophil% 0.5 % (0-1); Eosinophil# 0.29 X10^3/uL; Eosinophils% 2.3 % (0-5); Hematocrit 25.3 % (40-54); Hemoglobin 7.8 g/dL (13.0-16.5); Lymphocyte # 1.42 X10^3/ul (0.83-4.51); Lymphocyte % 11.1 % (19-41); Mean Corp Hgb Conc 30.8 g/dL (32-36); Mean Corpuscular Hgb 28.1 pg (27.0-32.0); Mean Platelet Vol. 8.1 fl (6.2-12.0); Monocyte# 0.92 X10^3/uL; Monocyte% 7.2 % (0-10); NRBC Flagged by Analyzer 0 % (0-5); Neutrophil # 9.97 X10^3/uL (2.7-7.7); Neutrophil % 77.8 % (47-70); Platelet Count 398 K/mm3 (150-450); RBC Distribution Width SD 56.3 fl (35.1-43.9); Red Blood Count 2.78 M/mm3 (4.6-6.2); White Blood Count 12.8 K/mm3 (4.4-11.0)
[2023-04-22 05:46] LABS: Anion Gap 8 (5-15); BUN 11 mg/dL (7-18); BUN/Creat Ratio 18.7 RATIO (10-20); Calcium,Total 7.9 mg/dL (8.5-10.1); Chloride 105 mmol/L (98-107); Creatinine, Serum 0.59 mg/dL (0.70-1.30); EST Glomerular Filtration Rate 139 mL/min (>60); Est Glom Filt Rate - Afr Amer 168 mL/min (>60); Glucose 83 mg/dL (74-106); Magnesium 1.6 mg/dL (1.6-2.6); Potassium 3.4 mmol/L (3.5-5.1); Sodium Level 137 mmol/L (136-145)
[2023-04-22 06:07] LABS: Phosphorus 2.1 mg/dL (2.5-4.9)
[2023-04-22] MEDS: Piperacil/Tazobactam 3.375 GM in 0.9% Normal Saline (50mL MB+) 50 ML IV ×3 (07:03→23:44)
--- NOTE | 2023-04-22 07:24 | PN.CC_ITS ---
Assessment & Plan Assessment/Plan (1) Septic shock: (2) C. difficile colitis: (3) Severe sepsis with acute organ dysfunction: (4) Chronic hypoxemic respiratory failure: PLAN: Plan RECOMMENDATIONS: 1. Continue antimicrobials as ordered. ID consultation is pending. 2. Wean supplemental oxygen to maintain saturations at or above 90%. 3. Encourage incentive spirometer use and mobilize patient as tolerated. 4. Physical therapy to work with the patient. 5. We will sign off from a critical care perspective. Please call with any additional questions. IMPRESSIONS: 1. Septic and hypovolemic shock secondary to C. difficile colitis and ps eudomonal UTI The patient has improved clinically with IV fluid resuscitation and appropriate antimicrobial therapy. He has been weaned from vasopressor support. Blood pressures remain stable. Plan to continue current supportive care. Infectious disease consultation is pending to assist with antimicrobial management. 2. Chronic hypoxic respiratory failure The patient reportedly has a baseline supplemental oxygen requirement of 5 L/min. The patient is currently being worked up on an outpatient basis with plans for repeat chest imaging in 6 to 8 weeks on account of the right upper lobe lung nodule. 3. Hypertension/hyperlipidemia/iron deficiency anemia/anxiety/depression/debility/recent hip fracture Complicates care, management, recovery and prognosis. Physical therapy to work with the patient. Continue to hold home antihypertensive therapy. This note was generated with [employer] dictation software. It may contain incorrect words, spelling, and punctuation that were not noted in checking the note before signing. Subjective Subjective The patient was seen and examined at the bedside this morning. Events from the last 24 hours have been reviewed. The patient is currently afebrile, hemodynamically stable and maintaining appropriate oxygen saturations on 2 L/min via nasal cannula. The patient is documented to be overall net +3.8 L for the hospitalization. No overnight issues were identified by the nursing staff. Hemoglobin is stable this morning at 7.8 g/dL. Objective Data Objective Data The patient's most recent lab work, culture data and imaging studies have all been personally reviewed. Urine culture dated April 19 was positive for pansensitive Pseudomonas aeruginosa. Vital Signs: Vital Signs Temp Pulse Resp BP Pulse Ox O2 Del Method O2 Flow Rate 97.6 F L 76 20 H 105/70 93 Nasal Cannula 2 04/22/23 02:00 04/22/23 02:00 04/22/23 02:00 04/22/23 02:00 04/22/23 02:00 04/22/23 02:00 04/21/23 19:00 FiO2 50 04/19/23 17:45 Oxygen Flow Rate (L/min) 2 Oxygen Delivery Method Nasal Cannula Weight: 115 lb Body Mass Index (BMI) 19.1 Intake & Output: Intake and Output for Last 24 Hours 04/20/23 04/21/23 04/22/23 23:59 23:59 23:59 Intake Total 3470 / 3470 500 / 500 50 / 50 Output Total 800 / 1300 1080 / 1205 300 / 300 Balance 2670 / 2170 -580 / -705 -250 / -250 Medical Nutrition Assessment Dietitian: Malnutrition Criteria Met Start: 04/20/23 09: 32 Freq: Status: Active Protocol: Document 04/21/23 10:38 SLA (Rec: 04/21/23 10:38 SLA Desktop) Nutrition Malnutrition Evidence of Malnutrition Exists Yes Malnutrition (severe): Acute Illness/Injury Evidenced By Suboptimal Energy Intake ( Severe),Weight Loss (Severe) Clinical Problem Acute Disease or Injury Related Malnutrition Etiology severe, acute malnutrition related to inadequate energy intake w/ GI dysfunction Signs/Symptoms as evidenced by unintentional 11% wt loss < 1 month, estimated PO intake meeting < 75% of estimated energy needs, BMI 19.1 Status Active Problem Recommendation Dietitian Recommendations/Changes Continue regular diet as tolerated- texture/consistency per PROJECT MANAGEMENT PROFESSOR; Provide ensure plus high protein 120mL TID w/ medpass for additional nutrition if consumed Lab / Micro Data Attestation: I reviewed the patient's lab results. 04/22/23 05:15 04/22/23 05:15 Labs: Laboratory Results - last 24 hr 04/22/23 05:15: WBC 12.8 H, RBC 2.78 L, Hgb 7.8 L, Hct 25.3 L, MCV 91.0, MCH 28.1, MCHC 30.8 L, RDW Std Deviation 56.3 H, RDW Coeff of Isai 17.0 H, Plt Count 398, MPV 8.1, Immature Gran % (Auto) 1.100 H, Neut % (Auto) 77.8 H, Lymph % (Auto) 11.1 L, [place] % (Auto) 7.2, Eos % (Auto) 2.3, Baso % (Auto) 0.5, Absolute Neuts (auto) 10.0 H, Absolute Lymphs (auto) 1.42, Nucleated RBC % 0, Sodium 137, Potassium 3.4 L, Chloride 105, Carbon Dioxide 24.0, Anion Gap 8, BUN 11, Creatinine 0.59 L, Estim Creat Clear Calc 38.40, Est GFR (MDRD) Af Amer 168, Est GFR (MDRD) Non-Af 139, BUN/Creatinine Ratio 18.7, Glucose 83, Calcium 7.9 L, Phosphorus 2.1 L, Magnesium 1.6 Micro: Microbiology 04/19/23 12:55 Urine, Catheterized Urine Culture - Final Pseudomonas aeruginosa 04/19/23 14:00 Stool Stool Lactoferrin - Final 04/19/23 14:00 Stool C. difficile GDH Antigen & Toxins - Final 04/19/23 14:00 Stool C. difficile DNA Amplification - Final 04/19/23 14:00 Stool Enteric Bacteriology - Final Physical Exam Const alert and no apparent distress General Appearance: cooperative HEENT normocephalic and head/scalp atraumatic General Ear: hearing grossly impaired Eyes PERRL and EOMs intact bilaterally Neck supple General: trachea midline Chest inspection of chest normal Resp normal respiratory effort Auscultation: Negative for rales, rhonchi or wheezes Cardio regular rate and regular rhythm GI normal to inspection, nondistended, normoactive bowel sounds Extremity no clubbing, cyanosis or edema Skin no rashes or lesions noted Neuro no focal motor deficits Psych Mood & Affect: flat affect Charges/Coding Visit Charges Inpatient E&M: 15528 Subs Hosp L2
--- NOTE | 2023-04-22 07:49 | RAD_ITS ---
STUDY: X-RAY CHEST REASON FOR EXAM: Male, 87 years old. Dyspnea TECHNIQUE: Single AP portable view of the chest. COMPARISON: Comparison is made with prior study dated April 19, 2023. FINDINGS: EKG electrodes are seen. A right-sided central catheter is seen with the tip at the junction of the superior vena cava and right atrium. Patchy infiltrate in the right lower lobe as well as in the right upper lobe. Increased markings at the left lung base. Blunting of both concentrate angles. Normal size heart. Normal mediastinum and melba. Normal visualized pulmonary arteries. There is atherosclerotic calcification of the aortic arch with tortuosity. There are diffuse degenerative changes of the visualized thoracic spine. There is degenerative osteoarthritis of the bilateral shoulders. Moderate-sized hiatal hernia. RAD/Chest 1 View (Portable) IMPRESSION: Infiltrate in the right upper and right lower lobes as well as increased markings at the left lung base. Hiatal hernia. Electronically Signed: Ilir Patel MD at 8:32 EST ,
--- NOTE | 2023-04-22 08:32 | PCM.PN.HOSP ---
Reason for Visit Reason for Visit: Fever/nausea/diarrhea Subjective Subjective No issues overnight. I tried to explain to the patient that we are treating him both for his C. difficile infection and his UTI however he repetitively asked what so when I talk to him and a louder voice he would then yell at me for yelling at him. I explained that I am not intending to yell at him but I am trying to relay the information as he does not seem to hear me when I talk at a lower tone and he became more frustrated. Stool output has decreased significantly and he did not have a bowel movement the last 24 hours Objective Data Objective Data Vital Signs: Vital Signs Temp Pulse Resp BP Pulse Ox O2 Del Method O2 Flow Rate 98.2 F 71 19 H 122/67 H 93 Nasal Cannula 2 04/22/23 06:00 04/22/23 06:00 04/22/23 06:00 04/22/23 06:00 04/22/23 06:00 04/22/23 06:00 04/21/23 19:00 FiO2 50 04/19/23 17:45 Oxygen Flow Rate (L/min) 2 Oxygen Delivery Method Nasal Cannula Weight: 52.163 kg Body Mass Index (BMI) 19.1 Intake & Output: Intake and Output for Last 24 Hours 04/20/23 04/21/23 04/22/23 23:59 23:59 23:59 Intake Total 3470 / 3470 500 / 500 50 / 50 Output Total 800 / 1300 1080 / 1205 300 / 300 Balance 2670 / 2170 -580 / -705 -250 / -250 Medical Nutrition Assessment Dietitian: Malnutrition Criteria Met Start: 04/20/23 09:32 Freq: Status: Active Protocol: Document 04/21/23 10:38 ROSLYN (Rec: 04/21/23 10:38 ROSLYN Desktop) Nutrition Malnutrition Evidence of Malnutrition Exists Yes Malnutrition (severe): Acute Illness/Injury Evidenced By Suboptimal Energy Intake ( Severe),Weight Loss (Severe) Clinical Problem Acute Disease or Injury Related Malnutrition Etiology severe, acute malnutrition related to inadequate energy intake w/ GI dysfunction Signs/Symptoms as evidenced by unintentional 11% wt loss < 1 month, estimated PO intake meeting < 75% of estimated energy needs, BMI 19.1 Status Active Problem Recommendation Dietitian Recommendations/Changes Continue regular diet as tolerated- texture/consistency per COMMODITY SUPERVISOR; Provide ensure plus high protein 120mL TID w/ medpass for additional nutrition if consumed Lab / Micro Data 04/22/23 05:15 04/22/23 05:15 Labs: Laboratory Results - last 24 hr 04/22/23 05:15: WBC 12.8 H, RBC 2.78 L, Hgb 7.8 L, Hct 25.3 L, MCV 91.0, MCH 28.1, MCHC 30.8 L, RDW Std Deviation 56.3 H, RDW Coeff of Isai 17.0 H, Plt Count 398, MPV 8.1, Immature Gran % (Auto) 1.100 H, Neut % (Auto) 77.8 H, Lymph % (Auto) 11.1 L, [place] % (Auto) 7.2, Eos % (Auto) 2.3, Baso % (Auto) 0.5, Absolute Neuts (auto) 10.0 H, Absolute Lymphs (auto) 1.42, Nucleated RBC % 0, Sodium 137, Potassium 3.4 L, Chloride 105, Carbon Dioxide 24.0, Anion Gap 8, BUN 11, Creatinine 0.59 L, Estim Creat Clear Calc 38.40, Est GFR (MDRD) Af Amer 168, Est GFR (MDRD) Non-Af 139, BUN/Creatinine Ratio 18.7, Glucose 83, Calcium 7.9 L, Phosphorus 2.1 L, Magnesium 1.6 Micro: Microbiology 04/19/23 12:55 Urine, Catheterized Urine Culture - Final Pseudomonas aeruginosa 04/19/23 14:00 Stool Stool Lactoferrin - Final 04/19/23 14:00 Stool C. difficile GDH Antigen & Toxins - Final 04/19/23 14:00 Stool C. difficile DNA Amplification - Final 04/19/23 14:00 Stool Enteric Bacteriology - Final Radiography Diagnostic Testing: Radiology Impression Chest X-Ray 04/22/23 07:49 IMPRESSION: Infiltrate in the right upper and right lower lobes as well as increased markings at the left lung base. Hiatal hernia. Electronically Signed: Ilir Patel MD at 8:32 EST , Physical Exam Const alert, oriented x3, no apparent distress and average body habitus Constitutional Narrative: elderly white male, sitting up in bed watching television, appears comfortable and nontoxic HEENT head/scalp atraumatic and moist oral mucous membranes HEENT Narrative: Dentition is poor, Mallampati is 2, no thrush, patient is fairly hard of hearing Head and Scalp: normocephalic Resp no retractions and no use of accessory muscles Resp Narrative: Crackles at bases bilaterally right greater than left, mild tachypnea Auscultation: crackles Cardio regular rate, regular rhythm, S1 normal heart sound, S2 normal heart sound, no murmurs, no rub, no gallops and no clicks GI normal to inspection, nondistended, normoactive bowel sounds, soft to palpation and non-tender Extremity no clubbing, cyanosis or edema Extremity Narrative: Pedal pulses are 2+, Neuro oriented x3, moves all extremities and no focal motor deficits Neuro Narrative: Generalized weakness noted, patient is hard of hearing Speech: speech normal Psych Psych Narrative: Mildly agitated due to communication difficulties Assessment & Plan Assessment/Plan (1) Septic shock: (2) C. difficile colitis: (3) Pseudomonas urinary tract infection: (4) Leukocytosis: (5) Encephalopathy acute: (6) Chronic hypoxemic respiratory failure: (7) Severe malnutrition: (8) Hypoxia: PLAN: Plan Septic shock/hypovolemic shock secondary to C. difficile colitis/pseudomonal UTI -Patient did not respond to fluids resuscitation and pressors were initiated -Pressures have stabilized significantly over the last 24 hours and have been between 100-130 since last evening -Continue midodrine 10 mg 3 times daily for now and consider weaning in the next 24 hours to 5 mg 3 times daily -Continue oral vancomycin and IV Flagyl -Continue IV Zosyn -ID consult pending Pseudomonal UTI -[place] counts are greater than 100,000 -Start IV Zosyn -ID consultation as noted above Chronic hypoxic respiratory failure -Patient with recent admission in March and diagnosed with pneumonia -Discharged on 5 L at that point -Oxygen had been weaned to 2 L as of yesterday however titrated back up to 4 L -Chest x-ray pending -Check BNP -Sputum culture if able -Continue broad-spectrum antibiotics -Will consider diuretics if BNP is elevated and chest x-ray appears volume overloaded -Per I's and O's however patient is only +2-1/2 L for his hospitalization -Will need ambulatory pulse ox prior to discharge -Recommended pulmonary medicine follow-up after discharge Severe malnutrition -Diet as ordered -Supplements as ordered -Dietitian is following Leukocytosis -White count continues to trend down and white count is now 12.8 from 23.5 on admission Toxic/metabolic encephalopathy -Seems to be resolved -continue to monitor Chronic anemia -This is not iron deficiency -Patient had iron studies done in March and iron studies were consistent with anemia of chronic disease -Baseline hemoglobin appears to run between 7 and 8 -Hemoglobin is stable -Continue to monitor HTN/HPL -Continue to hold home antihypertensives -Okay to restart home oral antihyperlipidemic agents History of DVT -Patient has not anticoagulated at this time -Continue to monitor Neuropathy -Continue home gabapentin GERD -Continue home PPI Depression/insomnia -Continue home mirtazapine DVT prophylaxis -Continue enoxaparin 40 mg daily CODE STATUS -Full code is verified on admission Charges/Coding Visit Charges Inpatient E&M: 65223 Subs Hosp L2
[2023-04-22] MEDS: Enoxaparin 40 MG/0.4 ML Syringe SC (08:54)
[2023-04-22] MEDS: Sodium Phosphate/Na Biphos 30 MMOL in 0.9% Normal Saline (250mL Bag) 250 ML 62.5 MMOL IV (08:54)
[2023-04-22] MEDS: Midodrine HCl 5 MG Tablet 10 MG PO ×2 (08:54→13:38)
[2023-04-22] MEDS: Sertraline 50 MG Tablet 150 MG PO (08:54)
[2023-04-22] MEDS: Pantoprazole Sodium 40 MG Tablet PO (08:54)
[2023-04-22] MEDS: Potassium Chloride Oral Tablet 20 MEQ 40 MEQ PO (08:54)
[2023-04-22 09:00] LABS: BNP,B-Type NATRIURETIC PEPTIDE 216.9 pg/mL (0-100)
--- NOTE | 2023-04-22 10:39 | PCM.CONS.GEN ---
Assessment & Plan Assessment/Plan (1) Hypoxia: (2) C. difficile colitis: (3) Pseudomonas urinary tract infection: (4) Septic shock: PLAN: Overall much improved. Ucx with PsA. Stool (+) cdiff. Diarrhea, wbc, and BP much improved. Cont zosyn and po vanc. Will stop flagyl today. Will follow, thank you HPI Consult Data Date of Consult: 04/22/23 HPI Narrative Reason for Consultation: cdiff HPI Narrative: BURKE MUKHERJEE, is a 87 M who presented 04/19 with several days of abd pain and diarrhea. Had cdiff reportedly back on Feb. Admitted here in March, given zosyn for pneumonia. Denies any current diarrhea, fever, or abd pain. Admitted to icu with cdiff (+), started on pressor and po vanc, zosyn, flagyl. Full ROS performed and neg except as noted above. [facility] Medical History Anemia Anxiety DVT (deep venous thrombosis) Former smoker On home oxygen therapy Wears hearing aid in both ears Home Medications atenolol 25 mg tablet 25 mg PO DAILY BP 08/23/15 [History Last Taken 09/18/15 04:45] acetaminophen 500 mg tablet 1,000 mg PO Q8H PRN Pain Or Fever 06/26/19 [History Last Taken Unknown] Emollient Combination No.72 [Eucerin Intensive Repair] 1 applic topical 4X/DAY PRN PRN DRY SKIN 07/07/19 [Rx Last Taken Unknown] furosemide 20 mg tablet 20 mg PO DAILY Excess fluid #30 tabs 07/07/19 [Rx Last Taken Unknown] gabapentin 600 mg tablet 600 mg PO QHS neuropathy #30 tabs 07/07/19 [Rx Last Taken Unknown] mirtazapine 15 mg tablet 15 mg PO QHS sleep #30 tabs 07/07/19 [Rx Last Taken Unknown] polyethylene glycol 3350 17 gram oral powder packet 17 g PO DAILY bowels #30 packets 07/07/19 [Rx Last Taken Unknown] potassium chloride 20 mEq tablet,extended release(part/cryst) 20 meq PO DAILY supplement #30 tabs 07/07/19 [Rx Last Taken Unknown] cholecalciferol (vitamin D3) 50 mcg (2,000 unit) capsule (Vitamin D3) 2,000 unit PO DAILY SEE PCP 03/21/23 [History Last Taken Unknown] colestipol 1 gram tablet 1 g PO BID HYPERCHOLESTEROLEMIA 03/21/23 [History Last Taken Unknown] docusate sodium 100 mg capsule (Colace) 100 mg PO BID constipation 03/21/23 [History Last Taken Unknown] lisinopril 5 mg tablet 5 mg PO DAILY Essential Hypertension 03/21/23 [History Last Taken Unknown] pantoprazole 40 mg tablet,delayed release 40 mg PO DAILY GERD 03/21/23 [History Last Taken Unknown] sertraline 100 mg tablet 150 mg PO DAILY DEPRESSION 03/21/23 [History Last Taken Unknown] ferrous sulfate 325 mg (65 mg iron) tablet (FeroSul) 325 mg PO DAILY Fracture of lower end of left femur 30 days #30 tabs 03/26/23 [Rx Last Taken Unknown] tramadol 50 mg tablet 50 mg PO TID PRN PRN Pain Score 4-10 7 days #21 tabs 03/26/23 [Rx Last Taken Unknown] ipratropium 0.5 mg-albuterol 3 mg (2.5 mg base)/3 mL nebulization soln 3 ml inhalation Q6H PRN shortness of breath 04/16/23 [History Last Taken Unknown] nut tx, lact-reduced, iron 0.09 gram-2.25 kcal/mL oral liquid (Boost VHC) 120 ml PO TID 04/16/23 [History Last Taken Unknown] vit C 250 mg-vit E 200 unit-zinc ox 12.5 ho-btntnt-umjhbo-zeax capsule (ICaps AREDS2) 1 cap PO DAILY 04/16/23 [History Last Taken Unknown] Allergy/AdvReac Type Severity Reaction Status Date / Time No Known Allergies Allergy Verified 04/16/23 08:52 Family History Other Cancer Heart disease Surgical History Status post left hip replacement Social History Smoking Status: Former smoker Physical Exam Const no apparent distress General Appearance: cooperative and lethargic HEENT normocephalic and head/scalp atraumatic Eyes PERRL and EOMs intact bilaterally Neck supple and No nodes Resp normal air movement and clear to auscultation bilaterally Cardio regular rate and regular rhythm GI soft to palpation, non-tender and non-distended Extremity General Extremity: Negative for edema Skin no rashes or lesions noted Neuro CN's II-XII intact bilaterally Medical Records Data Medical Nutrition Assessment Dietitian: Malnutrition Criteria Met Start: 04/20/23 09:32 Freq: Status: Active Protocol: Document 04/21/23 10:38 SLA (Rec: 04/21/23 10:38 SLA Desktop) Nutrition Malnutrition Evidence of Malnutrition Exists Yes Malnutrition (severe): Acute Illness/Injury Evidenced By Suboptimal Energy Intake ( Severe),Weight Loss (Severe) Clinical Problem Acute Disease or Injury Related Malnutrition Etiology severe, acute malnutrition related to inadequate energy intake w/ GI dysfunction Signs/Symptoms as evidenced by unintentional 11% wt loss < 1 month, estimated PO intake meeting < 75% of estimated energy needs, BMI 19.1 Status Active Problem Recommendation Dietitian Recommendations/Changes Continue regular diet as tolerated- texture/consistency per LABOR TRAINING MANAGER; Provide ensure plus high protein 120mL TID w/ medpass for additional nutrition if consumed Lab / Micro Data Attestation: I reviewed the patient's lab results. 04/22/23 05:15 04/22/23 05:15 Labs: Laboratory Results - last 24 hr 04/22/23 05:15: WBC 12.8 H, RBC 2.78 L, Hgb 7.8 L, Hct 25.3 L, MCV 91.0, MCH 28.1, MCHC 30.8 L, RDW Std Deviation 56.3 H, RDW Coeff of Isai 17.0 H, Plt Count 398, MPV 8.1, Immature Gran % (Auto) 1.100 H, Neut % (Auto) 77.8 H, Lymph % (Auto) 11.1 L, [place] % (Auto) 7.2, Eos % (Auto) 2.3, Baso % (Auto) 0.5, Absolute Neuts (auto) 10.0 H, Absolute Lymphs (auto) 1.42, Nucleated RBC % 0, Sodium 137, Potassium 3.4 L, Chloride 105, Carbon Dioxide 24.0, Anion Gap 8, BUN 11, Creatinine 0.59 L, Estim Creat Clear Calc 38.40, Est GFR (MDRD) Af Amer 168, Est GFR (MDRD) Non-Af 139, BUN/Creatinine Ratio 18.7, Glucose 83, Calcium 7.9 L, Phosphorus 2.1 L, Magnesium 1.6, B-Natriuretic Peptide 216.9 H Micro: Microbiology 04/19/23 12:55 Urine, Catheterized Urine Culture - Final Pseudomonas aeruginosa Imagaing Radiology Impression Chest X-Ray 04/22/23 07:49 IMPRESSION: Infiltrate in the right upper and right lower lobes as well as increased markings at the left lung base. Hiatal hernia. Electronically Signed: Ilir Patel MD at 8:32 EST ,
[2023-04-22] MEDS: Mirtazapine 15 MG Tablet PO (23:43)
[2023-04-22] MEDS: Gabapentin 600 MG Tablet PO (23:44)
[2023-04-22] MEDS: 0.9% Saline Lock 10 ML Syringe IV (23:47)
[2023-04-23] VITALS (13 sets, daily range): BP systolic 118–126; BP diastolic 72–92; PULSE 78–94; RESP 16–22; TEMP 36.5–36.9; O2SAT 76–96; BMI 19.1
[2023-04-23] MEDS: Piperacil/Tazobactam 3.375 GM in 0.9% Normal Saline (50mL MB+) 50 ML IV ×3 (06:28→22:13)
[2023-04-23] MEDS: Vancomycin 125 MG/5 ML Susp PO.SYRINGE PO ×4 (06:34→23:14)
[2023-04-23 08:14] LABS: Absolute Lymphocyte Count 1.36 X10^3/uL (0.83-4.51); Absolute Neutrophil Count 8.8 X10^3/uL (2.0-7.7); Basophil# 0.09 X10^3/uL; Basophil% 0.8 % (0-1); Eosinophil# 0.24 X10^3/uL; Eosinophils% 2.1 % (0-5); Hematocrit 26.1 % (40-54); Hemoglobin 7.9 g/dL (13.0-16.5); Lymphocyte # 1.36 X10^3/ul (0.83-4.51); Lymphocyte % 11.7 % (19-41); Mean Corp Hgb Conc 30.3 g/dL (32-36); Mean Corpuscular Volume 92.6 fL (80-94); Mean Platelet Vol. 8.3 fl (6.2-12.0); Monocyte# 1.01 X10^3/uL; Monocyte% 8.7 % (0-10); NRBC Flagged by Analyzer 0 % (0-5); Neutrophil # 8.79 X10^3/uL (2.7-7.7); Neutrophil % 75.4 % (47-70); Platelet Count 410 K/mm3 (150-450); RBC Distribution Width CV 17.2 % (11.6-14.6); RBC Distribution Width SD 58.2 fl (35.1-43.9); Red Blood Count 2.82 M/mm3 (4.6-6.2); White Blood Count 11.6 K/mm3 (4.4-11.0)
[2023-04-23 08:37] LABS: Anion Gap 9 (5-15); BUN 8 mg/dL (7-18); BUN/Creat Ratio 13.6 RATIO (10-20); Calcium,Total 8.3 mg/dL (8.5-10.1); Chloride 108 mmol/L (98-107); Creatinine, Serum 0.59 mg/dL (0.70-1.30); EST Glomerular Filtration Rate 138 mL/min (>60); Est Glom Filt Rate - Afr Amer 168 mL/min (>60); Estimated Creatinine Clearance 38.46 ml/min; Glucose 68 mg/dL (74-106); Potassium 3.4 mmol/L (3.5-5.1); Sodium Level 138 mmol/L (136-145)
[2023-04-23] MEDS: Pantoprazole Sodium 40 MG Tablet PO (08:58)
[2023-04-23] MEDS: Sertraline 50 MG Tablet 150 MG PO (08:58)
[2023-04-23] MEDS: Midodrine HCl 5 MG Tablet 10 MG PO (08:59)
[2023-04-23] MEDS: Enoxaparin 40 MG/0.4 ML Syringe SC (08:59)
[2023-04-23] MEDS: Menthol/Lanolin/Calamine/Znox 113 GM Tube 1 APPLIC TOPICAL ×2 (09:03→22:22)
--- NOTE | 2023-04-23 13:45 | NURSING ---
Patient off unit for MBS.
[2023-04-23] MEDS: 0.9% Saline Lock 10 ML Syringe IV ×2 (14:52→17:21)
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
--- NOTE | 2023-04-23 15:37 | CASEMGMT ---
Social Work Pt is admitted from [facility] and plans to return. Precert started with insurance on 04/22/23. SW will await determination from insurance company. PITER Schwartz
--- NOTE | 2023-04-23 16:09 | PN.HOSP_ITS ---
Reason for Visit Reason for Visit: Fevers/nausea/diarrhea Subjective Subjective No issues over night. Daughter is at the bedside and reports he has had some mild cognitive impairments but usually does prior fairly well. Does indicate swallowing has been problematic for him prior to even getting L. We discussed the pathophysiology of dysphagia and pending modified barium swallow. I did indicate that he would likely be ready for transition back to the skilled facility in next 24 to 48 hours depending on how he does today. Objective Data Objective Data Vital Signs: Vital Signs Temp Pulse Resp BP Pulse Ox O2 Del Method O2 Flow Rate 98.5 F 85 16 126/77 H 95 Nasal Cannula 4 04/23/23 15:01 04/23/23 15:01 04/23/23 15:01 04/23/23 15:01 04/23/23 15:01 04/23/23 15:07 04/23/23 15:07 FiO2 50 04/19/23 17:45 Oxygen Flow Rate (L/min) 4 Oxygen Delivery Method Nasal Cannula Weight: 52.254 kg Body Mass Index (BMI) 19.1 Intake & Output: Intake and Output for Last 24 Hours 04/21/23 04/22/23 04/23/23 23:59 23:59 23:59 Intake Total 500 / 500 520 / 520 250 / 250 Output Total 1080 / 1205 600 / 600 200 / 200 Balance -580 / -705 -80 / -80 50 / 50 Medical Nutrition Assessment Dietitian: Malnutrition Criteria Met Start: 04/20/23 09:32 Freq: Status: Active Protocol: Document 04/21/23 10:38 ROSLYN (Rec: 04/21/23 10:38 ROSLYN Desktop) Nutrition Malnutrition Evidence of Malnutrition Exists Yes Malnutrition (severe): Acute Illness/Injury Evidenced By Suboptimal Energy Intake ( Severe),Weight Loss (Severe) Clinical Problem Acute Disease or Injury Related Malnutrition Etiology severe, acute malnutrition related to inadequate energy intake w/ GI dysfunction Signs/Symptoms as evidenced by unintentional 11% wt loss < 1 month, estimated PO intake meeting < 75% of estimated energy needs, BMI 19.1 Status Active Problem Recommendation Dietitian Recommendations/Changes Continue regular diet as tolerated- texture/consistency per CYBER FORENSICS ANALYST; Provide ensure plus high protein 120mL TID w/ medpass for additional nutrition if consumed Lab / Micro Data 04/23/23 07:30 04/23/23 07:30 Labs: Laboratory Results - last 24 hr 04/23/23 07:30: WBC 11.6 H, RBC 2.82 L, Hgb 7.9 L, Hct 26.1 L, MCV 92.6, MCH 28.0, MCHC 30.3 L, RDW Std Deviation 58.2 H, RDW Coeff of Isai 17.2 H, Plt Count 410, MPV 8.3, Immature Gran % (Auto) 1.300 H, Neut % (Auto) 75.4 H, Lymph % (Auto) 11.7 L, [place] % (Auto) 8.7, Eos % (Auto) 2.1, Baso % (Auto) 0.8, Absolute Neuts (auto) 8.8 H, Absolute Lymphs (auto) 1.36, Nucleated RBC % 0, Sodium 138, Potassium 3.4 L, Chloride 108 H, Carbon Dioxide 21.0, Anion Gap 9, BUN 8, Creatinine 0.59 L, Estim Creat Clear Calc 38.46, Est GFR (MDRD) Af Amer 168, Est GFR (MDRD) Non-Af 138, BUN/Creatinine Ratio 13.6, Glucose 68 L, Calcium 8.3 L Micro: Microbiology 04/19/23 12:45 Blood Culture (Wb) - Left Forearm Blood Culture - Preliminary No growth in 48 hours. 04/19/23 12:40 Blood Culture (Wb) - Right Forearm Blood Culture - Preliminary No growth in 48 hours. 04/19/23 12:55 Urine, Catheterized Urine Culture - Final Pseudomonas aeruginosa 04/19/23 14:00 Stool Stool Lactoferrin - Final 04/19/23 14:00 Stool C. difficile GDH Antigen & Toxins - Final 04/19/23 14:00 Stool C. difficile DNA Amplification - Final 04/19/23 14:00 Stool Enteric Bacteriology - Final Physical Exam Narrative Const alert, oriented x3, no apparent distress and average body habitus Constitutional Narrative: elderly white male, sitting up in a chair at the bedside, daughter at bedside, appears comfortable and nontoxic, currently on 4 L of supplemental oxygen HEENT head/scalp atraumatic and moist oral mucous membranes HEENT Narrative: Dentition is poor, Mallampati is 2, no Resp normal respiratory effort, no retractions, no use of accessory muscles and No clear to auscultation bilaterally Resp Narrative: Crackles at bases bilaterally right greater than left, tachypnea has improved, sterile scattered rhonchi right greater than left Auscultation: crackles and rhonchi; Negative for wheezes Cardio regular rate, regular rhythm, S1 normal heart sound, S2 normal heart sound, no murmurs, no rub, no gallops and no clicks GI normal to inspection, nondistended, normoactive bowel sounds, soft to palpation and non-tender Extremity no clubbing, cyanosis or edema Extremity Narrative: Pedal pulses are 2+, Neuro oriented x3, moves all extremities and no focal motor deficits Neuro Narrative: Generalized weakness noted, patient is hard of hearing Speech: speech normal Psych Psych Narrative: Which more calm today with daughter at bedside Assessment & Plan Assessment/Plan (1) Septic shock: (2) C. difficile colitis: (3) Pseudomonas urinary tract infection: (4) Leukocytosis: (5) Encephalopathy acute: (6) Chronic hypoxemic respiratory failure: (7) Severe malnutrition: (8) Hypoxia: (9) Dysphagia: PLAN: Plan Septic shock/hypovolemic shock secondary to C. difficile colitis/pseudomonal UTI -Patient did not respond to fluids resuscitation and pressors were initiated -Pressures have stabilized significantly over the last 24 hours and have been between 100-130 since last evening -Decrease midodrine to 5 mg 3 times daily and discontinue tomorrow if BP stable -Continue oral vancomycin --> per ID okay to discontinue IV Flagyl -Continue IV Zosyn -ID Following-appreciate input Pseudomonal UTI -[place] counts are greater than 100,000 -Continue Zosyn -ID following Acute on chronic hypoxic respiratory failure -Patient with recent admission in March and diagnosed with pneumonia -Discharged on 5 L at that point -Oxygen remains at 4 L and he is aspirating -Speech therapy is pending -BNP was also elevated so we will give Lasix 40 mg IV push x 1 dose -Sputum culture if able--> so far unable to produce -Continue broad-spectrum antibiotics -Will need ambulatory pulse ox prior to discharge -Recommended pulmonary medicine follow-up after discharge Severe malnutrition -Diet as ordered -Supplements as ordered -Dietitian is following Leukocytosis -White count continues to trend down and white count is now 11.6 from 23.5 on admission Hypokalemia -Replace -Recheck in a.m. Dysphagia -Speech therapy is following -Modified barium swallow pending -Highly anticipate modified diet will be required at discharge and ongoing speech therapy will need to be continued -Per discussion with his daughter he has had 3-4 episodes of pneumonia diagnosed in the last year -Highly suspect these may be aspiration related Toxic/metabolic encephalopathy -Seems to be resolved -continue to monitor Chronic anemia -This is not iron deficiency -Patient had iron studies done in March and iron studies were consistent with anemia of chronic disease -Baseline hemoglobin appears to run between 7 and 8 -Hemoglobin is stable -Continue to monitor HTN/HPL -Continue to hold home antihypertensives -Okay to restart home oral antihyperlipidemic agents History of DVT -Patient has not anticoagulated at this time -Continue to monitor Neuropathy -Continue home gabapentin GERD -Continue home PPI Depression/insomnia -Continue home mirtazapine DVT prophylaxis -Continue enoxaparin 40 mg daily CODE STATUS -Full code is verified on admission Charges/Coding Visit Charges Inpatient E&M: 58782 Subs Hosp L2
[2023-04-23] MEDS: Midodrine HCl 5 MG Tablet PO (17:21)
[2023-04-23] MEDS: Potassium Chloride Oral Soln 20 MEQ/15 ML UDC 40 MEQ PO (17:21)
[2023-04-23] MEDS: Furosemide 40 MG/4 ML Vial IV (17:21)
[2023-04-23] MEDS: Mirtazapine 15 MG Tablet PO (22:13)
[2023-04-23] MEDS: Gabapentin 600 MG Tablet PO (22:14)
[2023-04-24] VITALS (17 sets, daily range): BP systolic 102–119; BP diastolic 72–98; PULSE 68–116; RESP 18–26; TEMP 36.4–37.4; O2SAT 80–97; BMI 18.8
[2023-04-24] MEDS: Vancomycin 125 MG/5 ML Susp PO.SYRINGE PO ×4 (05:30→22:59)
[2023-04-24] MEDS: 0.9% Saline Lock 10 ML Syringe IV ×4 (05:30→16:04)
[2023-04-24] MEDS: Piperacil/Tazobactam 3.375 GM in 0.9% Normal Saline (50mL MB+) 50 ML IV ×3 (05:31→22:59)
--- NOTE | 2023-04-24 07:14 | RAD_ITS ---
STUDY: X-RAY CHEST REASON FOR EXAM: Male, 87 years old. SOB TECHNIQUE: Single AP portable view of the chest. COMPARISON: Comparison is made with prior study dated April 22, 2023. FINDINGS: A right-sided central catheter is seen with the tip at the junction of the superior vena cava and right atrium. There has been improvement in aeration of both lung bases as compared to prior study. Residual changes persist. Persistent blunting of the right costo phrenic angle. Persistent mild increased markings in the right upper lobe. Normal size heart. Normal mediastinum and melba. Normal visualized pulmonary arteries. There is atherosclerotic calcification of the aortic arch with tortuosity. Normal visualized thoracic spine. Normal visualized ribs, clavicles, and shoulders. There is no demonstrated abnormality of the visualized soft tissue structures of the upper abdomen. RAD/Chest 1 View (Portable) IMPRESSION: Improved aeration as compared to prior study. Persistent findings are seen bilaterally. Electronically Signed: Ilir Patel MD at 12:51 EST ,
[2023-04-24 07:45] LABS: Absolute Neutrophil Count 9.5 X10^3/uL (2.0-7.7); Basophil# 0.08 X10^3/uL; Basophil% 0.6 % (0-1); Eosinophil# 0.27 X10^3/uL; Eosinophils% 2.1 % (0-5); Hematocrit 30.4 % (40-54); Hemoglobin 9.5 g/dL (13.0-16.5); Mean Corp Hgb Conc 31.3 g/dL (32-36); Mean Corpuscular Hgb 28.2 pg (27.0-32.0); Mean Corpuscular Volume 90.2 fL (80-94); NRBC Flagged by Analyzer 0 % (0-5); Neutrophil # 9.54 X10^3/uL (2.7-7.7); Neutrophil % 73.1 % (47-70); Platelet Count 425 K/mm3 (150-450); RBC Distribution Width CV 17.2 % (11.6-14.6); RBC Distribution Width SD 56.9 fl (35.1-43.9); Red Blood Count 3.37 M/mm3 (4.6-6.2); White Blood Count 13.1 K/mm3 (4.4-11.0)
[2023-04-24 08:13] LABS: Anion Gap 9 (5-15); BUN 5 mg/dL (7-18); Calcium,Total 8.1 mg/dL (8.5-10.1); Chloride 107 mmol/L (98-107); Creatinine, Serum 0.62 mg/dL (0.70-1.30); EST Glomerular Filtration Rate 129 mL/min (>60); Est Glom Filt Rate - Afr Amer 156 mL/min (>60); Estimated Creatinine Clearance 37.76 ml/min; Glucose 88 mg/dL (74-106); Magnesium 1.7 mg/dL (1.6-2.6); Potassium 3.6 mmol/L (3.5-5.1); Sodium Level 141 mmol/L (136-145)
[2023-04-24 08:38] LABS: BNP,B-Type NATRIURETIC PEPTIDE 232.5 pg/mL (0-100)
--- NOTE | 2023-04-24 09:57 | CASEMGMT ---
Discharge Planning Requested updates sent to [facility] via [employer]. Awaiting response on status of precert. Mee Ruiz, Discharge Planning Asst.
[2023-04-24] MEDS: Enoxaparin 40 MG/0.4 ML Syringe SC (10:01)
[2023-04-24] MEDS: Furosemide 40 MG/4 ML Vial IV ×2 (10:01→18:40)
[2023-04-24] MEDS: Sertraline 50 MG Tablet 150 MG PO (10:01)
[2023-04-24] MEDS: Pantoprazole Sodium 40 MG Tablet PO (10:02)
[2023-04-24] MEDS: Midodrine HCl 5 MG Tablet PO ×2 (10:02→12:59)
[2023-04-24] MEDS: Menthol/Lanolin/Calamine/Znox 113 GM Tube 1 APPLIC TOPICAL ×2 (10:02→23:00)
--- NOTE | 2023-04-24 10:30 | PCM.PN.ID ---
Physical Exam Narrative Feeling ok, no abd pain, no fever Const alert Orientation / Consciousness: lethargic Resp normal air movement and clear to auscultation bilaterally Cardio regular rate and regular rhythm GI soft to palpation, non-tender and non-distended Skin no rashes or lesions noted ID ID: Route of nutrition/ use of supplements: [] Nutritional Intake: [] IV Site: [] Lees Catheter: [] Assessment & Plan Assessment/Plan (1) Hypoxia: (2) C. difficile colitis: (3) Pseudomonas urinary tract infection: (4) Septic shock: PLAN: Overall much improved. Ucx with PsA. Stool (+) cdiff. Diarrhea, wbc, and BP much improved. Cont zosyn and po vanc. Plan for discharge will be 4 more days po cipro 500mg bid and 14 more days po vanc 125mg 4x/daily. Will follow
[2023-04-24] MEDS: Metoprolol Tartrate 5 MG/5 ML Vial 2.5 MG IV (16:04)
--- NOTE | 2023-04-24 16:12 | PN.HOSP_ITS ---
Reason for Visit Reason for Visit: Nausea/diarrhea/fevers Subjective Subjective Slight increase in oxygen required overnight and BNP and chest x-ray both are consistent with volume overload so we will start some Lasix. Modified barium swallow does show moderate to severe oropharyngeal phase dysphagia in the modified diet diet has been initiated. His is at the bedside this morning we discussed that he is getting close to be able to be discharged back to [facility] however would like his breathing status to be a little bit better prior to doing that. Objective Data Objective Data Vital Signs: Vital Signs Temp Pulse Resp BP Pulse Ox O2 Del Method O2 Flow Rate 97.9 F 115 H 20 H 109/76 95 Nasal Cannula 4 04/24/23 15:08 04/24/23 16:04 04/24/23 15:08 04/24/23 15:08 04/24/23 15:08 04/24/23 15:08 04/24/23 15:08 FiO2 50 04/19/23 17:45 Oxygen Flow Rate (L/min) 4 Oxygen Delivery Method Nasal Cannula Weight: 51.3 kg Body Mass Index (BMI) 18.8 Intake & Output: Intake and Output for Last 24 Hours 04/22/23 04/23/23 04/24/23 23:59 23:59 23:59 Intake Total 520 / 520 450 / 450 220 / 220 Output Total 600 / 600 1800 / 1800 1600 / 1600 Balance -80 / -80 -1350 / -1350 -1380 / -1380 Medical Nutrition Assessment Dietitian: Malnutrition Criteria Met Start: 04/20/23 09:32 Freq: Status: Active Protocol: Document 04/21/23 10:38 ROSLYN (Rec: 04/21/23 10:38 ROSLYN Desktop) Nutrition Malnutrition Evidence of Malnutrition Exists Yes Malnutrition (severe): Acute Illness/Injury Evidenced By Suboptimal Energy Intake ( Severe),Weight Loss (Severe) Clinical Problem Acute Disease or Injury Related Malnutrition Etiology severe, acute malnutrition related to inadequate energy intake w/ GI dysfunction Signs/Symptoms as evidenced by unintentional 11% wt loss < 1 month, estimated PO intake meeting < 75% of estimated energy needs, BMI 19.1 Status Active Problem Recommendation Dietitian Recommendations/Changes Continue regular diet as tolerated- texture/consistency per INSURANCE AGENTS SUPERVISOR; Provide ensure plus high protein 120mL TID w/ medpass for additional nutrition if consumed Lab / Micro Data 04/24/23 07:24 04/24/23 07:24 Labs: Laboratory Results - last 24 hr 04/24/23 07:24: WBC 13.1 H, RBC 3.37 L, Hgb 9.5 L, Hct 30.4 L, MCV 90.2, MCH 28.2, MCHC 31.3 L, RDW Std Deviation 56.9 H, RDW Coeff of Isai 17.2 H, Plt Count 425, MPV 8.0, Immature Gran % (Auto) 1.200 H, Neut % (Auto) 73.1 H, Lymph % (Auto) 13.0 L, [place] % (Auto) 10.0, Eos % (Auto) 2.1, Baso % (Auto) 0.6, Absolute Neuts (auto) 9.5 H, Absolute Lymphs (auto) 1.70, Nucleated RBC % 0, Sodium 141, Potassium 3.6, Chloride 107, Carbon Dioxide 25.0, Anion Gap 9, BUN 5 L, Creatinine 0.62 L, Estim Creat Clear Calc 37.76, Est GFR (MDRD) Af Amer 156, Est GFR (MDRD) Non-Af 129, BUN/Creatinine Ratio 8.0 L, Glucose 88, Calcium 8.1 L, Magnesium 1.7, B-Natriuretic Peptide 232.5 H Micro: Microbiology 04/19/23 12:45 Blood Culture (Wb) - Left Forearm Blood Culture - Final No growth in 5 days. 04/19/23 12:40 Blood Culture (Wb) - Right Forearm Blood Culture - Final No growth in 5 days. 04/19/23 12:55 Urine, Catheterized Urine Culture - Final Pseudomonas aeruginosa 04/19/23 14:00 Stool Stool Lactoferrin - Final 04/19/23 14:00 Stool C. difficile GDH Antigen & Toxins - Final 04/19/23 14:00 Stool C. difficile DNA Amplification - Final 04/19/23 14:00 Stool Enteric Bacteriology - Final Radiography Diagnostic Testing: Radiology Impression Chest X-Ray 04/24/23 07:14 IMPRESSION: Improved aeration as compared to prior study. Persistent findings are seen bilaterally. Electronically Signed: Ilir Patel MD at 12:51 EST , Physical Exam Narrative Const alert, oriented x3, no apparent distress and average body habitus Constitutional Narrative: elderly white male, sitting up in bed, at bedside, appears comfortable and nontoxic, currently on 6 L of supplemental oxygen HEENT head/scalp atraumatic and moist oral mucous membranes HEENT Narrative: Dentition is poor, Mallampati is 1-2, no thrush, lips are dry and peeling Head and Scalp: normocephalic Eyes Negative for conjunctivae normal Eyes Narrative: Mild conjunctival pallor bilaterally, no scleral icterus Resp no retractions, no use of accessory muscles and No clear to auscultation bilaterally Resp Narrative: Still with scattered rhonchi however crackles at the bases have improved, cough is weak, still mild tachypnea but breathing seems to be more comfortable Auscultation: crackles and rhonchi; Negative for wheezes Cardio regular rhythm, S1 normal heart sound, S2 normal heart sound, no murmurs, no rub, no gallops and no clicks Cardio Narrative: Mild tachycardia GI normal to inspection, nondistended, normoactive bowel sounds, soft to palpation and non-tender Extremity no clubbing, cyanosis or edema Extremity Narrative: Pedal pulses are 2+, decreased lean muscle mass Neuro oriented x3, moves all extremities and no focal motor deficits Neuro Narrative: Generalized weakness noted, patient is hard of hearing Speech: speech normal Psych affect normal Psych Narrative: Pleasant and interacts appropriately Assessment & Plan Assessment/Plan (1) Septic shock: (2) C. difficile colitis: (3) Pseudomonas urinary tract infection: (4) Leukocytosis: (5) Encephalopathy acute: (6) Chronic hypoxemic respiratory failure: (7) Severe malnutrition: (8) Hypoxia: (9) Dysphagia: (10) Tachycardia: PLAN: Plan Septic shock/hypovolemic shock secondary to C. difficile colitis/pseudomonal UTI -Shock resolved -Stop midodrine -Continue oral vancomycin --> per ID recommendations 14 more days at discharge -Continue IV Zosyn -ID Following-appreciate input Pseudomonal UTI -[place] counts are greater than 100,000 -Continue Zosyn--> plan for discharge is 1 more days on Cipro 500 mg twice daily -ID following Acute on chronic hypoxic respiratory failure -Patient with recent admission in March and diagnosed with pneumonia -Discharged on 5 L at that point -Oxygen has required up titration to 6 L overnight and his BNP is elevated -Lasix 40 given yesterday with good result we will give another 40 twice d aily today -Speech therapy is following and modified barium swallow did show signs of moderate to severe oral pharyngeal dysphagia -BNP was also elevated so we will give Lasix 40 mg IV push x 1 dose -Sputum culture if able--> so far unable to produce -Continue broad-spectrum antibiotics -Recommended pulmonary medicine follow-up after discharge Moderate to severe oropharyngeal dysphagia -Speech therapy is following -Modified barium swallow done yesterday -Current diet is for soft foods with honey thick liquid diet -Per discussion with his daughter he has had 3-4 episodes of pneumonia diagnosed in the last year -Highly suspect these may be aspiration related Severe malnutrition -Diet as ordered -Supplements as ordered -Dietitian is following Tachycardia -Mild and seems to be sinus -Will give low-dose metoprolol Leukocytosis -Still with mild elevation in white count however more stable Hypokalemia -Normalized however with Lasix we will repeat dosing today Toxic/metabolic encephalopathy -Seems to be resolved -continue to monitor Chronic anemia -This is not iron deficiency -Patient had iron studies done in March and iron studies were consistent with anemia of chronic disease -Baseline hemoglobin appears to run between 7 and 8 -Hemoglobin is stable -Continue to monitor 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
[2023-04-24] MEDS: Potassium Chloride Oral Soln 20 MEQ/15 ML UDC 40 MEQ PO (18:39)
[2023-04-24] MEDS: Mirtazapine 15 MG Tablet PO (22:59)
[2023-04-24] MEDS: Metoprolol Tartrate 25 MG Tablet 12.5 MG PO (22:59)
[2023-04-24] MEDS: Gabapentin 600 MG Tablet PO (22:59)
[2023-04-25] VITALS (8 sets, daily range): BP systolic 82–107; BP diastolic 62–79; PULSE 75–88; RESP 16–26; TEMP 36.6; O2SAT 6–98; BMI 18.3
[2023-04-25] MEDS: Vancomycin 125 MG/5 ML Susp PO.SYRINGE PO (05:00)
[2023-04-25] MEDS: 0.9% Saline Lock 10 ML Syringe IV ×2 (05:00→11:05)
[2023-04-25] MEDS: Piperacil/Tazobactam 3.375 GM in 0.9% Normal Saline (50mL MB+) 50 ML IV ×2 (05:00→14:16)
--- NOTE | 2023-04-25 05:18 | NURSING ---
When inhaling through nose (getting the 6L high flow O2) patient's oxygen saturation remains >90%. Patient often requires coaching, reminding, and encouragement to do so. When patient goes back to breathing through his mouth, his oxygen saturation goes to 70s or even high 60s.
[2023-04-25 08:18] LABS: Absolute Lymphocyte Count 1.61 X10^3/uL (0.83-4.51); Absolute Neutrophil Count 11.3 X10^3/uL (2.0-7.7); Basophil# 0.11 X10^3/uL; Basophil% 0.7 % (0-1); Eosinophil# 0.18 X10^3/uL; Eosinophils% 1.2 % (0-5); Hematocrit 31.5 % (40-54); Hemoglobin 9.6 g/dL (13.0-16.5); Lymphocyte # 1.61 X10^3/ul (0.83-4.51); Lymphocyte % 10.9 % (19-41); Mean Corp Hgb Conc 30.5 g/dL (32-36); Mean Corpuscular Hgb 27.9 pg (27.0-32.0); Mean Corpuscular Volume 91.6 fL (80-94); Mean Platelet Vol. 8.4 fl (6.2-12.0); Monocyte# 1.35 X10^3/uL; Monocyte% 9.2 % (0-10); NRBC Flagged by Analyzer 0 % (0-5); Neutrophil # 11.31 X10^3/uL (2.7-7.7); Neutrophil % 76.8 % (47-70); Platelet Count 450 K/mm3 (150-450); RBC Distribution Width CV 17.8 % (11.6-14.6); RBC Distribution Width SD 58.4 fl (35.1-43.9); Red Blood Count 3.44 M/mm3 (4.6-6.2); White Blood Count 14.7 K/mm3 (4.4-11.0)
[2023-04-25 08:33] LABS: Anion Gap 4 (5-15); BUN 8 mg/dL (7-18); BUN/Creat Ratio 9.1 RATIO (10-20); Calcium,Total 8.9 mg/dL (8.5-10.1); Chloride 105 mmol/L (98-107); Creatinine, Serum 0.88 mg/dL (0.70-1.30); EST Glomerular Filtration Rate 87 mL/min (>60); Est Glom Filt Rate - Afr Amer 105 mL/min (>60); Estimated Creatinine Clearance 41.82 ml/min; Glucose 107 mg/dL (74-106); Magnesium 1.7 mg/dL (1.6-2.6); Potassium 3.5 mmol/L (3.5-5.1); Sodium Level 140 mmol/L (136-145)
--- NOTE | 2023-04-25 08:59 | CT_ITS ---
STUDY: CTA CHEST REASON FOR EXAM: Male, 87 years old. Hypoxia RADIATION DOSAGE (If Supplied By Facility): CTDIvol = ( 4.53 ) mGy, DLP = ( 209.42 ) mGycm TECHNIQUE: The examination was performed with the intravenous administration of IV 75mL Isovue-370. Post-processing of the angiographic images was performed, with multiplanar reformation and 3D reconstruction. Individualized dose optimization techniques were used for this CT. COMPARISON: Comparison is made with prior CT scan of thorax dated March 21, 2023 and chest radiograph dated April 24, 2023. FINDINGS: Normal enhancement of the main pulmonary artery and right and left pulmonary arteries. Normal enhancement of the bilateral peripheral pulmonary arteries. There is no demonstrated pulmonary embolism. There is atherosclerotic calcification of the aortic arch with tortuosity. There is no demonstrated aortic dissection. There are calcifications of the coronary arteries. Normal mediastinum. Normal hilar regions. Normal visualized trachea and bronchi. The lungs are well expanded. Bibasilar pulmonary infiltrates worse at the right lung base. Mild infiltrates are also seen in the upper lobes. There is a 1 cm x 1 cm pleural based nodule in the posterior lateral aspect of the left upper lobe adjacent to the left major fissure. Normal pleura. Normal chest wall structures. There are degenerative changes of thoracic spine. There is a 2 cm x 1.6 m cyst in the posterior aspect of the right lobe of the liver. A 1.9 cm x 2.5 cm cyst is also seen in the medial aspect of the left lobe of the liver. CT/CTA Chest W/WO Contrast IMPRESSION: No evidence of a pulmonary embolism. Bibasilar pulmonary infiltrates with scattered infiltrates in the upper lobes. There is a 1 cm x 1 cm pleural-based nodule in the posterior-lateral aspect of the left upper lobe. Follow-up recommended. Electronically Signed: Ilir Patel MD at 10:02 EST ,
[2023-04-25] MEDS: Sertraline 50 MG Tablet 150 MG PO (11:03)
[2023-04-25] MEDS: Colestipol 1 GM TABLET PO (11:04)
[2023-04-25] MEDS: Metoprolol Tartrate 25 MG Tablet 12.5 MG PO (11:04)
[2023-04-25] MEDS: Pantoprazole Sodium 40 MG Tablet PO (11:04)
[2023-04-25] MEDS: Ferrous Sulfate 325 MG Tablet PO (11:04)
[2023-04-25] MEDS: Furosemide 40 MG/4 ML Vial IV (11:05)
[2023-04-25] MEDS: Enoxaparin 40 MG/0.4 ML Syringe SC (11:05)
[2023-04-25] MEDS: Menthol/Lanolin/Calamine/Znox 113 GM Tube 1 APPLIC TOPICAL (11:07)
--- NOTE | 2023-04-25 12:47 | CASEMGMT ---
Social Work SW received a call from Mita at [facility] stating that pt's case has been sent to medical review. SW provided requested updated information. SW will await determination. SW met with physician who states that pt is appropriate for hospice referral and family is agreeable. Pt to be evaluated for the IPU. SW met with pts , son and daughter and introduced self and role of SW. SW discussed hospice with family and they are agreeable to referral. Emotional support provided to pts family. SW placed call to [facility] and referral made. Hospice to call pt's gladys Dong to set an appointment. Junior Technical Writer to send clinicals to [facility]. PITER Maxwell
--- NOTE | 2023-04-25 15:37 | PCM.DC.SUM ---
Providers Date of Admission: 04/19/23 Date of Discharge: 04/25/23 Primary Care Physician: Dr. Mei Ashraf MD Consultations 04/19/23 18:40 Consult: Nodulizer / Pulmonary Medicine Routine Consulting Provider: [facility] Reason for Consult: septic shock EMERGENT Consult: No Notified: Yes Date Notified: 04/19/23 Time Notified: 18:36 Method of Notification: Text 04/21/23 08:05 Consult: Infectious Disease Routine Consulting Provider: Dread Cedillo Reason for Consult: recurrent C-diff EMERGENT Consult: No Notified: No Date Notified: 04/21/23 Time Notified: 08:05 04/21/23 18:16 Consult: Infectious Disease Routine Consulting Provider: Dread Cedillo Reason for Consult: recurrent C-diff/UTI EMERGENT Consult: No Notified: Yes Date Notified: 04/21/23 Time Notified: 18:16 Method of Notification: Text 04/23/23 06:21 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 difficile colitis: Status: Acute Code(s): A04.72 - Enterocolitis due to Clostridium difficile, not specified as recurrent (3) Pseudomonas urinary tract infection: Status: Acute Code(s): N39.0 - Urinary tract infection, site not specified; B96.5 - Pseudomonas (aeruginosa) (mallei) (pseudomallei) as the cause of diseases classified elsewhere (4) Leukocytosis: Status: Acute Code(s): D72.829 - Elevated white blood cell count, unspecified (5) Encephalopathy acute: Status: Acute Code(s): G93.40 - Encephalopathy, unspecified (6) Chronic hypoxemic respiratory failure: Status: Chronic Code(s): J96.11 - Chronic respiratory failure with hypoxia (7) Severe malnutrition: Status: Acute Code(s): E43 - Unspecified severe protein-calorie malnutrition (8) Hypoxia: Status: Acute Code(s): R09.02 - Hypoxemia (9) Dysphagia: Status: Acute Code(s): R13.10 - Dysphagia, unspecified (10) Tachycardia: Status: Acute Code(s): R00.0 - Tachycardia, unspecified Plan Septic shock/hypovolemic shock secondary to C. difficile colitis/pseudomonal UTI -Shock resolved -Stop midodrine -Continue oral vancomycin --> per ID recommendations 14 more days at discharge -Continue IV Zosyn -ID Following-appreciate input Pseudomonal UTI -[place] counts are greater than 100,000 -Continue Zosyn--> plan for discharge is 1 more days on Cipro 500 mg twice daily -ID following Acute on chronic hypoxic respiratory failure -Patient with recent admission in March and diagnosed with pneumonia -Discharged on 5 L at that point -Oxygen has required up titration to 6 L overnight and his BNP is elevated -Lasix 40 given yesterday with good result we will give another 40 twice daily today -Speech therapy is following and modified barium swallow did show signs of moderate to severe oral pharyngeal dysphagia -BNP was also elevated so we will give Lasix 40 mg IV push x 1 dose -Sputum culture if able--> so far unable to produce -Continue broad-spectrum antibiotics -Recommended pulmonary medicine follow-up after discharge Moderate to severe oropharyngeal dysphagia -Speech therapy is following -Modified barium swallow done yesterday -Current diet is for soft foods with honey thick liquid diet -Per discussion with his daughter he has had 3-4 episodes of pneumonia diagnosed in the last year -Highly suspect these may be aspiration related Severe malnutrition -Diet as ordered -Supplements as ordered -Dietitian is following Tachycardia -Mild and seems to be sinus -Will give low-dose metoprolol Leukocytosis -Still with mild elevation in white count however more stable Hypokalemia -Normalized however with Lasix we will repeat dosing today Toxic/metabolic encephalopathy -Seems to be resolved -continue to monitor Chronic anemia -This is not iron deficiency -Patient had iron studies done in March and iron studies were consistent with anemia of chronic disease -Baseline hemoglobin appears to run between 7 and 8 -Hemoglobin is stable -Continue to monitor HTN/HPL -Continue to hold home antihypertensives -Okay to restart home oral antihyperlipidemic agents History of DVT -Patient has not anticoagulated at this time -Continue to monitor Neuropathy -Continue home gabapentin GERD -Continue home PPI Depression/insomnia -Continue home mirtazapine DVT prophylaxis -Continue enoxaparin 40 mg daily CODE STATUS -Full code is verified on admission Medications at Discharge Home Medications atenolol 25 mg tablet 25 mg PO DAILY BP 08/23/15 acetaminophen 500 mg tablet 1,000 mg PO Q8H PRN Pain Or Fever 06/26/19 Emollient Combination No.72 [Eucerin Intensive Repair] 1 applic topical 4X/DAY PRN PRN DRY SKIN 07/07/19 gabapentin 600 mg tablet 600 mg PO QHS neuropathy #30 tabs 07/07/19 mirtazapine 15 mg tablet 15 mg PO QHS sleep #30 tabs 07/07/19 docusate sodium 100 mg capsule (Colace) 100 mg PO BID constipation 03/21/23 pantoprazole 40 mg tablet,delayed release 40 mg PO DAILY GERD 03/21/23 sertraline 100 mg tablet 150 mg PO DAILY DEPRESSION 03/21/23 ipratropium 0.5 mg-albuterol 3 mg (2.5 mg base)/3 mL nebulization soln 3 ml inhalation Q6H PRN shortness of breath 04/16/23 ciprofloxacin HCl 500 mg tablet (Cipro) 500 mg PO BID #8 tabs 04/25/23 vancomycin 25 mg/mL oral solution (Firvanq) 125 mg (5 mL) PO Q6 #0 mL 04/25/23 Hospital Course Procedures Central line placement, EKG and - (Chest x-ray/CTA of chest/modified barium swallow) Summary of Care Provided Minutes Spent on Discharge: 45 Hospital Course: Mr. Canada is an 87-year-old male who was brought to [facility] from a local care home facility on 04/19/2023 due to developing a fever, nausea, and diarrhea. Patient had a recent hospitalization in March secondary to pneumonia and after further discussion with family he has had several episodes of pneumonia in the past calendar year. His medical course has been complicated over the past year with a femoral fracture as well as hospitalizations for said pneumonia. He was recently discharged in March on 5 L nasal cannula and had been on that since. Family has noted that he is slowly getting more frail over time and coughing more with eating. In the emergency department he was noted to be afebrile but was markedly tachycardic and tachypneic on presentation. The patient then became hypotensive in the emergency department with blood pressure 80 over 50s and his CBC showed a leukocytosis with a white count of 23.5. His hemoglobin was found to be 10.3 and his platelets were 636,000. Coag studies were unremarkable and his chemistry panel showed a mildly elevated serum bicarb at 28 and a serum creatinine of 1.08 with normal LFTs. His UA was unremarkable. His ABG showed compensated metabolic acidosis. Sepsis protocol was initiated with fluid boluses however the patient remained hypotensive and a central line was placed in the right subclavian vein. He was initiated on pressors and admitted to the ICU on broad-spectrum antibiotics after cultures were obtained. With his diarrhea, stool studies were obtained and he was found to be C. difficile positive. He was started on oral vancomycin and IV Flagyl for this. His urine culture also grew Pseudomonas and he was maintained on IV antibiotics for this. With this being a recurrent C. difficile infection and a pseudomonal UTI ID was consulted to follow him during his hospital course. Levophed was only required briefly and he was able to eventually be transferred to the medical floor however his oxygen requirements were rising and speech therapy evaluated the patient was concerned about aspiration so modified barium swallow was performed which demonstrated moderate to severe oropharyngeal phase dysphagia. The patient was markedly weak, frail, and cachectic appearing. Clinically he was not significantly improving so I did have a family meeting at which time family did acknowledge his significant functional decline recently and indicated that he had expressed to them that he wished she could . We discussed hospice and they met with hospice on 04/25/2023 and agreed to hospice care at the inpatient hospice unit here and will do her. The patient was able to be discharged there on 04/25/2023. Med reconciliation was done and medications were continued that were related to comfort and we continued oral next with Cipro for 4 more days and Flagyl to complete his treatment for another 9 days. At the time of discharge she still required supplemental oxygen with varying amounts and was on 5 L at the time of discharge. Discharge diagnoses: Septic shock Hypovolemic shock C. difficile colitis Pseudomonas UTI Acute on chronic hypoxic respiratory failure Moderate to severe oropharyngeal phase dysphagia Severe malnutrition Tachycardia-resolved José Miguel ptosis Hypokalemia-resolved Toxic/metabolic encephalopathy-resolved Chronic anemia Hypertension Hyperlipidemia History of DVT Neuropathy GERD Depression Insomnia Physical Exam Narrative Extensive conversation with the son and who are at the bedside later in the day. They expressed that Mr. Nancie had expressed to them his desire to . We reviewed his recent medical course and the fact that he seems to be slowly deteriorating over time. They both agree that they have noticed his functional capabilities and health dwindling and note that he would not want to live coming in and out of the hospital. I discussed with him the option of hospice and they were interested and met with hospice later in the day. Const alert, oriented x3, no apparent distress and average body habitus Constitutional Narrative: elderly white male, lying in bed appears comfortable, at bedside, appears comfortable and nontoxic, currently on 5 L of supplemental oxygen General Appearance: cooperative, comfortable and frail Orientation / Consciousness: awake, oriented to person and oriented to place Exam Limitations: other limitations Nutritional Appearance: cachectic HEENT normocephalic, head/scalp atraumatic and moist oral mucous membranes HEENT Narrative: Moderate to severe hearing loss, dentition is poor, Mallampati is 1, no thrush, lips are dry Eyes PERRL; Negative for conjunctivae normal Eyes Narrative: Mild conjunctival pallor bilaterally, no scleral icterus Neck no lymphadenopathy and supple Neck Narrative: Trachea midline, no thyroid enlargement Resp normal respiratory effort, no retractions, no use of accessory muscles and No clear to auscultation bilaterally Resp Narrative: Rhonchi at bases bilateral apices are clear, cough is markedly weak, tachypnea has resolved, intermittent cough is severely rhonchorous, few scattered crackles, breathing is shallow Auscultation: crackles and rhonchi; Negative for wheezes Cardio regular rate, regular rhythm, S1 normal heart sound, S2 normal heart sound, no murmurs, no rub, no gallops and no clicks GI normal to inspection, nondistended, normoactive bowel sounds, soft to palpation and non-tender GI Narrative: Abdomen is scaphoid Extremity no clubbing, cyanosis or edema Extremity Narrative: Pedal pulses are 2+, decreased lean muscle mass Skin skin turgor normal, no jaundice, no petechiae and no mottling Skin Narrative: skin is dry and flaky on legs bilaterally, pale Neuro oriented x3, moves all extremities and no focal motor deficits Neuro Narrative: Generalized weakness noted, patient is hard of hearing Speech: speech normal Psych Psych Narrative: Affect is flat however patient appears fatigued and likely appropriate for current situation, eye contact is good Medical Records Data Medical Nutrition Assessment Dietitian: Malnutrition Criteria Met Start: 04/20/23 09:32 Freq: Status: Active Protocol: Document 04/21/23 10:38 SLA (Rec: 04/21/23 10:38 [facility] Desktop) Nutrition Malnutrition Evidence of Malnutrition Exists Yes Malnutrition (severe): Acute Illness/Injury Evidenced By Suboptimal Energy Intake ( Severe),Weight Loss (Severe) Clinical Problem Acute Disease or Injury Related Malnutrition Etiology severe, acute malnutrition related to inadequate energy intake w/ GI dysfunction Signs/Symptoms as evidenced by unintentional 11% wt loss < 1 month, estimated PO intake meeting < 75% of estimated energy needs, BMI 19.1 Status Active Problem Recommendation Dietitian Recommendations/Changes Continue regular diet as tolerated- texture/consistency per [employer]; Provide ensure plus high protein 120mL TID w/ medpass for additional nutrition if consumed Weight / BMI Weight Weight: 50 kg Body Mass Index (BMI) 18.3 ABG / Lab / Microbiology Data 04/25/23 07:20 04/25/23 07:20 Laboratory: Laboratory Results - last 24 hr 04/25/23 07:20: WBC 14.7 H, RBC 3.44 L, Hgb 9.6 L, Hct 31.5 L, MCV 91.6, MCH 27.9, MCHC 30.5 L, RDW Std Deviation 58.4 H, RDW Coeff of Isai 17.8 H, Plt Count 450, MPV 8.4, Immature Gran % (Auto) 1.200 H, Neut % (Auto) 76.8 H, Lymph % (Auto) 10.9 L, [place] % (Auto) 9.2, Eos % (Auto) 1.2, Baso % (Auto) 0.7, Absolute Neuts (auto) 11.3 H, Absolute Lymphs (auto) 1.61, Nucleated RBC % 0, Sodium 140, Potassium 3.5, Chloride 105, Carbon Dioxide 31.0, Anion Gap 4 L, BUN 8, Creatinine 0.88, Estim Creat Clear Calc 41.82, Est GFR (MDRD) Af Amer 105, Est GFR (MDRD) Non-Af 87, BUN/Creatinine Ratio 9.1 L, Glucose 107 H, Calcium 8.9, Magnesium 1.7 Microbiology: Microbiology 04/19/23 12:45 Blood Culture (Wb) - Left Forearm Blood Culture - Final No growth in 5 days. 04/19/23 12:40 Blood Culture (Wb) - Right Forearm Blood Culture - Final No growth in 5 days. 04/19/23 12:55 Urine, Catheterized Urine Culture - Final Pseudomonas aeruginosa 04/19/23 14:00 Stool Stool Lactoferrin - Final 04/19/23 14:00 Stool C. difficile GDH Antigen & Toxins - Final 04/19/23 14:00 Stool C. difficile DNA Amplification - Final 04/19/23 14:00 Stool Enteric Bacteriology - Final Radiography Diagnostic Testing: Radiology Impression Chest CTA 04/25/23 08:59 IMPRESSION: No evidence of a pulmonary embolism. Bibasilar pulmonary infiltrates with scattered infiltrates in the upper lobes. There is a 1 cm x 1 cm pleural-based nodule in the posterior-lateral aspect of the left upper lobe. Follow-up recommended. Electronically Signed: Ilir Patel MD at 10:02 EST Reading Location ID and State: [address] [place] [address] , Service support , D/C Instructions Discharge Diet: No restrictions Meaningful Use Info Meaningful Use Diagnoses (Choose all that apply): None applicable Discharge Plan Admission Admit Date/Time: 04/19/23 18:30 Primary Reason for Your Visit: Fevers/nausea/vomiting Attending Provider: Aleena Contreras Primary Care Provider: Mei Ashraf Consulting Providers: Patric Roberts; Charbel Recio; Dread Cedillo Discharge Orders/Prescriptions Prescriptions: New vancomycin [Firvanq] 25 mg/mL Recon Soln 125 mg PO Q6 Qty: 0 0RF Rx Instructions: 9 more days ciprofloxacin HCl [Cipro] 500 mg tablet 500 mg PO BID Qty: 8 0RF Rx Instructions: 4 more days Continued ipratropium-albuterol 0.5 mg-3 mg(2.5 mg base)/3 mL solution for nebulization 3 ml inhalation Q6H PRN (Reason: shortness of breath) Rx Instructions: 5am, 11am, 4pm, 9pm atenolol 25 MG tablet 25 mg PO DAILY acetaminophen 500 MG tablet 1,000 mg PO Q8H PRN (Reason: Pain Or Fever) Emollient Combination No.72 [Eucerin Intensive Repair] 1 APPLIC lotion 1 applic topical 4X/DAY PRN PRN (Reason: DRY SKIN) 0RF Protocol: *Topical Application Instructions APPLICATION INSTRUCTIONS: Bilateral arms. gabapentin 600 MG tablet 600 mg PO QHS Qty: 30 0RF mirtazapine 15 MG tablet 15 mg PO QHS Qty: 30 0RF sertraline 100 mg tablet 150 mg PO DAILY docusate sodium [Colace] 100 mg capsule 100 mg PO BID pantoprazole 40 mg tablet,delayed release (DR/EC) 40 mg PO DAILY Discontinued Boost VHC 0.09-2.25 gram-kcal/mL liquid 120 ml PO TID ICaps AREDS2 250 mg-200 unit -12.5 mg-1 mg capsule 1 cap PO DAILY polyethylene glycol 3350 17 GM packet 17 g PO DAILY Qty: 30 0RF potassium chloride 20 MEQ tablet 20 meq PO DAILY Qty: 30 0RF furosemide 20 MG tablet 20 mg PO DAILY Qty: 30 0RF colestipol 1 gram tablet 1 g PO BID cholecalciferol (vitamin D3) [Vitamin D3] 50 mcg (2,000 unit) capsule 2,000 unit PO DAILY lisinopril 5 mg tablet 5 mg PO DAILY tramadol 50 mg Tablet 50 mg PO TID PRN PRN (Reason: Pain Score 4-10) 7 Days Qty: 21 0RF ferrous sulfate [FeroSul] 325 mg (65 mg iron) tablet 325 mg PO DAILY 30 Days Qty: 30 0RF Referrals / Follow Up: Mei Ashraf MD [Primary Care Provider] - Disposition Disposition (needs filled in before D/C Order can be placed): Hospice in Medical Facility Charges/Coding Visit Charges Inpatient E&M: 56435 Disch Hosp >30min
--- NOTE | 2023-04-25 16:50 | CASEMGMT ---
Addendum entered by Salima Saeed 04/25/23 16:53: [facility] updated that pt will not be coming to them. PITER Schwartz Original Note: [facility] here and met with pt and family. Family agreeable to hospice services and pt has been approved for the [facility]. Physician notified and pt to discharge today. Hospice mobile transportation to transport. DC paperwork provided to Hospice nurse. PITER Schwartz
--- NOTE | 2023-04-25 17:18 | NURSING ---
REPORT CALLED TO ANA AT THE [facility]
== END 2023-04-25 17:55 | disposition hospice, inpatient (51) | DRG 871 ==
LOC: ED 16:29 → ICU 19:29 → MS3 04-22 17:44
PROVIDERS: Internal Medicine; Physician Assistant; Admitting Provider Family Medicine; Emergency Provider Emergency Medicine; PCP Internal Medicine; Visit Provider Internal Medicine
DX: A41.4 Sepsis due to anaerobes (principal); E43 Unspecified severe protein-calorie malnutrition; J96.21 Acute and chronic respiratory failure with hypoxia; R57.1 Hypovolemic shock; G93.41 Metabolic encephalopathy; R65.21 Severe sepsis with septic shock; A04.71 Enterocolitis due to Clostridium difficile, recurrent; J96.11 Chronic respiratory failure with hypoxia; E87.1 Hypo-osmolality and hyponatremia; N39.0 Urinary tract infection, site not specified; Z68.1 Body mass index [BMI] 19.9 or less, adult; A41.52 Sepsis due to Pseudomonas; I10 Essential (primary) hypertension; F32.A Depression, unspecified; D63.8 Anemia in other chronic diseases classified elsewhere; F41.9 Anxiety disorder, unspecified; K21.9 Gastro-esophageal reflux disease without esophagitis; E78.5 Hyperlipidemia, unspecified; G62.9 Polyneuropathy, unspecified; E87.6 Hypokalemia; E86.0 Dehydration; G31.84 Mild cognitive impairment of uncertain or unknown etiology; E87.70 Fluid overload, unspecified; R73.9 Hyperglycemia, unspecified; R53.81 Other malaise; H91.90 Unspecified hearing loss, unspecified ear; B96.5 Pseudomonas (aeruginosa) (mallei) (pseudomallei) as the cause of diseases classified elsewhere; T41.5X6A Underdosing of therapeutic gases, initial encounter; Y92.129 Unspecified place in nursing home as the place of occurrence of the external cause; R13.12 Dysphagia, oropharyngeal phase; G47.00 Insomnia, unspecified; Z79.899 Other long term (current) drug therapy; Z87.891 Personal history of nicotine dependence; Z96.642 Presence of left artificial hip joint; S72.92XD Unspecified fracture of left femur, subsequent encounter for closed fracture with routine healing; X58.XXXD Exposure to other specified factors, subsequent encounter
CPT/HCPCS: 36415; 36600; 71045; 71046; 71275; 74230; 80048; 80053; 81001; 82803; 83605; 83630; 83735; 83880; 84100; 85025; 85610; 85730; 87040; 87077; 87086; 87088; 87184; 87186; 87493; 87506; 92526; 92610; 92611; 93005; 94668; 94762; 97162; 97166; 97530; 97535; 97802; 99252; 99285; J7030; J7050; Q9967; A4216; G0463; J1940

== ENCOUNTER 2023-05-26 22:23 | Emergency (ER) | payer MEDICARE, SELFPAY ==
[2023-05-26 22:24] VITALS: BP 112/82; PULSE 87; RESP 19; TEMP 35.9; O2SAT 91; O2SAT 96; BMI 18.0
[2023-05-26 22:29] VITALS: BP 112/82; PULSE 85; RESP 19; O2SAT 91
--- NOTE | 2023-05-26 22:59 | RAD_ITS ---
STUDY: X-RAY - PELVIS REASON FOR EXAM: Male, 87 years old. fall TECHNIQUE: One view of the pelvis was obtained. COMPARISON: None. FINDINGS: Nonspecific colonic distention with question diverticulosis. Normal visualized soft tissue structures. There are multiple calcified phleboliths. Possible diffuse osteopenia. There is narrowing with cortical sclerosis and osteophyte formation of the sacroiliac joint consistent with degenerative osteoarthritic changes. Gently disease of the lower lumbar spine. Normal visualized bilateral superior and inferior pubic rami. Normal pubic symphysis. Normal ischial tuberosities. Normal visualized right femoral head. Normal right acetabulum. There is mild articular joint space narrowing of the right hip. There is a left-sided hip prosthesis in place. No acute fracture. Normal alignment. RAD/Pelvis 1 or 2 Views IMPRESSION: Left-sided hip prosthesis in place with normal alignment. Osteopenia with underlying degenerative disease, otherwise no obvious fracture seen. Electronically Signed: Manju Porter MD at 23:58 EST ,
--- NOTE | 2023-05-26 22:59 | CT_ITS ---
INDICATION: head injury EXAMINATION: CT BRAIN - CT Head or Brain W/O Contrast Injection TECHNIQUE: Multiple axial images were obtained of the head without intravenous contrast. A radiation dose optimization technique was used for this scan. IV Contrast dosage and agent: None. COMPARISON: None FINDINGS: BRAIN PARENCHYMA: No intra- or extra-axial hemorrhage. No evidence of acute infarct. No intracranial mass or mass effect. Mild periventricular and subcortical white matter hypodense chronic small vessel white matter ischemic change. There is preservation of the han/white matter interface. Posterior fossa structures are unremarkable. Carotid and vertebral atherosclerosis. CSF SPACES: Mild global cerebral volume loss. No hydrocephalus. Basal cisterns are patent. CALVARIUM, SKULL BASE, PARANASAL SINUSES AND MASTOID AIR CELLS: No acute osseous finding. Par[place]al sinuses are clear. Mastoid air cells are clear. ORBITS: Both globes, extraocular muscles, optic nerves and retrobulbar fat appear unremarkable. ASPECTS Score for Acute Strokes: 10 CT/Brain/Head without Contrast IMPRESSION: No CT evidence of acute intracranial hemorrhage or injury. Senescent changes compatible with age. Electronically Signed: Gregg Maloney MD at 0:21 EST Reading Location ID and State: [facility] / [place] Tel , Service support ,
--- NOTE | 2023-05-26 22:59 | CT_ITS ---
INDICATION: fall EXAMINATION: CT CERVICAL SPINE - CT Spine Cervical W/O Contrast Injection TECHNIQUE: Helically acquired images were obtained of the cervical spine. 2D reformatted images were reviewed. A radiation dose optimization technique was used for this scan. IV Contrast dosage and agent: None. COMPARISON: None. FINDINGS: VERTEBRAE: Fragmentation of the medial margin of the left occipital condyle, coronal image 26 and 27 of uncertain chronicity, possibly acute. No vertebral fracture or acute compression deformity. No discrete lytic or blastic abnormality. Straightening of the normal cervical lordosis with degenerative grade 1 anterolisthesis C4 on C5. DISCS and SPINAL CANAL: Diffuse disc height loss, severe in the mid to lower cervical spine with small posterior disc osteophyte complexes causing mild spinal canal narrowing and moderate neural foraminal stenosis. . NECK SOFT TISSUES: No prevertebral soft tissue swelling. There is no cervical adenopathy. LUNG APICES: Clear. Mild partially seen aortic arch ectasia at 4.[address]/Spine Cervical without Contras IMPRESSION: Age-indeterminate fragmentation at the medial left occipital condyle, possibly acute though more chronic appearance on comparison CT head. Comparison with prior cervical spine imaging would be helpful if available. No evidence of cervical spinal fracture. Moderate spondylosis. Mild partially seen aortic arch ectasia at 4.0 cm. Electronically Signed: Gregg Maloney MD at 0:35 EST ,
[2023-05-26] MEDS: Lidocaine 2% /Epi 1:100 (20ml) 20 ML VIAL INFILT (23:36)
[2023-05-27 00:23] VITALS: BP 105/77; PULSE 71; RESP 21; O2SAT 95
[2023-05-27 02:13] VITALS: BP 92/75; PULSE 78; RESP 20; O2SAT 97
--- NOTE | 2023-05-27 05:37 | EDS_ITS ---
HPI History of Present Illness Chief Complaint: Fall Informant: patient, EMS and SNF Narrative Narrative: Patient is an 87-year-old male with past medical history of hypertension and debility and chronic hypoxemic respiratory failure on chronic O2. He is also dementia and is only A&O x 1. Facility states he was found down after an unwitnessed fall and had signs of trauma to his head. The patient cannot offer any further history based on his dementia status. However the nursing reports he is at his baseline mental status. With concern he may have caused underlying head injury from the fall he was sent in for evaluation. [facility] Medical History Anemia Anxiety DVT (deep venous thrombosis) Former smoker On home oxygen therapy Wears hearing aid in both ears Home Medications atenolol 25 mg tablet 25 mg PO DAILY BP 08/23/15 [History Last Taken 09/18/15 04:45] acetaminophen 500 mg tablet 1,000 mg PO Q8H PRN Pain Or Fever 06/26/19 [History Last Taken Unknown] Emollient Combination No.72 [Eucerin Intensive Repair] 1 applic topical 4X/DAY PRN PRN DRY SKIN 07/07/19 [Rx Last Taken Unknown] gabapentin 600 mg tablet 600 mg PO QHS neuropathy #30 tabs 07/07/19 [Rx Last Taken Unknown] mirtazapine 15 mg tablet 15 mg PO QHS sleep #30 tabs 07/07/19 [Rx Last Taken Unknown] docusate sodium 100 mg capsule (Colace) 100 mg PO BID constipation 03/21/23 [History Last Taken Unknown] pantoprazole 40 mg tablet,delayed release 40 mg PO DAILY GERD 03/21/23 [History Last Taken Unknown] sertraline 100 mg tablet 150 mg PO DAILY DEPRESSION 03/21/23 [History Last Taken Unknown] ipratropium 0.5 mg-albuterol 3 mg (2.5 mg base)/3 mL nebulization soln 3 ml inhalation Q6H PRN shortness of breath 04/16/23 [History Last Taken Unknown] Allergy/AdvReac Type Severity Reaction Status Date / Time No Known Allergies Allergy Verified 05/27/23 03:09 Family History Other Cancer Heart disease Surgical History Status post left hip replacement Social History Smoking Status: Former smoker ROS ROS ED ROS Narrative Unable to obtain review of systems based on dementia Review of Systems ROS Unobtainable: due to mental status EXAM Physical Exam Const Vital Signs: 05/27/23 00:23 05/27/23 02:13 05/27/23 06:00 Pulse Rate 71 78 69 Respiratory Rate 21 H 20 H 18 Blood Pressure 105/77 92/75 107/68 Blood Pressure Mean 86 80 81 Pulse Ox 95 97 93 Oxygen Delivery Method Nasal Cannula Nasal Cannula Oxygen Flow Rate (L/min) 4 4 Positive well developed and cachectic General Appearance ED: well developed and cachectic Nutritional Appearance: cachectic HEENT Reports dry mucous membranes HEENT Narrative: Patient has a star-shaped dermal layer abrasion to the midportion of the frontal parietal portion of the scalp. Along the upper occipital/posterior parietal section of the scalp there is a 2.5 cm curvilinear subcutaneous layer deep laceration with minimal ooze of blood and no foreign body. Otherwise no signs of depressed or basilar skull fracture Mouth ED: Yes dry mucous membranes Mouth: dry mucous membranes Eyes PERRL and EOMs intact bilaterally Neck supple Neck Narrative: No bony deformity or step-off of the cervical spine no midline pain with palpa tion Chest Wall palpation of chest normal Resp normal respiratory effort Resp Narrative: Breath sounds are diminished throughout with rhonchi and expiratory wheeze noted in the bilateral bases otherwise no nasal flaring retractions tachypnea or accessory muscle use Cardio regular rate and regular rhythm GI non-tender and non-distended GI Narrative: Abdomen is soft and nondistended with hypoactive bowel sounds No voluntary guarding or rigidity No pulsatile mass or fluid wave Auscultation: hypoactive bowel sounds Palpation: soft Back/Spine Back/Spine Narrative: No bony deformity or step-off of the thoracic or lumbar spine no midline pain with palpation Extremity Extremity Narrative: Pelvis is stable there is no shortening or external rotation of either lower extremity No obvious bony deformity or joint effusion There is full passive range of motion of all extremities Neuro CN's II-XII intact bilaterally Neuro Narrative: Patient is lethargic but awakes to voice with GCS of 13. There is no focal neurologic deficits and he appears at his baseline mental status consistent with pain alert and oriented to person only. Psych Psych Narrative: Patient has a flat affect Skin Skin Narrative: Abrasion and laceration to the scalp as documented above Skin turgor is increased MDM MDM MDM Narrative Medical decision making narrative: Patient arrived to the ER with stable vitals at his baseline mental status per senior living. He cannot offer any history regarding the fall but as he has signs of head injury there is concern for skull fracture versus subdural or epidural hematoma even though he does not endorse neck pain there is concern he could have an injury there so CTs of the head and cervical spine were obtained. There is no obvious signs of long bone injury but based on the fall a pelvis x- ray was added to ensure there is no hip fracture. Pelvis x-ray revealed degenerative changes without acute fracture. Head CT revealed no signs of underlying trauma. Neck x-ray questioned age-indeterminate fracture of the left occipital condyle the patient does not have any signs of trauma or pain at this site and therefore do not feel it is acute in nature. The patient had his wounds closed as documented below and as he is at his baseline mental status with imaging showing no signs of acute trauma he is safe to return to the senior living Patient had the abrasion to the midportion of the frontal parietal section of the scalp cleaned with chlorhexidine. Following this Dermabond was placed over top the wound provide hemostasis The curvilinear laceration along the upper occipital/posterior portion of the parietal scalp was cleaned with chlorhexidine. It was then anesthetized using 6 mL of 2% lidocaine with epinephrine and local fashion. The wound was copiously irrigated with normal saline. Then 11 francois were placed to bring the wound together good approximation. Patient tolerated procedure well without complication. Radiography Diagnostic Testing: Clinical Impression(s) from Imaging Studies Brain CT 05/26/23 22:59 IMPRESSION: No CT evidence of acute intracranial hemorrhage or injury. Senescent changes compatible with age. Electronically Signed: Gregg Maloney MD at 0:21 EST , Cervical Spine CT 05/26/23 22:59 IMPRESSION: Age-indeterminate fragmentation at the medial left occipital condyle, possibly acute though more chronic appearance on comparison CT head. Comparison with prior cervical spine imaging would be helpful if available. No evidence of cervical spinal fracture. Moderate spondylosis. Mild partially seen aortic arch ectasia at 4.0 cm. Electronically Signed: Gregg Maloney MD at 0:35 EST , Pelvis X-Ray 05/26/23 22:59 IMPRESSION: Left-sided hip prosthesis in place with normal alignment. Osteopenia with underlying degenerative disease, otherwise no obvious fracture seen. Electronically Signed: Manju Porter MD at 23:58 EST , Pelvis x-ray as interpreted by the emergency medicine physician reveals hardware to be intact and in place with osteoporosis without acute fracture or dislocation Discharge Plan Triage Chief Complaint: Fall ED Provider: Bernard Holt Dx/Rx/DC Orders Clinical Impression: Head injury, Laceration of scalp, Debility, Hypertension Instructions: ED Head Injury (Adult), ED Laceration Scalp Stitches or Francois Prescriptions: No Action ipratropium-albuterol 0.5 mg-3 mg(2.5 mg base)/3 mL solution for nebulization 3 ml inhalation Q6H PRN (Reason: shortness of breath) Rx Instructions: 5am, 11am, 4pm, 9pm atenolol 25 MG tablet 25 mg PO DAILY acetaminophen 500 MG tablet 1,000 mg PO Q8H PRN (Reason: Pain Or Fever) Emollient Combination No.72 [Eucerin Intensive Repair] 1 APPLIC lotion 1 applic topical 4X/DAY PRN PRN (Reason: DRY SKIN) 0RF Protocol: *Topical Application Instructions APPLICATION INSTRUCTIONS: Bilateral arms. gabapentin 600 MG tablet 600 mg PO QHS Qty: 30 0RF mirtazapine 15 MG tablet 15 mg PO QHS Qty: 30 0RF sertraline 100 mg tablet 150 mg PO DAILY docusate sodium [Colace] 100 mg capsule 100 mg PO BID pantoprazole 40 mg tablet,delayed release (DR/EC) 40 mg PO DAILY Primary Care Provider: Mei Ashraf Referrals: Mei Ashraf MD [Primary Care Provider] - Activity Restrictions/Additional Instructions: Please return to the ER or see your family doctor in 10 to 14 days for staple removal Disposition Disposition: Home, Self Care Discharge Date/Time: 05/27/23 07:00 Capacity Legal General Accounting Clerk Reflex Medical hold order details:: IF a medical hold is selected below, a suggested order for a MEDICAL HOLD will reflex upon signing the document. Next of kin: [place] law dictates a PRIORITY LIST for identifying legal decision-maker/legal next of kin in the following order (LNOK): 1st: The patient?s legal guardian, if any 2nd: The patient's spouse (if status is questionable, consult Risk Management) 3rd: The patient?s adult child(mackenzie) (majority, if multiple children) 4th: The patient?s parents 5th: The patient?s adult siblings (majority, if multiple children siblings)
[2023-05-27 06:00] VITALS: BP 107/68; PULSE 69; RESP 18; O2SAT 93
== END 2023-05-27 07:00 | disposition home or self-care (01) ==
PROVIDERS: Emergency Provider Emergency Medicine; PCP Internal Medicine; Referring Provider Emergency Medicine; Visit Provider Emergency Medicine
DX: S01.01XA Laceration without foreign body of scalp, initial encounter (principal); F03.90 Unspecified dementia, unspecified severity, without behavioral disturbance, psychotic disturbance, mood disturbance, and anxiety; J96.11 Chronic respiratory failure with hypoxia; I10 Essential (primary) hypertension; W19.XXXA Unspecified fall, initial encounter; R53.81 Other malaise; Z79.899 Other long term (current) drug therapy; Z99.81 Dependence on supplemental oxygen; Z87.891 Personal history of nicotine dependence; M81.0 Age-related osteoporosis without current pathological fracture
CPT/HCPCS: 12001; 70450; 72125; 72170; 99283